=== PATIENT | female | born 1950 | race Caucasian/White ===

== ENCOUNTER → 2018-08-26 11:45 | Outpatient (CLI) | payer OTHER, SELFPAY ==
--- NOTE | 2018-08-26 | DI.RAD.S_ITS ---
PROCEDURE: XR CHEST 2V INDICATIONS: SWELLING TECHNIQUE: 2 views of the chest were acquired. COMPARISON: [facility], , CHEST 1 VIEW, 06/16/2014, 10:36. FINDINGS: Surgical changes and devices: None. Lungs and pleura: No pleural effusions or pneumothorax. There is a 9 mm nodular density in the right upper lobe, new since the last exam. Mediastinum: Mediastinal contours are normal. Heart size is normal. Bones and chest wall: No suspicious bony abnormalities. Soft tissues appear unremarkable. IMPRESSION: 1. No acute cardiopulmonary disease. 2. A 9 mm nodular density in the right upper lobe. Recommend chest CT for followup dilation. Dictated by: Elaine De Souza M.D. on 08/26/2018 at 16:33 Approved by: Elaine De Souza M.D. on 08/26/2018 at 16:34
--- NOTE | 2018-08-26 | DI.US.S_ITS ---
PROCEDURE: US EXTREMELY NONVASC UPPER RT INDICATIONS: SWELLING TECHNIQUE: Real-time scanning was performed of the right neck, with image documentation. COMPARISON: None. FINDINGS: Targeted sonographic imaging of the site of the patient's spine was performed within the right supraclavicular region at the base of the right neck. No soft tissue mass or loculated fluid collection is identified within this region. There are no enlarged lymph nodes. IMPRESSION: No sonographic abnormality is identified to correlate with the patient's swelling at the base of the right neck. Dictated by: Peter Streeter M.D. on 08/26/2018 at 13:42 Approved by: Peter Streeter M.D. on 08/26/2018 at 13:45
== END ==
PROVIDERS: PCP Physician Assistant; Visit Provider Physician Assistant
DX: R22.1 Localized swelling, mass and lump, neck (principal); R05 Cough; R91.1 Solitary pulmonary nodule
CPT/HCPCS: 71046; 76882

== ENCOUNTER → 2018-09-08 09:05 | Outpatient (CLI) | payer OTHER, SELFPAY ==
--- NOTE | 2018-09-08 | DI.CT.S_ITS ---
PROCEDURE: CT CHEST WO CON INDICATIONS: COUGH TECHNIQUE: Noncontrast 5 mm thick sections acquired from the pulmonary apices to the posterior costophrenic angles. 7 mm thick coronal and sagittal MIP reformats were then acquired. For radiation dose reduction, the following was used: automated exposure control, adjustment of mA and/or kV according to patient size. COMPARISON: [facility], CR, XR CHEST 2V, 08/26/2018, 11:48. FINDINGS: Image quality: Excellent. Lungs and pleura: Several pulmonary soft tissue nodules are seen. The largest is seen within the left lower lobe on series 2 image 40 measuring 7 mm. There is an additional right middle lobe pulmonary nodule on series 2 image 31 measuring 5-6 mm. There is no CT correlate seen for the apparent right upper lobe nodule, however. Poorly defined opacity can be seen involving the lateral right middle lobe. Differential diagnosis includes mild infiltrate and atelectasis. Likely atelectasis can be seen involving the inferomedial right lower lobe. No pneumothorax or pleural effusions are seen. The central airways are patent. Mediastinum: Heart size is normal. No pericardial effusion. No mediastinal adenopathy by size criteria. Thoracic aorta and central pulmonary arteries are normal in size. Esophagus is normal in caliber. No hiatal hernia. Bones and chest wall: No suspicious bony lesions. No vertebral body compression fractures. Age-appropriate bony degenerative changes are seen. No axillary or supraclavicular adenopathy by size criteria. Thyroid gland is small in size. Abdomen: Visualized upper abdominal solid organs and bowel loops appear normal in the absence of contrast. IMPRESSION: Soft tissue pulmonary nodules are seen, with the largest a 7 mm left lower lobe pulmonary nodule. A followup noncontrast chest CT is recommended in 3 months. Within the right middle lobe, there is mild infiltrate versus atelectasis seen laterally. No definite CT correlate is seen for the apparent right upper lung nodule. Dictated by: Ward Rashid M.D. on 09/08/2018 at 10:18 Approved by: Ward Rashid M.D. on 09/08/2018 at 10:23
== END ==
PROVIDERS: PCP Physician Assistant; Visit Provider Family Medicine
DX: R05 Cough (principal); R91.8 Other nonspecific abnormal finding of lung field
CPT/HCPCS: 71250

== ENCOUNTER 2018-10-07 10:14 | Day surgery (SDC) | payer OTHER, SELFPAY ==
[2018-10-07] VITALS (7 sets, daily range): BP systolic 124–179; BP diastolic 79–106; PULSE 65–77; RESP 10–17; TEMP 36–37; O2SAT 92–97; BMI 36.0
--- NOTE | 2018-10-07 | PATH_ITS ---
[facility] Accession Number: [id number] . 01 Material submitted: . PART A: GE JUNCTION BIOPSY PART B: ANTRUM BIOPSY PART C: DUODENUM BIOPSY . 02 Diagnosis: A. Gastroesophageal Junction, Biopsy: Squamocolumnar junctional mucosa with no diagnostic abnormality. Negative for specialized intestinal metaplasia, dysplasia or malignancy. . B. Designated Antrum, Biopsy: Gastric body mucosa with no diagnostic abnormality. No evidence of Helicobacter organisms on H/E stain. Negative for intestinal metaplasia, dysplasia or malignancy. . C. Duodenum, Biopsy: Duodenal mucosa with no diagnostic abnormality. Negative for active inflamation, features of sprue, dysplasia or malignancy. [facility]/10/11/2018 . 02 Electronically signed: . Delon Carbajal MD, PhD, Pathologist NPI- [id number] . 01 Gross description: . Part A: GE JUNCTION BIOPSY: Received in formalin is 1 fragment(s) of hennessy, soft tissue measuring 0.3 x 0.3 x 0.3 cm submitted entirely in 1 cassette(s) Part B: ANTRUM BIOPSY: Received in formalin is 1 fragment(s) of hennessy, soft tissue measuring 0.4 x 0.3 x 0.3 cm submitted entirely in 1 cassette(s) Part C: DUODENUM BIOPSY: Received in formalin is 1 fragment(s) of hennessy, soft tissue measuring 0.4 x 0.4 x 0.3 cm submitted entirely in 1 cassette(s) /CKI /CKI . 02 Pathologist provided ICD-10: K21.9, R10.13 . 02 CPT . 439128, 518174, [id number] Performed at: [address], [place], [place] [id number] MD Emiliano Velásquez MD Phone: [phone] Performed at: 02 [facility] [address] [place] [id number] MD Kendra Garcia MD Phone: [phone]
[2018-10-07] MEDS: SODIUM CHLORIDE 0.9% 1,000 ML 200 ML IV (11:01)
[2018-10-07] MEDS: TETRACAINE/BENZOCAINE/BUTAMBEN (CETACAINE) BOTTLE 1 SPRAY TOP (11:24)
[2018-10-07] MEDS: LIDOCAINE 4% SOLN 50 ML 20 ML TOP (11:24)
[2018-10-07] MEDS: MIDAZOLAM 5 MG/5 ML VIAL IV (11:47)
[2018-10-07] MEDS: fentaNYL 250 MCG/5 ML INJ IV (11:48)
--- NOTE | 2018-10-07 12:06 | PM.HP.1 ---
History of Present Illness Date Patient Seen: 10/07/18 Time Patient Seen: 12:06 Chief complaint: 03750 EGD Narrative: Pleasant 68-year-old lady who presents today for an esophagogastroduodenoscopy. She has a history of dysphagia and her symptoms have returned. She reports that in the past, she believes that she was treated with dilation for an esophageal stricture. She reports dysphagia with any liquids of any variety. Whether thin or thickened. She denies any unexplained weight loss. She is also due for a colonoscopy for a history of colon polyps and is actually overdue. She has declined that once again today and declined it at the time of scheduling. Patient History Family & Social History Family History: Reviewed 10/07/18 by Alina Montoya MD Social History: household members spouse Meds Home Medications Medication Instructions Recorded Confirmed Type aspirin 81 mg PO QDAY #0 08/14/16 History lisinopril 40 mg PO BID #0 08/14/16 History atorvastatin [Lipitor] 40 mg PO QDAY #0 07/20/17 History clonidine HCl 0.1 mg PO Q12H #0 07/20/17 History ondansetron [Zofran ODT] 4 mg SUBLINGUAL Q6HP PRN #20 odt 10/17/17 Rx hydrocodone-acetaminophen [[place]] 1 tab PO Q6HP PRN #10 tab 10/19/17 Rx duloxetine 20 mg PO DAILY 10/07/18 10/07/18 History gabapentin 800 mg PO BID 10/07/18 10/07/18 History hydrochlorothiazide 12.5 mg PO DAILY 10/07/18 10/07/18 History levothyroxine 50 mcg PO DAILY 10/07/18 10/07/18 History propranolol 40 mg PO BID 10/07/18 10/07/18 History ranitidine HCl 150 mg PO DAILY 10/07/18 10/07/18 History Allergies Allergy/AdvReac Type Severity Reaction Status Date / Time Iodine and Iodide Containing Allergy Severe pass out Verified 10/07/18 10:54 Produc [IODINE AND IODIDE CONTAINING PRODUC] codeine [CODEINE] Allergy Intermediate HIVES, Verified 10/07/18 10:54 NAUSEA nitrofurantoin Allergy Mild Rash Verified 10/07/18 10:54 [NITROFURANTOIN] Review of Systems Review of Systems All systems reviewed & are unremarkable except as noted in HPI and below Exam Vital Signs (past 8 hours): - 10/07/18 10:55 Temperature 97.1 F L Pulse Rate 71 Respiratory Rate 16 Blood Pressure 179/87 H Pulse Oximetry 97 Oxygen Delivery Method Room Air Narrative Exam Narrative: Grecia lady who appears a little older than her stated age HEENT: Normocephalic and atraumatic, pupils equal round reactive to light accommodation with anicteric sclera Lungs: Clear but very shallow in distant breath sounds. Heart: Regular rate and rhythm Abdomen: Soft, rotund, active bowel sounds Extremities: Trace edema bilaterally Assessment & Plan Plan: Assessment/Plan Narrative: Grecia lady with a history of esophageal stricture who is complaining of recurrent symptoms of dysphagia. We discussed the risks and benefits of soccer gastroduodenoscopy and the patient expressed a desire to complete the procedure today. She specifically concerned about waking up during the procedure she reports that happened when she had 1 in [place] and she has been very nervous about repeating it. I assured her that we will make her as comfortable as safely possible.
--- NOTE | 2018-10-07 12:09 | PM.OP.1 ---
Operative Date/Time/Diagnoses Date of procedure: 10/07/18 Time of procedure: 12:09 Pre-op diagnosis: Dysphagia Post-op diagnosis: same Procedure & Clinicians Procedure: Esophagogastroduodenoscopy with biopsies Same procedure as scheduled: Yes Indications: Dysphagia Surgeon: Alina Montoya Anesthesia Type: Sedation (Versed 4 mg; fentanyl 150 mcg) Operative Notes Findings: 1. Normal-appearing duodenum 2. Normal-appearing antrum 3. GE junction at 37-38 cm from the incisors. The mucosal junction is poorly defined. 4. Schatzki ring at 36-37 cm from the incisors. Wide open and without any evidence of stricture. 5. Normal esophageal mucosa 6. Normal posterior oropharynx 7. Impressive and alarming sleep apnea Closure Type: not applicable Procedure in detail: After obtaining informed consent, the patient was brought to the GI suite and placed in the left lateral decubitus position on the examination table. After placement of appropriate monitors, the patient was given incremental doses of Versed and Fentanyl until an appropriate level of sedation was achieved. A time out was held per SCOAP protocol. A bite block was gently placed between the patient's teeth. The endoscope was lubricated and then passed into the patient's posterior oropharynx. The esophagus was cannulated under direct vision and the scope was passed to the second portion of the duodenum without difficulty. At this point the patient was noted to desat significantly. A chin lift as well as an oral airway and a nasal trumpet were required to allow the patient to breathe without obstruction once these things were in place, she still had severe noisy breathing and required significant stimulation. The scope was then withdrawn with careful examination of all areas of the upper GI tract and mucosa. In the stomach, the instrument was retroflexed and the GE junction examined. The scope was straightened and the procedure continued with examination of the remainder of the upper GI tract. Findings are noted above. Air was aspirated from the stomach and the endoscope gently removed from the esophagus. The patient was allowed to awaken from sedation without difficulty and taken to the post-anesthesia care unit in good condition. Total sedation time was 14 min Complications: none Condition: stable Disposition: PACU Plan for aftercare: 1. Discharge to home 2. We will contact you with pathology results and other recommendations 3. Sleep study
[2018-10-07] MEDS: ALBUTEROL/IPRATROPIUM 3 ML AMPUL INH (12:40)
--- NOTE | 2018-10-07 12:43 | SUR.PHASEII ---
PT ARRIVED TO PHASE II VIA STRETCHER. PT SITTING UP AND OBSERVED TO HAVE NON PRODUCTIVE COUGH AND INSPIRATORY WHEEZE. MD NOTIFIED OF THIS. VERBAL RECEIVED FROM DR. RODRIGUEZ TO GIVE PT DUONEB. PT GIVEN PER ORDERS AND TOLERATED WELL.
[2018-10-07] MEDS: ONDANSETRON 4 MG/2 ML INJ IV (13:15)
--- NOTE | 2018-10-07 13:16 | SUR.PHASEII ---
PT C/O FEELING NAUSATED. MEDICATED IV ZOFRAN, PROVIDED PT WITH COOL CLOTH AND QUEASE EASE. PT AT BEDSIDE.
== END 2018-10-07 13:42 | disposition home or self-care (01) ==
PROVIDERS: PCP Physician Assistant; Visit Provider Surgery
PROC: 0DJ08ZZ Inspection of Upper Intestinal Tract, Via Natural or Artificial Opening Endoscopic (ICD-10-PCS; CPT 43239; principal; 2018-10-07 12:15)
DX: K21.9 Gastro-esophageal reflux disease without esophagitis (principal); K22.2 Esophageal obstruction; G47.33 Obstructive sleep apnea (adult) (pediatric)
CPT/HCPCS: 43239; 99152; J2250; J2405; J3010

== ENCOUNTER 2018-11-05 19:20 | Emergency (ER) | payer OTHER, SELFPAY ==
--- NOTE | 2018-11-05 19:25 | ED_ITS ---
HPI - Abdominal Pain <JACINTA Garcia - Last Filed: 11/05/18 22:03> General Chief Complaint: Abdominal Pain Stated Complaint: Abd pain Time Seen by Provider: 11/05/18 19:26 Source: patient Mode of arrival: ambulatory Limitations: no limitations History of Present Illness HPI narrative: 68-year-old female with history of hypertension and is a nonsmoker brought in by EMS due to abdominal pain and nausea vomiting that started earlier today. She reports decreased p.o. intake today due to the nausea vomiting and abdominal pain. Pain is to the lower aspect of her abdomen bilaterally. She states that her symptoms are similar to abdominal pain she has had the past she has had diverticulitis. She reports having chills. No known fever. She denies any urinary symptoms. No trauma to the abdomen. No stressors relievers of her discomfort. Last p.o. intake was this morning when she had a light snack. Last bowel movement was earlier today when she had some diarrhea. Related Data Home Medications Medication Instructions Recorded Confirmed aspirin 81 mg PO QDAY #0 08/14/16 11/05/18 lisinopril 40 mg PO DAILY #0 08/14/16 11/05/18 atorvastatin [Lipitor] 80 mg PO QDAY #0 07/20/17 11/05/18 clonidine HCl 0.1 mg PO Q12H #0 07/20/17 11/05/18 duloxetine 60 mg PO DAILY 10/07/18 11/05/18 gabapentin 800 mg PO TID 10/07/18 11/05/18 hydrochlorothiazide 25 mg PO DAILY 10/07/18 11/05/18 levothyroxine 50 mcg PO DAILY 10/07/18 11/05/18 propranolol 40 mg PO BID 10/07/18 11/05/18 ranitidine HCl 150 mg PO BID 10/07/18 11/05/18 metformin 500 mg PO BID 11/05/18 11/05/18 prochlorperazine maleate 1 tab PO TID PRN 11/05/18 11/05/18 Previous Rx's Medication Instructions Recorded ciprofloxacin HCl 500 mg PO BID #14 tab 11/05/18 hydrocodone-acetaminophen [[place]] 1 tab PO Q4-6H PRN #15 tab 11/05/18 metronidazole 500 mg PO TID #21 tab 01/18/19 ondansetron 4 mg PO BID-TID PRN #12 tab 11/05/18 Allergies Allergy/AdvReac Type Severity Reaction Status Date / Time Iodine and Iodide Containing Allergy Severe pass out Verified 11/05/18 19:33 Produc [IODINE AND IODIDE CONTAINING PRODUC] codeine [CODEINE] Allergy Intermediate HIVES, Verified 11/05/18 19:33 NAUSEA nitrofurantoin Allergy Mild Rash Verified 11/05/18 19:33 [NITROFURANTOIN] Review of Systems <JACINTA Garcia - Last Filed: 11/05/18 22:03> Constitutional Denies chills, Denies fever(s), Denies lethargy and Denies weakness Eyes Denies change in vision, Denies eye discharge, Denies irritation and Denies loss of vision ENT Ears, Nose, Mouth, and Throat: Denies change in voice, Denies neck pain and Denies sore throat Cardiovascular Denies chest pain, Denies irregular heart rhythm, Denies lightheadedness, Denies palpitations, Denies dyspnea, Denies dyspnea on exertion and Denies orthopnea Respiratory Denies cough, Denies dyspnea, Denies dyspnea on exertion and Denies wheezing Gastrointestinal Gastrointestinal: Reports abdominal pain, Reports diarrhea and Reports nausea Genitourinary Denies hematuria, Denies flank pain, Denies urinary incontinence and Denies urinary urgency Musculoskeletal Denies neck pain Integumentary/Breasts Denies pruritus, Denies erythema, Denies rash and Denies wounds Neurologic Denies confusion, Denies loss of vision and Denies weakness Psychiatric Denies anxiety, Denies confusion, Denies depression, Denies homicidal ideation and Denies suicidal ideation Endocrine Denies palpitations Hematologic/Lymphatic Denies easy bruising Allergic/Immunologic Denies wheezing Exam <JACINTA Garcia - Last Filed: 11/05/18 22:03> Initial Vital Signs Initial Vital Signs: Vital Signs Pulse Rate 103 H 11/05/18 19:33 Respiratory Rate 14 11/05/18 19:33 Blood Pressure 119/95 H 11/05/18 19:33 Pulse Oximetry 94 11/05/18 19:33 Const General: cooperative and well developed Nutritional Appearance: well nourished Orientation: alert, awake, oriented x3 and not confused HENNV Mouth: oral mucosae normal, oropharynx normal and moist mucous membranes Eyes Conjunctivae: conjunctivae normal Sclera: sclerae normal Pupils: PERRL EOM: EOM intact bilaterally Resp Effort & Inspection: normal respiratory effort, able to speak in complete sentences, no respiratory distress and no use of accessory muscles Auscultation: clear to auscultation bilaterally, no rales, no rhonchi and no wheezes Cardio Rate: regular rate Rhythm: regular rhythm Heart Sounds: no click, no gallops, no murmurs and no rubs Pulses: normal peripheral pulses GI Inspection: non-distended Palpation: soft, no hepatosplenomegaly, No guarding, No pulsatile mass and tender (Tender to bilateral lower abdomen) Auscultation: normal bowel sounds General: No CVA tenderness Skin General: no rashes or lesions noted, No jaundice and No petechiae Neuro General: alert, oriented x3, gait normal and no focal motor deficits Speech: speech normal <Chiara Ramirez DO - Last Filed: 11/06/18 04:49> Initial Vital Signs Initial Vital Signs: Vital Signs Pulse Rate 103 H 11/05/18 19:33 Respiratory Rate 14 11/05/18 19:33 Blood Pressure 119/95 H 11/05/18 19:33 Pulse Oximetry 94 11/05/18 19:33 Course <JACINTA Garcia - Last Filed: 11/05/18 22:03> Orders Ordered: ED Orders 11/05/18 23:02 Lactate (Lactic Acid) Stat Procalcitonin Stat 11/05/18 23:05 Blood Culture Stat Discontinued Medications Hydrocodone Bitart/Acetaminophen (Vicodin Prepack) 1 bottle MISC SEEINSTR ONE Stop: 11/05/18 22:01 Last Admin: 11/06/18 01:57 Dose: 1 bottle Diphenhydramine HCl (Benadryl) 25 mg IV NOW ONE Stop: 11/05/18 19:40 Last Admin: 11/05/18 19:53 Dose: 25 mg Hydromorphone HCl (Dilaudid) 0.5 mg IV NOW ONE Stop: 11/05/18 19:30 Last Admin: 11/05/18 19:52 Dose: 0.5 mg Sodium Chloride (Normal Saline 0.9%) 500 mls @ 1,000 mls/hr IV BOLUS ONE Stop: 11/05/18 19:58 Last Infusion: 11/05/18 20:06 Dose: 0 mls/hr Admin: 11/05/18 19:53 Dose: 1,000 mls/hr Sodium Chloride (Normal Saline 0.9%) 1,000 mls @ 1,000 mls/hr IV BOLUS ONE Stop: 11/05/18 23:39 Last Infusion: 11/06/18 00:47 Dose: 0 mls/hr Admin: 11/05/18 22:44 Dose: 1,000 mls/hr Levofloxacin (Levaquin) 750 mg PO NOW ONE Stop: 11/05/18 20:51 Last Admin: 11/05/18 21:08 Dose: 750 mg Methylprednisolone (Solu-Medrol 125 Mg Vial) 125 mg IV NOW ONE Stop: 11/05/18 19:40 Last Admin: 11/05/18 19:53 Dose: 125 mg Metronidazole (Metronidazole) 500 mg PO NOW ONE Stop: 11/05/18 20:51 Last Admin: 11/05/18 21:09 Dose: 500 mg Ondansetron HCl (Zofran) 4 mg IV NOW ONE Stop: 11/05/18 19:30 Last Admin: 11/05/18 19:52 Dose: 4 mg Ondansetron HCl (Zofran Odt Prepack) 1 bottle MISC SEEINSTR ONE Stop: 11/05/18 22:01 Last Admin: 11/06/18 01:57 Dose: 1 bottle Vital Signs - 8 hr 11/05/18 20:55 11/05/18 22:04 11/05/18 23:08 Temperature Pulse Rate 88 75 68 Respiratory Rate 15 20 18 Blood Pressure [Left Arm] 110/53 L 92/48 L 118/60 Pulse Oximetry 90 L 91 93 11/05/18 23:40 11/06/18 01:20 11/06/18 01:26 Temperature 98.3 F Pulse Rate 67 69 Respiratory Rate 18 Blood Pressure [Left Arm] 132/64 114/56 L Pulse Oximetry 92 94 11/06/18 01:53 Temperature 98.3 F Pulse Rate Respiratory Rate Blood Pressure [Left Arm] Pulse Oximetry <Chiara Ramirez DO - Last Filed: 11/06/18 04:49> Orders Ordered: ED Orders 11/05/18 23:02 Lactate (Lactic Acid) Stat Procalcitonin Stat 11/05/18 23:05 Blood Culture Stat Discontinued Medications Hydrocodone Bitart/Acetaminophen (Vicodin Prepack) 1 bottle MISC SEEINSTR ONE Stop: 11/05/18 22:01 Last Admin: 11/06/18 01:57 Dose: 1 bottle Diphenhydramine HCl (Benadryl) 25 mg IV NOW ONE Stop: 11/05/18 19:40 Last Admin: 11/05/18 19:53 Dose: 25 mg Hydromorphone HCl (Dilaudid) 0.5 mg IV NOW ONE Stop: 11/05/18 19:30 Last Admin: 11/05/18 19:52 Dose: 0.5 mg Sodium Chloride (Normal Saline 0.9%) 500 mls @ 1,000 mls/hr IV BOLUS ONE Stop: 11/05/18 19:58 Last Infusion: 11/05/18 20:06 Dose: 0 mls/hr Admin: 11/05/18 19:53 Dose: 1,000 mls/hr Sodium Chloride (Normal Saline 0.9%) 1,000 mls @ 1,000 mls/hr IV BOLUS ONE Stop: 11/05/18 23:39 Last Infusion: 11/06/18 00:47 Dose: 0 mls/hr Admin: 11/05/18 22:44 Dose: 1,000 mls/hr Levofloxacin (Levaquin) 750 mg PO NOW ONE Stop: 11/05/18 20:51 Last Admin: 11/05/18 21:08 Dose: 750 mg Methylprednisolone (Solu-Medrol 125 Mg Vial) 125 mg IV NOW ONE Stop: 11/05/18 19:40 Last Admin: 11/05/18 19:53 Dose: 125 mg Metronidazole (Metronidazole) 500 mg PO NOW ONE Stop: 11/05/18 20:51 Last Admin: 11/05/18 21:09 Dose: 500 mg Ondansetron HCl (Zofran) 4 mg IV NOW ONE Stop: 11/05/18 19:30 Last Admin: 11/05/18 19:52 Dose: 4 mg Ondansetron HCl (Zofran Odt Prepack) 1 bottle MISC SEEINSTR ONE Stop: 11/05/18 22:01 Last Admin: 11/06/18 01:57 Dose: 1 bottle Vital Signs - 8 hr 11/05/18 20:55 11/05/18 22:04 11/05/18 23:08 Temperature Pulse Rate 88 75 68 Respiratory Rate 15 20 18 Blood Pressure [Left Arm] 110/53 L 92/48 L 118/60 Pulse Oximetry 90 L 91 93 11/05/18 23:40 11/06/18 01:20 11/06/18 01:26 Temperature 98.3 F Pulse Rate 67 69 Respiratory Rate 18 Blood Pressure [Left Arm] 132/64 114/56 L Pulse Oximetry 92 94 11/06/18 01:53 Temperature 98.3 F Pulse Rate Respiratory Rate Blood Pressure [Left Arm] Pulse Oximetry MDM - Abdominal Pain <JACINTA Garcia - Last Filed: 11/05/18 22:03> Lab Data Result diagrams: 11/05/18 19:25 11/05/18 19:25 Lab Results 11/05/18 11/05/18 11/05/18 Range/Units 19:25 19:25 23:02 WBC 14.5 H (4.5-11.0) X10^3/uL RBC 4.41 (4.0-5.2) X10^6/uL Hgb 12.9 (12.0-16.0) g/dL Hct 39.0 (36-46) % MCV 88.6 (80-100) fL MCH 29.3 (26-34) PG MCHC 33.1 (30-36) % RDW 15.4 H (11.6-14.8) % Plt Count 351 (150-400) X10^3/uL Neut % (Auto) 93.8 H (50-75) % Lymph % (Auto) 2.0 L (25-40) % [place] % (Auto) 1.8 L (3-14) % Eos % (Auto) 2.1 (2-4) % Baso % (Auto) 0.3 (0-2) % Neut # (Auto) 19692 H (2442-9582) /uL Lymph # (Auto) 300 L (1495-5911) /uL [place] # (Auto) 300 (0-900) /uL Eos # (Auto) 300 (0-450) /uL Baso # (Auto) 0 (0-100) /uL Sodium 137 (137-145) mmol/L Potassium 4.0 (3.4-5.1) mmol/L Chloride 98 (98-107) mmol/L Carbon Dioxide 25 (22-32) mmol/L BUN 20 H (7-17) mg/dL Creatinine 1.70 H (0.52-1.04) mg/dL Estimated GFR 30.0 L (>60) mL/min BUN/Creatinine Ratio 11.8 (6-22) Glucose 153 H (80-110) mg/dL Lactate (0.7-2.1) mmol/L Calcium 9.2 (8.4-10.2) mg/dL Total Bilirubin 0.7 (0.2-1.3) mg/dL AST 36 (14-36) IU/L ALT 31 (9-52) IU/L Alkaline Phosphatase 208 H (38-126) U/L Total Protein 7.9 (6.3-8.2) g/dL Albumin 4.2 (3.5-5.0) g/dL Globulin 3.7 (1.7-4.1) g/dL Albumin/Globulin Ratio 1.1 (1.0-2.8) Lipase 51 (23-300) U/L Procalcitonin 20.93 H (<0.5) ng/mL 11/05/18 Range/Units 23:02 WBC (4.5-11.0) X10^3/uL RBC (4.0-5.2) X10^6/uL Hgb (12.0-16.0) g/dL Hct (36-46) % MCV (80-100) fL MCH (26-34) PG MCHC (30-36) % RDW (11.6-14.8) % Plt Count (150-400) X10^3/uL Neut % (Auto) (50-75) % Lymph % (Auto) (25-40) % [place] % (Auto) (3-14) % Eos % (Auto) (2-4) % Baso % (Auto) (0-2) % Neut # (Auto) (5820-6365) /uL Lymph # (Auto) (6558-1240) /uL [place] # (Auto) (0-900) /uL Eos # (Auto) (0-450) /uL Baso # (Auto) (0-100) /uL Sodium (137-145) mmol/L Potassium (3.4-5.1) mmol/L Chloride (98-107) mmol/L Carbon Dioxide (22-32) mmol/L BUN (7-17) mg/dL Creatinine (0.52-1.04) mg/dL Estimated GFR (>60) mL/min BUN/Creatinine Ratio (6-22) Glucose (80-110) mg/dL Lactate 2.5 H (0.7-2.1) mmol/L Calcium (8.4-10.2) mg/dL Total Bilirubin (0.2-1.3) mg/dL AST (14-36) IU/L ALT (9-52) IU/L Alkaline Phosphatase (38-126) U/L Total Protein (6.3-8.2) g/dL Albumin (3.5-5.0) g/dL Globulin (1.7-4.1) g/dL Albumin/Globulin Ratio (1.0-2.8) Lipase (23-300) U/L Procalcitonin (<0.5) ng/mL Imaging Data CT scan - abdomen: Radiologist's impression: [place] [address] CT Scan Report Signed Patient: Glenys Gottlieb LMR#: [id number] : 1950cct:[id number] Age/Sex: 68 / FDate of Service: 11/05/18 Loc: ED Accession Number: [id number] Procedure: CT abdomen pelvis w con Ordering Provider: Omar Brayd PROCEDURE: CT ABDOMEN PELVIS W CON INDICATIONS: Generalized abdominal pain history of diverticulitis TECHNIQUE: After the administration of intravenous contrast, 5 mm thick sections acquired from the diaphragm to the symphysis. 5 mm coronal and sagittal reformats were acquired. For radiation dose reduction, the following was used: automated exposure control, adjustment of mA and/or kV according to patient size. COMPARISON: None. FINDINGS: Image quality: Excellent. ABDOMEN: Lung bases: A calcified granuloma is present at the right lung base. Heart size is normal. Solid organs: Liver is normal in size and enhancement. Gallbladder is surgically absent. Biliary system is non dilated. Pancreas enhances normally. Spleen is normal in size and enhancement. No adrenal nodules. Kidneys demonstrate normal size and enhancement, without hydronephrosis. A low-density cyst is present within the lower pole of the right kidney. Peritoneum and bowel: The stomach is distended with food material. The small bowel demonstrates normal caliber and wall thickness. The appendix is not visualized; however there is no discrete right lower quadrant fluid or fat stranding to suggest acute appendicitis. The ascending colon demonstrates normal caliber and wall thickness. There is circumferential wall thickening of the transverse colon and the descending colon. Pericolonic fat stranding is present around the left hemicolon. Trace fluid is present within the pelvis. No pneumoperitoneum. Nodes and vessels: No retroperitoneal or mesenteric adenopathy by size criteria. Aorta and inferior vena cava are normal in size. There are scattered atheromatous calcifications throughout the aorta and iliac arteries bilaterally. Miscellaneous: No ventral hernias. PELVIS: Genitourinary: Bladder wall thickness is normal. Uterus and ovaries are nonvisualized and may be surgically absent. Miscellaneous: No inguinal hernias or adenopathy. Bones: No suspicious bony lesions. No vertebral body compression fractures. IMPRESSION: 1. Diffuse thickening of the transverse and descending colon with trace pericolonic fat stranding suspicious for acute colitis. No pneumoperitoneum. This finding was discussed with JACINTA Garcia at 8:30 PM on 11/05/18. 2. The appendix was not visualized; however there are no ancillary findings to suggest acute appendicitis. Dictated by: Jyoti Hopson M.D. on 11/05/2018 at 20:26 Approved by: Jyoti Hopson M.D. on 11/05/2018 at 20:31 MDM Narrative Medical decision making narrative: CBC was obtained shows elevated white count of 14.5. Neutrophils were elevated at 13.6 K. Chem panel shows decreased GFR of 30 and creatinine of 1.7. Looking at her previous labs she has had decreased his of her GFR and elevations of her creatinine in the past however this is slightly lower than where she has been in the past. Urinalysis was negative for urinary tract infection. CT of the abdomen shows findings consistent with colitis. Due to the amount of discomfort and presentation of the patient when she arrived will treat for bacterial colitis with ciprofloxacin and Flagyl. She is encouraged to follow up with her primary care provider in the next couple days for re-evaluation. She is prescribed Zofran for nausea vomiting. [id number] Tylenol as needed for any discomfort. [place] is prescribed for breakthrough pain. Return to the emergency room for any worsening symptoms. Slowly advance diet as tolerated. <Chiara Ramirez DO - Last Filed: 11/06/18 04:49> Lab Data Attestation: I reviewed the patient's lab results. Lab Results 11/05/18 11/05/18 11/05/18 Range/Units 19:25 19:25 23:02 WBC 14.5 H (4.5-11.0) X10^3/uL RBC 4.41 (4.0-5.2) X10^6/uL Hgb 12.9 (12.0-16.0) g/dL Hct 39.0 (36-46) % MCV 88.6 (80-100) fL MCH 29.3 (26-34) PG MCHC 33.1 (30-36) % RDW 15.4 H (11.6-14.8) % Plt Count 351 (150-400) X10^3/uL Neut % (Auto) 93.8 H (50-75) % Lymph % (Auto) 2.0 L (25-40) % [place] % (Auto) 1.8 L (3-14) % Eos % (Auto) 2.1 (2-4) % Baso % (Auto) 0.3 (0-2) % Neut # (Auto) 34430 H (1848-2822) /uL Lymph # (Auto) 300 L (6226-1519) /uL [place] # (Auto) 300 (0-900) /uL Eos # (Auto) 300 (0-450) /uL Baso # (Auto) 0 (0-100) /uL Sodium 137 (137-145) mmol/L Potassium 4.0 (3.4-5.1) mmol/L Chloride 98 (98-107) mmol/L Carbon Dioxide 25 (22-32) mmol/L BUN 20 H (7-17) mg/dL Creatinine 1.70 H (0.52-1.04) mg/dL Estimated GFR 30.0 L (>60) mL/min BUN/Creatinine Ratio 11.8 (6-22) Glucose 153 H (80-110) mg/dL Lactate (0.7-2.1) mmol/L Calcium 9.2 (8.4-10.2) mg/dL Total Bilirubin 0.7 (0.2-1.3) mg/dL AST 36 (14-36) IU/L ALT 31 (9-52) IU/L Alkaline Phosphatase 208 H (38-126) U/L Total Protein 7.9 (6.3-8.2) g/dL Albumin 4.2 (3.5-5.0) g/dL Globulin 3.7 (1.7-4.1) g/dL Albumin/Globulin Ratio 1.1 (1.0-2.8) Lipase 51 (23-300) U/L Procalcitonin 20.93 H (<0.5) ng/mL 11/05/18 Range/Units 23:02 WBC (4.5-11.0) X10^3/uL RBC (4.0-5.2) X10^6/uL Hgb (12.0-16.0) g/dL Hct (36-46) % MCV (80-100) fL MCH (26-34) PG MCHC (30-36) % RDW (11.6-14.8) % Plt Count (150-400) X10^3/uL Neut % (Auto) (50-75) % Lymph % (Auto) (25-40) % [place] % (Auto) (3-14) % Eos % (Auto) (2-4) % Baso % (Auto) (0-2) % Neut # (Auto) (3593-0936) /uL Lymph # (Auto) (7743-0085) /uL [place] # (Auto) (0-900) /uL Eos # (Auto) (0-450) /uL Baso # (Auto) (0-100) /uL Sodium (137-145) mmol/L Potassium (3.4-5.1) mmol/L Chloride (98-107) mmol/L Carbon Dioxide (22-32) mmol/L BUN (7-17) mg/dL Creatinine (0.52-1.04) mg/dL Estimated GFR (>60) mL/min BUN/Creatinine Ratio (6-22) Glucose (80-110) mg/dL Lactate 2.5 H (0.7-2.1) mmol/L Calcium (8.4-10.2) mg/dL Total Bilirubin (0.2-1.3) mg/dL AST (14-36) IU/L ALT (9-52) IU/L Alkaline Phosphatase (38-126) U/L Total Protein (6.3-8.2) g/dL Albumin (3.5-5.0) g/dL Globulin (1.7-4.1) g/dL Albumin/Globulin Ratio (1.0-2.8) Lipase (23-300) U/L Procalcitonin (<0.5) ng/mL MDM Narrative Medical decision making narrative: I seen evaluated patient. She is awake alert sitting in bed. Blood pressure was initially all low. Lactic acid and blood cultures ordered. Lactic acid mildly elevated is she is on her 2nd L of fluid she is tolerating oral fluids. She has had multiple episodes of vomiting and diarrhea. She is likely dehydrated. She still has not urinated. She is given 3 L of IV fluids. She did urinate some. She overall appears much better her blood pressure is much improved. She feels ready and able to go home . I discussed all findings with the patient and spouse, Education has been performed regarding treatment plan, diagnosis, warning signs and symptoms and all concerns have been addressed. Verbally agree with and understood all of the above. Discharge Plan Departure Patient Disposition: Home Clinical Impression: Colitis Discharge Date/Time: 11/06/18 02:11 Interventions: ED Discharge Assessment Last Done: 11/06/18 02:10 Instructions: DI for Abdominal Pain-Adult Activity Restrictions/Additional Instructions: Laboratory results show elevated white count and neutrophils indicating infection and inflammation. Laboratory results also show decreased kidney function this may be exacerbated due to decreased p.o. fluid today. However will have her follow up with primary care provider for further evaluation of decreased kidney function. CT of the abdomen shows findings suspicious for colitis urine treated with antibiotics called ciprofloxacin and metronidazole use as directed. Use [id number] Tylenol as needed for any discomfort. Zofran is prescribed to help with nausea use as directed. Small amount of [place] is prescribed for any breakthrough pain not covered by the Tylenol. For any worsening symptoms return to the emergency room. Prescriptions: New ciprofloxacin HCl 500 mg tablet 500 mg PO BID Qty: 14 RF: 0 metronidazole 500 mg tablet 500 mg PO TID Qty: 21 RF: 0 hydrocodone-acetaminophen [[place]] 5-325 mg tablet 1 tab PO Q4-6H PRN (Reason: pain) Qty: 15 RF: 0 ondansetron 4 mg tablet,disintegrating 4 mg PO BID-TID PRN (Reason: nausea and vomiting) Qty: 12 RF: 0 No Action aspirin 81 MG tablet,delayed release (DR/EC) 81 mg PO QDAY Qty: 0 RF: 0 lisinopril 20 MG tablet 40 mg PO DAILY Qty: 0 RF: 0 clonidine HCl 0.1 MG tablet extended release 12 hr 0.1 mg PO Q12H Qty: 0 RF: 0 atorvastatin [Lipitor] 80 MG tablet 80 mg PO QDAY Qty: 0 RF: 0 propranolol 40 mg Tablet 40 mg PO BID RF: 0 gabapentin 800 mg Tablet 800 mg PO TID RF: 0 ranitidine HCl 150 mg Tablet 150 mg PO BID RF: 0 levothyroxine 50 mcg Capsule 50 mcg PO DAILY RF: 0 hydrochlorothiazide 25 mg Tablet 25 mg PO DAILY RF: 0 duloxetine 20 mg Capsule,Delayed Release(Dr/Ec) 60 mg PO DAILY RF: 0 metformin 500 mg Tablet 500 mg PO BID RF: 0 prochlorperazine maleate 10 mg Tablet 1 tab PO TID PRN (Reason: Nausea) RF: 0 Referrals: Sheyla Velasquez PA-C [Primary Care Provider] -
--- NOTE | 2018-11-05 19:30 | DI.CT.S_ITS ---
PROCEDURE: CT ABDOMEN PELVIS W CON INDICATIONS: Generalized abdominal pain history of diverticulitis TECHNIQUE: After the administration of intravenous contrast, 5 mm thick sections acquired from the diaphragm to the symphysis. 5 mm coronal and sagittal reformats were acquired. For radiation dose reduction, the following was used: automated exposure control, adjustment of mA and/or kV according to patient size. COMPARISON: None. FINDINGS: Image quality: Excellent. ABDOMEN: Lung bases: A calcified granuloma is present at the right lung base. Heart size is normal. Solid organs: Liver is normal in size and enhancement. Gallbladder is surgically absent. Biliary system is non dilated. Pancreas enhances normally. Spleen is normal in size and enhancement. No adrenal nodules. Kidneys demonstrate normal size and enhancement, without hydronephrosis. A low-density cyst is present within the lower pole of the right kidney. Peritoneum and bowel: The stomach is distended with food material. The small bowel demonstrates normal caliber and wall thickness. The appendix is not visualized; however there is no discrete right lower quadrant fluid or fat stranding to suggest acute appendicitis. The ascending colon demonstrates normal caliber and wall thickness. There is circumferential wall thickening of the transverse colon and the descending colon. Pericolonic fat stranding is present around the left hemicolon. Trace fluid is present within the pelvis. No pneumoperitoneum. Nodes and vessels: No retroperitoneal or mesenteric adenopathy by size criteria. Aorta and inferior vena cava are normal in size. There are scattered atheromatous calcifications throughout the aorta and iliac arteries bilaterally. Miscellaneous: No ventral hernias. PELVIS: Genitourinary: Bladder wall thickness is normal. Uterus and ovaries are nonvisualized and may be surgically absent. Miscellaneous: No inguinal hernias or adenopathy. Bones: No suspicious bony lesions. No vertebral body compression fractures. IMPRESSION: 1. Diffuse thickening of the transverse and descending colon with trace pericolonic fat stranding suspicious for acute colitis. No pneumoperitoneum. This finding was discussed with JACINTA Garcia at 8:30 PM on 11/05/18. 2. The appendix was not visualized; however there are no ancillary findings to suggest acute appendicitis. Dictated by: Jyoti Hopson M.D. on 11/05/2018 at 20:26 Approved by: Jyoti Hopson M.D. on 11/05/2018 at 20:31
[2018-11-05 19:33] VITALS: BP 119/95; PULSE 103; RESP 14; O2SAT 94; BMI 36.0
[2018-11-05 19:38] VITALS: BP 119/95; PULSE 103; RESP 14; O2SAT 94; BMI 36.0
[2018-11-05 19:38] LABS: Add Manual Diff / Slide Review NO; Basophils Absolute Auto 0 /uL (0-100); Basophils Percent Auto 0.3 % (0-2); Eosinophils Absolute Auto 300 /uL (0-450); Eosinophils Percent Auto 2.1 % (2-4); Hemoglobin 12.9 g/dL (12.0-16.0); Lymphocytes Absolute Auto 300 /uL (1100-4500); Mean Corpuscular HGB Conc 33.1 % (30-36); Mean Corpuscular Hemoglobin 29.3 PG (26-34); Mean Corpuscular Volume 88.6 fL (80-100); Monocytes Absolute Auto 300 /uL (0-900); Monocytes Percent Auto 1.8 % (3-14); Neutrophils Absolute Auto 13600 /uL (1500-7000); Neutrophils Percent Auto 93.8 % (50-75); Platelet Count 351 X10^3/uL (150-400); Red Blood Cell Count 4.41 X10^6/uL (4.0-5.2); Red Cell Distribution Width 15.4 % (11.6-14.8); White Blood Cell Count 14.5 X10^3/uL (4.5-11.0)
[2018-11-05 19:47] LABS: Alanine Aminotransferase 31 IU/L (9-52); Albumin 4.2 g/dL (3.5-5.0); Albumin Globulin Ratio 1.1 (1.0-2.8); Alkaline Phosphatase 208 U/L (38-126); Aspartate Aminotransferase 36 IU/L (14-36); BUN Creatinine Ratio 11.8 (6-22); Bilirubin Total 0.7 mg/dL (0.2-1.3); Blood Urea Nitrogen 20 mg/dL (7-17); Calcium 9.2 mg/dL (8.4-10.2); Carbon Dioxide 25 mmol/L (22-32); Chloride 98 mmol/L (98-107); Globulin 3.7 g/dL (1.7-4.1); Glucose 153 mg/dL (80-110); HEMOLYSIS 38 (0-50); Lipase 51 U/L (23-300); Sodium 137 mmol/L (137-145); Total Protein 7.9 g/dL (6.3-8.2)
[2018-11-05] MEDS: ONDANSETRON 4 MG/2 ML INJ IV (19:52)
[2018-11-05] MEDS: HYDROMORPHONE 1 MG INJ 0.5 MG IV (19:52)
[2018-11-05] MEDS: diphenhydrAMINE 50 MG/ML VIAL 25 MG IV (19:53)
[2018-11-05] MEDS: methylPREDNISolone 125 MG/2 ML VIAL IV (19:53)
[2018-11-05] MEDS: SODIUM CHLORIDE 0.9% 500 ML 1000 ML IV (19:53)
[2018-11-05 20:55] VITALS: BP 110/53; PULSE 88; RESP 15; O2SAT 90
[2018-11-05] MEDS: levoFLOXacin 250 MG TABLET 750 MG PO (21:08)
[2018-11-05] MEDS: metroNIDAZOLE 250 MG TABLET 500 MG PO (21:09)
[2018-11-05 22:04] VITALS: BP 92/48; PULSE 75; RESP 20; O2SAT 91
--- NOTE | 2018-11-05 22:17 | PC.NURSE ---
Verified with Pelroy Pts BP, DC on hold until Pt gives urine sample. Pt up and attempting to void in bedside commode.
[2018-11-05] MEDS: SODIUM CHLORIDE 0.9% 1,000 ML 1000 ML IV (22:44)
[2018-11-05 23:08] VITALS: BP 118/60; PULSE 68; RESP 18; O2SAT 93
[2018-11-05 23:24] LABS: Lactate (Lactic Acid) 2.5 mmol/L (0.7-2.1)
[2018-11-05 23:40] VITALS: BP 132/64; PULSE 67; RESP 18; O2SAT 92
[2018-11-05 23:44] LABS: Procalcitonin 20.93 ng/mL (<0.5)
[2018-11-06 01:20] VITALS: BP 114/56; PULSE 69; O2SAT 94
[2018-11-06 01:26] VITALS: TEMP 36.8
[2018-11-06 01:53] VITALS: TEMP 36.8
[2018-11-06] MEDS: ONDANSETRON 4 MG ODT PREPACK 1 BOTTLE MISC (01:57)
[2018-11-06] MEDS: HYDROCODONE/ACET 5/325 PREPACK 1 BOTTLE MISC (01:57)
--- NOTE | 2018-11-06 01:58 | PC.NURSE ---
Pt had small incontinent episode after attempting to void. Notified Dr Ramirez.
[2018-11-06 03:09] LABS: Reflexed Lactate in 2 Hours Y
== END 2018-11-06 02:11 | disposition home or self-care (01) ==
PROVIDERS: Nurse Practitioner Family; Emergency Provider Emergency Medicine; PCP Physician Assistant
DX: K52.9 Noninfective gastroenteritis and colitis, unspecified (principal)
CPT/HCPCS: 36415; 74177; 80053; 83605; 83690; 84145; 85025; 87040; 96361; 96374; 96375; 99284; 99285; J1170; J1200; J2405; J2930; Q9967

== ENCOUNTER → 2018-11-12 10:31 | Outpatient (CLI) | payer OTHER, SELFPAY ==
--- NOTE | 2018-11-15 16:06 | PM.PFT.1 ---
Pulmonary Function Test Referral & Results Date Patient Seen: 11/12/18 Requesting provider: Naz Gonzalez Indication: Cough Results: The spirometry demonstrates an FVC of 2.51 L which is 87% of predicted. The FEV1 was measured at 2.07 L which is 95% of predicted. The FEV1/FVC ratio was 83 which is 107% of predicted. Following the administration of bronchodilator there was no appreciable change in above normal numbers. Lung volumes show an SVC of 2.0 L which is 73% of predicted. The diffusing capacity was measured at 15.98 which is 74% of predicted. No hemoglobin value was provided, so no correction for potential anemia could be made, if appropriate. The maximum voluntary ventilation was reduced Interpretation: This study demonstrates minimally reduced lung volumes suggesting some element of restrictive lung disease There is also minimal reduction of diffusing capacity suggesting some element of disease at the capillary alveolar level unless patient is anemic Clinical correlation suggested
== END ==
PROVIDERS: PCP Physician Assistant Medical; Visit Provider Physician Assistant Medical
DX: R05 Cough (principal)
CPT/HCPCS: 94060; 94726; 94729

== ENCOUNTER → 2019-01-21 10:05 | Outpatient (CLI) | payer OTHER, SELFPAY ==
--- NOTE | 2019-01-21 | DI.CT.S_ITS ---
PROCEDURE: CT CHEST WO CON INDICATIONS: PULMONARY NODULES TECHNIQUE: Noncontrast 2.0-2.5 mm thick sections acquired from the pulmonary apices to the posterior costophrenic angles. 7 mm thick coronal and sagittal MIP reformats were then acquired. A low radiation dose technique was utilized. COMPARISON: [facility], CT, CT CHEST WO CON, 09/08/2018, 9:04. FINDINGS: Image quality: Diagnostic, given the low radiation dose technique. Lungs and pleura: Previously described a 7 mm nodule involving the anterior medial aspect of left lower lobe is unchanged in size and appearance series 3 image 94. Mild adjacent atelectasis is seen. Previously described 5-6 mm nodule involving the anterior aspect of right middle lobe is also unchanged series 3 image 79. Calcified granuloma is again seen in posterior aspect of right lung base unchanged from previous study. Mild bibasilar scarring/atelectasis is seen. No new pulmonary nodule or mass is noted. No pleural effusion or pneumothorax. Central and peripheral airways patent. Mediastinum: Heart size is normal. No pericardial effusion. No mediastinal adenopathy by size criteria. Dense coronary artery calcification and calcification involving aortic root and aortic valve is seen. Mild atherosclerotic calcifications of thoracic aorta is also seen. Thoracic aorta and central pulmonary arteries are normal in size. Esophagus is normal in caliber. No hiatal hernia. Bones and chest wall: No suspicious bony lesions. No vertebral body compression fractures. No axillary or supraclavicular adenopathy by size criteria. Thyroid gland is within normal limits. Abdomen: Visualized upper abdomen solid organs and bowel loops appear normal in the absence of contrast. Gallbladder is surgically absent. IMPRESSION: 1. Stable subcentimeter nodular densities in bilateral lung proctor as described above, unchanged in size and appearance from prior study. Additional followup in 12 months is recommended. Fleischner Society criteria for SOLID lung nodule followup. Nodule size (mm)Low-risk patientHigh-risk patient<6 (single or multiple)No routine followup.Optional CT at 12 months. 6-8 (single or multiple)CT at 6-12 months, then optional CT at 18-24 mo.CT at 6-12 months, then CT at 18-24 months. >8 (single)CT at 3 months, PET-CT, or biopsy. Same as for low-risk pts. >8 (multiple)CT at 3-6 months, then optional CT at 18-24 mo.CT at 3-6 months, then CT at 18-24 months. Fleischner Society criteria for SUB-SOLID lung nodule followup. Solitary pure ground-glass nodules<6 mm (ground glass or part solid)No followup needed. 6 mm or larger (ground glass)CT at 6-12 months to confirm persistence, then CT every 2 years until 5 years.6 mm or larger (part solid)CT at 3-6 months to confirm persistence, then annual CT until 5 years if unchanged and solid component remains <6 mm. Multiple sub-solid nodules<6 mmCT at 3-6 months, then CT consider at 2 & 4 years for high risk patients. [address] at 3-6 months. Subsequent management based on most suspicious lesions. Recommendations do not apply to lung cancer screening, patients with immunosuppression, or patients with known primary cancer. Dictated by: Supa Villalpando M.D. on 01/21/2019 at 14:54 Approved by: Supa Villalpando M.D. on 01/21/2019 at 14:58
== END ==
PROVIDERS: Visit Provider Specialist
DX: R91.8 Other nonspecific abnormal finding of lung field (principal)
CPT/HCPCS: 71250

== ENCOUNTER → 2019-07-22 08:57 | Outpatient (CLI) | payer OTHER, SELFPAY ==
--- NOTE | 2019-07-22 | DI.NM.S_ITS ---
PROCEDURE: HI XIANG PERF SPECT REST & STR Rest and exercise myocardial perfusion SPECT with gated imaging and ejection fraction RADIOPHARMACEUTICAL: 14.1 mCi Tc-99m sestamibi IV at rest and 25.7 mCi Tc-99m sestamibi IV at peak exercise. A [id number] was performed. INDICATIONS: persistant A-fib TECHNIQUE: Radiopharmaceutical was injected at peak stress test, and also at rest. SPECT images were obtained. SPECT myocardial perfusion images were displayed in short axis, horizontal long axis, and vertical long axis views. Gated images were reviewed using [employer] software. COMPARISON: [place], [place], LEXISCAN MYOCARDIAL PERFUSION, 06/26/2014, 14:13. CARDIAC STRESS: A standard José treadmill exercise tolerance test was performed by the patient under the supervision of an attending staff. The patient exercised for 2 minutes and 49 seconds; functional aerobic impairment (SHERRY) is +35 %. Hemodynamic data: There is normal blood pressure and heart rate response to exercise stress. Patient achieved 103% of maximum predicted heart rate at peak exercise. Symptoms: Patient denied chest pain during exercise. EKmm ST depression horizontal and down sloping ST depression inferolaterally. No ectopy. FINDINGS: Raw data: There is good myocardial labeling by radiotracer. No significant motion artifacts. Etrn-bm-jmnmx ratio is 0.34 (normal is less than 0.38 for sestamibi tracer, and less than 0.50 for thallium tracer). Left ventricle function: Gated images demonstrate normal left ventricle wall thickening. No segmental wall motion abnormality. No transient ischemic dilation; TID is 1.05 (normal less than 1.3). The left ventricle resting end-diastolic volume is 74 mL. Left ventricle stress ejection fraction is 68% ; normal values are above 45%. Myocardial perfusion: There is a small perfusion defect over the apical septal and mid anteroseptal wall on supine stress and rest images which completely resolves on prone imaging, consistent with breast attenuation artifact; Otherwise normal distribution of activity in the left ventricular myocardium. No fixed or reversible perfusion defects. IMPRESSION: -Normal perfusion study without evidence of ischemia or scar. -Prior stress test was a vasodilator perfusion study which was also normal. -Poor exercise capacity. -False positive treadmill stress ECG Dictated by: Mikhail Wylie M.D. on 07/22/2019 at 17:05 Approved by: Mikhail Wylie M.D. on 07/22/2019 at 17:14
--- NOTE | 2019-07-22 15:05 | PM.TREADMILL ---
Cardiac Stress Test Report Referral & Results Date Patient Seen: 07/22/19 Requesting provider: Jay Yarbrough Indication: Atrial fibrillation Rest ECG: Atrial fibrillation with controlled ventricular response Procedure Note: Today following both written and verbal informed consent the patient was exercised according to a standard José protocol patient went for a total of 2 minutes 49 seconds achieving a maximum heart rate of 157 maximum systolic blood pressure of 160 . This is approximately 4.6 METS. Exercise was terminated at this point because of patient unable to continue. Patient was also given Cardiolite through a previously started Hep-Lock IV by the diagnostic imaging staff approximately 1 minute prior to the cessation of exercise. Patient quickly tachycardic No ST-T segment changes identified but there was T-wave inversion in lateral leads with exercise Blunted blood pressure response to exercise but somewhat tachycardic response as above Functional aerobic impairment rates 35% sedentary scale Impression: Nonspecific ECG changes with exercise not clearly ischemic Please see perfusion imaging report as well Poorly controlled atrial fibrillation Please note: Actual ECG tracings can be found in the PACS system.
== END ==
PROVIDERS: PCP Family Medicine; Visit Provider Internal Medicine Cardiovascular Disease
DX: I48.19 Other persistent atrial fibrillation (principal)
CPT/HCPCS: 78452; 93016; 93017; 93018; A9502

== ENCOUNTER 2019-08-01 17:56 | Emergency (ER) | payer OTHER, SELFPAY ==
[2019-08-01 18:15] VITALS: BP 152/104; PULSE 102; RESP 16; TEMP 37.3; O2SAT 99; BMI 29.9
[2019-08-01 18:45] LABS: Add Manual Diff / Slide Review NO; Basophils Absolute Auto 0 /uL (0-100); Basophils Percent Auto 0.5 % (0-2); Eosinophils Absolute Auto 100 /uL (0-450); Eosinophils Percent Auto 1.4 % (2-4); Hematocrit 34.9 % (36-46); Hemoglobin 11.6 g/dL (12.0-16.0); Lymphocytes Absolute Auto 1100 /uL (1100-4500); Lymphocytes Percent Auto 13.7 % (25-40); Mean Corpuscular HGB Conc 33.3 % (30-36); Mean Corpuscular Hemoglobin 30.2 PG (26-34); Mean Corpuscular Volume 90.5 fL (80-100); Monocytes Absolute Auto 500 /uL (0-900); Monocytes Percent Auto 6.4 % (3-14); Neutrophils Absolute Auto 6500 /uL (1500-7000); Platelet Count 320 X10^3/uL (150-400); Red Blood Cell Count 3.86 X10^6/uL (4.0-5.2); Red Cell Distribution Width 13.7 % (11.6-14.8); White Blood Cell Count 8.4 X10^3/uL (4.5-11.0)
[2019-08-01 18:56] LABS: INR 1.1 (0.9-1.3); Prothrombin Time 12.6 SECONDS (10.1-12.7)
[2019-08-01 18:59] LABS: PTT Partial Thromboplastin Tim 36 SECONDS (26.4-36.2)
[2019-08-01 19:00] VITALS: BP 167/97; PULSE 94; RESP 17; O2SAT 96
[2019-08-01 19:00] LABS: Alanine Aminotransferase 32 IU/L (9-52); Albumin 4.5 g/dL (3.5-5.0); Albumin Globulin Ratio 1.5 (1.0-2.8); Alkaline Phosphatase 79 U/L (38-126); Aspartate Aminotransferase 30 IU/L (14-36); BUN Creatinine Ratio 12.2 (6-22); Bilirubin Total 1.3 mg/dL (0.2-1.3); Blood Urea Nitrogen 11 mg/dL (7-17); Carbon Dioxide 21 mmol/L (22-32); Chloride 91 mmol/L (98-107); Estimated Glomerular Filt Rate > 60.0 mL/min (>60); Glucose 106 mg/dL (80-110); HEMOLYSIS < 15 (0-50); Lipase 20 U/L (23-300); Potassium 3.5 mmol/L (3.4-5.1); Sodium 127 mmol/L (137-145); Total Protein 7.5 g/dL (6.3-8.2)
[2019-08-01 19:09] LABS: Amylase 31 U/L (30-110)
[2019-08-01] MEDS: ONDANSETRON 4 MG/2 ML INJ IV (19:32)
[2019-08-01] MEDS: SODIUM CHLORIDE 0.9% 1,000 ML 1000 ML IV (19:32)
--- NOTE | 2019-08-01 20:25 | PC.NURSE ---
Tolerating ice chips so far.
[2019-08-01 20:35] VITALS: BP 130/119; PULSE 88; RESP 14; O2SAT 99
[2019-08-01 20:44] VITALS: BP 174/78; PULSE 88
[2019-08-01 20:45] VITALS: BP 146/90; PULSE 86
--- NOTE | 2019-08-01 20:50 | ED_ITS ---
HPI - Nausea/Vomiting/Diarrhea <ESTEVAN LeyvaP-BC - Last Filed: 08/01/19 21:00> General Chief complaint: Nausea/Vomiting/Diarrhea Stated complaint: NVD for 2 days, upper abd pain Time Seen by Provider: 08/01/19 18:38 Source: patient and family Mode of arrival: Wheelchair Limitations: no limitations History of Present Illness HPI Narrative: The patient is a 68-year-old female nonsmoker with history of UTI and hypertension who presents with a chief complaint of vomiting and diarrhea. She states that she has had 5 episodes of diarrhea today. Denies any blood in it. She states she took 3 Imodium. She states that she has vomited multiple times today. She denies any chest pain shortness of breath or fever. She denies any dysuria urgency or frequency. She denies any sick contacts. She denies any blood in her stool or vomit. She states that she has had her appendix and gallbladder removed. She states her stomach is cramping all over with her vomiting. The patient is wearing a Holter monitor. Related Data Home Medications Medication Instructions Recorded Confirmed aspirin 81 mg PO QDAY #0 08/14/16 11/05/18 lisinopril 40 mg PO DAILY #0 08/14/16 11/05/18 atorvastatin [Lipitor] 80 mg PO QDAY #0 07/20/17 11/05/18 clonidine HCl 0.1 mg PO Q12H #0 07/20/17 11/05/18 duloxetine 60 mg PO DAILY 10/07/18 11/05/18 gabapentin 800 mg PO TID 10/07/18 11/05/18 hydrochlorothiazide 25 mg PO DAILY 10/07/18 11/05/18 levothyroxine 50 mcg PO DAILY 10/07/18 11/05/18 propranolol 40 mg PO BID 10/07/18 11/05/18 ranitidine HCl 150 mg PO BID 10/07/18 11/05/18 metformin 500 mg PO BID 11/05/18 11/05/18 prochlorperazine maleate 1 tab PO TID PRN 11/05/18 11/05/18 Previous Rx's Medication Instructions Recorded ciprofloxacin HCl 500 mg PO BID #14 tab 11/05/18 hydrocodone-acetaminophen [Hornick] 1 tab PO Q4-6H PRN #15 tab 11/05/18 metronidazole 500 mg PO TID #21 tab 11/05/18 ondansetron 4 mg PO BID-TID PRN #12 tab 11/05/18 ondansetron 4 mg PO Q6H PRN #20 tab 08/01/19 Allergies Allergy/AdvReac Type Severity Reaction Status Date / Time Iodine and Iodide Containing Allergy Severe pass out Verified 08/01/19 18:15 Produc [IODINE AND IODIDE CONTAINING PRODUC] codeine [CODEINE] Allergy Intermediate HIVES, Verified 08/01/19 18:15 NAUSEA nitrofurantoin Allergy Mild Rash Verified 08/01/19 18:15 [NITROFURANTOIN] Review of Systems <JIAN Leyva - Last Filed: 08/01/19 21:00> Review of Systems Narrative: GENERAL: Denies chills, fatigue, malaise, fever, sweats. HEENT: Denies sinus pain, ear pain, sore throat, difficulty swallowing, dizziness. RESPIRATORY: Denies dyspnea, cough, wheezing, hemoptysis, sputum. CARDIOVASCULAR: Denies chest pain, palpitations, orthopnea, edema, GASTROINTESTINAL: See HPI : Denies dysuria, frequency, incontinence, hematuria, urinary retention. MUSCULOSKELETAL: denies weakness, joint pain, or bony pain SKIN: Denies rash, skin lesions, or other NEUROLOGIC: Denies weakness, headache, numbness, change in speech, confusion, seizures, incoordination. PSYCHIATRIC: No concerning psychosocial issues. 12 point review of systems is negative except for those stated above Patient History <JIAN Leyva - Last Filed: 08/01/19 21:00> Social History Social History household members: spouse Smoking Status: Never smoker Substance Use Type: does not use Exam <JIAN Leyva - Last Filed: 08/01/19 21:00> Narrative Exam Narrative: GENERAL: This is a well-nourished, well-developed patient, appears uncomfortable HEAD: Atraumatic. Normocephalic. No temporal or scalp tenderness. EYES: Pupils equal round and reactive. Extraocular motions intact. No scleral icterus. No injection or drainage. ENT: Nose without bleeding, purulent drainage or septal hematoma. Throat without erythema, tonsillar hypertrophy or exudate. Uvula midline. Airway patent. NECK: Trachea midline. No JVD or lymphadenopathy. Supple, nontender, no meningeal signs. CARDIOVASCULAR: Regular rate and irregular rhythm RESPIRATORY: Clear to auscultation. Breath sounds equal bilaterally. No wheezes, rales, or rhonchi. No cough. No increased respiratory effort. No accessory muscle use. GASTROINTESTINAL: Abdomen soft, diffusely tender to palpation, nondistended. No hepato-splenomegaly, or palpable masses. No guarding. Active bowel sounds all 4 quadrants. EXTREMITIES: No clubbing, cyanosis, or edema. No joint tenderness, effusion, or edema noted. BACK: Nontender without deformity or crepitance. No flank tenderness. NEURO: AOx3. SKIN: No rash or erythema. Initial Vital Signs Initial Vital Signs: Vital Signs Temperature 99.1 F 08/01/19 18:15 Pulse Rate 102 H 08/01/19 18:15 Respiratory Rate 16 08/01/19 18:15 Blood Pressure 152/104 H 08/01/19 18:15 Pulse Oximetry 99 08/01/19 18:15 <Chiara Ramirez DO - Last Filed: 08/02/19 01:47> Initial Vital Signs Initial Vital Signs: Vital Signs Temperature 99.1 F 08/01/19 18:15 Pulse Rate 102 H 08/01/19 18:15 Respiratory Rate 16 08/01/19 18:15 Blood Pressure 152/104 H 08/01/19 18:15 Pulse Oximetry 99 08/01/19 18:15 Course <MAGGY Leyva-BC - Last Filed: 08/01/19 21:00> Orders Ordered: ED Orders 08/01/19 18:37 Amylase Stat Complete Blood Count AUTO DIFF Stat Comprehensive Metabolic Panel Stat Lipase Stat Partial Thromboplastin Time Stat Prothrombin Time INR Stat Discontinued Medications Sodium Chloride (Normal Saline 0.9%) 1,000 mls @ 1,000 mls/hr IV BOLUS ONE Stop: 08/01/19 19:46 Last Infusion: 08/01/19 20:55 Dose: 999 mls/hr Documented by: Admin: 08/01/19 19:32 Dose: 1,000 mls/hr Documented by: KAYLIN Ondansetron HCl (Zofran) 4 mg IV NOW ONE Stop: 08/01/19 18:48 Last Admin: 08/01/19 19:32 Dose: 4 mg Documented by: KAYLIN Ondansetron HCl (Zofran Odt Prepack) 1 bottle MISC SEEINSTR ONE Stop: 08/01/19 20:50 Last Admin: 08/01/19 20:55 Dose: 1 bottle Documented by: KAYLIN Vital Signs Vital signs: Vital Signs - 8 hr 08/01/19 18:15 08/01/19 19:00 08/01/19 20:35 Temperature 99.1 F Pulse Rate 102 H 94 H 88 Pulse Rate [Orthostatic Sitting] Pulse Rate [Orthostatic Standing] Respiratory Rate 16 17 14 Blood Pressure 152/104 H Blood Pressure [Left Arm] 167/97 H 130/119 H Blood Pressure [Orthostatic Sitting] Blood Pressure [Orthostatic Standing] Pulse Oximetry 99 96 99 08/01/19 20:44 08/01/19 20:45 08/01/19 21:13 Temperature Pulse Rate 84 Pulse Rate [Orthostatic Sitting] 88 Pulse Rate [Orthostatic Standing] 86 Respiratory Rate 16 Blood Pressure 146/90 H Blood Pressure [Left Arm] Blood Pressure [Orthostatic Sitting] 174/78 H Blood Pressure [Orthostatic Standing] 146/90 H Pulse Oximetry 95 <Chiara Ramirez, DO - Last Filed: 08/02/19 01:47> Orders Ordered: ED Orders 08/01/19 18:37 Amylase Stat Complete Blood Count AUTO DIFF Stat Comprehensive Metabolic Panel Stat Lipase Stat Partial Thromboplastin Time Stat Prothrombin Time INR Stat Discontinued Medications Sodium Chloride (Normal Saline 0.9%) 1,000 mls @ 1,000 mls/hr IV BOLUS ONE Stop: 08/01/19 19:46 Last Infusion: 08/01/19 20:55 Dose: 999 mls/hr Documented by: Admin: 08/01/19 19:32 Dose: 1,000 mls/hr Documented by: KAYLIN Ondansetron HCl (Zofran) 4 mg IV NOW ONE Stop: 08/01/19 18:48 Last Admin: 08/01/19 19:32 Dose: 4 mg Documented by: KAYLIN Ondansetron HCl (Zofran Odt Prepack) 1 bottle MISC SEEINSTR ONE Stop: 08/01/19 20:50 Last Admin: 08/01/19 20:55 Dose: 1 bottle Documented by: CPRUITT Vital Signs Vital signs: Vital Signs - 8 hr 08/01/19 18:15 08/01/19 19:00 08/01/19 20:35 Temperature 99.1 F Pulse Rate 102 H 94 H 88 Pulse Rate [Orthostatic Sitting] Pulse Rate [Orthostatic Standing] Respiratory Rate 16 17 14 Blood Pressure 152/104 H Blood Pressure [Left Arm] 167/97 H 130/119 H Blood Pressure [Orthostatic Sitting] Blood Pressure [Orthostatic Standing] Pulse Oximetry 99 96 99 08/01/19 20:44 08/01/19 20:45 08/01/19 21:13 Temperature Pulse Rate 84 Pulse Rate [Orthostatic Sitting] 88 Pulse Rate [Orthostatic Standing] 86 Respiratory Rate 16 Blood Pressure 146/90 H Blood Pressure [Left Arm] Blood Pressure [Orthostatic Sitting] 174/78 H Blood Pressure [Orthostatic Standing] 146/90 H Pulse Oximetry 95 MDM - Nausea/Vomiting/Diarrhea <MAGGY Leyva- - Last Filed: 08/01/19 21:00> Differential Diagnosis Differential diagnosis: Likely traveler's diarrhea, food poisoning, gastroenteritis and drug-induced nausea and vomiting Lab Data Result diagrams: 08/01/19 18:37 08/01/19 18:37 Labs: Lab Results 08/01/19 08/01/19 08/01/19 Range/Units 18:37 18:37 18:37 WBC 8.4 (4.5-11.0) X10^3/uL RBC 3.86 L (4.0-5.2) X10^6/uL Hgb 11.6 L (12.0-16.0) g/dL Hct 34.9 L (36-46) % MCV 90.5 (80-100) fL MCH 30.2 (26-34) PG MCHC 33.3 (30-36) % RDW 13.7 (11.6-14.8) % Plt Count 320 (150-400) X10^3/uL Neut % (Auto) 78.0 H (50-75) % Lymph % (Auto) 13.7 L (25-40) % [place] % (Auto) 6.4 (3-14) % Eos % (Auto) 1.4 L (2-4) % Baso % (Auto) 0.5 (0-2) % Neut # (Auto) 6500 (5956-0348) /uL Lymph # (Auto) 1100 (9394-2583) /uL [place] # (Auto) 500 (0-900) /uL Eos # (Auto) 100 (0-450) /uL Baso # (Auto) 0 (0-100) /uL PT 12.6 (10.1-12.7) SECONDS INR 1.1 (0.9-1.3) APTT 36 (26.4-36.2) SECONDS Sodium 127 L (137-145) mmol/L Potassium 3.5 (3.4-5.1) mmol/L Chloride 91 L (98-107) mmol/L Carbon Dioxide 21 L (22-32) mmol/L BUN 11 (7-17) mg/dL Creatinine 0.90 (0.52-1.04) mg/dL Estimated GFR > 60.0 (>60) mL/min BUN/Creatinine Ratio 12.2 (6-22) Glucose 106 (80-110) mg/dL Calcium 9.0 (8.4-10.2) mg/dL Total Bilirubin 1.3 (0.2-1.3) mg/dL AST 30 (14-36) IU/L ALT 32 (9-52) IU/L Alkaline Phosphatase 79 (38-126) U/L Total Protein 7.5 (6.3-8.2) g/dL Albumin 4.5 (3.5-5.0) g/dL Globulin 3.0 (1.7-4.1) g/dL Albumin/Globulin Ratio 1.5 (1.0-2.8) Amylase (30-110) U/L Lipase 20 L (23-300) U/L 08/01/ Range/Units 18:37 WBC (4.5-11.0) X10^3/uL RBC (4.0-5.2) X10^6/uL Hgb (12.0-16.0) g/dL Hct (36-46) % MCV (80-100) fL MCH (26-34) PG MCHC (30-36) % RDW (11.6-14.8) % Plt Count (150-400) X10^3/uL Neut % (Auto) (50-75) % Lymph % (Auto) (25-40) % [place] % (Auto) (3-14) % Eos % (Auto) (2-4) % Baso % (Auto) (0-2) % Neut # (Auto) (0220-6995) /uL Lymph # (Auto) (9166-2730) /uL [place] # (Auto) (0-900) /uL Eos # (Auto) (0-450) /uL Baso # (Auto) (0-100) /uL PT (10.1-12.7) SECONDS INR (0.9-1.3) APTT (26.4-36.2) SECONDS Sodium (137-145) mmol/L Potassium (3.4-5.1) mmol/L Chloride (98-107) mmol/L Carbon Dioxide (22-32) mmol/L BUN (7-17) mg/dL Creatinine (0.52-1.04) mg/dL Estimated GFR (>60) mL/min BUN/Creatinine Ratio (6-22) Glucose (80-110) mg/dL Calcium (8.4-10.2) mg/dL Total Bilirubin (0.2-1.3) mg/dL AST (14-36) IU/L ALT (9-52) IU/L Alkaline Phosphatase (38-126) U/L Total Protein (6.3-8.2) g/dL Albumin (3.5-5.0) g/dL Globulin (1.7-4.1) g/dL Albumin/Globulin Ratio (1.0-2.8) Amylase 31 (30-110) U/L Lipase (23-300) U/L Urine Dip Bedside Urine Glucose Negative Bedside Urine Bilirubin - Negative Bedside Urine Ketone + 15 Urine Specific [employer] Mdl 1.015 Bedside Urine Occult Blood - Negative Bedside Urine pH 6.0 Bedside Urine Protein +/- 15 Bedside Urine Urobilinogen - Negative Bedside Urine Nitrite - Negative Bedside Urine Leukocytes - Negative Esterase MDM Narrative Medical decision making narrative: The patient is a 68-year-old female who presents with chief complaint of vomiting and diarrhea. She did not vomit during her stay in the emergency department and had no episodes of diarrhea. She was given IV fluid, basic lab work was obtained. It is reassuring that she does not have any leukocytosis. She has a nonacute abdomen on exam. The patient felt much improved after single dose of Zofran and was able to keep down fluids and ice chips and requesting to leave. The patient has been hemodyn amically stable throughout her stay in the emergency department as well as afebrile. I discussed the possibility of imaging, but the patient declined I am okay with this given her exam, labs and vital signs. I discussed the possibility of doing Hemoccult, but the patient declined. She states she would rather follow up with primary care provider in the next few days. I discussed at length return precautions to the emergency department gluten concern of heart attack or stroke, inability keep down fluids, abdominal pain with fever etc. Patient has been have no questions or concerns upon discharge is state understanding of return precautions as well as follow-up care. <Chiara Ramirez, DO - Last Filed: 08/02/19 01:47> Lab Data Labs: Lab Results 08/01/19 08/01/19 08/01/19 Range/Units 18:37 18:37 18:37 WBC 8.4 (4.5-11.0) X10^3/uL RBC 3.86 L (4.0-5.2) X10^6/uL Hgb 11.6 L (12.0-16.0) g/dL Hct 34.9 L (36-46) % MCV 90.5 (80-100) fL MCH 30.2 (26-34) PG MCHC 33.3 (30-36) % RDW 13.7 (11.6-14.8) % Plt Count 320 (150-400) X10^3/uL Neut % (Auto) 78.0 H (50-75) % Lymph % (Auto) 13.7 L (25-40) % [place] % (Auto) 6.4 (3-14) % Eos % (Auto) 1.4 L (2-4) % Baso % (Auto) 0.5 (0-2) % Neut # (Auto) 6500 (9177-9290) /uL Lymph # (Auto) 1100 (9914-1994) /uL [place] # (Auto) 500 (0-900) /uL Eos # (Auto) 100 (0-450) /uL Baso # (Auto) 0 (0-100) /uL PT 12.6 (10.1-12.7) SECONDS INR 1.1 (0.9-1.3) APTT 36 (26.4-36.2) SECONDS Sodium 127 L (137-145) mmol/L Potassium 3.5 (3.4-5.1) mmol/L Chloride 91 L (98-107) mmol/L Carbon Dioxide 21 L (22-32) mmol/L BUN 11 (7-17) mg/dL Creatinine 0.90 (0.52-1.04) mg/dL Estimated GFR > 60.0 (>60) mL/min BUN/Creatinine Ratio 12.2 (6-22) Glucose 106 (80-110) mg/dL Calcium 9.0 (8.4-10.2) mg/dL Total Bilirubin 1.3 (0.2-1.3) mg/dL AST 30 (14-36) IU/L ALT 32 (9-52) IU/L Alkaline Phosphatase 79 (38-126) U/L Total Protein 7.5 (6.3-8.2) g/dL Albumin 4.5 (3.5-5.0) g/dL Globulin 3.0 (1.7-4.1) g/dL Albumin/Globulin Ratio 1.5 (1.0-2.8) Amylase (30-110) U/L Lipase 20 L (23-300) U/L 08/01/ Range/Units 18:37 WBC (4.5-11.0) X10^3/uL RBC (4.0-5.2) X10^6/uL Hgb (12.0-16.0) g/dL Hct (36-46) % MCV (80-100) fL MCH (26-34) PG MCHC (30-36) % RDW (11.6-14.8) % Plt Count (150-400) X10^3/uL Neut % (Auto) (50-75) % Lymph % (Auto) (25-40) % [place] % (Auto) (3-14) % Eos % (Auto) (2-4) % Baso % (Auto) (0-2) % Neut # (Auto) (7416-0663) /uL Lymph # (Auto) (4657-4344) /uL [place] # (Auto) (0-900) /uL Eos # (Auto) (0-450) /uL Baso # (Auto) (0-100) /uL PT (10.1-12.7) SECONDS INR (0.9-1.3) APTT (26.4-36.2) SECONDS Sodium (137-145) mmol/L Potassium (3.4-5.1) mmol/L Chloride (98-107) mmol/L Carbon Dioxide (22-32) mmol/L BUN (7-17) mg/dL Creatinine (0.52-1.04) mg/dL Estimated GFR (>60) mL/min BUN/Creatinine Ratio (6-22) Glucose (80-110) mg/dL Calcium (8.4-10.2) mg/dL Total Bilirubin (0.2-1.3) mg/dL AST (14-36) IU/L ALT (9-52) IU/L Alkaline Phosphatase (38-126) U/L Total Protein (6.3-8.2) g/dL Albumin (3.5-5.0) g/dL Globulin (1.7-4.1) g/dL Albumin/Globulin Ratio (1.0-2.8) Amylase 31 (30-110) U/L Lipase (23-300) U/L Urine Dip Bedside Urine Glucose Negative Bedside Urine Bilirubin - Negative Bedside Urine Ketone + 15 Urine Specific [employer] Mdl 1.015 Bedside Urine Occult Blood - Negative Bedside Urine pH 6.0 Bedside Urine Protein +/- 15 Bedside Urine Urobilinogen - Negative Bedside Urine Nitrite - Negative Bedside Urine Leukocytes - Negative Esterase Discharge Plan Departure Patient Disposition: Home Clinical Impression: Nausea vomiting and diarrhea Discharge Date/Time: 08/01/19 21:15 Instructions: DI for Dehydration -- Adult, DI for Diarrhea and Traveler's Diarrhea -- Adult, DI for Nausea -- Adult, DI for Vomiting -- Adult Activity Restrictions/Additional Instructions: Thank you for trusting us with your care today. Please follow up with primary care provider. I have given her prescription of nausea medication. Please come back to emergency department for any acute concerns such as inability keep down fluids, concern of heart attack or stroke etc Prescriptions: New ondansetron 4 mg tablet,disintegrating 4 mg PO Q6H PRN (Reason: nausea and vomiting) Qty: 20 RF: 0 No Action aspirin 81 MG tablet,delayed release (DR/EC) 81 mg PO QDAY Qty: 0 RF: 0 lisinopril 20 MG tablet 40 mg PO DAILY Qty: 0 RF: 0 clonidine HCl 0.1 MG tablet extended release 12 hr 0.1 mg PO Q12H Qty: 0 RF: 0 atorvastatin [Lipitor] 80 MG tablet 80 mg PO QDAY Qty: 0 RF: 0 propranolol 40 mg Tablet 40 mg PO BID RF: 0 gabapentin 800 mg Tablet 800 mg PO TID RF: 0 ranitidine HCl 150 mg Tablet 150 mg PO BID RF: 0 levothyroxine 50 mcg Capsule 50 mcg PO DAILY RF: 0 hydrochlorothiazide 25 mg Tablet 25 mg PO DAILY RF: 0 duloxetine 20 mg Capsule,Delayed Release(Dr/Ec) 60 mg PO DAILY RF: 0 metformin 500 mg Tablet 500 mg PO BID RF: 0 prochlorperazine maleate 10 mg Tablet 1 tab PO TID PRN (Reason: Nausea) RF: 0 ciprofloxacin HCl 500 mg tablet 500 mg PO BID Qty: 14 RF: 0 metronidazole 500 mg tablet 500 mg PO TID Qty: 21 RF: 0 hydrocodone-acetaminophen [Hornick] 5-325 mg tablet 1 tab PO Q4-6H PRN (Reason: pain) Qty: 15 RF: 0 ondansetron 4 mg tablet,disintegrating 4 mg PO BID-TID PRN (Reason: nausea and vomiting) Qty: 12 RF: 0 Referrals: Khoi Dyer DO [Primary Care Provider] -
[2019-08-01] MEDS: ONDANSETRON 4 MG ODT PREPACK 1 BOTTLE MISC (20:55)
[2019-08-01 21:13] VITALS: BP 146/90; PULSE 84; RESP 16; O2SAT 95
== END 2019-08-01 21:15 | disposition home or self-care (01) ==
PROVIDERS: Emergency Medicine; Emergency Provider Nurse Practitioner Family; PCP Family Medicine
DX: R11.2 Nausea with vomiting, unspecified (principal); R19.7 Diarrhea, unspecified
CPT/HCPCS: 36415; 80053; 81003; 82150; 83690; 85025; 85610; 85730; 96361; 96374; 99283; 99284; J2405

== ENCOUNTER 2019-09-24 17:59 | Observation (INO) | payer OTHER, SELFPAY ==
[2019-09-24] VITALS (14 sets, daily range): BP systolic 153–195; BP diastolic 77–138; PULSE 85–148; RESP 12–23; TEMP 36.4; O2SAT 94–100
--- NOTE | 2019-09-24 18:03 | ED_ITS ---
HPI - Chest Pain General Chief Complaint: Chest Pain Stated Complaint: chest pains/ trouble breathing Time Seen by Provider: 09/24/19 18:03 Source: patient, family and old records reviewed Mode of arrival: Family Vehicle Limitations: no limitations History of Present Illness HPI narrative: This is a 68-year-old female comes in with complaint of chest pain and shortness of breath patient states shortness of breath started earlier this morning, she states she started developed chest pain about an hour prior to arrival. She states the chest pain is sort of sharp, intermittent. She states that she was diagnosed with AFib in the last several months. She is on Xarelto, she does take medications for hypertension, diabetes dyslipidemia, thyroid as well as restless leg an asthma. Patient states she is scheduled to see Cardiology regarding a pacemaker for October 27. Patient states that she is taking Xarelto. She states that she was asymptomatic before today. She states that she has had a little bit of nasal congestion. She denies any fevers or chills. She has felt a little lightheaded but no passing out. She has felt a little bit sweaty. Mild nausea, no vomiting. She denies any abdominal pain, no diarrhea, constipation or urinary symptoms. Denies any swelling in her extremities. she denies any long distance travel. Patient states she has had tubal ligation, hysterectomy, cholecystectomy and appendectomy with several skin excisions and plastics for facial skin cancer. Denies tobacco, alcohol or illicit. Dr. Yarbrough is her french edge operator, Dr. Dyer is her PCP. Related Data Home Medications Medication Instructions Recorded Confirmed lisinopril 40 mg PO BID #0 08/14/16 09/25/19 atorvastatin [Lipitor] 80 mg PO QDAY #0 07/20/17 09/25/19 clonidine HCl 0.1 mg PO Q12H #0 07/20/17 09/25/19 duloxetine 60 mg PO DAILY 10/07/18 09/25/19 gabapentin 800 mg PO TID 10/07/18 09/25/19 levothyroxine 50 mcg PO DAILY 10/07/18 09/25/19 propranolol 40 mg PO BID 10/07/18 09/25/19 metformin 1,000 mg PO BID 11/05/18 09/25/19 prochlorperazine maleate 1 tab PO TID PRN 11/05/18 09/25/19 albuterol sulfate 2 inh INHALATION Q4HR PRN 09/24/19 09/25/19 beclomethasone dipropionate [Qvar 2 inh INHALATION BID 09/24/19 09/25/19 RediHaler] famotidine 20 mg PO BID 09/24/19 09/25/19 rivaroxaban [Xarelto] 20 mg PO DAILY 09/24/19 09/25/19 Allergies Allergy/AdvReac Type Severity Reaction Status Date / Time Iodine and Iodide Containing Allergy Severe pass out Verified 09/24/19 18:16 Produc [IODINE AND IODIDE CONTAINING PRODUC] codeine [CODEINE] Allergy Intermediate HIVES, Verified 09/24/19 18:16 NAUSEA nitrofurantoin Allergy Mild Rash Verified 09/24/19 18:16 [NITROFURANTOIN] Review of Systems Review of Systems ROS Unobtainable: All systems reviewed & are unremarkable except as noted in HPI and below Patient History Social History household members: spouse Smoking Status: Never smoker alcohol intake: never Smoking Status: Never smoker Substance Use Type: does not use Exam Narrative Exam Narrative: GENERAL: Alert and oriented x three, pale-appearing female in mild distress. HEENT: Head normocephalic, atraumatic, EOMI, pupils reactive, pale conjunctiva, face symmetric, moist mucous membranes NECK: Supple, full range of motion CARDIOVASCULAR: Irregularly irregular rate and rhythm without murmurs, rubs or gallops. No edema bilateral lower extremities. RESPIRATORY: Breath sounds equal bilaterally, no wheezes rales or rhonchi. No tachypnea, no accessory muscle use. ABDOMEN: Soft, nontender. Normoactive bowel sounds all 4 quadrants. No guarding or rebound, rigidity, no mass, no bruit or pulsatile mass. Stool occult is negative on AMY, no masses no melena or BRB. : No CVA tenderness EXTREMITIES: Normal range of motion, no clubbing or edema. Neurovascularly intact NEUROLOGICAL: Cranial nerves II through XII grossly intact. Moving all extremities SKIN: Warm, dry, no petechiae, no rashes or lesions. Initial Vital Signs Initial Vital Signs: Vital Signs Temperature 97.6 F 09/24/19 18:05 Pulse Rate 122 H 09/24/19 18:05 Respiratory Rate 15 09/24/19 18:05 Blood Pressure 166/106 H 09/24/19 18:05 Pulse Oximetry 100 09/24/19 18:05 Scores HEART Score Heart Score history: Moderately Suspicious Heart Score EKG: Non-Specific repolarization disturbance Heart Score Age: > or = 65 years old Heart Score risk factors: 1-2 risk factors Heart Score troponin: < or = to normal limit Heart Score Total: 5 Course Orders Ordered: ED Orders 09/24/19 20:45 Troponin & CK Cardiac Panel Stat Acetaminophen (Tylenol) 650 mg PO Q6HR PRN PRN Reason: Fever/Mild Pain (1-3) Albuterol/Ipratropium (Duoneb) 3 ml INH RTQ4HR PRN PRN Reason: Bronchospasm Atorvastatin Calcium (Lipitor) 80 mg PO BEDTIME NARESH Beclomethasone Dipropionate (Qvar) 2 puff INH BID NARESH Duloxetine HCl (Cymbalta) 60 mg PO DAILY [facility] Naloxone HCl (Narcan) 0.2 mg IV Q2MIN PRN PRN Reason: Opiate Reversal Ondansetron HCl (Zofran Odt) 4 mg PO Q8HR PRN PRN Reason: Nausea And Vomiting Rivaroxaban (Xarelto) 20 mg PO DAILY@1999 [facility] Discontinued Medications Aspirin (Aspirin Chew) 324 mg PO NOW ONE Stop: 09/24/19 18:15 Last Admin: 09/24/19 18:24 Dose: 324 mg Documented by: JULIANNE Diltiazem HCl (Cardizem) 20 mg IV NOW ONE Stop: 09/24/19 18:25 Last Admin: 09/24/19 19:05 Dose: Not Given Documented by: JULIANNE Diphenhydramine HCl (Benadryl) 50 mg IV NOW ONE Stop: 09/24/19 19:00 Last Admin: 09/24/19 19:07 Dose: 50 mg Documented by: JULIANNE Sodium Chloride (Normal Saline 0.9%) 1,000 mls @ 1,000 mls/hr IV BOLUS ONE Stop: 09/24/19 19:13 Last Infusion: 09/24/19 19:40 Dose: 0 mls/hr Documented by: Admin: 09/24/19 18:30 Dose: 1,000 mls/hr Documented by: JULIANNE DILTIAZEM (Diltiazem 125 Mg/125 Ml-D5w) 125 mg in 125 mls @ 5 mls/hr IV TITRATE NARESH; Protocol Last Admin: 09/24/19 19:05 Dose: Not Given Documented by: JULIANNE Labetalol HCl (Trandate) 10 mg IV NOW ONE Stop: 09/24/19 22:44 Last Admin: 09/24/19 22:55 Dose: 10 mg Documented by: JULIANNE Methylprednisolone (Solu-Medrol 125 Mg Vial) 125 mg IV NOW ONE Stop: 09/24/19 19:00 Last Admin: 09/24/19 19:07 Dose: 125 mg Documented by: JULIANNE Metoprolol Tartrate (Lopressor) 2.5 mg IV NOW ONE Stop: 09/25/19 03:42 Last Admin: 09/25/19 04:02 Dose: 2.5 mg Documented by: AARON Morphine Sulfate (Morphine) 4 mg IV NOW ONE Stop: 09/24/19 18:43 Last Admin: 09/24/19 18:48 Dose: 4 mg Documented by: JULIANNE Morphine Sulfate (Morphine) 4 mg IV NOW ONE Stop: 09/24/19 18:43 Last Admin: 09/24/19 19:05 Dose: Not Given Documented by: JULIANNE Morphine Sulfate (Morphine) 2 mg IV NOW ONE Stop: 09/25/19 04:01 Last Admin: 09/25/19 04:05 Dose: 2 mg Documented by: AARON Nitroglycerin (Nitrostat) 0.4 mg SL [id number] PRN PRN Reason: Chest Pain Last Admin: 09/24/19 18:33 Dose: 0.4 mg Documented by: Admin: 09/24/19 18:28 Dose: 0.4 mg Documented by: Admin: 09/24/19 18:25 Dose: 0.4 mg Documented by: JULIANNE Ondansetron HCl (Zofran) 4 mg IV NOW ONE Stop: 09/24/19 18:43 Last Admin: 09/24/19 18:48 Dose: 4 mg Documented by: JULIANNE Propranolol HCl (Inderal) 40 mg PO BID [facility] Rivaroxaban (Xarelto) 20 mg PO DAILY@1700 [facility] Rivaroxaban (Xarelto) 20 mg PO DAILY@1700 [facility] Last Admin: 09/25/19 04:15 Dose: 20 mg Documented by: AARON Vital Signs Vital signs: Vital Signs - 8 hr 09/24/19 21:17 09/24/19 22:00 09/24/19 22:55 Pulse Rate 85 101 H 102 H Respiratory Rate 20 13 Blood Pressure 181/91 H Blood Pressure [Left Arm] 168/77 H 171/90 H Pulse Oximetry 98 96 09/24/19 23:02 09/24/19 23:20 09/24/19 23:26 Pulse Rate 91 H 100 H 101 H Respiratory Rate 23 18 Blood Pressure 162/93 H Blood Pressure [Left Arm] 170/86 H 162/93 H Pulse Oximetry 97 94 MDM - Chest Pain Lab Data Attestation: I reviewed the patient's lab results. Result diagrams: 09/24/19 18:21 09/24/19 18:21 Labs: Lab Results 09/24/19 09/24/19 09/24/19 Range/Units 18:21 18:21 18:21 WBC 8.8 (4.5-11.0) X10^3/uL RBC 3.52 L (4.0-5.2) X10^6/uL Hgb 10.4 L (12.0-16.0) g/dL Hct 31.6 L (36-46) % MCV 89.6 (80-100) fL MCH 29.6 (26-34) PG MCHC 33.0 (30-36) % RDW 14.3 (11.6-14.8) % Plt Count 305 (150-400) X10^3/uL Neut % (Auto) 77.3 H (50-75) % Lymph % (Auto) 14.9 L (25-40) % [place] % (Auto) 4.7 (3-14) % Eos % (Auto) 2.5 (2-4) % Baso % (Auto) 0.6 (0-2) % Neut # (Auto) 6800 (0594-1622) /uL Lymph # (Auto) 1300 (9492-5751) /uL [place] # (Auto) 400 (0-900) /uL Eos # (Auto) 200 (0-450) /uL Baso # (Auto) 100 (0-100) /uL PT 14.3 H (10.1-12.7) SECONDS INR 1.2 (0.9-1.3) APTT 32 D (26.4-36.2) SECONDS Sodium 135 L (137-145) mmol/L Potassium 4.1 (3.4-5.1) mmol/L Chloride 103 (98-107) mmol/L Carbon Dioxide 20 L (22-32) mmol/L BUN 13 (7-17) mg/dL Creatinine 0.90 (0.52-1.04) mg/dL Estimated GFR > 60.0 (>60) mL/min BUN/Creatinine Ratio 14.4 (6-22) Glucose 105 (80-110) mg/dL Calcium 9.2 (8.4-10.2) mg/dL Total Bilirubin 0.9 (0.2-1.3) mg/dL AST 25 (14-36) IU/L ALT 29 (<35) IU/L Alkaline Phosphatase 91 (38-126) U/L Total Creatine Kinase 31 (30-135) U/L CK-MB (CK-2) TNP CK-MB (CK-2) Rel Index TNP Troponin I 0.013 (0.01-0.034) ng/mL B-Natriuretic Peptide 593 H (<100) Total Protein 6.5 (6.3-8.2) g/dL Albumin 3.9 (3.5-5.0) g/dL Globulin 2.6 (1.7-4.1) g/dL Albumin/Globulin Ratio 1.5 (1.0-2.8) Lipase 22 L (23-300) U/L Blood Type Antibody Screen 09/24/19 09/24/19 Range/Units 18:21 20:45 WBC (4.5-11.0) X10^3/uL RBC (4.0-5.2) X10^6/uL Hgb (12.0-16.0) g/dL Hct (36-46) % MCV (80-100) fL MCH (26-34) PG MCHC (30-36) % RDW (11.6-14.8) % Plt Count (150-400) X10^3/uL Neut % (Auto) (50-75) % Lymph % (Auto) (25-40) % [place] % (Auto) (3-14) % Eos % (Auto) (2-4) % Baso % (Auto) (0-2) % Neut # (Auto) (4221-6717) /uL Lymph # (Auto) (8496-3008) /uL [place] # (Auto) (0-900) /uL Eos # (Auto) (0-450) /uL Baso # (Auto) (0-100) /uL PT (10.1-12.7) SECONDS INR (0.9-1.3) APTT (26.4-36.2) SECONDS Sodium (137-145) mmol/L Potassium (3.4-5.1) mmol/L Chloride (98-107) mmol/L Carbon Dioxide (22-32) mmol/L BUN (7-17) mg/dL Creatinine (0.52-1.04) mg/dL Estimated GFR (>60) mL/min BUN/Creatinine Ratio (6-22) Glucose (80-110) mg/dL Calcium (8.4-10.2) mg/dL Total Bilirubin (0.2-1.3) mg/dL AST (14-36) IU/L ALT (<35) IU/L Alkaline Phosphatase (38-126) U/L Total Creatine Kinase 27 L (30-135) U/L CK-MB (CK-2) TNP CK-MB (CK-2) Rel Index TNP Troponin I 0.014 (0.01-0.034) ng/mL B-Natriuretic Peptide (<100) Total Protein (6.3-8.2) g/dL Albumin (3.5-5.0) g/dL Globulin (1.7-4.1) g/dL Albumin/Globulin Ratio (1.0-2.8) Lipase (23-300) U/L Blood Type O Positive Antibody Screen Negative Imaging Data Chest x-ray: Radiologist's impression: Glenys Gottlieb 68 F [address] [address] XRay Report Signed Patient: Glenys Gottlieb LMR#: [id number] : [id number]:[id number] Age/Sex: 68 / FDate of Service: 09/24/19 Loc: ED Accession Number: [id number] Procedure: XR chest 1V Ordering Provider: Hellen Larsen D.O. PROCEDURE: XR CHEST 1V INDICATIONS: sob, chest pain, afib w/ rvr TECHNIQUE: One view of the chest was acquired. COMPARISON: [facility], CT, CT CHEST WO CON, 01/21/2019, 10:14. [facility], CR, XR CHEST 2V, 08/26/2018, 11:48. FINDINGS: Surgical changes and devices: None. Lungs and pleura: Density in the right costophrenic angle may be scars. No pleural effusions or pneumothorax. Mediastinum: Mediastinal contours appear normal. Heart size is normal. Bones and chest wall: No suspicious bony lesions. Overlying soft tissues appear unremarkable. IMPRESSION: No acute cardiopulmonary disease. Right costophrenic angle scarring. Dictated by: Elaine De Souza M.D. on 09/24/2019 at 19:11 Approved by: Elaine De Souza M.D. on 09/24/2019 at 19:13 CT angio chest/abd/pelvis: Radiologist's impression: [place] [address] CT Scan Report Signed Patient: Glenys Gottlieb LMR#: [id number] : [id number]:[id number] Age/Sex: 68 / FDate of Service: 09/24/19 Loc: ED Accession Number: [id number] Procedure: CT angio chest abdomen pelvis Ordering Provider: Hellen Larsen D.O. PROCEDURE: CT ANGIO CHEST ABDOMEN PELVIS INDICATIONS: chest pain, htn, sob, afib TECHNIQUE: Precontrast 5 mm thick sections acquired from the lung apices to the iliac crests. After the administration of intravenous contrast, 2.5 mm thick sections again acquired from the lung apices to the iliac crests. Maximum intensity projection (MIP) oblique sagittal and coronal reformats were then acquired. For radiation dose reduction, the following was used: automated exposure control. COMPARISON: [facility], CT, CT ABDOMEN PELVIS W CON, 11/05/2018, 20:02. [facility], CT, ABDOMEN/PELVIS WITH CONTRAST, 10/19/2017, 13:54. [facility], CT, CT CHEST WO CON, 09/08/2018, 9:04. [facility], CT, CT CHEST WO CON, 01/21/2019, 10:14. [facility], CR, XR CHEST 1V, 09/24/2019, 18:34. FINDINGS: Image quality: Excellent. AORTA: There is normal in caliber. No aneurysm or dissection. There is moderate calcified atherosclerotic plaques. Celiac trunk and mesenteric arteries are pa tent. Renal arteries are also patent. CHEST: Lungs and pleura: No acute airspace opacities. A 5 mm nodule in the right middle lobe appears stable. The nodular density in the lateral aspect of the right major fissure is also unchanged. There is a 5 mm groundglass nodule in the right lower lobe (series 7 image 122), which was not definitely seen on the last exam. A calcified granuloma seen in the right lower lobe. Mild subpleural septal thickening. There is a small right effusion. No pneumothorax. Central and peripheral airways are patent and normal in caliber. Mediastinum: Heart size is normal. No pericardial effusion. There is mild/moderate coronary artery calcification. No mediastinal or hilar adenopathy by size criteria. Central pulmonary arteries are normal in size. No filling defects in pulmonary arteries to suggest pulmonary embolism. Esophagus is normal in caliber. No hiatal hernias. Bones and chest wall: No axillary adenopathy by size criteria. Thyroid gland is normal. No suspicious bony lesions. No vertebral body compression fractures. ABDOMEN: Vasculature: Solid organs: Liver is normal in size and enhancement. Gallbladder is normal. Biliary system is non dilated. Pancreas enhances normally. Spleen is normal in size and enhancement. No adrenal nodules. Both kidneys are normal in size and enhancement, without hydronephrosis. There is a 2.7 cm cyst in the inferior pole of the kidney. Peritoneum and bowel: No free fluid or air. Bowel loops are normal in caliber and wall thickness. There are numerous colonic diverticula. No CT findings to suggest acute diverticulitis. Nodes and vessels: No retroperitoneal or mesenteric adenopathy by size criteria. Inferior vena cava is normal in morphology. Miscellaneous: No ventral hernias. PELVIS: Genitourinary: Bladder wall thickness is normal. Uterus is absent. No adnexal mass. Miscellaneous: No inguinal hernias or adenopathy. No ventral hernias. Bones: No suspicious bony lesions. No vertebral body compression fractures. IMPRESSION: 1. No aortic aneurysm or dissection. 2. No evidence for pulmonary embolism. 3. Multiple pulmonary nodules. A 5 mm ground glass nodule right lower lobe is new. Recommend CT followup. Please see enclosed followup recommendation. 4. Small right pleural effusion. 5. Diverticulosis without acute diverticulitis. Fleischner Society criteria for SUB-SOLID lung nodule followup. Solitary pure ground-glass nodules5 mm or lessNo followup needed. >5 mm3 mo follow-up CT to confirm persistence. Then annual CT for 3 years. Part-solid nodules3 mo follow-up CT to confirm persistence. If persistent with solid component <5 mm, annual CT for at least 3 years. If solid component is 5 mm or more, biopsy or surgical resection. Consider PET-CT for lesions > 10 mm. Multiple sub-solid nodulesPure ground glass nodules [address] at 2 and 4 years. Pure ground glass nodules >5 mm without dominant lesion. [address] to confirm persistence, then annual followup CT for at least 3 years. Dominant nodule(s) with part-solid or solid component. [address] to confirm persistence. If persistent, consider biopsy or surgical resection, octavio if lesions have >5 mm solid component. Dictated by: Elaine De Souza M.D. on 09/24/2019 at 19:59 Approved by: Elaine De Souza M.D. on 09/24/2019 at 20:24 ECG Data Attestation: I personally reviewed and interpreted this ECG as follows: Prior ECG tracings: available for review Interpretation: AFib with rapid ventricular response, rate of 108 QRS of 71 QTC [address] elevation depression appreciated. patient has a prior EKG from 10/19/17 the sinus rhythm but similar appearing ST segments. [facility] Narrative Medical decision making narrative: CC 8-year-old female comes emergency department with complaint of chest pain and shortness of breath that started last 12 hours with chest pain starting just an hour prior to arrival. Patient did have nitro minimally improving her pain initially but pain did then resolved patient continues to be hypertensive, she came in tachycardic with AFib and RVR but her heart rate has decreased and been consistently in the 90-100 range. Patient appears quite pale, according to her family she is always a little bit pale but does seem worse. Her hemoglobin is 10 which is decreased but not significantly from past. Stool occult was negative. Patient has not appreciated any bleeding in any form. Patient chest x-ray did not show acute process, troponin x2 over 4 hours did not show a major rise. BNP was 593. Patient's CTA did not show any acute changes, no PE, no dissection, patient does have a right pleural effusion. Patient continues to be hypertensive. I spoke with Cardiology Dr. Luz and states that patient blood pressure medications have been adjusted recently and that she suspects patient may be having hypertensive urgency causing the patient's chest pain. She recommends likely increasing the patient's clonidine or if referable to do labetalol although she feels cloudy may be more helpful as patient has had pauses and her telemetry in the past with her ZIO patch and that the beta rony may exacerbate this and cause complications. Patient is supposed to be evaluated in October for pacemaker with Dr. Caldera. She did have a stress test in July which looked good Dr. Luz does not feel she needs a cath emergently. Plan to continue to trend troponins, aim for improved blood pressure control and monitor the patient closely here. I spoke with nurse practitioner David who accepts. We did discuss cardiology's recommendations patient did initially receive 1 dose of labetalol as this was before I had spoken with Dr. Luz. All recommendations were passed along. Discharge Plan Departure Patient Disposition: Admitted as Observation Clinical Impression: Chest pain, Hypertensive urgency Discharge Date/Time: 09/24/19 23:56 Referrals: Khoi Dyer DO [Primary Care Provider] - Admit Date/Time: 09/24/19 23:35 Admit Provider: Timothy Hernandez
--- NOTE | 2019-09-24 18:14 | DI.RAD.S_ITS ---
PROCEDURE: XR CHEST 1V INDICATIONS: sob, chest pain, afib w/ rvr TECHNIQUE: One view of the chest was acquired. COMPARISON: [facility], CT, CT CHEST WO CON, 01/21/2019, 10:14. [facility], CR, XR CHEST 2V, 08/26/2018, 11:48. FINDINGS: Surgical changes and devices: None. Lungs and pleura: Density in the right costophrenic angle may be scars. No pleural effusions or pneumothorax. Mediastinum: Mediastinal contours appear normal. Heart size is normal. Bones and chest wall: No suspicious bony lesions. Overlying soft tissues appear unremarkable. IMPRESSION: No acute cardiopulmonary disease. Right costophrenic angle scarring. Dictated by: Elaine De Souza M.D. on 09/24/2019 at 19:11 Approved by: Elaine De Souza M.D. on 09/24/2019 at 19:13
--- NOTE | 2019-09-24 18:18 | PC.NURSE ---
Patient's skin appears pale and diaphoretic. She has chest pain, generalized weakness, palpitations, shortness of breath, and a general unwell feeling.
[2019-09-24] MEDS: ASPIRIN 81 MG CHEW TAB 324 MG PO (18:24)
[2019-09-24] MEDS: NITROGLYCERIN 0.4 MG SL TAB SL ×3 (18:25→18:33)
[2019-09-24] MEDS: SODIUM CHLORIDE 0.9% 1,000 ML 1000 ML IV (18:30)
[2019-09-24 18:37] LABS: INR 1.2 (0.9-1.3); Prothrombin Time 14.3 SECONDS (10.1-12.7)
[2019-09-24 18:38] LABS: Add Manual Diff / Slide Review NO; Basophils Absolute Auto 100 /uL (0-100); Basophils Percent Auto 0.6 % (0-2); Eosinophils Absolute Auto 200 /uL (0-450); Eosinophils Percent Auto 2.5 % (2-4); Hematocrit 31.6 % (36-46); Hemoglobin 10.4 g/dL (12.0-16.0); Lymphocytes Absolute Auto 1300 /uL (1100-4500); Lymphocytes Percent Auto 14.9 % (25-40); Mean Corpuscular Hemoglobin 29.6 PG (26-34); Mean Corpuscular Volume 89.6 fL (80-100); Monocytes Absolute Auto 400 /uL (0-900); Monocytes Percent Auto 4.7 % (3-14); Neutrophils Absolute Auto 6800 /uL (1500-7000); Neutrophils Percent Auto 77.3 % (50-75); Platelet Count 305 X10^3/uL (150-400); Red Blood Cell Count 3.52 X10^6/uL (4.0-5.2); Red Cell Distribution Width 14.3 % (11.6-14.8); White Blood Cell Count 8.8 X10^3/uL (4.5-11.0)
[2019-09-24 18:40] LABS: PTT Partial Thromboplastin Tim 32 SECONDS (26.4-36.2)
[2019-09-24] MEDS: MORPHINE 4 MG/ML INJ IV (18:48)
[2019-09-24] MEDS: ONDANSETRON 4 MG/2 ML INJ IV (18:48)
--- NOTE | 2019-09-24 18:55 | DI.CT.S_ITS ---
PROCEDURE: CT ANGIO CHEST ABDOMEN PELVIS INDICATIONS: chest pain, htn, sob, afib TECHNIQUE: Precontrast 5 mm thick sections acquired from the lung apices to the iliac crests. After the administration of intravenous contrast, 2.5 mm thick sections again acquired from the lung apices to the iliac crests. Maximum intensity projection (MIP) oblique sagittal and coronal reformats were then acquired. For radiation dose reduction, the following was used: automated exposure control. COMPARISON: [facility], CT, CT ABDOMEN PELVIS W CON, 11/05/2018, 20:02. [facility], CT, ABDOMEN/PELVIS WITH CONTRAST, 10/19/2017, 13:54. [facility], CT, CT CHEST WO CON, 09/08/2018, 9:04. [facility], CT, CT CHEST WO CON, 01/21/2019, 10:14. [facility], CR, XR CHEST 1V, 09/24/2019, 18:34. FINDINGS: Image quality: Excellent. AORTA: There is normal in caliber. No aneurysm or dissection. There is moderate calcified atherosclerotic plaques. Celiac trunk and mesenteric arteries are patent. Renal arteries are also patent. CHEST: Lungs and pleura: No acute airspace opacities. A 5 mm nodule in the right middle lobe appears stable. The nodular density in the lateral aspect of the right major fissure is also unchanged. There is a 5 mm groundglass nodule in the right lower lobe (series 7 image 122), which was not definitely seen on the last exam. A calcified granuloma seen in the right lower lobe. Mild subpleural septal thickening. There is a small right effusion. No pneumothorax. Central and peripheral airways are patent and normal in caliber. Mediastinum: Heart size is normal. No pericardial effusion. There is mild/moderate coronary artery calcification. No mediastinal or hilar adenopathy by size criteria. Central pulmonary arteries are normal in size. No filling defects in pulmonary arteries to suggest pulmonary embolism. Esophagus is normal in caliber. No hiatal hernias. Bones and chest wall: No axillary adenopathy by size criteria. Thyroid gland is normal. No suspicious bony lesions. No vertebral body compression fractures. ABDOMEN: Vasculature: Solid organs: Liver is normal in size and enhancement. Gallbladder is normal. Biliary system is non dilated. Pancreas enhances normally. Spleen is normal in size and enhancement. No adrenal nodules. Both kidneys are normal in size and enhancement, without hydronephrosis. There is a 2.7 cm cyst in the inferior pole of the kidney. Peritoneum and bowel: No free fluid or air. Bowel loops are normal in caliber and wall thickness. There are numerous colonic diverticula. No CT findings to suggest acute diverticulitis. Nodes and vessels: No retroperitoneal or mesenteric adenopathy by size criteria. Inferior vena cava is normal in morphology. Miscellaneous: No ventral hernias. PELVIS: Genitourinary: Bladder wall thickness is normal. Uterus is absent. No adnexal mass. Miscellaneous: No inguinal hernias or adenopathy. No ventral hernias. Bones: No suspicious bony lesions. No vertebral body compression fractures. IMPRESSION: 1. No aortic aneurysm or dissection. 2. No evidence for pulmonary embolism. 3. Multiple pulmonary nodules. A 5 mm ground glass nodule right lower lobe is new. Recommend CT followup. Please see enclosed followup recommendation. 4. Small right pleural effusion. 5. Diverticulosis without acute diverticulitis. Fleischner Society criteria for SUB-SOLID lung nodule followup. Solitary pure ground-glass nodules5 mm or lessNo followup needed. >5 mm3 mo follow-up CT to confirm persistence. Then annual CT for 3 years. Part-solid nodules3 mo follow-up CT to confirm persistence. If persistent with solid component <5 mm, annual CT for at least 3 years. If solid component is 5 mm or more, biopsy or surgical resection. Consider PET-CT for lesions > 10 mm. Multiple sub-solid nodulesPure ground glass nodules [address] at 2 and 4 years. Pure ground glass nodules >5 mm without dominant lesion. [address] to confirm persistence, then annual followup CT for at least 3 years. Dominant nodule(s) with part-solid or solid component. [address] to confirm persistence. If persistent, consider biopsy or surgical resection, octavio if lesions have >5 mm solid component. Dictated by: Elaine De Souza M.D. on 09/24/2019 at 19:59 Approved by: Elaine De Souza M.D. on 09/24/2019 at 20:24
[2019-09-24 19:04] LABS: Alanine Aminotransferase 29 IU/L (<35); Albumin 3.9 g/dL (3.5-5.0); Albumin Globulin Ratio 1.5 (1.0-2.8); Alkaline Phosphatase 91 U/L (38-126); Aspartate Aminotransferase 25 IU/L (14-36); BUN Creatinine Ratio 14.4 (6-22); Bilirubin Total 0.9 mg/dL (0.2-1.3); Blood Urea Nitrogen 13 mg/dL (7-17); Calcium 9.2 mg/dL (8.4-10.2); Carbon Dioxide 20 mmol/L (22-32); Chloride 103 mmol/L (98-107); Estimated Glomerular Filt Rate > 60.0 mL/min (>60); Globulin 2.6 g/dL (1.7-4.1); Glucose 105 mg/dL (80-110); HEMOLYSIS < 15 (0-50); Lipase 22 U/L (23-300); Potassium 4.1 mmol/L (3.4-5.1); Sodium 135 mmol/L (137-145); Total Protein 6.5 g/dL (6.3-8.2)
[2019-09-24] MEDS: methylPREDNISolone 125 MG/2 ML VIAL IV (19:07)
[2019-09-24] MEDS: diphenhydrAMINE 50 MG/ML VIAL IV (19:07)
[2019-09-24 19:09] LABS: Creatine Kinase 31 U/L (30-135); Troponin I 0.013 ng/mL (0.01-0.034)
[2019-09-24 19:13] LABS: B Type Natriuretic Peptide 593 (<100)
[2019-09-24 21:02] LABS: Creatine Kinase 27 U/L (30-135)
[2019-09-24 21:15] LABS: Troponin I 0.014 ng/mL (0.01-0.034)
[2019-09-24] MEDS: LABETALOL 20 MG/4 ML SYRINGE 10 MG IV (22:55)
[2019-09-25] VITALS (18 sets, daily range): BP systolic 145–201; BP diastolic 81–140; PULSE 81–114; RESP 14–24; TEMP 36–36.6; O2SAT 94–99; BMI 29.8
--- NOTE | 2019-09-25 02:00 | P.HP_ITS ---
History of Present Illness History of Present Illness Date Patient Seen: 09/25/19 Time Patient Seen: 01:30 Chief complaint: chest pains/ trouble breathing Narrative: The patient is a 68-year-old female with PMH of HTN, AFIB (AC w/ Xarelto), HLD, hypothyroidism, RLS, asthma, GERD, prior esophageal stricture, obesity (w/ recent weight loss of 50lbs), and anxiety / depression. Denies prior history of PA, CVA, or thrombosis. The patient presented to the ED out of concern for shortness of breath and chest pain. Patient reports being awakened from sleep At 7:30 a.m. on 09/24 gasping for air. she set up at the edge of the bed attempting to take deep breaths; however, this was ineffective. Consequently, patient used her inhalers which were helpful in abating her acute symptoms. She had remained a somewhat fair condition for the consequent hours of the day, however reports exacerbation of dyspnea with activity. At 4:00 p.m. endorses 2 episodes of short-lived (less than 10 seconds by report) of chest discomfort that she describes as a zap of electricity. there was radiation to the left shoulder /left upper extremity. Reports associated palpitations, dyspnea, diaphoresis, nausea, and lightheadedness. Patient denies change in vision, dizziness, syncopal events, abdominal pain, vomiting or diarrhea. Patient reports experiencing a 50 lb intentional weight loss be a ketogenic diet in the past 6 months. Denies cough and URI symptoms. Few months ago suffered from flu-like symptoms. Denies signs of bleeding. She has not experienced change in micturition, including dysuria, urinary frequency / urgency, or hematuria. Patient reports a recent diagnosis of atrial fibrillation. She was started on Xarelto for anticoagulation. denies any cardioversion at times. Since her diagnosis she has had several syncopal events , most recent 1 week ago. At present time has a Zio Patch. Patient has a longstanding history of hypertension (at least for 10 years) and is on multiple anti-hypertensive agents. recently, cardiology has been adjusting patient's antihypertensive regimen. Her antihypertensive regimen consists of lisinopril 40 mg daily, clonidine 0.1 mg Q12H, and propranolol 40 mg BID. recently was on HCTZ, which was discontinued due to hyponatremia/ electrolyte abnormalities. Recently was also trialed on amlodipine, which caused patient to developed peripheral edema and tongue swelling. Medication was discontinued and patient had no recurrence of symptoms. According to the patient she was asked to discontinue all of her antihypertensives last , 09/22/2019. Since that time reports progressively worsening blood pressure. Notes BP this morning as 190/110 mmHg. Her PCP is Khoi Dyer and [employer] Dr. Yarbrough ED presentation & work-up Lab, 09/24 1821 WBC 8.8 RBC 3.52 HGB 10.4 HCT 31.6 PLT 305 PT 14.3 INR 1.2 aPTT 32 NA 135 K 4.1 Cl 103 Ca 9.2 GLU 105 CO2 20 BUN 13 CR 0.9 liver enzymes WNL Trop 0.013 trop 0.014 BNP 593 EKG 1, 09/24 1846. AFIB RVR (v-rate 108). EKG 2, 09/24 2118. AFIB (v-rate 94). According to the ED provider AFib is rate controlled. She has had episodes of elevated heart rate, however at that time was choking on a medication XR chest. No acute cardiopulmonary disease. Right costophrenic angle scarring. CT AP. No aortic aneurysm or dissection. No pulmonary embolism. Multiple pulmonary nodules (new). Small right pleural effusion. Diverticulosis without diverticulitis. Available records reviewed [place] [facility], 07/22/2019 - Normal perfusion study without evidence of ischemia or scar. - Prior stress test was a vasodilator perfusion study which was also normal. - Poor exercise capacity. - False positive treadmill stress ECG - LV stress EF 68% No echo available to review Patient History Family & Social History Social History: household members spouse Prior Living Arrangements Apartment/Condo Safety & Behavioral: Feels Safe in Current Yes Environment Been Physically Hurt or No Threatened By a Person Suicidal Ideation Description None Suicide Plan Description No Plan Tobacco & Substance use: Smoking Status Never smoker alcohol intake never alcohol intake frequency 0-2 drinks per day Substance Use Type does not use Meds Home Medications and Allergies Home Medications Medication Instructions Recorded Confirmed Type lisinopril 40 mg PO BID #0 08/14/16 09/25/19 History atorvastatin [Lipitor] 80 mg PO QDAY #0 07/20/17 09/25/19 History clonidine HCl 0.1 mg PO Q12H #0 07/20/17 09/25/19 History duloxetine 60 mg PO DAILY 10/07/18 09/25/19 History gabapentin 800 mg PO TID 10/07/18 09/25/19 History levothyroxine 50 mcg PO DAILY 10/07/18 09/25/19 History propranolol 40 mg PO BID 10/07/18 09/25/19 History metformin 1,000 mg PO BID 11/05/18 09/25/19 History prochlorperazine maleate 1 tab PO TID PRN 11/05/18 09/25/19 History albuterol sulfate 2 inh INHALATION Q4HR PRN 09/24/19 09/25/19 History beclomethasone dipropionate [Qvar 2 inh INHALATION BID 09/24/19 09/25/19 History RediHaler] famotidine 20 mg PO BID 09/24/19 09/25/19 History rivaroxaban [Xarelto] 20 mg PO DAILY 09/24/19 09/25/19 History Allergies Allergy/AdvReac Type Severity Reaction Status Date / Time Iodine and Iodide Containing Allergy Severe pass out Verified 09/24/19 18:16 Produc [IODINE AND IODIDE CONTAINING PRODUC] amlodipine Allergy Intermediate Swelling Verified 09/25/19 06:15 of Lip/Tongue/Throat codeine [CODEINE] Allergy Intermediate HIVES, Verified 09/24/19 18:16 NAUSEA nitrofurantoin Allergy Mild Rash Verified 09/24/19 18:16 [NITROFURANTOIN] Review of Systems Review of Systems ROS Unobtainable: All systems reviewed & are unremarkable except as noted in HPI and below Exam Vital Signs (past 8 hours): - 09/24/19 18:05 09/24/19 18:25 09/24/19 18:28 Temperature 97.6 F Pulse Rate 122 H 148 H 109 H Respiratory Rate 15 Blood Pressure 166/106 H 175/110 H 195/138 H Blood Pressure [Left Arm] Pulse Oximetry 100 09/24/19 18:33 09/24/19 18:49 09/24/19 20:00 Temperature Pulse Rate 115 H 88 94 H Respiratory Rate 12 18 Blood Pressure 165/82 H Blood Pressure [Left Arm] 156/86 H 177/100 H Pulse Oximetry 97 98 09/24/19 20:59 09/24/19 21:17 09/24/19 22:00 Temperature Pulse Rate 105 H 85 101 H Respiratory Rate 18 20 13 Blood Pressure Blood Pressure [Left Arm] 153/84 H 168/77 H 171/90 H Pulse Oximetry 99 98 96 09/24/19 22:55 09/24/19 23:02 09/24/19 23:20 Temperature Pulse Rate 102 H 91 H 100 H Respiratory Rate 23 18 Blood Pressure 181/91 H Blood Pressure [Left Arm] 170/86 H 162/93 H Pulse Oximetry 97 94 09/24/19 23:26 09/24/19 23:54 09/25/19 00:00 Temperature 96.8 F L Pulse Rate 101 H 93 H 114 H Respiratory Rate 22 24 Blood Pressure 162/93 H 158/91 H 185/111 H Blood Pressure [Left Arm] Pulse Oximetry 98 94 Oxygen Delivery Method Room Air Oxygen Flow Rate 0 Narrative Exam Narrative: Constitutional: NAD Neurologic: AOx3, no focal neurological deficits Head: NC, AT Eyes: PERRL, EOMI, Ears: external ears normal, no otorrhea Nose: external nose normal, no rhinorrhea or epistaxis Throat: dry MM, oropharynx w/o exudate Neck: no masses, lymphadenopathy, or JVD Chest / Respiratory: equal chest rise, unlabored respiratory effort, No dyspnea or tachypnea at rest, on room air CTA, diminished bases bilaterally. No cough noted. Heart / CV: irregularly irregular Abdomen / GI: round, NT, ND, + BS, no organomegaly : no suprapubic tenderness, no CVA Peripheral / Vascular: warm to touch, DP and PT pulses palpable, no edema Musc: full ROM of upper and lower extremities, adequate muscle tone and bulk Skin: no ecchymosis or suspicious lesions / ulcers Objective Labs Result Diagrams: 09/25/19 04:55 09/25/19 04:55 Labs: Laboratory Results - last 24 hr 09/24/19 09/24/19 09/24/19 18:21 18:21 18:21 WBC 8.8 RBC 3.52 L Hgb 10.4 L Hct 31.6 L MCV 89.6 MCH 29.6 MCHC 33.0 RDW 14.3 Plt Count 305 Neut % (Auto) 77.3 H Lymph % (Auto) 14.9 L [place] % (Auto) 4.7 Eos % (Auto) 2.5 Baso % (Auto) 0.6 Neut # (Auto) 6800 Lymph # (Auto) 1300 [place] # (Auto) 400 Eos # (Auto) 200 Baso # (Auto) 100 PT 14.3 H INR 1.2 APTT 32 D Sodium 135 L Potassium 4.1 Chloride 103 Carbon Dioxide 20 L BUN 13 Creatinine 0.90 Estimated GFR > 60.0 BUN/Creatinine Ratio 14.4 Glucose 105 Calcium 9.2 Total Bilirubin 0.9 AST 25 ALT 29 Alkaline Phosphatase 91 Total Creatine Kinase 31 CK-MB (CK-2) TNP CK-MB (CK-2) Rel Index TNP Troponin I 0.013 B-Natriuretic Peptide 593 H Total Protein 6.5 Albumin 3.9 Globulin 2.6 Albumin/Globulin Ratio 1.5 Lipase 22 L Blood Type Antibody Screen 09/24/19 09/24/19 18:21 20:45 WBC RBC Hgb Hct MCV MCH MCHC RDW Plt Count Neut % (Auto) Lymph % (Auto) [place] % (Auto) Eos % (Auto) Baso % (Auto) Neut # (Auto) Lymph # (Auto) [place] # (Auto) Eos # (Auto) Baso # (Auto) PT INR APTT Sodium Potassium Chloride Carbon Dioxide BUN Creatinine Estimated GFR BUN/Creatinine Ratio Glucose Calcium Total Bilirubin AST ALT Alkaline Phosphatase Total Creatine Kinase 27 L CK-MB (CK-2) TNP CK-MB (CK-2) Rel Index TNP Troponin I 0.014 B-Natriuretic Peptide Total Protein Albumin Globulin Albumin/Globulin Ratio Lipase Blood Type O Positive Antibody Screen Negative Assessment & Plan Assessment & Plan narrative: Patient is being admitted under observation status for chest pain, dyspnea, and hypertensive urgency. Acute chest pain, present on admission, active - CP w/ associated symptoms and potential cardiac pathology - Suspected to be in the setting of hypertensive urgency and or episodes of an arrhythmia - Troonins 0.013 and 0.014 - EKG, AFIB w/ CVR - Normal NM Stress test on 07/22/19 - Had an episode of CP, which according to what patient describes may be palpitations, no overt arrhythmia on EKG. Relieved w/ IV morphine - Also an episode of CP in the ED treated w/ SL nitro, not clear if entirely effective, but also with morphine w/ reported resolution of CP Hypertensive urgency, present on admission, active - recent adjustments of anti-hypertensive therapy in the outpatient setting - taken off HCTZ d/t hyponatremia - allergic to amlodipine w/ reporte LE edema and tongue swelling - will resume her lisinopril and clonidine in am, hold propranolol for now - Received 10 mg dose of IV labetalol in ED and 2.5 mg IV metoprolol on an acute care floor - BP checks Q4H and prn - Significant difference between RUE and LUE (reads a much higher systolic and diastolic BP consistently) - concern for potential stenosis ? - aortic dissection r/o on CT scan Exertional dyspnea, subacute, present on admission, active - no records of an echo cardiogram - consider ordering or may need to request records from cardiology, as she may have had given her recent diagnosis of AFIB - shows presence of exertional dyspnea at time of her stress test in July, not entirely clear if has completely resolved Persistent AFIB (diagnosed 2-3 months ago, [id number] Score 5, present on admission, active - AFIB w/ elevated ventricular rate in ED, but not in RVR. Patient feels symp tomatic - On propranolol 40 mg BID in the outpatient setting, not typical agent for treatment of AFIB, will hold for now - Received a dose of metoprolol 2.5 mg IV x2 - Check Mg and TSH w/ am lab f/u on am lab. Mg 1.2 ordered 4 gm MgSO4. TSH 0.91 WNL H/O syncopal events, subacute, present on admission, stable - no syncopal events while in patient - on both propranolol and clonidine - patient has a pending f/u with electrophysiology for PPM evaluation - currently has a zio patch, day Hypothyroidism, chronic condition, present on admission, active - Check TSH (TSH 0.91 WNL) - Resume PSYCHOLOGY CLINICIAN regimen of levothyroxine Hyperlipidemia, chronic condition, present on admission, active / poorly controlled - lipid control is not known, lipid panel in am / risk stratify am lipid panel reviewed: Trig 115 Chol 324 LDL 261 HDL 40 - extremely high chol & LDL, familial component ? patient reports adherence to statin regimen consider changing statin to Crestor or perhaps discussing PCSK9 injections (such as Repatha) - resume PSYCHOLOGY CLINICIAN regimen of atorvastatin 80 mg QHS DM 2T, chronic condition, present on admission, active - non-insulin dependent. PSYCHOLOGY CLINICIAN regimen consists of metformin 500 mg BID - check A1C Restless leg syndrome, chronic condition, present on admission - Patient would benefit from an outpatient sleep study given history of HTN and RLS - Resume PSYCHOLOGY CLINICIAN regimen of cymbalta Normocytic anemia, [id number] condition, present on admission, active - check iron profile with% saturation (TSAT 15) - start on FeSO4 325 daily 0335 patient reports experiencing chest discomfort 02/25, further inquiry consistent w/ palpitations BP checked RUE 149/73 HR 101 LUE 168/118 HR 98 spO2 96% Asymptomatic for lightheadedness, dizziness, dyspnea, and diaphoresis Treated w/ 2 mg of morphine and 2.5 mg of metoprolol, sx resolved According to the ED physician, Cardiology was contacted (spoke to Dr. Luz) who recommended an increase in patient's clonidine dose. Full code. Designates spouse as healthcare proxy. Home medications reviewed and reconciled accordingly. VTE prophylaxis w/ Xarelto.
--- NOTE | 2019-09-25 03:29 | PC.NURSE ---
Addendum entered by Ronny Nogueira R.N. 09/25/19 04:25: Ordered morphine given to good effect, patient now denies any chest pain. Care is ongoing. Addendum entered by Ronny Nogueira R.N. 09/25/19 03:42: BP elevated, also discussed with [employer]. Care continues. Original Note: NOC Note At 0325 patient reports that her chest pain has been slowly returned and rates it as a 4-5/10, it is annoying. Chest pain reported in person to [employer], care is ongoing.
[2019-09-25] MEDS: METOPROLOL TARTRATE 5 MG/5 ML INJ 2.5 MG IV (04:02)
[2019-09-25] MEDS: MORPHINE 2 MG/ML INJ IV (04:05)
[2019-09-25] MEDS: RIVAROXABAN 10 MG TABLET 20 MG PO (04:15)
[2019-09-25 05:07] LABS: Add Manual Diff / Slide Review NO; Basophils Absolute Auto 0 /uL (0-100); Basophils Percent Auto 0.2 % (0-2); Eosinophils Absolute Auto 0 /uL (0-450); Hematocrit 32.6 % (36-46); Hemoglobin 10.5 g/dL (12.0-16.0); Lymphocytes Absolute Auto 400 /uL (1100-4500); Lymphocytes Percent Auto 6.4 % (25-40); Mean Corpuscular HGB Conc 32.3 % (30-36); Mean Corpuscular Hemoglobin 29.3 PG (26-34); Mean Corpuscular Volume 90.8 fL (80-100); Monocytes Absolute Auto 0 /uL (0-900); Monocytes Percent Auto 0.7 % (3-14); Neutrophils Absolute Auto 5700 /uL (1500-7000); Neutrophils Percent Auto 92.7 % (50-75); Platelet Count 284 X10^3/uL (150-400); Red Blood Cell Count 3.59 X10^6/uL (4.0-5.2); Red Cell Distribution Width 14.1 % (11.6-14.8); White Blood Cell Count 6.1 X10^3/uL (4.5-11.0)
[2019-09-25 05:12] LABS: HEMOLYSIS < 15 (0-50); Iron 55 ug/dL (37-170)
[2019-09-25 05:16] LABS: BUN Creatinine Ratio 14.4 (6-22); Blood Urea Nitrogen 13 mg/dL (7-17); Calcium 8.9 mg/dL (8.4-10.2); Carbon Dioxide 23 mmol/L (22-32); Chloride 101 mmol/L (98-107); Cholesterol 324 mg/dL (140-199); Estimated Glomerular Filt Rate > 60.0 mL/min (>60); Glucose 163 mg/dL (80-110); HDL Cholesterol 40 mg/dL (40-60); HEMOLYSIS < 15 (0-50); LDL Cholesterol Calculated 261 mg/dL (<100); Magnesium 1.2 mg/dL (1.6-2.3); Potassium 4.3 mmol/L (3.4-5.1); Sodium 136 mmol/L (137-145); Triglycerides 115 mg/dL (35-150)
[2019-09-25 05:23] LABS: Percent Iron Saturation 15 % (15-50); Total Iron Binding Capacity 356 ug/dL (265-497); Transferrin 286 mg/dL (206-381)
[2019-09-25 05:28] LABS: Troponin I < 0.012 ng/mL (0.01-0.034)
[2019-09-25 06:04] LABS: TSH w/ Reflex to FT4 0.91 uIU/mL (0.47-4.68)
[2019-09-25] MEDS: MAGNESIUM SULFATE 4 GM/100 ML PIGGYBACK IV (06:58)
[2019-09-25 07:09] LABS: Hemoglobin A1C% w Est Avg Glu 5.8 % (4.0-6.0)
[2019-09-25] MEDS: cloNIDine 0.1 MG TABLET PO (09:04)
[2019-09-25] MEDS: LISINOPRIL 20 MG TABLET 40 MG PO (09:04)
[2019-09-25] MEDS: GABAPENTIN 400 MG CAPSULE 800 MG PO (09:04)
[2019-09-25] MEDS: FERROUS SULFATE 325 MG TABLET PO (09:04)
[2019-09-25] MEDS: SODIUM CHLORIDE 0.9% FLUSH 10 ML IV (09:05)
[2019-09-25] MEDS: raNITIdine 150 MG CAPSULE PO (09:06)
[2019-09-25] MEDS: METFORMIN HCL 500 MG TABLET 1000 MG PO (09:08)
[2019-09-25] MEDS: DULOXETINE 30 MG CAPSULE PO (09:09)
[2019-09-25] MEDS: DULOXETINE 20 MG CAPSULE 60 MG PO (09:14)
[2019-09-25] MEDS: BECLOMETHASONE 80 MCG INH 10.6 GM 2 PUFF INH (09:19)
--- NOTE | 2019-09-25 11:12 | CM.DANOTE ---
DCP: Case received, EMR reviewed and met with patient. Introduced self and role. Patient's , Jorden, also at bedside. Was able to converse with patient and regarding baseline health and activity level. DCP assessment completed with information currently available. Patient is a 68 year old female who admitted yesterday evening to the care of the hospitalist team. PCP: Dr. Dyer. Payer: confirmed: Healthcare Management. Patient came to the hospital via family vehicle secondary to shortness of breath and chest discomfort. Patient has history of a-fib, and has been on Xarelto. She is here under observation at this time. She may be getting an echo here, or on an outpatient basis. Met with patient and in her room. She is alert and oriented. She is independent. She stated, her does all of the cooking, he is a retired chefs. They both reside in [place]. P: DCP to continue to follow. Patient could potentially go home today. Ginna Kim RN/Senior Radiation Protection Technician
--- NOTE | 2019-09-25 11:18 | PC.NURSE ---
Addendum entered by Anahi Larios R.N. 09/25/19 13:06: Approx 1245 ICU called to report patient's heart rate was tachy as high as the 130's. This hand sign writer checked on patient at that time and she was up in the bathroom w/ MANAGER PEDIATRIC supervision. Back in bed now, resting quietly with eyes closed. Respirations regular and unlabored. Heart rate per tele monitor 88 at this time. No s/sx distress or discomfort noted. Call light within reach, bed alarm on. Addendum entered by Anahi Larios R.N. 09/25/19 12:35: C/O headache (02/25) and was medicated with Tylenol for the same. She also got her first dose of PO Lasix and seems to be tolerating it without any adverse s/sx. Continues to deny chest pain/pressure/palpitations/SOB. Tele reading is A-fib w/ controlled rate. She said MD will see her again this afternoon with the possibility of a discharge home and she is agreeable. States no needs now. Call light in reach, bed alarm on. Original Note: Shift summary: Alert and oriented X3. Denies chest pain/palpitations/pressure. Denies shortness of breath. Remains hypertensive- MD Shultz aware and it sounds like may be adjusting some of her meds. Tele monitoring ongoing, plus is wearing holter monitor. Denies N/V and tolerating PO's without issue. Lungs CTA, room air 95-96% at rest. HR irregular. No edema noted in extremities. Denies pain. Saline locked. Able to make needs known and calls appropriately. Light and belongings within reach, bed alarm on.
[2019-09-25] MEDS: FUROSEMIDE 20 MG TABLET PO (11:55)
[2019-09-25] MEDS: ACETAMINOPHEN 325 MG TABLET 650 MG PO (11:55)
--- NOTE | 2019-09-25 14:55 | P.DS_ITS ---
History of Present Illness History of Present Illness Date Patient Seen: 09/25/19 Time Patient Seen: 14:55 Chief complaint: chest pains/ trouble breathing Narrative: As per JACINTA Mcdonald: The patient is a 68-year-old female with PMH of HTN, AFIB (AC w/ Xarelto), HLD, hypothyroidism, RLS, asthma, GERD, prior esophageal stricture, obesity (w/ recent weight loss of 50lbs), and anxiety / depression. Denies prior history of NC, CVA, or thrombosis. The patient presented to the ED out of concern for shortness of breath and chest pain. Patient reports being awakened from sleep At 7:30 a.m. on 09/24 gasping for air. she set up at the edge of the bed attempting to take deep breaths; however, this was ineffective. Consequently, patient used her inhalers which were helpful in abating her acute symptoms. She had remained a somewhat fair condition for the consequent hours of the day, however reports exacerbation of dyspnea with activity. At 4:00 p.m. endorses 2 episodes of short-lived (less than 10 seconds by report) of chest discomfort that she describes as a zap of electricity. there was radiation to the left shoulder /left upper extremity. Reports associated palpitations, dyspnea, diaphoresis, nausea, and lightheadedness. Patient denies change in vision, dizziness, syncopal events, abdominal pain, vomiting or diarrhea. Patient reports experiencing a 50 lb intentional weight loss be a ketogenic diet in the past 6 months. Denies cough and URI symptoms. Few months ago suffered from flu-like symptoms. Denies signs of bleeding. She has not experienced change in micturition, including dysuria, urinary frequency / urgency, or hematuria. Patient reports a recent diagnosis of atrial fibrillation. She was started on Xarelto for anticoagulation. denies any cardioversion at times. Since her diagnosis she has had several syncopal events , most recent 1 week ago. At present time has a Zio Patch. Patient has a longstanding history of hypertension (at least for 10 years) and is on multiple anti-hypertensive agents. recently, cardiology has been adjusting patient's antihypertensive regimen. Her antihypertensive regimen consists of lisinopril 40 mg daily, clonidine 0.1 mg Q12H, and propranolol 40 mg BID. recently was on HCTZ, which was discontinued due to hyponatremia/ electrolyte abnormalities. Recently was also trialed on amlodipine, which caused patient to developed peripheral edema and tongue swelling. Medication was discontinued and patient had no recurrence of symptoms. According to the patient she was asked to discontinue all of her antihypertensives last , 09/22/2019. Since that time reports progressively worsening blood pressure. Notes BP this morning as 190/110 mmHg. Her PCP is Khoi Dyer and [facility]arbrough Discharge Providers Provider Date of admission: 09/24/19 23:35 Discharge Date: 09/25/19 Primary care physician: Khoi Dyer DO Consults: 09/25/19 01:45 Consult to Discharge Planning Routine Comment: Discharge provider: Steven Shultz DO Summary Hospital Course Discharge Diagnosis: 1. Acute chest pain, present on admission, resolved 2. Hypertensive urgency, present on admission, improved 3. Exertional dyspnea, subacute, present on admission, active 4. Persistent AFIB (diagnosed 2-3 months ago, [id number] Score 5, present on admission, active 5. H/O syncopal events, subacute, present on admission, stable 6. Hypothyroidism, chronic condition, present on admission, active 7. Hyperlipidemia, chronic condition, present on admission, active / poorly controlled 8. DM 2T, chronic condition, present on admission, active 9. Restless leg syndrome, chronic condition, present on admission 10. Normocytic anemia, [id number] condition, present on admission, active Hospital Course: 1. Acute chest pain, present on admission, resolved - CP w/ associated symptoms and potential cardiac pathology, however history is not consistent with cardiac ischemia. May be related to GERD or her current heart monitor, or hypertensive urgency. - Troonins 0.013 and 0.014, then negative. - EKG, AFIB w/ CVR - Normal NM Stress test on 07/22/19 - Had an episode of CP, which according to what patient describes may be palpitations, no overt arrhythmia on EKG. Relieved w/ IV morphine - Also an episode of CP in the ED treated w/ SL nitro, not clear if entirely effective, but also with morphine w/ reported resolution of CP - patient had no further chest pains upon monitoring and after giving her additional treatments for her hypertension as noted below. 2. Hypertensive urgency, present on admission, improved - recent adjustments of anti-hypertensive therapy in the outpatient setting - taken off HCTZ d/t hyponatremia - allergic to amlodipine w/ reporte LE edema and tongue swelling - will resume her lisinopril and clonidine, her blood pressure remained elevated and Lasix was added with improvement in her blood pressure. Will discharge patient on clonidine and lisinopril as well as Lasix. She should follow-up with her primary care provider and sap developer for further management and titration of her blood pressure. - Received 10 mg dose of IV labetalol in ED and 2.5 mg IV metoprolol on an acute care floor - propranolol was held over concern from sap developer for pauses that have been noted on her heart monitor. She has follow-up with an screening unit registered nurse next month. 3. Exertional dyspnea, subacute, present on admission, active - no records of an echo cardiogram - patient was started on Lasix for blood pressure control. She has a small pleural effusion noted on CT imaging, which is too small for diagnostic procedure. This could be related to diastolic heart failure given recent stress testing showing a normal ejection fraction. She has had exertional dyspnea for the past 6 months and this can be further evaluated in the outpatient setting with an echocardiogram. 4. Persistent AFIB (diagnosed 2-3 months ago, [id number] Score 5, present on admission, active - AFIB w/ elevated ventricular rate in ED, but not in RVR. Patient feels symptomatic - On propranolol 40 mg BID in the outpatient setting which has been held for pauses noted on heart monitor per sap developer - Received a dose of metoprolol 2.5 mg IV x2 - Mg 1.2, was repleted. Should be checked again in the outpatient setting. 5. H/O syncopal events, subacute, present on admission, stable - no syncopal events while in patient - on both propranolol and clonidine - patient has a pending f/u with electrophysiology for PPM evaluation - currently has a zio patch, day 6. Hypothyroidism, chronic condition, present on admission, active - Check TSH (TSH 0.91 WNL) - Continue [employer]ILL[employer] E[employer] HELPER regimen of levothyroxine 7. Hyperlipidemia, chronic condition, present on admission, active / poorly controlled - lipid control is not known, lipid panel in am / risk stratify am lipid panel reviewed: Trig 115 Chol 324 LDL 261 HDL 40 - extremely high chol & LDL, familial component ? patient reports adherence to statin regimen consider PCSK9 injections (such as Repatha) as outpatient - resume [employer] E[employer] regimen of atorvastatin 80 mg QHS 8. DM 2T, chronic condition, present on admission, active - non-insulin dependent. [employer] regimen consists of metformin 500 mg BID - A1c indicates good control at 5.8%. 9. Restless leg syndrome, chronic condition, present on admission - Patient would benefit from an outpatient sleep study given history of HTN and RLS - Resume [employer] E[employer] regimen of cymbalta 10. Normocytic anemia, [id number] condition, present on admission, active - Iron 55, TIBC 356. Tsat of 15% and normal transferrin. Likely anemia of chronic inflammation. Exam Vital Signs (past 8 hours): - 09/25/19 07:58 09/25/19 08:00 09/25/19 09:04 Temperature 96.8 F L Pulse Rate 91 H 89 96 H Pulse Rate [Orthostatic Sitting] 89 Pulse Rate [Orthostatic Standing] Respiratory Rate Blood Pressure 145/113 H 150/110 H Blood Pressure [Orthostatic Sitting] 145/113 H Blood Pressure [Orthostatic Standing] Pulse Oximetry 98 99 09/25/19 09:20 09/25/19 10:30 09/25/19 10:57 Temperature Pulse Rate 113 H 95 H Pulse Rate [Orthostatic Sitting] 97 H Pulse Rate [Orthostatic Standing] 105 H Respiratory Rate 14 Blood Pressure Blood Pressure [Orthostatic Sitting] 157/119 H Blood Pressure [Orthostatic Standing] 201/140 H Pulse Oximetry 97 96 09/25/19 10:59 09/25/19 13:00 09/25/19 13:21 Temperature 97.8 F Pulse Rate 81 99 H 94 H Pulse Rate [Orthostatic Sitting] Pulse Rate [Orthostatic Standing] Respiratory Rate 16 Blood Pressure 166/120 H Blood Pressure [Orthostatic Sitting] Blood Pressure [Orthostatic Standing] Pulse Oximetry 98 Oxygen Delivery Method Room Air Oxygen Flow Rate 0 Narrative Exam Narrative: GENERAL APPEARANCE: Elderly female in no acute distress sitting comfortably in hospital bed. SKIN: Inspection of the skin reveals no rashes, ulcerations or petechiae. HEENT: The sclerae were anicteric and conjunctivae were pink and moist. Extrao cular movements were intact and pupils were equal, round with normal accommodation. External inspection of the ears and nose showed no scars, lesions, or masses. Lips, teeth, and gums showed normal mucosa. The oral mucosa, hard and soft palate, tongue and posterior pharynx were unremarkable. NECK: Supple and symmetric. There was no thyroid enlargement, and no tenderness, or masses were felt. CHEST: Normal AP diameter and normal contour without any kyphoscoliosis. LUNGS: Auscultation of the lungs revealed no wheezes, rhonchi, or rales. CARDIOVASCULAR: There was a regular rate and rhythm without any murmurs, gallops, rubs. Peripheral pulses were 2+ and symmetric. ABDOMEN: Soft and nontender with normal bowel sounds. No ascites was noted. MUSCULOSKELETAL: There was no tenderness or effusions noted. Muscle strength and tone were normal. EXTREMITIES: No cyanosis, clubbing or edema. NEUROLOGIC: Alert and oriented x 3. Normal affect. Strength is +5/5 in the Upper Extremities and Lower Extremities Bilaterally. Sensation to touch was normal. Objective Labs Result Diagrams: 09/25/19 04:55 09/25/19 04:55 Labs: Laboratory Results - last 24 hr 09/24/19 09/24/19 09/24/19 18:21 18:21 18:21 WBC 8.8 RBC 3.52 L Hgb 10.4 L Hct 31.6 L MCV 89.6 MCH 29.6 MCHC 33.0 RDW 14.3 Plt Count 305 Neut % (Auto) 77.3 H Lymph % (Auto) 14.9 L [place] % (Auto) 4.7 Eos % (Auto) 2.5 Baso % (Auto) 0.6 Neut # (Auto) 6800 Lymph # (Auto) 1300 [place] # (Auto) 400 Eos # (Auto) 200 Baso # (Auto) 100 PT 14.3 H INR 1.2 APTT 32 D Sodium 135 L Potassium 4.1 Chloride 103 Carbon Dioxide 20 L BUN 13 Creatinine 0.90 Estimated GFR > 60.0 BUN/Creatinine Ratio 14.4 Glucose 105 Hemoglobin A1c Calcium 9.2 Magnesium Iron TIBC % Saturation Transferrin Total Bilirubin 0.9 AST 25 ALT 29 Alkaline Phosphatase 91 Total Creatine Kinase 31 CK-MB (CK-2) TNP CK-MB (CK-2) Rel Index TNP Troponin I 0.013 B-Natriuretic Peptide 593 H Total Protein 6.5 Albumin 3.9 Globulin 2.6 Albumin/Globulin Ratio 1.5 Triglycerides Cholesterol LDL Cholesterol, Calc HDL Cholesterol Lipase 22 L TSH Blood Type Antibody Screen 09/24/19 09/24/19 09/25/19 18:21 20:45 04:55 WBC 6.1 RBC 3.59 L Hgb 10.5 L Hct 32.6 L MCV 90.8 MCH 29.3 MCHC 32.3 RDW 14.1 Plt Count 284 Neut % (Auto) 92.7 H Lymph % (Auto) 6.4 L [place] % (Auto) 0.7 L Eos % (Auto) 0.0 L Baso % (Auto) 0.2 Neut # (Auto) 5700 Lymph # (Auto) 400 L [place] # (Auto) 0 Eos # (Auto) 0 Baso # (Auto) 0 PT INR APTT Sodium Potassium Chloride Carbon Dioxide BUN Creatinine Estimated GFR BUN/Creatinine Ratio Glucose Hemoglobin A1c Calcium Magnesium Iron TIBC % Saturation Transferrin Total Bilirubin AST ALT Alkaline Phosphatase Total Creatine Kinase 27 L CK-MB (CK-2) TNP CK-MB (CK-2) Rel Index TNP Troponin I 0.014 B-Natriuretic Peptide Total Protein Albumin Globulin Albumin/Globulin Ratio Triglycerides Cholesterol LDL Cholesterol, Calc HDL Cholesterol Lipase TSH Blood Type O Positive Antibody Screen Negative 09/25/19 09/25/19 09/25/19 04:55 04:55 04:55 WBC RBC Hgb Hct MCV MCH MCHC RDW Plt Count Neut % (Auto) Lymph % (Auto) [place] % (Auto) Eos % (Auto) Baso % (Auto) Neut # (Auto) Lymph # (Auto) [place] # (Auto) Eos # (Auto) Baso # (Auto) PT INR APTT Sodium 136 L Potassium 4.3 Chloride 101 Carbon Dioxide 23 BUN 13 Creatinine 0.90 Estimated GFR > 60.0 BUN/Creatinine Ratio 14.4 Glucose 163 H Hemoglobin A1c Calcium 8.9 Magnesium 1.2 L Iron 55 TIBC 356 % Saturation 15 Transferrin 286 Total Bilirubin AST ALT Alkaline Phosphatase Total Creatine Kinase CK-MB (CK-2) CK-MB (CK-2) Rel Index Troponin I B-Natriuretic Peptide Total Protein Albumin Globulin Albumin/Globulin Ratio Triglycerides 115 Cholesterol 324 H LDL Cholesterol, Calc 261 H HDL Cholesterol 40 Lipase TSH 0.91 Blood Type Antibody Screen 09/25/19 09/25/19 04:55 04:55 WBC RBC Hgb Hct MCV MCH MCHC RDW Plt Count Neut % (Auto) Lymph % (Auto) [place] % (Auto) Eos % (Auto) Baso % (Auto) Neut # (Auto) Lymph # (Auto) [place] # (Auto) Eos # (Auto) Baso # (Auto) PT INR APTT Sodium Potassium Chloride Carbon Dioxide BUN Creatinine Estimated GFR BUN/Creatinine Ratio Glucose Hemoglobin A1c 5.8 Calcium Magnesium Iron TIBC % Saturation Transferrin Total Bilirubin AST ALT Alkaline Phosphatase Total Creatine Kinase CK-MB (CK-2) CK-MB (CK-2) Rel Index Troponin I < 0.012 B-Natriuretic Peptide Total Protein Albumin Globulin Albumin/Globulin Ratio Triglycerides Cholesterol LDL Cholesterol, Calc HDL Cholesterol Lipase TSH Blood Type Antibody Screen Discharge Plan Discharge Plan Patient Disposition: Home Discharge comment: You were admitted to the hospital with chest pain which improved with treatment of your elevated blood pressure. Your medications were changed slightly. Your propranolol was held and instead Lasix was given. Your blood pressure was controlled upon discharge, however you should continue to take her medications at home and follow-up with her primary care provider within the next week for further management and possible adjustments. I recommend that you get a blood draw to check your electrolytes after starting this new medication. Discharge orders & Medications Prescriptions: New furosemide 20 mg Tablet 20 mg PO DAILY 30 Days Qty: 30 RF: 0 Continued lisinopril 20 MG tablet 40 mg PO BID Qty: 0 RF: 0 clonidine HCl 0.1 MG tablet extended release 12 hr 0.1 mg PO Q12H Qty: 0 RF: 0 atorvastatin [Lipitor] 80 MG tablet 80 mg PO QDAY Qty: 0 RF: 0 gabapentin 800 mg Tablet 800 mg PO TID RF: 0 levothyroxine 50 mcg Capsule 50 mcg PO DAILY RF: 0 duloxetine 20 mg Capsule,Delayed Release(Dr/Ec) 60 mg PO DAILY RF: 0 metformin 500 mg Tablet 1,000 mg PO BID RF: 0 prochlorperazine maleate 10 mg Tablet 1 tab PO TID PRN (Reason: Nausea) RF: 0 famotidine 20 mg Tablet 20 mg PO BID RF: 0 albuterol sulfate 90 mcg/actuation HFA aerosol inhaler 2 inh INHALATION Q4HR PRN (Reason: short) RF: 0 Xarelto 20 mg tablet 20 mg PO DAILY RF: 0 Qvar RediHaler 80 mcg/actuation HFA aerosol breath activated 2 inh INHALATION BID RF: 0 Discontinued propranolol 40 mg Tablet 40 mg PO BID RF: 0 Follow up/Referrals: Khoi Dyer DO [Primary Care Provider] - Discharge Health Status Health Concerns: Hypertensive Urgency Diet/Activity/Treatments Diet: Diet as Tolerated and Low-sodium Activity: As tolerated Discharge Data Primary Care Provider: Khoi Dyer Attending Provider: Timothy Hernandez Admit Date/Time: 09/24/19 23:35
== END 2019-09-25 16:47 | disposition home or self-care (01) ==
LOC: ED 23:34 → AC 23:35
PROVIDERS: Admitting Provider Nurse Practitioner Gerontology; Emergency Provider Emergency Medicine; PCP Family Medicine; Visit Provider Nurse Practitioner Gerontology
DX: I16.0 Hypertensive urgency (principal); R07.9 Chest pain, unspecified; I10 Essential (primary) hypertension; E03.9 Hypothyroidism, unspecified; G25.81 Restless legs syndrome; J45.909 Unspecified asthma, uncomplicated; K21.9 Gastro-esophageal reflux disease without esophagitis; F41.9 Anxiety disorder, unspecified; F32.9 Major depressive disorder, single episode, unspecified; E66.9 Obesity, unspecified; E11.9 Type 2 diabetes mellitus without complications; D64.9 Anemia, unspecified; I48.19 Other persistent atrial fibrillation; R06.09 Other forms of dyspnea; Z79.84 Long term (current) use of oral hypoglycemic drugs
CPT/HCPCS: 36415; 71045; 71275; 74174; 80048; 80053; 80061; 82550; 82962; 83036; 83540; 83550; 83690; 83735; 83880; 84443; 84484; 85025; 85610; 85730; 86850; 86900; 86901; 93005; 94640; 94762; 96361; 96374; 96375; 96376; 99284; 99285; G0378; J1200; J2270; J2405; J2930; J3475

== ENCOUNTER → 2020-01-24 15:45 | Outpatient (CLI) | payer OTHER, SELFPAY ==
[2019-09-25 00:11] VITALS: BMI 29.8
--- NOTE | 2020-01-24 | DI.RAD.S_ITS ---
PROCEDURE: XR CHEST 2V INDICATIONS: dyspnea on exertion TECHNIQUE: 2 views of the chest were acquired. COMPARISON: [facility], CR, XR CHEST 1V, 09/24/2019, 18:34. [facility], CR, XR CHEST 2V, 08/26/2018, 11:48. FINDINGS: Surgical changes and devices: None. Lungs and pleura: Lungs are clear. No pleural effusions or pneumothorax. Mediastinum: Mediastinal contours are normal. Heart size is normal. Bones and chest wall: No suspicious bony abnormalities. Soft tissues appear unremarkable. IMPRESSION: Normal for age, source of current shortness of breath on exertion symptoms is not seen. Dictated by: Filipe Farley M.D. on 01/24/2020 at 16:21 Approved by: Filipe Farley M.D. on 01/24/2020 at 16:22
[2020-01-24 18:15] LABS: BUN Creatinine Ratio 12.3 (6-22); Blood Urea Nitrogen 9 mg/dL (7-17); Calcium 8.8 mg/dL (8.4-10.2); Carbon Dioxide 25 mmol/L (22-32); Chloride 100 mmol/L (98-107); Estimated Glomerular Filt Rate > 60.0 mL/min (>60); Glucose 108 mg/dL (80-110); HEMOLYSIS < 15 (0-50); Potassium 3.3 mmol/L (3.4-5.1); Sodium 135 mmol/L (137-145)
== END ==
PROVIDERS: PCP Family Medicine; Referring Provider Internal Medicine Cardiovascular Disease; Visit Provider Internal Medicine Cardiovascular Disease
DX: R06.09 Other forms of dyspnea (principal); I42.8 Other cardiomyopathies
CPT/HCPCS: 36415; 71046; 80048

== ENCOUNTER → 2020-05-23 13:34 | Outpatient (CLI) | payer OTHER, SELFPAY ==
[2019-09-25 00:11] VITALS: BMI 29.8
--- NOTE | 2020-05-23 | DI.ECHO.S_ITS ---
[place] [facility]---------+ [facility] +---------+ : : [address] [place] : : : : [id number] : : : : Phone: [phone] Echocardiogram Report + + :Name: DAVE LYONS Study Date: 05/23/2020 Height: 62 in : :[facility] Weight: 153 lb : : Gender: Female BSA: 1.7 m2 : :: 1950 Age: 69 yrs BP: 114/66 mmHg: :Reason For Study: CARDIOMYOPATHY : :Ordering Physician: TAVIA, : :IFRAH Performed By: Kimberly Carey : :Referring: IFRAH YARBROUGH : + + Interpretation Summary 1) Normall left ventricular size, thickness, and systolic function (EF 60- 65%). 2) Normal right ventricular size and function. 3) There is mild to moderate aortic regurgitation. 4) Compared to the Echo done 12/12/2019, LVEF has improved from 25-30% to 60- 65% on this study. Procedure: A two-dimensional transthoracic echocardiogram with color flow and Doppler was performed. The study quality was technically adequate. Comparison is made with the echocardiogram of 06/27/2014. The patient was in atrial fibrillation with heart rates between 80-102 bpm during the exam. Left Ventricle: The left ventricle is normal in size and wall thickness. The ejection fraction is estimated to be 60-65%. Left ventricular systolic function is normal. There are no obvious focal wall motion abnormalities noted but poor endocardial definition reduces the sensitivity for the detection of such. Diastolic function could not be accurately assessed due to atrial fibrillation. Right Ventricle: The right ventricle is normal in size and function. Atria: The left atrium is moderately dilated. The right atrium is mildly dilated. There is no Doppler evidence for an interatrial shunt. Mitral Valve: There is mild mitral annular calcification. The mitral valve leaflets appear mildly thickened, but open well. There is mild mitral regurgitation. Aortic Valve: The aortic valve is mildly calcified. The aortic valve is trileaflet. The aortic valve opens well. There is no aortic valve stenosis. There is mild to moderate aortic regurgitation. Tricuspid Valve: The tricuspid valve is not well visualized, but is grossly normal. There is trace tricuspid regurgitation. Pulmonary artery pressures cannot be estimated because of the lack of a measurable TR jet velocity but the IVC suggests a CVP of around 3 mmHg. Pulmonic Valve: The pulmonic valve leaflets are thin and pliable; valve motion is normal. There is no pulmonic valvular regurgitation. Great Vessels: The aortic root is normal size. The ascending aorta is at the upper limits of normal in size. The IVC is of normal diameter and collapses greater than 50% with a sniff. This suggests a low right atrial pressure of 3 mm Hg. Pericardium/ Pleura There is no pericardial effusion. There is no pleural effusion. MMode/2D Measurements & Calculations LVIDd: 4.2 cm LVOT diam: 1.7 cm LVIDs: 2.6 cm Ao root diam: 2.3 cm FS: 37.6 % asc Aorta Diam: 3.3 cm EPSS: 0.78 cm Ao Arch Diam (Prox Trans): 2.7 cm IVSd: 0.64 cm LVPWd: 0.82 cm LV dial. diameter/BSA (cm/m^2): 2.4 LV sys. diameter/BSA (cm/m^2): 1.5 LA A2 area: 21.0 cm2 RA long axis: 5.6 cm LA A4 area: 19.3 cm2 RA area: 19.8 cm2 LA length (vol): 5.5 cm RA vol: 59.5 ml LA vol: 62.7 ml RA : 34.9 ml/m2 LA vol index: 36.7 ml/m2 IVC diam: 1.7 cm RVD1 (basal): 2.9 cm TAPSE: 1.9 cm Doppler Measurements & Calculations Ao V2 max: 162.3 cm/sec LVOT Max Juancarlos: 98.8 cm/sec Ao V2 mean: 106.7 cm/sec LV V1 max P.9 mmHg Ao max P.5 mmHg LV V1 VTI: 19.4 cm Ao mean P.4 mmHg NATHAN(I,D): 1.5 cm2 Ao V2 VTI: 30.5 cm NATHAN(V,D): 1.5 cm2 sev ratio: 0.64 NATHAN indexed to BSA (cm^2/m^2): 0.89 AI P1/2t: 482.8 msec AI dec slope: 199.6 cm/sec2 MV E max juancarlos: 141.2 cm/sec PA V2 max: 88.1 cm/sec MV A max juancarlos: 5.6 cm/sec PA V2 mean: 59.1 cm/sec MV E/A: 25.2 PA mean P.6 mmHg Med Peak E' Juancarlos: 9.3 cm/sec PA pr(Accel): 25.9 mmHg E/E' med: 15.2 Lat Peak E' Juancarlos: 9.3 cm/sec E/E' lat: 15.2 E/e' average: 15.2 MV dec time: 0.17 sec SV(LVOT): 46.5 ml Reading Physician:03:29 PM
== END ==
PROVIDERS: PCP Family Medicine; Referring Provider Internal Medicine Cardiovascular Disease; Visit Provider Internal Medicine Cardiovascular Disease
DX: I08.0 Rheumatic disorders of both mitral and aortic valves (principal); I42.8 Other cardiomyopathies
CPT/HCPCS: 93306

== ENCOUNTER → 2021-12-04 17:20 | Outpatient (CLI) | payer OTHER, SELFPAY ==
[2021-12-02 08:03] VITALS: BMI 29.8
--- NOTE | 2021-12-04 17:22 | DI.MRI.S_ITS ---
PROCEDURE: MR LUMBAR SPINE WO CON INDICATIONS: Lumbago with sciatica, right side TECHNIQUE: Noncontrast sagittal T1 spin echo and T2 fast echo, coronal T2, sagittal STIR, axial T1 and T2 fast spin echo through the lumbar spine. COMPARISON: [facility], , MR LUMBAR SPINE WO CON, 02/19/2018, 17:11. FINDINGS: Image quality: Excellent. Alignment and Curvature: 5 lumbar type vertebral bodies are present. There is loss of normal lumbar lordosis. There is mild leftward curvature of the lower lumbar spine. Mild grade 1 retrolisthesis of L4 on L5. Bone Marrow: Marrow is of normal overall signal. No acute vertebral body compression fractures. Moderate reactive signal within the endplates adjacent to the L3-L4 and L4-L5 intervertebral discs. Mild reactive signal adjacent to the remaining lumbar and lower thoracic intervertebral discs. Spinal Cord: Conus medullaris terminates at the L1-L2 disc space level. Visualized cord demonstrates normal signal and size. Paraspinous Soft Tissues: No paravertebral masses. Circumaortic left renal vein. T12-L1: Moderate disc height loss and desiccation. Mild diffuse disc bulge. No significant canal, or foraminal stenosis. L1-L2: Moderate disc height loss and desiccation. Mild diffuse disc bulge. Mild facet and ligamentum flavum hypertrophy. No significant canal, or foraminal stenosis. L2-L3: Moderate disc height loss and desiccation. Mild diffuse disc bulge. Mild facet and ligamentum flavum hypertrophy. Mild canal stenosis. Mild bilateral foraminal stenosis. No significant change. L3-L4: Severe disc height loss and desiccation. Mild diffuse disc bulge. Mild facet and ligamentum flavum hypertrophy. Mild epidural lipomatosis. Decreased, mild canal stenosis. No change in mild bilateral foraminal stenosis. L4-L5: Moderate disc height loss and desiccation. Mild diffuse disc bulge. Mild facet and ligamentum flavum hypertrophy. Mild canal stenosis. Increased, moderate right foraminal stenosis. No change in mild left foraminal stenosis. L5-S1: Mild disc height loss and desiccation. Mild diffuse disc bulge. Mild bilateral facet and ligamentum flavum hypertrophy. Mild canal stenosis. Mild bilateral foraminal stenosis. No significant change. IMPRESSION: 1. Multilevel degenerative disc and facet disease, as well as ligamentum flavum hypertrophy and epidural lipomatosis. 2. Mild multilevel canal stenoses. 3. Multilevel foraminal stenoses, worst at L4-L5 where there is moderate foraminal stenosis. Dictated by: Aida Coello M.D. on 12/05/2021 at 8:44 Approved by: Aida Coello M.D. on 12/05/2021 at 8:48
== END ==
PROVIDERS: PCP Family Medicine; Referring Provider Family Medicine; Visit Provider Family Medicine
DX: M51.16 Intervertebral disc disorders with radiculopathy, lumbar region (principal); M51.17 Intervertebral disc disorders with radiculopathy, lumbosacral region; M48.061 Spinal stenosis, lumbar region without neurogenic claudication; M48.07 Spinal stenosis, lumbosacral region
CPT/HCPCS: 72148

== ENCOUNTER → 2022-01-29 08:41 | Outpatient (CLI) | payer OTHER, SELFPAY ==
[2021-12-02 08:03] VITALS: BMI 29.8
--- NOTE | 2022-01-29 08:44 | DI.RAD.S_ITS ---
PROCEDURE: XR LUMBAR SPINE MIN 4V INDICATIONS: BACK PAIN TECHNIQUE: 5 views of the lumbar spine were acquired, including bilateral oblique views. COMPARISON: None. FINDINGS: Bones: 5 nonrib-bearing vertebrae are present. There is normal bony alignment. There is mild convex right curvature of the lumbar spine. No vertebral body compression fractures. No suspicious bony lesions. Severe L3-L4 degenerative disc disease. Moderate L4-L5 degenerative disc disease. Mild L1-L2, L2-L3 and L5-S1 degenerative disc disease. Mild L2-L3, L3-L4, L4-L5 and L5-S1 facet arthropathy. Soft tissues: Overlying bowel gas pattern is normal. No suspicious soft tissue calcifications. Cholecystectomy clips. Oblique images: No pars defects. IMPRESSION: 1. Multilevel degenerative disc disease. 2. Multilevel facet arthropathy. 3. No fracture. No acute osseous lesion. If symptoms and/or clinical suspicion for pathology persists, evaluation with MRI should be considered for further assessment. Dictated by: Stefanie Ambrocio MD, PhD on 01/29/2022 at 12:02 Approved by: Stefanie Ambrocio MD, PhD on 01/29/2022 at 12:03
== END ==
PROVIDERS: PCP Family Medicine; Referring Provider Physical Medicine & Rehabilitation; Visit Provider Physical Medicine & Rehabilitation
DX: M51.36 Other intervertebral disc degeneration, lumbar region (principal); M51.37 Other intervertebral disc degeneration, lumbosacral region; M47.816 Spondylosis without myelopathy or radiculopathy, lumbar region; M47.817 Spondylosis without myelopathy or radiculopathy, lumbosacral region; M54.9 Dorsalgia, unspecified
CPT/HCPCS: 72110

== ENCOUNTER → 2022-03-03 10:21 | Outpatient (CLI) | payer OTHER, SELFPAY ==
[2021-12-02 08:03] VITALS: BMI 29.8
[2022-03-03 11:26] LABS: COVID19 -Nasal RAPID Negative (Negative)
== END ==
PROVIDERS: PCP Family Medicine; Visit Provider Physical Medicine & Rehabilitation
DX: Z20.822 Contact with and (suspected) exposure to COVID-19 (principal)
CPT/HCPCS: 87635; C9803

== ENCOUNTER 2022-03-04 08:59 | Outpatient (CLI) | payer OTHER, SELFPAY ==
[2021-12-02 08:03] VITALS: BMI 29.8
[2022-03-04] VITALS (10 sets, daily range): BP systolic 91–164; BP diastolic 54–66; PULSE 58–67; RESP 13–22; O2SAT 98–100
--- NOTE | 2022-03-04 09:00 | DI.RAD.S_ITS ---
PROCEDURE: PAIN L INTERLAMINAR/CAUDAL INJ INDICATIONS: SPONDYLOSIS COMPARISON: [facility], CR, XR LUMBAR SPINE MIN 4V, 01/29/2022, 8:37. [facility], MR, MR LUMBAR SPINE WO CON, 12/04/2021, 18:06. FINDINGS: Fluoroscopic spot filming was performed to verify placement of a spinal needle at the L4-L5 level, as labeled on the films. Appropriate location of the needle tip was confirmed by injection of iodinated contrast. IMPRESSION: Intraprocedural examination within normal limits. Dictated by: Ward Rashid M.D. on 03/04/2022 at 11:22 Approved by: Ward Rashid M.D. on 03/04/2022 at 11:22
[2022-03-04] MEDS: MIDAZOLAM 2 MG/2 ML VIAL IV (10:06)
[2022-03-04] MEDS: diphenhydrAMINE 50 MG/ML VIAL IV (10:06)
[2022-03-04] MEDS: IOPAMIDOL 15 ML VIAL 3 ML INJ (10:08)
[2022-03-04] MEDS: BUPIVACAINE 0.25% (PF) VIAL 2 ML INJ (10:08)
[2022-03-04] MEDS: DEXAMETHASONE 10 MG/ML VIAL 20 MG INJ (10:09)
[2022-03-04] MEDS: BETAMETHASONE 30 MG/5 ML MDV 6 MG INJ (10:09)
--- NOTE | 2022-03-04 10:10 | PC.NURSE ---
Pt stated held Zorelto for 5 days prior to procedure.
--- NOTE | 2022-03-04 10:19 | P.PCN_ITS ---
Date/Time/Diagnoses Date of procedure: 03/04/22 Time of procedure: 10:19 Pre-procedure diagnosis: 1. HNP WITH RADICULAR FEATURES, 2. MULTILEVEL CENTRAL STENOSIS, Post-procedure diagnosis: same Procedure Notes Procedure: 1. FLUOROSCOPICALLY GUIDED CONTRAST CONTROLLED INTERLAMINAR EPIDURAL STEROID INJECTION -L4/5 Indications: Glenys is referred by Dr. Dyer for treatment of Bilateral Foraminal Stenosis R>L LE symptoms. Physician: Flo French Total Fluoroscopy time (seconds): 9 Total sedation minutes: 10 Complications: none Procedure in detail & Post-procedure care: FINDINGS Multilevel Central Spinal Stenosis with Nerve Root Compression DESCRIPTION OF PROCEDURE Fluoroscopically guided, contrast-controlled L4/5 translaminar epidural steroid injection. Following review of allergy and review of potential side effects and complications, including, but not necessarily limited to, infection, allergic reaction, local tissue breakdown, temporary as well as permanent nerve injury, paralysis, stroke and possible , the patient indicated that the patient understood and agreed to proceed. An informed consent document was signed by the patient, witnessed by a nurse, and placed in the patient's chart. Additionally, other treatment options including modalities, medications, and physical therapy were reviewed with the patient. After review of previous anaesthesic history and IV conscious sedation the patient was deemed safe to proceed with today?s procedure with IV conscious sedation as ASA class II designation. Safety time-out was performed to confirm patient ID, procedure to be performed and site of procedure. IV sedation was accomplished with a combination of 1mg of Versed was administered by the RN after DO order, titrated to patient comfort during the course of the procedure while the patient remained responsive to all verbal commands In the prone position, following sterile prep and drape of the lumbar region, the L4/5 translaminar space was identified fluoroscopically. The skin was anesthetized via a 25-gauge, 1.5inch needle with 1% lidocaine solution. At this point, a 22-gauge short bevel spinal needle was atraumatically introduced and advanced under fluoroscopic guidance into the region of the L4/5 translaminar space. Depth was confirmed on lateral view. Radiological data, including multiple fluoroscopic views of the lumbar spine, reveal a spinal needle at the L4/5 translaminar space. Lateral views then show placement of the needle in the epidural space. Subsequent views show contrast material flowing superiorly and inferiorly in the epidural space. No vascular or intrathecal uptake is observed. At this point, using loss of resistance technique with saline and air, the epidural space was entered. This was confirmed following negative aspiration with injection of approximately 1.5cc of Isovue 200, showing excellent epidural flow without vascular or intrathecal uptake. At this point, 1cc of 1% lidocaine solution combined with 3cc or 20mg of dexamethasone and 6mg betamethasone was injected without incident. The patient tolerated the procedure well without signs or symptoms of complications prior to transfer to the recovery area continued monitoring without incident. The patient was then transferred to the recovery area where they were observed for an appropriate period of time after the injection. The patient reported a VAS score of 6 prior to the procedure and a post- procedure VAS of 0. POST OP INSTRUCTIONS The patient was provided a Pain Log to continue to record their response to the target-specific procedure prior to follow-up visit with their referring physician. Additionally, specific post-injection care instructions and a contact number to our office were provided if concerns arise regarding possible complications associated with the procedure are suspected.
--- NOTE | 2022-03-04 11:22 | PC.NURSE ---
D/c instructions reviewed with patient and spouse. Informed spouse that she did have benadryl due to iodine product used during injection and he reports that she usually does well with it and the Benadryl, since they have had to do that in the past. Patient and spouse have no further questions.
== END 2022-03-04 11:00 | disposition home or self-care (01) ==
LOC: RAD 09:00
PROVIDERS: PCP Family Medicine; Referring Provider Physical Medicine & Rehabilitation; Visit Provider Physical Medicine & Rehabilitation
DX: M51.16 Intervertebral disc disorders with radiculopathy, lumbar region (principal); M48.061 Spinal stenosis, lumbar region without neurogenic claudication
CPT/HCPCS: 62323; 99152; J0702; J1100; J1200; J2250

== ENCOUNTER → 2022-04-22 13:02 | Outpatient (CLI) | payer OTHER, SELFPAY ==
[2021-12-02 08:03] VITALS: BMI 29.8
--- NOTE | 2022-04-22 13:04 | DI.CT.S_ITS ---
PROCEDURE: CT LUMBAR SPINE WO CON INDICATIONS: SPINAL STENOSIS, LUMBAR REGION TECHNIQUE: Noncontrast 3 mm thick sections acquired from the T12 level to the sacrum. Sagittal and coronal reformats were constructed. For radiation dose reduction, the following was used: automated exposure control. COMPARISON: [facility], MR, MR LUMBAR SPINE WO CON, 12/04/2021, 18:06. FINDINGS: Image quality: Excellent. Bones: There is loss of the expected lumbar lordosis. No vertebral body compression fractures. T12-L1: No canal stenosis or foraminal narrowing. L1-L2: Mild disc desiccation and height loss. Mild disc bulge. No canal stenosis. No foraminal stenosis. L2-L3: Mild disc desiccation and height loss. Broad-based disc bulge. No canal stenosis. No foraminal stenosis. L3-L4: Severe active end-plate changes with severe disc desiccation and height loss and vacuum disc phenomenon. Broad-based disc bulge. Mild canal stenosis. Mild to moderate bilateral foraminal stenosis. L4-L5: Severe disc desiccation and height loss. Vacuum disc phenomenon. Broad-based disc bulge. Moderate facet ligamentum flavum hypertrophy. Mild canal stenosis. Severe right and moderate left foraminal stenosis. L5-S1: No canal stenosis or neural foraminal narrowing. Soft tissues: No retroperitoneal masses or hematomas. Visualized aorta is normal in caliber. There are scattered atheromatous calcifications throughout the aorta and iliac arteries bilaterally. A low-density cystic lesion is present at the lower pole of the right kidney which is incompletely characterized but likely represents a simple renal cyst. There are scattered sigmoid diverticula. No evidence for diverticulitis. IMPRESSION: 1. Severe disc desiccation and height loss and reactive endplate changes at at L3-4 and L4-5. 2. Broad-based disc bulges and facet and ligamentum flavum hypertrophy with resultant mild canal stenosis at L3-4 and L4-5. 3. Severe right foraminal stenosis at L4-5, moderate left foraminal stenosis at L4-5, mild to moderate foraminal stenosis bilaterally at L3-4. Dictated by: Jyoti Hopson M.D. on 04/22/2022 at 15:49 Approved by: Jyoti Hopson M.D. on 04/22/2022 at 15:54
== END ==
PROVIDERS: PCP Family Medicine; Referring Provider Orthopaedic Surgery Orthopaedic Surgery of the Spine; Visit Provider Orthopaedic Surgery Orthopaedic Surgery of the Spine
DX: M48.061 Spinal stenosis, lumbar region without neurogenic claudication (principal); M46.06 Spinal enthesopathy, lumbar region
CPT/HCPCS: 72131

== ENCOUNTER → 2022-05-19 07:55 | Outpatient (CLI) | payer OTHER, SELFPAY ==
[2021-12-02 08:03] VITALS: BMI 29.8
[2022-05-19 08:30] LABS: Add Manual Diff / Slide Review NO; Basophils Absolute Auto 0 /uL (0-100); Basophils Percent Auto 0.6 % (0-2); Eosinophils Absolute Auto 400 /uL (0-450); Eosinophils Percent Auto 7.9 % (2-4); Hematocrit 28.9 % (36-46); Hemoglobin 9.8 g/dL (12.0-16.0); Lymphocytes Absolute Auto 1300 /uL (1100-4500); Lymphocytes Percent Auto 27.5 % (25-40); Mean Corpuscular Hemoglobin 30.9 PG (26-34); Mean Corpuscular Volume 90.8 fL (80-100); Monocytes Absolute Auto 400 /uL (0-900); Monocytes Percent Auto 8.3 % (3-14); Neutrophils Absolute Auto 2700 /uL (1500-7000); Neutrophils Percent Auto 55.7 % (50-75); Platelet Count 175 X10^3/uL (150-400); Red Blood Cell Count 3.18 X10^6/uL (4.0-5.2); Red Cell Distribution Width 13.1 % (11.6-14.8); White Blood Cell Count 4.8 X10^3/uL (4.5-11.0)
[2022-05-19 08:48] LABS: BUN Creatinine Ratio 13.4 (6-22); Blood Urea Nitrogen 16 mg/dL (7-17); Calcium 8.5 mg/dL (8.4-10.2); Carbon Dioxide 28 mmol/L (22-32); Chloride 103 mmol/L (98-107); Estimated Glomerular Filt Rate 49 mL/min (>60); Glucose 110 mg/dL (80-110); HEMOLYSIS < 15 (0-50); Potassium 4.6 mmol/L (3.4-5.1); Sodium 138 mmol/L (137-145)
[2022-05-19 09:31] LABS: Hemoglobin A1C% w Est Avg Glu 5.7 % (4.0-6.0)
== END ==
PROVIDERS: PCP Family Medicine; Referring Provider Orthopaedic Surgery Orthopaedic Surgery of the Spine; Visit Provider Orthopaedic Surgery Orthopaedic Surgery of the Spine
DX: Z01.812 Encounter for preprocedural laboratory examination (principal); R73.9 Hyperglycemia, unspecified
CPT/HCPCS: 80048; 83036; 85025

== ENCOUNTER → 2022-06-02 09:47 | Outpatient (CLI) | payer OTHER, SELFPAY ==
[2021-12-02 08:03] VITALS: BMI 29.8
[2022-06-02 10:35] LABS: COVID19 -Nasal RAPID Negative (Negative)
== END ==
PROVIDERS: PCP Family Medicine; Referring Provider Orthopaedic Surgery Orthopaedic Surgery of the Spine; Visit Provider Orthopaedic Surgery Orthopaedic Surgery of the Spine
DX: Z20.822 Contact with and (suspected) exposure to COVID-19 (principal)
CPT/HCPCS: 87635; C9803

== ENCOUNTER 2022-06-04 07:39 | Inpatient (IN) | payer OTHER, MEDICARE, SELFPAY ==
[2021-12-02 08:03] VITALS: BMI 29.8
[2022-05-27 13:53] VITALS: BMI 28.5
[2022-06-04] VITALS (16 sets, daily range): BP systolic 100–147; BP diastolic 47–75; PULSE 64–85; RESP 8–18; TEMP 35.9–36.6; O2SAT 87–99; BMI 28.5; BMI 28.2
--- NOTE | 2022-06-04 | DI.RAD.S_ITS ---
PROCEDURE: XR LUMBAR SPINE 2-3V INDICATIONS: L3-4 L4-5 TLIF TECHNIQUE: 2 views of the lumbar spine were acquired. COMPARISON: [facility], , XR LUMBAR SPINE MIN 4V, 01/29/2022, 8:37. FINDINGS: C-arm intraoperative image demonstrates posterior/interbody fusion at the C3-C4 and C4-C5 levels with hardware and intervertebral spacers in expected position. IMPRESSION: Interval posterior/interbody fusion L3-L4 and L4-L5. Dictated by: Edd Hinkle [facility] Interpreted: Roman Soriano MD on 06/04/2022 at 16:25 Transcribed by: ANDREE on 06/04/2022 at 16:26 Approved by: Roman Soriano M.D. on 06/04/2022 at 16:46
[2022-06-04] MEDS: LACTATED RINGERS 1,000 ML 42 ML IV ×2 (08:33→11:05)
--- NOTE | 2022-06-04 08:37 | PM.PREOP ---
Pre-operative Note COVID-19 COVID-19 status: Negative Result date/Date tested (Pos, Neg/Pending): 06/03/22 Criteria for continued procedure: Expected advancement of disease process, Possibility delay results in more complex future surgery or treatment, Increased loss of function, Continuing or worsening of significant or severe pain, Deterioration of the patient's condition or overall health and Delay expected to result in less-positive ultimate med/surg outcome Interval Note History & Physical reviewed/Exam performed by Physician: Yes Changes to H&P: No
[2022-06-04] MEDS: CEFAZOLIN 2 GM/100 ML PREMIX 100 ML IV ×2 (09:02→12:59)
--- NOTE | 2022-06-04 09:57 | SUR.OPER ---
Prone on spine table, head in foam head support, padded chest and pelvic supports, gel pad at knees, lower legs supported by pillows; nipples, genitalia and toes free of pressure, arms secured on foam padded arm boards at <90 degrees abduction. Gel pad between heels.
[2022-06-04] MEDS: ACETAMINOPHEN IV 1,000 MG/100 ML VIAL 400 MG IV (11:25)
[2022-06-04] MEDS: BUPIVACAINE LIPOSOME 266 MG/20 ML VIAL INJ (13:00)
[2022-06-04] MEDS: BUPIVACAINE 0.25% (PF) 60 ML, EPINEPHrine 0.3 MG INJ (13:00)
--- NOTE | 2022-06-04 13:00 | PM.OP.1 ---
Operative Date/Time/Diagnoses Date of procedure: 06/04/22 Time of procedure: 08:45 Pre-op diagnosis: 1. L3-4, L4-5 spinal stenosis 2. L3-4, L4-5 spondylosis with radiculopathy Post-op diagnosis: same Procedure & Clinicians Procedure: 1. L3-4, L4-5 Postero-lateral and posterior interbody fusion 2. L3-4, L4-5 interbody cage placement. 3. L3-4, L4-5 decompressive laminectomy with bilateral facetecomies 4. L3-4, L4-5 Posterior segmental instrumentation 5. [place] of bone marrow from iliac crest 6. Utilization of microsurgical technique and operating microscope Same procedure as scheduled: Yes Indications: Patient has been having chronic back pain and worsening lumbar radiculopathy. Patient failed multiple conservative management with worsening pain weakness and numbness in her lower extremity. Patient has been having difficulty performing activity of daily living. After discussing risks benefits of treatment options, patient elected proceed with surgery. Surgeon: Luisana Goss Certified Prosthetist Vice President: Yue Yoo Click Yes if Unassisted: No Anesthesia Type: General Operative Notes Closure Type: primary Specimen(s): none sent Prosthetic devices, grafts, tissues, transplants, or devices: Globus CREO MIS screws, Rise cages Applied: catheter Estimated Blood Loss (mL): 150 Blood products transfused: none Procedure in detail: Patient was seen in the preoperative area. Risks and benefits of the surgery was discussed with the patient. Informed consent was obtained from the patient and placed in the chart. Surgical site was marked. Patient was taken to the operative room. General anesthesia was administered. Prophylactic antibiotic was given to the patient less than 30 min before the incision was made. Patient was placed into a prone position on the Keshav table. Patient's back was then prepped and draped in the sterile fashion. Time-out was performed at this time. After patient was prepped and draped, patient's PSIS was palpated and marked bilaterally. Small 1 cm incision was made over the PSIS for placement of the reference probes. Two trocar was placed into the PSIS 1 on each side. The reference probe was attached to the trocar of the reference apparatus. At this time the C-arm imaging was used to confirm AP and lateral of L3, L4-L5 vertebrae and merged the C-arm imaging using the [employer] robotic navigation system with the CT of the lumbar spine. After successful merging was completed and confirmed, skin marker was used to andreia out the skin incision using the [employer] robotic arm. Bilateral incision was made at this time. Pre templated trajectory was used and guided using the [employer] robotic navigation system for bilateral L3 L4, L5 pedicle screw placement. This was done by using the robotic arm to guide the high-speed bur to make a cortical entry point. Next a drill was placed also using the robotic arm and guided using the navigation system drilling partially through bilateral L3, L4, L5 pedicles. Next L3, L4, L5 pedicle screws it was pre templated and measured was placed onto the power construction driver and inserted into the pedicles bilaterally. After all 6 screws were placed C-arm imaging was taken of both AP and lateral to confirm the placement. Excellent placement of the screws were confirmed and a matched precisely with the pre planned screw placement using the navigation system. MARs retractor was inserted using CartCrunchivation guidence. Globus MARS retractors was placed inside the incision and docked onto the L3, L4 lamina. Using microsurgical technique and operating microscope, a L3, L4 laminectomy and L3-4, L4-5 facetectomy was performed using a Kerrison rongeur. Patient was found have severe lateral recess and neural foramen stenosis which was fully decompressed after the laminectomy facetectomy. More than 75% of the facets were removed during the process of decompression rendering L3-4, L4-5 level grossly unstable and required a fusion procedure at the same time. The disc space at L3-4, L4-5 was identified, and a total diskectomy was performed at L3-4, L4-5 level. The endplates were decorticated using a rasp and shaver. The total diskectomy and decortication was performed at L3-4, L4-5 level in order to to accomplish a L3-4, L4-5 fusion. The local bone from the laminectomy and facetectomy was saved for local bone grafting. After the total diskectomy and decortication was completed, Trifecta bone graft material was combined with local bone that was harvested earlier. At this time, a separate skin is incision was made over the iliac crest. A Jamshidi needle was inserted into the iliac crest through a separate skin incision. 5 cc of bone marrow aspiration was obtained through the separate skin incision using a Jamshidi needle from the iliac crest. The bone marrow aspiration was combined with local bone and the Trifecta bone grafting material. The bone grafting material was placed into the L3-4, L4-5 interbody space along with expandable cages. One cage each was inserted into the L3-4 L4-5 interbody space along with bone graft material. The cage was expanded to its maximum height using the torque limiting screwdriver. The disc preparation as well as the cage insertion were also performed under navigation guidance. After the cage was placed, AP and lateral C-arm imaging was taken to confirm placement of the cage and excellent position was confirmed. Globus MARS retractor was inserted and docked onto the L3-4, L4-5 posterolateral gutter on the right side. Using the power drill, posterior-lateral decortication was performed at L3-4, L4-5 level until bleeding cortical bone was identified. The remaining bone grafting material was placed into the L3-4, L4-5 posterior lateral gutter he order to accomplish posterolateral fusion at the L3-4, L4-5 level. At this time the tulips were attached to the L3, L4-L5 pedicle screw shanks. After measuring the length of the rods, they were inserted into the tulips of the pedicle screws and locked in place using locking caps and torque limiting screwdriver bilaterally. Total 6 caps and 2 titanium rods was used in order to complete the posterior instrumentation construct. After all the hardware was placed, and confirmed with AP and lateral C-arm imaging, the wound was then irrigated with sterile normal saline and packed with Ray-Shannan gauze for 3 min to accomplish hemostasis. After the gauze was removed the deep fascia was closed with #1 Vicryl suture. The subcutaneous layer was closed with 2-0 Vicryl. The skin was closed with skin grace. Patient tolerated the procedure well. There were no complications. Neuro monitoring system was used to monitor patient's neurologic status throughout entire procedure. There was no disturbance of the neural monitoring signals throughout the case. Complications: none Post-operative Condition: stable Disposition: PACU Plan for aftercare: Admit to inpatient hospital
[2022-06-04] MEDS: SODIUM CHLORIDE 0.9% 1,000 ML 100 ML IV (14:40)
[2022-06-04] MEDS: OXYCODONE IR 5 MG TABLET 10 MG PO ×2 (14:48→18:05)
[2022-06-04] MEDS: ACETAMINOPHEN 325 MG TABLET 650 MG PO (18:05)
[2022-06-04] MEDS: ALBUTEROL 2.5 MG/3 ML NEB (ADULT) INH (19:21)
[2022-06-04] MEDS: BUDESONIDE 0.5 MG/2 ML NEB INH (19:22)
[2022-06-04] MEDS: ROPINIROLE 4 MG TABLET PO (21:18)
[2022-06-04] MEDS: SENNOSIDES 8.6 MG TABLET 17.2 MG PO (21:18)
[2022-06-04] MEDS: ATORVASTATIN 20 MG TABLET 80 MG PO (21:18)
[2022-06-04] MEDS: CEFAZOLIN 1 GM VIAL IV (21:19)
[2022-06-04] MEDS: GABAPENTIN 100 MG CAPSULE 300 MG PO (21:19)
[2022-06-04] MEDS: DOCUSATE 100 MG CAPSULE PO (21:19)
[2022-06-04] MEDS: lisinopriL 5 MG TABLET PO (21:19)
[2022-06-04] MEDS: METFORMIN HCL 500 MG TABLET PO (21:19)
[2022-06-04] MEDS: TRAZODONE 50 MG TABLET PO (21:19)
[2022-06-04] MEDS: carvediloL 12.5 MG TABLET PO (21:19)
[2022-06-05] MEDS: OXYCODONE IR 5 MG TABLET 10 MG PO ×2 (00:58→08:59)
[2022-06-05 03:47] VITALS: BP 94/48; PULSE 67; RESP 16; TEMP 35.8; O2SAT 97
[2022-06-05 05:38] LABS: Hemoglobin 8.7 g/dL (12.0-16.0)
[2022-06-05] MEDS: LEVOTHYROXINE 50 MCG TABLET PO (06:25)
[2022-06-05] MEDS: CEFAZOLIN VIAL 1 GM in SODIUM CHLORIDE 0.9% 100 ML IV (06:43)
[2022-06-05 07:07] VITALS: PULSE 65; RESP 18; O2SAT 99
[2022-06-05] MEDS: BUDESONIDE 0.5 MG/2 ML NEB INH (07:07)
[2022-06-05] MEDS: ALBUTEROL 2.5 MG/3 ML NEB (ADULT) INH (07:07)
--- NOTE | 2022-06-05 07:24 | PM.DS.1 ---
History of Present Illness History of Present Illness Date Patient Seen: 06/05/22 Time Patient Seen: 07:24 Chief complaint: Back pain Narrative: Patient's pain is mild. Denies fever or chills. No nausea or vomiting. Patient has assistance at. Discharge Providers Provider Discharge Date: 06/05/22 Primary care physician: Khoi Dyer DO Consults: 06/04/22 13:43 Consult to Occupational Therapy Evaluate & Treat Comment: Physician Instructions: Evaluate and treat Consult to Physical Therapy Evaluate & Treat Comment: Physician Instructions: Evaluate and Treat Discharge provider: Price Smith PA-C Summary Hospital Course Discharge Diagnosis: 1. L3-4, L4-5 spinal stenosis 2. L3-4, L4-5 spondylosis with radiculopathy Hospital Course: ?1. L3-4, L4-5 Postero-lateral and posterior interbody fusion 2. L3-4, L4-5 interbody cage placement. 3. L3-4, L4-5 decompressive laminectomy with bilateral facetecomies 4. L3-4, L4-5 Posterior segmental instrumentation 5. [place] of bone marrow from iliac crest 6. Utilization of microsurgical technique and operating microscope Same procedure as scheduled: Yes Indications: ?Patient has been having chronic back pain and worsening lumbar radiculopathy. Patient failed multiple conservative management with worsening pain weakness and numbness in her lower extremity.? Patient has been having difficulty performing activity of daily living.? After discussing risks benefits of treatment options, patient elected proceed with surgery. Surgeon: Luisana Goss Team Facilitator: Yue Yoo Click Yes if Unassisted: No Anesthesia Type: General Operative Notes Closure Type: primary Specimen(s): none sent Prosthetic devices, grafts, tissues, transplants, or devices: Globus CREO MIS screws, Rise cages Applied: catheter Estimated Blood Loss (mL): 150 Blood products transfused: none Patient admitted to the hospital for the above-mentioned procedure. Patient underwent surgery on June 04, 2022. Patient back in her room recovering well as in stable condition. Patient will work with physical therapy this morning. She will be discharged home after physical therapy if safe for home environment. Exam Vital Signs (past 8 hours): - 06/04/22 23:30 06/05/22 03:47 06/05/22 07:07 Temperature 96.6 F L 96.5 F L Pulse Rate 73 67 65 Respiratory Rate 17 16 18 Blood Pressure 114/51 L 94/48 L Pulse Oximetry 97 97 99 Oxygen Delivery Method Nasal Cannula Oxygen Flow Rate 0 2 2 Fraction of Inspired Oxygen 28 Fraction of Inspired Oxygen 28 Oxygen Delivery Method Nasal Cannula Oxygen Flow Rate 2 Narrative Exam Narrative: Pleasant 71-year-old female resting comfortably in bed in no apparent distress. Dressing is Clean, dry, intact.. Motor functions intact bilateral lower extremities. Sensation grossly intact to light touch bilateral lower extremities. Const General: cooperative and comfortable Objective Labs Result Diagrams: 06/05/22 05:25 Labs: Laboratory Results - last 24 hr 06/05/22 05:25 Hgb 8.7 L Hct 25.0 L PFSH Medical History Afib Anesthesia complication Anxiety Asthma Chronic episodic atrial fibrillation Easy bruisability Gait instability GERD (gastroesophageal reflux disease) Heart murmur History of left heart catheterization (12/13/19) HLD (hyperlipidemia) Hypothyroidism Lumbar stenosis Palpitations Pre-diabetes Skin cancer Spondylolisthesis at L3-L4 level Surgical History History of hysterectomy Hx of appendectomy Hx of bilateral cataract extraction (2020) Hx of cholecystectomy Hx of tubal ligation Social History household members: spouse Smoking Status: Never smoker alcohol intake: never Discharge Assessment & Plan Assessment and Plan Assessment: Patient progressing as expected status post L3-L4, L4-L5 fusion. Plan of Treatment: Mobilize with physical therapy, limit bending, twisting, lifting Multimodal pain management Disposition, home today after physical therapy if safe for home environment. Discharge Plan Discharge Plan Patient Disposition: Home Discharge orders & Medications Discharge Orders: Discharge (Order); Ordered 06/05/22 Ordered By: Price Smith Prescriptions: New acetaminophen 325 mg Tablet 650 mg PO Q6HR PRN (Reason: Pain, Mild (1-3)) Qty: 60 0RF oxycodone 5 mg Tablet 10 mg PO Q3HR PRN (Reason: Pain, Severe (7-10)) Qty: 60 0RF Continued levothyroxine 50 mcg Capsule 50 mcg PO DAILY duloxetine 20 mg Capsule,Delayed Release(Dr/Ec) 60 mg PO DAILY metformin 500 mg Tablet 500 mg PO BID prochlorperazine maleate 10 mg Tablet 1 tab PO TID PRN (Reason: Nausea) albuterol sulfate 90 mcg/actuation HFA aerosol inhaler 2 inh INHALATION Q4HR PRN (Reason: Shortness Of Breath) Label Comments: INHALE 2 PUFFS BY MOUTH EVERY 4 HOURS NEEDED Qvar RediHaler 80 mcg/actuation HFA aerosol breath activated 2 inh INHALATION BID pantoprazole 40 mg Tablet,Delayed Release (Dr/Ec) 40 mg PO DAILY ropinirole 4 mg tablet 4 mg PO BEDTIME gabapentin 100 mg capsule 300 mg PO BEDTIME spironolactone 25 mg tablet 25 mg PO DAILY carvedilol 12.5 mg tablet 12.5 mg PO BID lisinopril 5 mg tablet 5 mg PO BEDTIME Label Comments: TAKE 1 TABLET BY MOUTH NIGHTLY rosuvastatin 40 mg tablet 40 mg PO BEDTIME trazodone 50 mg tablet 50 mg PO BEDTIME Label Comments: TAKE 1 TABLET BY MOUTH ONCE DAILY AT BEDTIME Discontinued Xarelto 20 mg tablet 20 mg PO DAILY Label Comments: TAKE 1 TABLET BY MOUTH ONCE DAILY WITH FOOD Follow up/Referrals: Khoi Dyer DO [Primary Care Provider] - Luisana Goss MD [Physician] - (Two weeks) Diet/Activity/Treatments Diet: Diet as Tolerated Activity: Limit bending, twisting, lifting Skin/Wound/Dressing Care Report to your healthcare provider any signs of infection, such as:: chills, fever, increased pain, unusual drainage and unusual redness Dressing: Keep dressing clean and dry Visit Report/Discharge Packet Instructions: DI for Transforaminal Lumbar Interbody Fusion Stand Alone Forms: Surgery Discharge Discharge Data Primary Care Provider: Khoi Dyer Attending Provider: Luisana Goss Quality VTE Deep Vein Thrombosis/Pulmonary Embolism Present on Admission: No
[2022-06-05 08:08] VITALS: BP 98/45
[2022-06-05] MEDS: METFORMIN HCL 500 MG TABLET PO (08:09)
[2022-06-05] MEDS: DOCUSATE 100 MG CAPSULE PO (08:09)
[2022-06-05] MEDS: DULOXETINE 20 MG CAPSULE 60 MG PO (08:11)
[2022-06-05] MEDS: SPIRONOLACTONE 25 MG TABLET PO (08:11)
[2022-06-05] MEDS: PANTOPRAZOLE DR 40 MG TABLET PO (08:11)
[2022-06-05 09:00] VITALS: BP 98/45; PULSE 69; RESP 18; TEMP 36.7; O2SAT 97
--- NOTE | 2022-06-05 09:52 | PT.IIE ---
Current Diagnoses Spondylolisthesis, lumbar region (06/04/22) Spinal stenosis, lumbar region with neurogenic claudication (06/04/22) Surgery Performed Operation Date: 06/04/22 08:45 Actual Procedures p L3-4, L4-5 TLIF w. posterior instrumentation-Robot - Luisana Goss MD Surgical History (Last Reviewed 06/05/22 @ 07:26 by Price Smith PA-C) History of hysterectomy Hx of appendectomy Hx of bilateral cataract extraction (2020) Hx of cholecystectomy Hx of tubal ligation Medical History (Last Reviewed 06/05/22 @ 07:26 by Price Smith PA-C) Afib Anesthesia complication Anxiety Asthma Chronic episodic atrial fibrillation Easy bruisability Gait instability GERD (gastroesophageal reflux disease) Heart murmur History of left heart catheterization (12/13/19) HLD (hyperlipidemia) Hypothyroidism Lumbar stenosis Palpitations Pre-diabetes Skin cancer Spondylolisthesis at L3-L4 level Physical Therapy Inpatient Evaluation/Re-Eval M1 PT/OT-IP Prior Functional Status Start: 06/05/22 13:34 Freq: NEEDED Status: Active Protocol: Document 06/05/22 09:52 AB (Rec: 06/05/22 13:44 AB [id number]) Medical Review Prior Functional Status Medical History Reviewed Yes Communication able to make needs known Mobility and Gait pt stated that she is independent with all mobilities and ambulation without AD Social History Household Members spouse Living Arrangements Apartment/Condo Number of Floors (Floors) One Floor Number of Stairs To Enter/Railing? has a small (3/4 in) step to enter the house Home Environment Standard Height Toilet,Tub/ Shower Home Equipment Four Wheel Walker,Shower Seat with Backrest,Grab Bars Near Toilet,Grab Bars In Shower M2 PT-IP Current Condition Start: 06/05/22 13:34 Freq: NEEDED Status: Active Protocol: Document 06/05/22 09:52 AB (Rec: 06/05/22 13:44 AB [id number]) Physical Therapy Current Condition Current Condition Evaluation Date 06/05/22 Treatment Diagnosis s/p L3-4, 4-5 TLIF; difficulty in walking Onset Date 06/04/22 M3 PT-IP Subjective Start: 06/05/22 13:34 Freq: NEEDED Status: Active Protocol: Document 06/05/22 09:52 AB (Rec: 06/05/22 13:44 AB [email or web address]) Subjective Physical Therapy Visit Type Type Initial Evaluation Visit Start Time 09:52 Visit Stop Time 10:16 Total Visit Minutes 24 Number of COKE INSPECTOR Visits 0 Physical Therapy Visit Comments Patient Comments agreeable to do PT M4 PT-IP Mobility and Gait Start: 06/05/22 13:34 Freq: NEEDED Status: Active Protocol: Document 06/05/22 09:52 AB (Rec: 06/05/22 13:44 AB [id number]) PT-Bed Mobility Assessment Rolling Type of Rolling Log Rolling Level of Assist Standby Assistance,Minimal Assistance Supine to Sit Supine to Sit Standby Assistance,Minimal Assistance Sit to Supine Sit to Supine Standby Assistance,Minimal Assistance PT-Transfer Assessment Sit to and From Stand Sit to and from Stand Contact Guard Assistance,1 Person Assistance,Use of Upper Extremities Equipment Transfer Assistive Device Gait Belt,Front Wheeled Walker Orthotic/Prosthetic Devices or Brace: No Transfers Transfer Destination Bed,Chair Transfer Technique ambulated Transfer Ability Level of Assist Contact Guard Assistance,1 Person Assistance,Use of Upper Extremities Comments Mobility Comments pt sitting on chair and spouse in room. completed sit to stand CGA and ambulated to EOB CGA. spouse stated that he had caregiver training done with OT earlier. spouse demonstrated on how to assist pt with bed mobility and provided pt with paddy A. educated pt and spouse on log roll bed mobility and spouse to provide cues to pt when needed. pt completed sit<> supine SBA with PT providing cues and spouse counterdemonstrated and able to assist and provide cued to pt. pt completed sit to stand from EOB CGA with spouse assisting and ambulated in room ~ 30 ft using FWW with spouse assisting CGA. pt sat on chair and positioned. call light and table placed within reach. informed nurse that pt is waiting for d/c. Gait Assessment Gait Gait Assistance Required: Contact Guard Assist Distance (Feet) 30 Able to Maintain Weight Bearing Status Yes During Gait Assistive Devices Assistive Device Gait Belt,Front Wheeled Walker Orthotic/Prosthetic Devices or Brace: No Gait Deviations General Gait Pattern Antalgic,Decreased Stride Length,Decreased Feet Clearance Factors Limiting Gait Function Factors Limiting Gait Function Decreased Activity Tolerance, Decreased Strength,Difficulty Following Directions,Limited Range of Motion,Pain,Poor Balance,Poor Safety Awareness PT-Balance Assessment Sitting Balance and Reactions Static Sitting Balance Ability Good Dynamic Sitting Balance Ability Good Standing Balance and Reactions Static Standing Balance Ability Fair Dynamic Standing Balance Ability Fair Device Used FWW M5 PT-IP Objective Assessments Start: 06/05/22 13:34 Freq: NEEDED Status: Active Protocol: Document 06/05/22 09:52 AB (Rec: 06/05/22 13:44 AB [id number]) Orientation Orientation/Cognition Level of Alertness Alert Orientation Name,Place,Situation Language Function Ability Hard of Hearing Safety Awareness Decreased Safety Awareness Memory Description Short Term Impaired Gross Range of Motion Lower Extremity ROM Assessment Within Functional Limits Strength Lower Extremity Strength Hip 4-/5 Knee 4-/5 Coordination Assessment Gross Coordination Gross Coordination WNL Muscle Tone Muscle Tone WNL Yes M6 PT-IP Treatment Start: 06/05/22 13:34 Freq: NEEDED Status: Active Protocol: Document 06/05/22 09:52 AB (Rec: 06/05/22 13:44 AB [id number]) Physical Therapy Treatment Education Education Provided Precautions,Weight Bearing Status,Safety M7 PT-IP Assessment and Plan Start: 06/05/22 13:34 Freq: NEEDED Status: Active Protocol: Document 06/05/22 09:52 AB (Rec: 06/05/22 13:44 AB [email or web address]) PT Summary Assessment and Plan Potential Rehabilitation Potential Good Status of Condition at Evaluation Stable Summary Impairments Pain,ROM,Strength,Balance, Coordination,Sensation,Tone, Cognition,Bed Mobility, Transfers,Gait,Activity Tolerance Assessment Summary pt requiring CGA to min A with mobility and spouse was able to assist pt safely. pt plans to go home today and may go home when medically stable. Goals Bed Mobility Goal Independent Transfer Goal Independent,Front Wheeled Walker Gait Goal Independent,Front Wheel Walker Gait Distance 200 Days to Meet Goals 5 Frequency of Treatment Frequency Of Treatment Twice a Day Treatment Plan Physical Therapy Treatment Plan Bed Mobility Training,Transfer Training,Gait Training, Therapeutic Exercise,Balance Retraining,Post Op Education, Discharge Planning,Hot or Cold Pack,Neuromuscular Re-ed, Coordination Retraining,Manual Therapy Precautions Lumbar Precautions Log Roll,No Twisting,Limit Bending,Lifting Restriction of 10 lbs,Gait Belt above Incisional Area Recommendations To Nursing Amount of Assist Needed 1 Person Assist Discharge Recommendations PT Discharge Recommendations Home with Assistance, Outpatient PT Equipment Needed for Home Before FWW Discharge Transportation Needs at Discharge Private Vehicle
--- NOTE | 2022-06-05 09:53 | OT.IP.EVAL ---
Current Diagnoses Spondylolisthesis, lumbar region (06/04/22) Spinal stenosis, lumbar region with neurogenic claudication (06/04/22) Surgery Performed Operation Date: 06/04/22 08:45 Actual Procedures p L3-4, L4-5 TLIF w. posterior instrumentation-Robot - Luisana Goss MD Past Medical History (Last Reviewed 06/05/22 @ 07:26 by Price Smith PA-C) Afib Anesthesia complication Anxiety Asthma Chronic episodic atrial fibrillation Easy bruisability Gait instability GERD (gastroesophageal reflux disease) Heart murmur History of left heart catheterization (12/13/19) HLD (hyperlipidemia) Hypothyroidism Lumbar stenosis Palpitations Pre-diabetes Skin cancer Spondylolisthesis at L3-L4 level Surgical History (Last Reviewed 06/05/22 @ 07:26 by Price Smith PA-C) History of hysterectomy Hx of appendectomy Hx of bilateral cataract extraction (2020) Hx of cholecystectomy Hx of tubal ligation Occupational Therapy Inpatient Evaluation/Re-Eval M1 PT/OT-IP Prior Functional Status Start: 06/05/22 12:31 Freq: NEEDED Status: Active Protocol: Document 06/05/22 08:45 [facility] (Rec: 06/05/22 12:46 [facility] [id number]) Medical Review Prior Functional Status Communication Independent Mobility and Gait Able to only stand for 15 minutes at a time due to her pain. Activities of Daily Living and IADL's Increased time for ADl and IADl needs due to pain. Social History Household Members spouse Living Arrangements Apartment/Condo Number of Floors (Floors) One Floor Number of Stairs To Enter/Railing? NO steps to get in to the apartment. Home Environment Standard Height Toilet,Tub/ Shower Home Equipment Four Wheel Walker,Grab Bars Near Toilet,Grab Bars In Shower Additional Social History Comment Pt's to be home at all times to assist pt. M2 OT-IP Current Condition Start: 06/05/22 12:31 Freq: Status: Active Protocol: Document 06/05/22 08:45 [facility] (Rec: 06/05/22 12:46 [facility] [id number]) Occupational Therapy Current Condition Current Condition Evaluation Date 06/05/22 Treatment Diagnosis S/p L3-4, L4-5 TLIF Diagnosis Onset Date 06/04/22 Post Operative Precautions Lumbar Precautions Log Roll,No Twisting,Limit Bending,Lifting Restriction of 10 lbs,Gait Belt above Incisional Area M3 OT- IP Subjective and Pain Start: 06/05/22 12:31 Freq: Status: Active Protocol: Document 06/05/22 08:45 [facility] (Rec: 06/05/22 12:46 [facility] [id number]) OT- Subjective Occupational Therapy Visit Type Type Initial Evaluation Visit Start Time 08:45 Visit Stop Time 09:53 Total Visit Minutes 68 Occupational Therapy Visit Comments Patient Comments Pt wanting pain medications first but agreed to do OT eval . Patient/Caregiver Goals to go home OT Pain Assessment Pain When Pain Assessed At Rest Pain Present Pain Present Pain Reported Location Bilateral Lower Back Intensity 8 Scale Used Numeric (0 - 10) M4 OT- IP ADL's Start: 06/05/22 12:31 Freq: Status: Active Protocol: Document 06/05/22 08:45 [facility] (Rec: 06/05/22 12:46 [facility] [id number]) OT [id number] Comments OT Self-Feeding Comments Not at meal time. OT ADL-Grooming Comments OT Grooming Comments Not performed. OT ADL-Oral Care Comments Oral Care Comments Not performed, educated best to hinge at her hips or spit into the sink to best follow her back precautions. Pt states normally sit on a rolling chair for grooming needs. OT ADL-Dressing General Eval Upper Body Dressing Ability Minimal Assistance Lower Body Dressing Ability Moderate Assistance Areas Needing Assistance Pull-Over Shirt,Underpants/ Brief,Pants/Shorts Comments OT Dressing Comments Pt needing ANNITA to help pull down her shirt. Pt able to use the [employer] to assist with LB dressing needs and able to use sock aid as well. Pt to order LB dressing to use at home. Pt getting tired and her ended up assist her. OT ADL-Toileting General Evaluation Toileting Ability Moderate Assistance Areas Needing Assistance Manage Clothing Comments OT Toileting Comments Pt needing to assist her to pull up her pants while pt holding onto the FWW for balance. Also educated pt to hold FWW with one hand while the other hand assists with her clothing as her is able to assist with her balance. Suggested pt wears briefs/pads at night and that wet one can be helpful. Pt not able to reach to wipe and to assist and agreed to look into getting a toilet paper aid. OT ADL-Bathing Comments OT Bathing Comments Pt refused.Suggested pt get a shower chair for home use. M5 OT- IP IADL's Start: 06/05/22 12:31 Freq: Status: Active Protocol: Document 06/05/22 08:45 [facility] (Rec: 06/05/22 12:46 [facility] [id number]) OT-Instrumental Activities of Daily Living Home Safety Awareness Awareness of Need for Assistance at Home Good Awareness Home Safety Comments Pt's to be home to assist pt for all needs. Pt a bit forgetful and needing cues to follow her back precautions and for FWW safety. M6 OT- IP Functional Cognition Start: 06/05/22 12:31 Freq: Status: Active Protocol: Document 06/05/22 08:45 [facility] (Rec: 06/05/22 12:46 [facility] [id number]) Cognitive Factors Limiting Selfcare Function Cognitive Ability Level of Alertness Alert Patient Orientation Name,Place,Situation Attention Span Ability Capable of Focused Attention, Capable of Sustained Attention Ability to Follow Commands Able to Follow One Step Commands with Increased Time, Able to Follow One Step Commands with Repetition Safety Awareness Decreased Recall of Precautions,Decreased Ability to Apply Precautions, Underestimates Need for Assistance Cognitive Comments Cognitive Assessment Comments Pt needing safety cues for back precautions and FWW use. OT- Vision and Hearing OT- Hearing Assessment OT- Hearing Assessment WFL M7 OT- IP Mobility and Balance Start: 06/05/22 12:31 Freq: Status: Active Protocol: Document 06/05/22 08:45 [facility] (Rec: 06/05/22 12:46 [facility] [id number]) OT- Bed Mobility Assessment Supine to Sit Supine to Sit Assist Moderate Assistance Sit to Supine Sit to Supine Assist Moderate Assistance OT-Transfer Assessment Sit to and From Stand Sit to and from Stand Minimal Assistance,Moderate Assistance Transfers Transfer Ability Minimal Assistance Technique Transfer Destination Bed,Chair Devices Transfer Assistive Devices Gait Belt,Front Wheeled Walker Comments Mobility Comments Pt's educated for deneen /doffing gait belt, assist pt for bed mobility and transfers and able to safely demonstrate how to assist the pt. Pt able to get off and off of high bed -simulated to height at home. Pt's states can also take off a topper to lower the bed if needed. OT- Balance Assessment Sitting Balance and Reactions Static Sitting Balance Ability Good Dynamic Sitting Balance Ability Good Standing Balance and Reactions Static Standing Balance Ability Fair Dynamic Standing Balance Ability Poor M8 OT- IP Objective Assessments Start: 06/05/22 12:31 Freq: Status: Active Protocol: Document 06/05/22 08:45 [facility] (Rec: 06/05/22 12:46 [facility] [id number]) OT-Muscle Tone Assessment Muscle Tone WNL Yes M9 OT- IP Assessment and Plan Start: 06/05/22 12:31 Freq: Status: Active Protocol: Document 06/05/22 08:45 [facility] (Rec: 06/05/22 12:46 [facility] [id number]) OT Summary Assessment and Plan Potential Rehabilitation Potential Good Analytic Complexity at Evaluation Low Summary OT Impairments Pain,Balance,Functional Cognition,Functional Mobility, Dressing,Toileting,Bathing, Toilet Transfers,Shower Transfers,Activity Tolerance Progress Towards Goals Progressing Toward Goals Assessment Summary Pt low complexity and main barriers are pain, reminders to incorporate her back precautions, and assist to ADl and mobility needs. Pt's present and able to safely assist pt for all ADl and mobility needs. Pt to go home with her to assist 11/05. FWW issued and long handle shoe horn given to the pt. Goals Grooming Goal Independent Dressing Goal Independent Toileting Goal Independent Bathing Goal Independent Toilet Transfer Goal Independent Shower Transfer Goal Independent Patient/Caregiver Education Goal Caregiver Independent Assisting Patient Days to Meet Goals 10 Frequency of Treatment Frequency Of Treatment Once a Day Treatment Plan OT Treatment Plan ADL Training,Functional Cognition Training,Functional Mobility,Patient/Family Education,Discharge Planning Discharge Recommendations OT Discharge Recommendations Home with 24/ Assist Available Transportation Needs at Discharge Private Vehicle
--- NOTE | 2022-06-05 09:57 | PC.NURSE ---
Addendum entered by Alisson Walker R.N. 06/05/22 10:39: Pt & spouse received D/C instructions Pt escorted by staff via W/C to waiting vehicle D/C in stable post op status. Original Note: Pt received D/C orders Thorne cath D/C at 0730 for 300cc clear yellow urine Working w/PT/OT Pt voided HL D/C intact. Surgical back dsg CDI Satisfactory post op course.
--- NOTE | 2022-06-05 10:16 | CM.DANOTE ---
Addendum entered by Annel Glover R.N. 06/05/22 10:24: FWW ordered by PT for pt. ADJ Original Note: DCP Assessment: Payor: Healthcare Management PCP: MD Manisha Pt is a 71 y.o. F who presented to the hospital for a planned TLIF surgery. Pt surgery performed by Dr. Goss on 06/04/22. Pt has a PMH of DM, CHF, Depression, HTN, and obesity. Pt admitted to the floor as SDC for further management and evaluation of her surgical symptoms. DCP met with pt this morning to discuss further discharge needs. Pt sitting up in chair. Spouse, Jorden, at bedside. DCP introduced herself and role. Pt states that she lives in an apartment in [place] with her spouse. Pt states that she lives on the first floor of her apartment complex. Pt states that she does most of the chores at the house but her does the grocery shopping and any other errands that need to be run. Pt denies any DME use. Pt states that she does not drive and relies on her for transportation. Pt does still work. Pt states that she feels good today and feels that she wont need any resources such as home health. PT/OT to evaluate pt today prior to her discharge. No needs identified by DCP. Whiteboard updated and instructed to call if any other questions arise. Pt thankful for the discussion. P: Pt to work with PT/OT today. If cleared by the team, pt to discharge home via spouse POV. Annel Glover RN/DIPIKA Discharge Planning/Care Management CM Discharge Assessment Start: 06/05/22 08:44 Freq: Status: Active Protocol: Document 06/05/22 08:44 [facility] (Rec: 06/05/22 08:45 [facility] [id number]) Discharge Planning Assessment Assigned Wall Worker Annel Glover RN/DIPIKA Advance Directives? No History Provided By Patient,Medical Record Prior Living Arrangements Apartment/Condo Household Members spouse Type of transporation used prior to Relies on Others admit Independent with ADL's Yes Is patient alert and oriented? Yes Caregiver for Another No Discharge Plan Home Transportation Arrangement Spouse Referrals Initiated None needed Additional Comment At this time Whiteboard Updated in Patient Room with Yes name and ext. # of Wall Worker Comment Instructed to call Review Status In Process Please Provide Date Initial DC 06/05/22 Assessment Was Performed Next Review Type Continued Stay Review Pre-Anesthesia Assessment Start: 05/27/22 13:53 Freq: Status: Active Protocol: Document 05/27/22 13:53 [facility] (Rec: 05/27/22 13:55 [facility] [id number]) Pre-Anesthesia Assessment Patient Information Reviewed Via Phone Assessment Assessment Completed With Patient Diagnostic Results BMP/CMP,CBC Comment Labs @ 05/19/22, ECG @ PCP, not available, COVID screen @ 06/02/22 Primary Care Provider Khoi Dyer Seen Specialist in Last 12 Months Yes Specialist Seen Course Developer,Orthopedist,Other Comment GI Primary Language [place] Preferred Language [place]ese Telephone Answerer Required No Height 157.48 cm Weight 70.76 kg Body Mass Index (BMI) 28.5 Hearing Ability Normal Visual Assist Glasses Dentition Type Full- Upper & Lower Barriers to Learning None Hx Anesthesia Reactions Yes: PONV Hx Family Anesthesia Reaction No Hx Malignant Hyperthermia No Hx Blood Transfusions No Anesthesia Review Requested No alcohol intake never Smoking Status Never smoker Substance Use Type does not use Pain Present Pain Reported Musculoskeletal Symptoms Abnormal Gait,Back Pain, Difficulty Walking,Radiating Pain into Limb History of Falling (Recent or History of Yes ) Patient is completely paralyzed or No completely immobile Mental Status Oriented to own ability Is patient on oxygen? No Does patient have PADILLA/SOB Yes: Related to Asthma Hx Sleep Apnea No Currently Taking a Beta Edna Yes: Carvedilol Hx Chest Pain Yes: Currently denies Hx SOB Yes: Related to Asthma Hx Syncope or Dizziness Yes: Lightheadedness Anti-Coagulant Therapy Yes: Xarelto-Pt will check w/ surgeon who was instsructed by Cardiology Has a Course Developer Yes: Dr. Yarbrough-last visit 10/08 Cardiac Testing No: Echo @ [facility] 09/05/21 Hx Pacemaker/ICD No Pacemaker Rep Required? No Comment Cardiac records scanned Diet Type At Home Regular dysphagia No Gastrointestinal Symptoms Bloating,Constipation,Reflux Bladder Pattern Frequency,Incontinent,Urgency Urinary Catheter Present No Hx Urinary Self Catheterization No Diabetes No: Pre-diabetes HgbA1C 5.7 Date 05/19/22 Patient No Lactating No Hx Drug Resistant Organism No Presence of External or Internal Medical Yes: Bilat eye IOLs Devices Have you had any close contact with No someone diagnosed with COVID-19? Received a COVID vaccine? Yes Received all doses? Yes Marital Status Lives With spouse Prior Living Arrangements Apartment/Condo Support System Spouse Does the Patient Have Assistance After Yes Surgery Patient Discharge Plan Description Return Home Comment Pt advised 2 day length of stay per surgeon Feels Safe in Current Environment Yes Been Physically Hurt or Threatened By a No Person in Current Environment Do you have thoughts of harming yourself None or others? Are you currently considering suicide? No Do you have a plan to hurt yourself or No Plan others? Do You Have Any Spiritual Beliefs That No May Affect Your HC Choices? Do You Have Any Cultural Practices That No May Affect Your HC Choices? Who Can We Speak to About Patient's Care Family, friends Identifying Code for Release of Patient Declines to issue Information Health Care Proxy/Next of Kin Jorden Damon () Health Care Proxy Emergency Contact Name Jorden Nelson () Emergency Contact Advance Directives? No Power of Credit Collections Analyst No PAC Instructions Diabetes instructions,Durable medical equipment,Medications to take/avoid,Nasal antibiotic ,No ETOH/petroleum product on skin DOS,NPO,Post-op transportation,Sensory aids, Sturdy shoes/comfortable clothes,Do not bring valuables and remove jewelry
== END 2022-06-05 10:35 | disposition home or self-care (01) | DRG 455 ==
LOC: OR 07:40 → AC 07:40
PROVIDERS: Admitting Provider Orthopaedic Surgery Orthopaedic Surgery of the Spine; PCP Family Medicine; Referring Provider Orthopaedic Surgery Orthopaedic Surgery of the Spine; Visit Provider Orthopaedic Surgery Orthopaedic Surgery of the Spine
PROC: 01NB0ZZ Release Lumbar Nerve, Open Approach (ICD-10-PCS; principal; 2022-06-04 08:45)
DX: M48.061 Spinal stenosis, lumbar region without neurogenic claudication (principal); M43.16 Spondylolisthesis, lumbar region; M54.16 Radiculopathy, lumbar region; E03.9 Hypothyroidism, unspecified; F41.9 Anxiety disorder, unspecified; E11.9 Type 2 diabetes mellitus without complications; J45.909 Unspecified asthma, uncomplicated; K21.9 Gastro-esophageal reflux disease without esophagitis; E78.5 Hyperlipidemia, unspecified; Z79.84 Long term (current) use of oral hypoglycemic drugs; Z20.822 Contact with and (suspected) exposure to COVID-19
CPT/HCPCS: 36415; 72100; 76000; 82962; 85014; 85018; 87635; 94640; 94760; 97161; 97165; 97530; 97535; C9803; G0378; C1713; C9290; J0131; J0171; J0690; J1100; J1170; J2405; J2704; J3010; J7613

== ENCOUNTER 2022-06-08 06:10 | Inpatient (IN) | payer OTHER, MEDICARE, SELFPAY ==
[2022-06-04 13:36] VITALS: BMI 28.2
[2022-06-08] VITALS (20 sets, daily range): BP systolic 124–191; BP diastolic 49–82; PULSE 69–78; RESP 16–21; TEMP 36.4–37.4; O2SAT 96–99; BMI 29.6
--- NOTE | 2022-06-08 06:30 | ED_ITS ---
HPI - Back Pain/Injury <Dwayne Hope MD - Last Filed: 06/23/22 07:34> General Chief Complaint: Back Pain/Injury Stated Complaint: Leg Pain Time Seen by Provider: 06/08/22 06:17 Source: patient History of Present Illness HPI Narrative: Yesy Gottlieb is a 71-year-old woman with chronic back pain, hypertension and prediabetes. She underwent elective spine surgery by Dr. Villalpando this last Thursday. She stayed in the hospital till and has been home since then. She was taking some pain medication the 1st day or 2 after surgery but it made her so lightheaded and confused and ?loopy? that she has quit taking it. She has not had a bowel movement since the day of surgery. She has felt nauseated but not had any vomiting. She has pain at the surgical site and also pain in her legs since surgery. She has had some stool leakage of liquid stool since surgery but she was also having that prior to surgery. She came in by ambulance today because she has foggy headedness, leg pain and just generally feels quite poorly. Again she denies fever. Related Data Previous Rx's Medication Instructions Recorded acetaminophen 325 mg tablet 650 mg PO Q6HR PRN Pain, Mild 06/05/22 (1-3) #60 tabs albuterol sulfate 90 mcg/actuation 2 inh inhalation Q4HR PRN 06/10/22 aerosol inhaler Shortness Of Breath #1 g beclomethasone dipropionate 80 2 inh inhalation BID #1 g 06/10/22 mcg/actuation HFA breath activated aerosol (Qvar RediHaler) carvedilol 12.5 mg tablet 12.5 mg PO BID #60 tabs 06/10/22 docusate sodium 50 mg capsule 50 mg PO BID #60 caps 06/10/22 (Colace Clear) duloxetine 20 mg capsule,delayed 60 mg PO DAILY #30 caps 06/10/22 release ferrous gluconate 324 mg (37.5 mg 324 mg PO BID #60 tabs 06/10/22 iron) tablet gabapentin 100 mg capsule 300 mg PO BEDTIME #30 caps 06/10/22 hydrocodone 5 mg-acetaminophen 325 1 tab PO Q4-6H PRN pain #30 tabs 06/10/22 mg tablet hydrocodone 5 mg-acetaminophen 325 1 tab PO Q4-6H PRN pain #5 tabs 06/10/22 mg tablet levothyroxine 50 mcg capsule 50 mcg PO DAILY #30 caps 06/10/22 lisinopril 5 mg tablet 5 mg PO BEDTIME #30 tabs 06/10/22 metformin 500 mg tablet 500 mg PO BID #60 tabs 06/10/22 pantoprazole 40 mg tablet,delayed 40 mg PO DAILY #30 tabs 06/10/22 release polyethylene glycol 3350 17 gram 17 gm PO DAILY #30 ea 06/10/22 oral powder packet prochlorperazine maleate 10 mg 1 tab PO TID PRN Nausea #90 tabs 06/10/22 tablet rivaroxaban 20 mg tablet (Xarelto) 20 mg PO DAILY #30 tabs 06/10/22 ropinirole 4 mg tablet 4 mg PO BEDTIME #30 tabs 06/10/22 rosuvastatin 40 mg tablet 40 mg PO BEDTIME #30 tabs 06/10/22 sennosides 8.6 mg tablet (senna) 17.2 mg PO BEDTIME 30 days #60 tabs 06/10/22 spironolactone 25 mg tablet 25 mg PO DAILY #30 tabs 06/10/22 trazodone 50 mg tablet 50 mg PO BEDTIME #30 tabs 06/10/22 Allergies Allergy/AdvReac Type Severity Reaction Status Date / Time Iodine and Iodide Containing Allergy Severe pass out Verified 06/04/22 07:57 Produc [IODINE AND IODIDE CONTAINING PRODUC] amlodipine Allergy Intermediate Swelling Verified 06/04/22 07:57 of Lip/Tongue/Throat codeine [CODEINE] Allergy Intermediate HIVES, Verified 06/04/22 07:57 NAUSEA nitrofurantoin Allergy Mild Rash Verified 06/04/22 07:57 [NITROFURANTOIN] oxycodone AdvReac Hallucinati Verified 06/08/22 18:32 ng Review of Systems <Dwayne Hope MD - Last Filed: 06/23/22 07:34> Review of Systems Narrative: Complete review of systems is negative other than as noted above. Patient History <Dwayne Hope MD - Last Filed: 06/23/22 07:34> Medical History Afib Anesthesia complication Anxiety Asthma Chronic episodic atrial fibrillation Easy bruisability Gait instability GERD (gastroesophageal reflux disease) Heart murmur History of left heart catheterization (12/13/19) HLD (hyperlipidemia) Hypothyroidism Lumbar stenosis Palpitations Pre-diabetes Skin cancer Spondylolisthesis at L3-L4 level Surgical History H/O spinal fusion History of hysterectomy Hx of appendectomy Hx of bilateral cataract extraction (2020) Hx of cholecystectomy Hx of tubal ligation Family History Father Congestive heart failure Mother COPD (chronic obstructive pulmonary disease) Social History household members: spouse Smoking Status: Never smoker alcohol intake: never Smoking Status: Never smoker alcohol intake frequency: 0-2 drinks per day Substance Use Type: does not use Exam <Dwayne Hope MD - Last Filed: 06/23/22 07:34> Narrative Exam Narrative: GENERAL: She is pale and looks uncomfortable HEAD: Atraumatic. Normocephalic. EYES: Sclera are clear without icterus. Extraocular movements are full. ENT: No rhinorrhea. Oropharynx is moist. Mouth exam is benign. NECK: Supple. Full range of motion. CARDIOVASCULAR: Normal rate and rhythm without murmur gallop or rub. RESPIRATORY: Clear to auscultation. Breath sounds equal bilaterally. No wheezes, rales, or rhonchi. GASTROINTESTINAL: Abdomen soft, non-tender, nondistended. Rectal examination: Scant brown stool. No fecal impaction. EXTREMITIES: No edema, full range of motion. No obvious trauma. BACK: Normal inspection, no CVA tenderness. Postop surgical dressing in place in the mid back NEURO: Nonfocal examination, gait is not tested. She can lift each leg alternatively off the bed for a few seconds but this causes a fair amount of pain. SKIN: No rash or erythema of visible areas PSYCH: Normally oriented. Normal range of affect. Appropriate behavior Initial Vital Signs Initial Vital Signs: Vital Signs Temperature 97.5 F L 06/08/22 06:14 Pulse Rate 74 06/08/22 06:14 Respiratory Rate 16 06/08/22 06:14 Blood Pressure 168/81 H 06/08/22 06:14 Pulse Oximetry 97 06/08/22 06:14 Oxygen Delivery Method 06/08/22 06:14 <Carl López DO - Last Filed: 06/08/22 12:24> Narrative Exam Narrative: GENERAL: She is pale and looks uncomfortable HEAD: Atraumatic. Normocephalic. EYES: Sclera are clear without icterus. Extraocular movements are full. ENT: No rhinorrhea. Oropharynx is moist. Mouth exam is benign. NECK: Supple. Full range of motion. CARDIOVASCULAR: Normal rate and rhythm without murmur gallop or rub. RESPIRATORY: Clear to auscultation. Breath sounds equal bilaterally. No wheezes, rales, or rhonchi. GASTROINTESTINAL: Abdomen soft, non-tender, nondistended. Rectal examination: Scant brown stool. No fecal impaction.HEME NEG (performed with female nurse standard machine stitcher at the bedside and patient permission) EXTREMITIES: No edema, full range of motion. No obvious trauma. BACK: Normal inspection, no CVA tenderness. Postop surgical dressing in place in the mid back, when removed, the wound is found to be clean, dry and intact without dehiscence, surrounding erythema or significant swelling NEURO: Nonfocal examination, gait is not tested. She can lift each leg alternatively off the bed for a few seconds but this causes a fair amount of pain. SKIN: No rash or erythema of visible areas PSYCH: Normally oriented. Normal range of affect. Appropriate behavior Initial Vital Signs Initial Vital Signs: Vital Signs Temperature 97.5 F L 06/08/22 06:14 Pulse Rate 74 06/08/22 06:14 Respiratory Rate 16 06/08/22 06:14 Blood Pressure 168/81 H 06/08/22 06:14 Pulse Oximetry 97 06/08/22 06:14 Oxygen Delivery Method 06/08/22 06:14 Course <Dwayne Hope MD - Last Filed: 06/23/22 07:34> Orders Ordered: Discontinued Medications Acetaminophen (Acetaminophen 325 Mg Tablet) 975 mg PO NOW ONE Stop: 06/08/22 06:36 Last Admin: 06/08/22 06:50 Dose: 975 mg Documented By: LAUREN Acetaminophen (Acetaminophen 325 Mg Tablet) 975 mg PO Q8H PRN PRN Reason: Pain, Mild (1-3) Acetaminophen (Acetaminophen 325 Mg Tablet) 325 mg PO Q4H PRN PRN Reason: Fever/Mild Pain (1-3) Last Admin: 06/09/22 23:14 Dose: 325 mg Documented By: Admin: 06/09/22 18:30 Dose: 325 mg Documented By: Admin: 06/09/22 11:54 Dose: 325 mg Documented By: MINI Hydrocodone Bitart/Acetaminophen (Hydrocodone/Acet 5/325 Tablet) 1 tab PO Q4HR PRN PRN Reason: Pain, Moderate (4-6) Last Admin: 06/10/22 16:42 Dose: 1 tab Documented By: Admin: 06/10/22 12:55 Dose: 1 tab Documented By: Admin: 06/10/22 09:30 Dose: 1 tab Documented By: Admin: 06/10/22 05:40 Dose: 1 tab Documented By: Admin: 06/09/22 21:46 Dose: 1 tab Documented By: Admin: 06/09/22 18:30 Dose: 1 tab Documented By: Admin: 06/09/22 13:20 Dose: 1 tab Documented By: Admin: 06/09/22 09:28 Dose: 1 tab Documented By: Admin: 06/09/22 04:32 Dose: 1 tab Documented By: Admin: 06/08/22 23:12 Dose: 1 tab Documented By: Admin: 06/08/22 19:26 Dose: 1 tab Documented By: Admin: 06/08/22 15:42 Dose: 1 tab Documented By: YVES Albuterol (Albuterol Hfa Mdi 60 Puff/8 Gm Inhaler) 2 puff INH Q4HR PRN PRN Reason: Shortness Of Breath Albuterol (Albuterol 2.5 Mg/3 Ml Neb (Adult)) 2.5 mg INH Q4H PRN PRN Reason: Shortness Of Breath Atorvastatin Calcium (Atorvastatin 20 Mg Tablet) 80 mg PO BEDTIME [facility] Last Admin: 06/09/22 20:34 Dose: 80 mg Documented By: Admin: 06/08/22 20:44 Dose: 80 mg Documented By: Bisacodyl (Bisacodyl 5 Mg Tablet) 10 mg PO DAILY PRN PRN Reason: Constipation Carvedilol (Carvedilol 12.5 Mg Tablet) 12.5 mg PO BID [facility] Last Admin: 06/10/22 09:00 Dose: Not Given Documented By: Admin: 06/09/22 20:35 Dose: 12.5 mg Documented By: Admin: 06/09/22 09:14 Dose: 12.5 mg Documented By: Admin: 06/08/22 20:45 Dose: 12.5 mg Documented By: Dextrose (Dextrose 50 % In Water 25 Gm/50 Ml Syringe) 25 gm IV PRN PRN PRN Reason: Hypoglycemia Docusate Sodium (Docusate 100 Mg Capsule) 100 mg PO BID [facility] Last Admin: 06/10/22 09:00 Dose: 100 mg Documented By: Admin: 06/09/22 20:33 Dose: 100 mg Documented By: Admin: 06/09/22 09:13 Dose: 100 mg Documented By: Admin: 06/08/22 20:45 Dose: 100 mg Documented By: Duloxetine HCl (Duloxetine 20 Mg Capsule) 60 mg PO DAILY [facility] Last Admin: 06/10/22 09:00 Dose: 60 mg Documented By: Admin: 06/09/22 09:13 Dose: 60 mg Documented By: MINI Fentanyl (Fentanyl 100 Mcg/2 Ml Inj) 25 mcg IV NOW ONE Stop: 06/08/22 06:36 Last Admin: 06/08/22 12:24 Dose: Not Given Documented By: ANGELICA Ferrous Sulfate (Ferrous Sulfate 325 Mg Tablet) 325 mg PO BIDWM [facility] Last Admin: 06/10/22 16:42 Dose: 325 mg Documented By: MINI Gabapentin (Gabapentin 100 Mg Capsule) 300 mg PO BEDTIME [facility] Last Admin: 06/09/22 20:32 Dose: 300 mg Documented By: Admin: 06/08/22 20:43 Dose: 300 mg Documented By: Hydromorphone HCl (Hydromorphone 0.5 Mg Inj) 0.5 mg IV NOW ONE Stop: 06/08/22 07:45 Last Admin: 06/08/22 08:01 Dose: 0.5 mg Documented By: ANDERSON Hydromorphone HCl (Hydromorphone 0.5 Mg Inj) 0.5 mg IV NOW ONE Stop: 06/08/22 11:18 Last Admin: 06/08/22 11:28 Dose: 0.5 mg Documented By: ANDERSON Sodium Chloride (Normal Saline 0.9%) 1,000 mls @ 1,000 mls/hr IV BOLUS ONE Stop: 06/08/22 07:34 Last Infusion: 06/08/22 11:20 Dose: 0 mls/hr Documented By: Admin: 06/08/22 06:51 Dose: 1,000 mls/hr Documented By: LAUREN Sodium Chloride (Normal Saline 0.9%) 1,000 mls @ 50 mls/hr IV CONT NARESH Last Admin: 06/09/22 19:00 Dose: 100 mls/hr Documented By: Infusion: 06/09/22 09:42 Dose: 100 mls/hr Documented By: Admin: 06/08/22 23:42 Dose: 100 mls/hr Documented By: Infusion: 06/08/22 23:42 Dose: 100 mls/hr Documented By: Admin: 06/08/22 14:31 Dose: 100 mls/hr Documented By: YVES Ibuprofen (Ibuprofen 400 Mg Tablet) 400 mg PO NOW ONE Stop: 06/08/22 06:36 Last Admin: 06/08/22 06:49 Dose: 400 mg Documented By: LAUREN Insulin Human Lispro (Insulin Lispro 100 Unit/Ml 3ml Vial) 0 unit SUBCUT [facility]; Protocol Last Admin: 06/10/22 13:05 Dose: 1 unit Documented By: MINI Co-signed By: PRATIBHA Admin: 06/10/22 08:45 Dose: Not Given Documented By: Admin: 06/09/22 20:46 Dose: Not Given Documented By: Admin: 06/09/22 17:00 Dose: Not Given Documented By: Admin: 06/09/22 12:45 Dose: Not Given Documented By: Admin: 06/09/22 08:00 Dose: Not Given Documented By: Admin: 06/08/22 21:09 Dose: Not Given Documented By: Admin: 06/08/22 17:17 Dose: Not Given Documented By: YVES Lactulose (Lactulose 20 Gm/30 Ml Solution) 20 gm PO NOW ONE Stop: 06/09/22 15:25 Last Admin: 06/09/22 16:14 Dose: 20 gm Documented By: MINI Levothyroxine Sodium (Levothyroxine 50 Mcg Tablet) 50 mcg PO 0600 [facility] Last Admin: 06/10/22 05:37 Dose: 50 mcg Documented By: Admin: 06/09/22 06:14 Dose: 50 mcg Documented By: Lisinopril (Lisinopril 5 Mg Tablet) 5 mg PO BEDTIME [facility] Last Admin: 06/09/22 20:37 Dose: 5 mg Documented By: Admin: 06/08/22 20:45 Dose: 5 mg Documented By: Mineral Oil (Mineral Oil 1 Each Enema) 1 each MO NOW ONE Stop: 06/09/22 11:26 Last Admin: 06/09/22 11:55 Dose: 1 each Documented By: MINI Ondansetron HCl (Ondansetron 4 Mg/2 Ml Inj) 4 mg IV Q8HR PRN PRN Reason: Nausea And Vomiting Oxycodone HCl (Oxycodone Ir 5 Mg Tablet) 5 mg PO Q4HR PRN PRN Reason: Pain, Severe (7-10) Oxycodone HCl (Oxycodone Ir 5 Mg Tablet) 2.5 mg PO Q4HR PRN PRN Reason: Pain, Moderate (4-6) Pantoprazole Sodium (Pantoprazole Dr 40 Mg Tablet) 40 mg PO DAILY [facility] Last Admin: 06/10/22 09:00 Dose: 40 mg Documented By: Admin: 06/09/22 09:13 Dose: 40 mg Documented By: MINI Polyethylene Glycol (Polyethylene Glycol 3350 17 Gm Powd.Pack) 17 gm PO DAILY [facility] Last Admin: 06/10/22 09:00 Dose: 17 gm Documented By: Admin: 06/09/22 09:14 Dose: 17 gm Documented By: Admin: 06/08/22 15:43 Dose: 17 gm Documented By: LDTigist Prochlorperazine (Prochlorperazine 5 Mg Tablet) 10 mg PO TID PRN PRN Reason: Nausea Rivaroxaban (Rivaroxaban 10 Mg Tablet) 20 mg PO DAILY [facility] Last Admin: 06/10/22 09:00 Dose: 20 mg Documented By: Admin: 06/09/22 09:13 Dose: 20 mg Documented By: MINI Ropinirole HCl (Ropinirole 4 Mg Tablet) 4 mg PO BEDTIME [facility] Last Admin: 06/08/22 21:04 Dose: Not Given Documented By: Ropinirole HCl (Ropinirole 1 Mg Tablet) 4 mg PO BEDTIME [facility] Last Admin: 06/09/22 20:32 Dose: 4 mg Documented By: Admin: 06/08/22 21:06 Dose: 4 mg Documented By: Sennosides (Sennosides 8.6 Mg Tablet) 17.2 mg PO BEDTIME [facility] Last Admin: 06/09/22 20:33 Dose: 17.2 mg Documented By: Admin: 06/08/22 20:44 Dose: 17.2 mg Documented By: Vital Signs Vital signs: Vital Signs - 8 hr 06/08/22 06:14 06/08/22 07:36 06/08/22 06:30 Temperature 97.5 F L Pulse Rate 74 76 Respiratory Rate 16 Blood Pressure 168/81 H 163/81 H Pulse Oximetry 97 97 Oxygen Delivery Method Room Air 06/08/22 07:00 06/08/22 07:45 06/08/22 07:45 Temperature Pulse Rate 69 Respiratory Rate Blood Pressure 178/80 H 191/78 H Pulse Oximetry 97 Oxygen Delivery Method 06/08/22 08:01 06/08/22 08:00 06/08/22 08:00 Temperature 98.6 F Pulse Rate 72 Respiratory Rate Blood Pressure 175/82 H Pulse Oximetry 98 Oxygen Delivery Method 06/08/22 08:15 06/08/22 08:15 06/08/22 08:30 Temperature Pulse Rate 72 Respiratory Rate Blood Pressure 159/74 H 180/74 H Pulse Oximetry 96 Oxygen Delivery Method 06/08/22 08:30 06/08/22 08:46 06/08/22 08:46 Temperature Pulse Rate 70 73 Respiratory Rate Blood Pressure 149/65 H Pulse Oximetry 97 96 Oxygen Delivery Method 06/08/22 09:00 06/08/22 09:00 06/08/22 09:30 Temperature Pulse Rate 73 78 Respiratory Rate Blood Pressure 156/72 H Pulse Oximetry 96 97 Oxygen Delivery Method 06/08/22 10:00 06/08/22 10:30 06/08/22 11:00 Temperature Pulse Rate 72 70 70 Respiratory Rate Blood Pressure Pulse Oximetry 99 98 99 Oxygen Delivery Method 06/08/22 11:30 06/08/22 12:00 Temperature Pulse Rate 70 74 Respiratory Rate Blood Pressure Pulse Oximetry 98 96 Oxygen Delivery Method <Carl López DO - Last Filed: 06/08/22 12:24> Orders Ordered: Discontinued Medications Acetaminophen (Acetaminophen 325 Mg Tablet) 975 mg PO NOW ONE Stop: 06/08/22 06:36 Last Admin: 06/08/22 06:50 Dose: 975 mg Documented By: LAUREN Acetaminophen (Acetaminophen 325 Mg Tablet) 975 mg PO Q8H PRN PRN Reason: Pain, Mild (1-3) Acetaminophen (Acetaminophen 325 Mg Tablet) 325 mg PO Q4H PRN PRN Reason: Fever/Mild Pain (1-3) Last Admin: 06/09/22 23:14 Dose: 325 mg Documented By: Admin: 06/09/22 18:30 Dose: 325 mg Documented By: Admin: 06/09/22 11:54 Dose: 325 mg Documented By: MINI Hydrocodone Bitart/Acetaminophen (Hydrocodone/Acet 5/325 Tablet) 1 tab PO Q4HR PRN PRN Reason: Pain, Moderate (4-6) Last Admin: 06/10/22 16:42 Dose: 1 tab Documented By: Admin: 06/10/22 12:55 Dose: 1 tab Documented By: Admin: 06/10/22 09:30 Dose: 1 tab Documented By: Admin: 06/10/22 05:40 Dose: 1 tab Documented By: Admin: 06/09/22 21:46 Dose: 1 tab Documented By: Admin: 06/09/22 18:30 Dose: 1 tab Documented By: Admin: 06/09/22 13:20 Dose: 1 tab Documented By: Admin: 06/09/22 09:28 Dose: 1 tab Documented By: Admin: 06/09/22 04:32 Dose: 1 tab Documented By: Admin: 06/08/22 23:12 Dose: 1 tab Documented By: Admin: 06/08/22 19:26 Dose: 1 tab Documented By: Admin: 06/08/22 15:42 Dose: 1 tab Documented By: YVES Albuterol (Albuterol Hfa Mdi 60 Puff/8 Gm Inhaler) 2 puff INH Q4HR PRN PRN Reason: Shortness Of Breath Albuterol (Albuterol 2.5 Mg/3 Ml Neb (Adult)) 2.5 mg INH Q4H PRN PRN Reason: Shortness Of Breath Atorvastatin Calcium (Atorvastatin 20 Mg Tablet) 80 mg PO BEDTIME [facility] Last Admin: 06/09/22 20:34 Dose: 80 mg Documented By: Admin: 06/08/22 20:44 Dose: 80 mg Documented By: Bisacodyl (Bisacodyl 5 Mg Tablet) 10 mg PO DAILY PRN PRN Reason: Constipation Carvedilol (Carvedilol 12.5 Mg Tablet) 12.5 mg PO BID [facility] Last Admin: 06/10/22 09:00 Dose: Not Given Documented By: Admin: 06/09/22 20:35 Dose: 12.5 mg Documented By: Admin: 06/09/22 09:14 Dose: 12.5 mg Documented By: Admin: 06/08/22 20:45 Dose: 12.5 mg Documented By: Dextrose (Dextrose 50 % In Water 25 Gm/50 Ml Syringe) 25 gm IV PRN PRN PRN Reason: Hypoglycemia Docusate Sodium (Docusate 100 Mg Capsule) 100 mg PO BID [facility] Last Admin: 06/10/22 09:00 Dose: 100 mg Documented By: Admin: 06/09/22 20:33 Dose: 100 mg Documented By: Admin: 06/09/22 09:13 Dose: 100 mg Documented By: Admin: 06/08/22 20:45 Dose: 100 mg Documented By: Duloxetine HCl (Duloxetine 20 Mg Capsule) 60 mg PO DAILY [facility] Last Admin: 06/10/22 09:00 Dose: 60 mg Documented By: Admin: 06/09/22 09:13 Dose: 60 mg Documented By: MINI Fentanyl (Fentanyl 100 Mcg/2 Ml Inj) 25 mcg IV NOW ONE Stop: 06/08/22 06:36 Last Admin: 06/08/22 12:24 Dose: Not Given Documented By: ANGELICA Ferrous Sulfate (Ferrous Sulfate 325 Mg Tablet) 325 mg PO BIDWM [facility] Last Admin: 06/10/22 16:42 Dose: 325 mg Documented By: MINI Gabapentin (Gabapentin 100 Mg Capsule) 300 mg PO BEDTIME [facility] Last Admin: 06/09/22 20:32 Dose: 300 mg Documented By: Admin: 06/08/22 20:43 Dose: 300 mg Documented By: Hydromorphone HCl (Hydromorphone 0.5 Mg Inj) 0.5 mg IV NOW ONE Stop: 06/08/22 07:45 Last Admin: 06/08/22 08:01 Dose: 0.5 mg Documented By: ANDERSON Hydromorphone HCl (Hydromorphone 0.5 Mg Inj) 0.5 mg IV NOW ONE Stop: 06/08/22 11:18 Last Admin: 06/08/22 11:28 Dose: 0.5 mg Documented By: ANDERSON Sodium Chloride (Normal Saline 0.9%) 1,000 mls @ 1,000 mls/hr IV BOLUS ONE Stop: 06/08/22 07:34 Last Infusion: 06/08/22 11:20 Dose: 0 mls/hr Documented By: Admin: 06/08/22 06:51 Dose: 1,000 mls/hr Documented By: LAUREN Sodium Chloride (Normal Saline 0.9%) 1,000 mls @ 50 mls/hr IV CONT NARESH Last Admin: 06/09/22 19:00 Dose: 100 mls/hr Documented By: Infusion: 06/09/22 09:42 Dose: 100 mls/hr Documented By: Admin: 06/08/22 23:42 Dose: 100 mls/hr Documented By: Infusion: 06/08/22 23:42 Dose: 100 mls/hr Documented By: Admin: 06/08/22 14:31 Dose: 100 mls/hr Documented By: YVES Ibuprofen (Ibuprofen 400 Mg Tablet) 400 mg PO NOW ONE Stop: 06/08/22 06:36 Last Admin: 06/08/22 06:49 Dose: 400 mg Documented By: LAUREN Insulin Human Lispro (Insulin Lispro 100 Unit/Ml 3ml Vial) 0 unit SUBCUT [facility]; Protocol Last Admin: 06/10/22 13:05 Dose: 1 unit Documented By: MINI Co-signed By: PRATIBHA Admin: 06/10/22 08:45 Dose: Not Given Documented By: Admin: 06/09/22 20:46 Dose: Not Given Documented By: Admin: 06/09/22 17:00 Dose: Not Given Documented By: Admin: 06/09/22 12:45 Dose: Not Given Documented By: Admin: 06/09/22 08:00 Dose: Not Given Documented By: Admin: 06/08/22 21:09 Dose: Not Given Documented By: Admin: 06/08/22 17:17 Dose: Not Given Documented By: LDTigist Lactulose (Lactulose 20 Gm/30 Ml Solution) 20 gm PO NOW ONE Stop: 06/09/22 15:25 Last Admin: 06/09/22 16:14 Dose: 20 gm Documented By: MINI Levothyroxine Sodium (Levothyroxine 50 Mcg Tablet) 50 mcg PO 0600 [facility] Last Admin: 06/10/22 05:37 Dose: 50 mcg Documented By: Admin: 06/09/22 06:14 Dose: 50 mcg Documented By: Lisinopril (Lisinopril 5 Mg Tablet) 5 mg PO BEDTIME [facility] Last Admin: 06/09/22 20:37 Dose: 5 mg Documented By: Admin: 06/08/22 20:45 Dose: 5 mg Documented By: Mineral Oil (Mineral Oil 1 Each Enema) 1 each MO NOW ONE Stop: 06/09/22 11:26 Last Admin: 06/09/22 11:55 Dose: 1 each Documented By: MINI Ondansetron HCl (Ondansetron 4 Mg/2 Ml Inj) 4 mg IV Q8HR PRN PRN Reason: Nausea And Vomiting Oxycodone HCl (Oxycodone Ir 5 Mg Tablet) 5 mg PO Q4HR PRN PRN Reason: Pain, Severe (7-10) Oxycodone HCl (Oxycodone Ir 5 Mg Tablet) 2.5 mg PO Q4HR PRN PRN Reason: Pain, Moderate (4-6) Pantoprazole Sodium (Pantoprazole Dr 40 Mg Tablet) 40 mg PO DAILY [facility] Last Admin: 06/10/22 09:00 Dose: 40 mg Documented By: Admin: 06/09/22 09:13 Dose: 40 mg Documented By: MINI Polyethylene Glycol (Polyethylene Glycol 3350 17 Gm Powd.Pack) 17 gm PO DAILY [facility] Last Admin: 06/10/22 09:00 Dose: 17 gm Documented By: Admin: 06/09/22 09:14 Dose: 17 gm Documented By: Admin: 06/08/22 15:43 Dose: 17 gm Documented By: YVES Prochlorperazine (Prochlorperazine 5 Mg Tablet) 10 mg PO TID PRN PRN Reason: Nausea Rivaroxaban (Rivaroxaban 10 Mg Tablet) 20 mg PO DAILY [facility] Last Admin: 06/10/22 09:00 Dose: 20 mg Documented By: Admin: 06/09/22 09:13 Dose: 20 mg Documented By: MINI Ropinirole HCl (Ropinirole 4 Mg Tablet) 4 mg PO BEDTIME [facility] Last Admin: 06/08/22 21:04 Dose: Not Given Documented By: Ropinirole HCl (Ropinirole 1 Mg Tablet) 4 mg PO BEDTIME [facility] Last Admin: 06/09/22 20:32 Dose: 4 mg Documented By: Admin: 06/08/22 21:06 Dose: 4 mg Documented By: Sennosides (Sennosides 8.6 Mg Tablet) 17.2 mg PO BEDTIME [facility] Last Admin: 06/09/22 20:33 Dose: 17.2 mg Documented By: Admin: 06/08/22 20:44 Dose: 17.2 mg Documented By: Consultations Consultation #1: [id number] - Reached out to on-call orthopedist, he is attempting to contact surgeon of record Consultation #2: [id number] -I have reviewed the case including history, physical and imaging with Dr. Goss, there are no surgical findings, patient most appropriate to be admitted to medicine to address electrolyte and anemia abnormalities Vital Signs Vital signs: Vital Signs - 8 hr 06/08/22 06:14 06/08/22 07:36 06/08/22 06:30 Temperature 97.5 F L Pulse Rate 74 76 Respiratory Rate 16 Blood Pressure 168/81 H 163/81 H Pulse Oximetry 97 97 Oxygen Delivery Method Room Air 06/08/22 07:00 06/08/22 07:45 06/08/22 07:45 Temperature Pulse Rate 69 Respiratory Rate Blood Pressure 178/80 H 191/78 H Pulse Oximetry 97 Oxygen Delivery Method 06/08/22 08:01 06/08/22 08:00 06/08/22 08:00 Temperature 98.6 F Pulse Rate 72 Respiratory Rate Blood Pressure 175/82 H Pulse Oximetry 98 Oxygen Delivery Method 06/08/22 08:15 06/08/22 08:15 06/08/22 08:30 Temperature Pulse Rate 72 Respiratory Rate Blood Pressure 159/74 H 180/74 H Pulse Oximetry 96 Oxygen Delivery Method 06/08/22 08:30 06/08/22 08:46 06/08/22 08:46 Temperature Pulse Rate 70 73 Respiratory Rate Blood Pressure 149/65 H Pulse Oximetry 97 96 Oxygen Delivery Method 06/08/22 09:00 06/08/22 09:00 06/08/22 09:30 Temperature Pulse Rate 73 78 Respiratory Rate Blood Pressure 156/72 H Pulse Oximetry 96 97 Oxygen Delivery Method 06/08/22 10:00 06/08/22 10:30 06/08/22 11:00 Temperature Pulse Rate 72 70 70 Respiratory Rate Blood Pressure Pulse Oximetry 99 98 99 Oxygen Delivery Method 06/08/22 11:30 06/08/22 12:00 Temperature Pulse Rate 70 74 Respiratory Rate Blood Pressure Pulse Oximetry 98 96 Oxygen Delivery Method MDM - Back Pain/Injury <Dwayne Hope MD - Last Filed: 06/23/22 07:34> Lab Data Result diagrams: 06/10/22 14:45 06/10/22 04:52 Labs: Lab Results 06/08/22 06/08/22 06/08/22 Range/Units 06:15 06:15 06:15 WBC 7.2 (4.5-11.0) X10^3/uL RBC 2.56 L (4.0-5.2) X10^6/uL Hgb 7.8 L (12.0-16.0) g/dL Hct 22.6 L (36-46) % MCV 88.0 (80-100) fL MCH 30.4 (26-34) PG MCHC 34.5 (30-36) % RDW 13.1 (11.6-14.8) % Plt Count 178 (150-400) X10^3/uL Neut % (Auto) 85.1 H (50-75) % Lymph % (Auto) 7.4 L (25-40) % [place] % (Auto) 5.9 (3-14) % Eos % (Auto) 1.4 L (2-4) % Baso % (Auto) 0.2 (0-2) % Neut # (Auto) 6100 (3252-5567) /uL Lymph # (Auto) 500 L (9932-8624) /uL [place] # (Auto) 400 (0-900) /uL Eos # (Auto) 100 (0-450) /uL Baso # (Auto) 0 (0-100) /uL Sodium 126 L (137-145) mmol/L Potassium 4.6 (3.4-5.1) mmol/L Chloride 97 L (98-107) mmol/L Carbon Dioxide 24 (22-32) mmol/L BUN 14 (7-17) mg/dL Creatinine 0.87 (0.52-1.04) mg/dL Estimated GFR > 60 (>60) mL/min BUN/Creatinine Ratio 16.1 (6-22) Glucose 121 H (80-110) mg/dL Calcium 7.8 L (8.4-10.2) mg/dL Total Bilirubin 0.6 (0.2-1.3) mg/dL AST 35 (14-36) IU/L ALT 34 (<35) IU/L Alkaline Phosphatase 79 (38-126) U/L Troponin I 0.032 (0.01-0.034) ng/mL Total Protein 5.8 L (6.3-8.2) g/dL Albumin 2.8 L (3.5-5.0) g/dL Globulin 3.0 (1.7-4.1) g/dL Albumin/Globulin Ratio 0.9 L (1.0-2.8) Urine Color Urine Appearance Urine pH (4.5-8.0) Ur Specific [place] (1.000-1.035) Urine Protein (Negative) Urine Glucose (UA) (Negative) g/dL Urine Ketones (NEGATIVE) Urine Occult Blood (Negative) Urine Nitrate (Negative) Urine Bilirubin (NEGATIVE) Urine Urobilinogen (0.2) E.U./dL Ur Leukocyte Esterase (NEGATIVE) Urine RBC (0-5/HPF) Urine WBC (0-5/HPF) Ur Squamous Epith Cells (0-5/HPF) Urine Bacteria (None) Ur Culture Indicated? SARS-CoV-2 (PCR) (Negative) 06/08/22 06/08/22 06/08/22 Range/Units 07:40 07:40 09:51 WBC (4.5-11.0) X10^3/uL RBC (4.0-5.2) X10^6/uL Hgb 7.0 L (12.0-16.0) g/dL Hct 20.3 L* (36-46) % MCV (80-100) fL MCH (26-34) PG MCHC (30-36) % RDW (11.6-14.8) % Plt Count (150-400) X10^3/uL Neut % (Auto) (50-75) % Lymph % (Auto) (25-40) % [place] % (Auto) (3-14) % Eos % (Auto) (2-4) % Baso % (Auto) (0-2) % Neut # (Auto) (0269-7279) /uL Lymph # (Auto) (3936-6236) /uL [place] # (Auto) (0-900) /uL Eos # (Auto) (0-450) /uL Baso # (Auto) (0-100) /uL Sodium (137-145) mmol/L Potassium (3.4-5.1) mmol/L Chloride (98-107) mmol/L Carbon Dioxide (22-32) mmol/L BUN (7-17) mg/dL Creatinine (0.52-1.04) mg/dL Estimated GFR (>60) mL/min BUN/Creatinine Ratio (6-22) Glucose (80-110) mg/dL Calcium (8.4-10.2) mg/dL Total Bilirubin (0.2-1.3) mg/dL AST (14-36) IU/L ALT (<35) IU/L Alkaline Phosphatase (38-126) U/L Troponin I (0.01-0.034) ng/mL Total Protein (6.3-8.2) g/dL Albumin (3.5-5.0) g/dL Globulin (1.7-4.1) g/dL Albumin/Globulin Ratio (1.0-2.8) Urine Color Yellow Urine Appearance Clear Urine pH 6.0 (4.5-8.0) Ur Specific [place] <=1.005 (1.000-1.035) Urine Protein 1+ H (Negative) Urine Glucose (UA) Trace H (Negative) g/dL Urine Ketones Negative (NEGATIVE) Urine Occult Blood Negative (Negative) Urine Nitrate Negative (Negative) Urine Bilirubin Negative (NEGATIVE) Urine Urobilinogen 0.2 (0.2) E.U./dL Ur Leukocyte Esterase Negative (NEGATIVE) Urine RBC None seen (0-5/HPF) Urine WBC None seen (0-5/HPF) Ur Squamous Epith Cells 0-1 /hpf (0-5/HPF) Urine Bacteria None seen (None) Ur Culture Indicated? Cult not indicated SARS-CoV-2 (PCR) Negative (Negative) 06/08/22 Range/Units 09:51 WBC (4.5-11.0) X10^3/uL RBC (4.0-5.2) X10^6/uL Hgb (12.0-16.0) g/dL Hct (36-46) % MCV (80-100) fL MCH (26-34) PG MCHC (30-36) % RDW (11.6-14.8) % Plt Count (150-400) X10^3/uL Neut % (Auto) (50-75) % Lymph % (Auto) (25-40) % [place] % (Auto) (3-14) % Eos % (Auto) (2-4) % Baso % (Auto) (0-2) % Neut # (Auto) (2438-5164) /uL Lymph # (Auto) (0009-3880) /uL [place] # (Auto) (0-900) /uL Eos # (Auto) (0-450) /uL Baso # (Auto) (0-100) /uL Sodium 126 L (137-145) mmol/L Potassium 4.8 (3.4-5.1) mmol/L Chloride 98 (98-107) mmol/L Carbon Dioxide 24 (22-32) mmol/L BUN 14 (7-17) mg/dL Creatinine 0.87 (0.52-1.04) mg/dL Estimated GFR > 60 (>60) mL/min BUN/Creatinine Ratio 16.1 (6-22) Glucose 113 H (80-110) mg/dL Calcium 7.1 L (8.4-10.2) mg/dL Total Bilirubin (0.2-1.3) mg/dL AST (14-36) IU/L ALT (<35) IU/L Alkaline Phosphatase (38-126) U/L Troponin I (0.01-0.034) ng/mL Total Protein (6.3-8.2) g/dL Albumin (3.5-5.0) g/dL Globulin (1.7-4.1) g/dL Albumin/Globulin Ratio (1.0-2.8) Urine Color Urine Appearance Urine pH (4.5-8.0) Ur Specific [place] (1.000-1.035) Urine Protein (Negative) Urine Glucose (UA) (Negative) g/dL Urine Ketones (NEGATIVE) Urine Occult Blood (Negative) Urine Nitrate (Negative) Urine Bilirubin (NEGATIVE) Urine Urobilinogen (0.2) E.U./dL Ur Leukocyte Esterase (NEGATIVE) Urine RBC (0-5/HPF) Urine WBC (0-5/HPF) Ur Squamous Epith Cells (0-5/HPF) Urine Bacteria (None) Ur Culture Indicated? SARS-CoV-2 (PCR) (Negative) <Carl López, DO - Last Filed: 06/08/22 12:24> Lab Data Labs: Lab Results 06/08/22 06/08/22 06/08/22 Range/Units 06:15 06:15 06:15 WBC 7.2 (4.5-11.0) X10^3/uL RBC 2.56 L (4.0-5.2) X10^6/uL Hgb 7.8 L (12.0-16.0) g/dL Hct 22.6 L (36-46) % MCV 88.0 (80-100) fL MCH 30.4 (26-34) PG MCHC 34.5 (30-36) % RDW 13.1 (11.6-14.8) % Plt Count 178 (150-400) X10^3/uL Neut % (Auto) 85.1 H (50-75) % Lymph % (Auto) 7.4 L (25-40) % [place] % (Auto) 5.9 (3-14) % Eos % (Auto) 1.4 L (2-4) % Baso % (Auto) 0.2 (0-2) % Neut # (Auto) 6100 (5540-3908) /uL Lymph # (Auto) 500 L (9275-3115) /uL [place] # (Auto) 400 (0-900) /uL Eos # (Auto) 100 (0-450) /uL Baso # (Auto) 0 (0-100) /uL Sodium 126 L (137-145) mmol/L Potassium 4.6 (3.4-5.1) mmol/L Chloride 97 L (98-107) mmol/L Carbon Dioxide 24 (22-32) mmol/L BUN 14 (7-17) mg/dL Creatinine 0.87 (0.52-1.04) mg/dL Estimated GFR > 60 (>60) mL/min BUN/Creatinine Ratio 16.1 (6-22) Glucose 121 H (80-110) mg/dL Calcium 7.8 L (8.4-10.2) mg/dL Total Bilirubin 0.6 (0.2-1.3) mg/dL AST 35 (14-36) IU/L ALT 34 (<35) IU/L Alkaline Phosphatase 79 (38-126) U/L Troponin I 0.032 (0.01-0.034) ng/mL Total Protein 5.8 L (6.3-8.2) g/dL Albumin 2.8 L (3.5-5.0) g/dL Globulin 3.0 (1.7-4.1) g/dL Albumin/Globulin Ratio 0.9 L (1.0-2.8) Urine Color Urine Appearance Urine pH (4.5-8.0) Ur Specific [place] (1.000-1.035) Urine Protein (Negative) Urine Glucose (UA) (Negative) g/dL Urine Ketones (NEGATIVE) Urine Occult Blood (Negative) Urine Nitrate (Negative) Urine Bilirubin (NEGATIVE) Urine Urobilinogen (0.2) E.U./dL Ur Leukocyte Esterase (NEGATIVE) Urine RBC (0-5/HPF) Urine WBC (0-5/HPF) Ur Squamous Epith Cells (0-5/HPF) Urine Bacteria (None) Ur Culture Indicated? SARS-CoV-2 (PCR) (Negative) 06/08/22 06/08/22 06/08/22 Range/Units 07:40 07:40 09:51 WBC (4.5-11.0) X10^3/uL RBC (4.0-5.2) X10^6/uL Hgb 7.0 L (12.0-16.0) g/dL Hct 20.3 L* (36-46) % MCV (80-100) fL MCH (26-34) PG MCHC (30-36) % RDW (11.6-14.8) % Plt Count (150-400) X10^3/uL Neut % (Auto) (50-75) % Lymph % (Auto) (25-40) % [place] % (Auto) (3-14) % Eos % (Auto) (2-4) % Baso % (Auto) (0-2) % Neut # (Auto) (5630-2782) /uL Lymph # (Auto) (9332-5642) /uL [place] # (Auto) (0-900) /uL Eos # (Auto) (0-450) /uL Baso # (Auto) (0-100) /uL Sodium (137-145) mmol/L Potassium (3.4-5.1) mmol/L Chloride (98-107) mmol/L Carbon Dioxide (22-32) mmol/L BUN (7-17) mg/dL Creatinine (0.52-1.04) mg/dL Estimated GFR (>60) mL/min BUN/Creatinine Ratio (6-22) Glucose (80-110) mg/dL Calcium (8.4-10.2) mg/dL Total Bilirubin (0.2-1.3) mg/dL AST (14-36) IU/L ALT (<35) IU/L Alkaline Phosphatase (38-126) U/L Troponin I (0.01-0.034) ng/mL Total Protein (6.3-8.2) g/dL Albumin (3.5-5.0) g/dL Globulin (1.7-4.1) g/dL Albumin/Globulin Ratio (1.0-2.8) Urine Color Yellow Urine Appearance Clear Urine pH 6.0 (4.5-8.0) Ur Specific [place] <=1.005 (1.000-1.035) Urine Protein 1+ H (Negative) Urine Glucose (UA) Trace H (Negative) g/dL Urine Ketones Negative (NEGATIVE) Urine Occult Blood Negative (Negative) Urine Nitrate Negative (Negative) Urine Bilirubin Negative (NEGATIVE) Urine Urobilinogen 0.2 (0.2) E.U./dL Ur Leukocyte Esterase Negative (NEGATIVE) Urine RBC None seen (0-5/HPF) Urine WBC None seen (0-5/HPF) Ur Squamous Epith Cells 0-1 /hpf (0-5/HPF) Urine Bacteria None seen (None) Ur Culture Indicated? Cult not indicated SARS-CoV-2 (PCR) Negative (Negative) 06/08/22 Range/Units 09:51 WBC (4.5-11.0) X10^3/uL RBC (4.0-5.2) X10^6/uL Hgb (12.0-16.0) g/dL Hct (36-46) % MCV (80-100) fL MCH (26-34) PG MCHC (30-36) % RDW (11.6-14.8) % Plt Count (150-400) X10^3/uL Neut % (Auto) (50-75) % Lymph % (Auto) (25-40) % [place] % (Auto) (3-14) % Eos % (Auto) (2-4) % Baso % (Auto) (0-2) % Neut # (Auto) (8715-1220) /uL Lymph # (Auto) (3778-9180) /uL [place] # (Auto) (0-900) /uL Eos # (Auto) (0-450) /uL Baso # (Auto) (0-100) /uL Sodium 126 L (137-145) mmol/L Potassium 4.8 (3.4-5.1) mmol/L Chloride 98 (98-107) mmol/L Carbon Dioxide 24 (22-32) mmol/L BUN 14 (7-17) mg/dL Creatinine 0.87 (0.52-1.04) mg/dL Estimated GFR > 60 (>60) mL/min BUN/Creatinine Ratio 16.1 (6-22) Glucose 113 H (80-110) mg/dL Calcium 7.1 L (8.4-10.2) mg/dL Total Bilirubin (0.2-1.3) mg/dL AST (14-36) IU/L ALT (<35) IU/L Alkaline Phosphatase (38-126) U/L Troponin I (0.01-0.034) ng/mL Total Protein (6.3-8.2) g/dL Albumin (3.5-5.0) g/dL Globulin (1.7-4.1) g/dL Albumin/Globulin Ratio (1.0-2.8) Urine Color Urine Appearance Urine pH (4.5-8.0) Ur Specific [place] (1.000-1.035) Urine Protein (Negative) Urine Glucose (UA) (Negative) g/dL Urine Ketones (NEGATIVE) Urine Occult Blood (Negative) Urine Nitrate (Negative) Urine Bilirubin (NEGATIVE) Urine Urobilinogen (0.2) E.U./dL Ur Leukocyte Esterase (NEGATIVE) Urine RBC (0-5/HPF) Urine WBC (0-5/HPF) Ur Squamous Epith Cells (0-5/HPF) Urine Bacteria (None) Ur Culture Indicated? SARS-CoV-2 (PCR) (Negative) Imaging Data L Spine: Radiologist's Impression: [address] [address] [address] Scan Report Signed Patient: Glenys Gottlieb MR#: [id number] : 1950 Acct:[id number] Age/Sex: 71 / F Date of Service: 06/08/22 Loc: ED Accession Number: [id number] ?? Procedure: CT lumbar spine wo con Ordering Provider: Carl López D.O. PROCEDURE:? CT LUMBAR SPINE WO CON ? INDICATIONS:? post op complications ? TECHNIQUE:? Noncontrast 3 mm thick sections acquired from the T12 level to the sacrum.? Sagittal and coronal reformats were constructed.? For radiation dose reduction, the following was used:? automated exposure control.? ? COMPARISON:? [facility], CT, CT LUMBAR SPINE WO CON, 04/22/2022, 13:10. ? FINDINGS:? Image quality:? Excellent.? ? Bones:? There is normal bony alignment.? No acute vertebral body compression fractures.? No suspicious lytic or blastic bony lesions.? No pars defects.? ? There has been interval discectomy, right hemilaminectomy and medial facetectomy at L3-4 and L4-5.? Posterior alfredo and screw instrumentation is in good position.? I nterbody grafts also well positioned. ? T12-L1:? Disc space narrowing without disc bulge or central stenosis.? No foraminal stenosis ? L1-L2:? Disc space narrowing without central or foraminal stenosis. ? L2-L3:? Disc space narrowing with circumferential disc bulge results in mild central stenosis.? Moderate left and no right foraminal stenosis. ? L3-L4:? Discectomy and fusion.? Osseous central canal is decompressed no foraminal stenosis. ? L4-L5:? Discectomy and fusion.? Osseous central canal is decompressed.? No right foraminal stenosis.? Mild left foraminal stenosis. ? L5-S1:? Disc height is preserved.? No central stenosis.? No foraminal stenosis. ? Soft tissues:? No retroperitoneal masses or hematomas.? Atherosclerotic vascular calcifications distal abdominal aorta remains unchanged.? Associated posterior skin grace present ? ? IMPRESSION:? ? L3-4 and L4-5 discectomy and fusion with posterior alfredo and screw instrumentation in good position.? Osseous central canal and foramina are decompressed. ? ? ? Approved by: Kaveh Castaneda M.D. on 06/08/2022 at 9:57? MDM Narrative Medical decision making narrative: [[id number]] (Rene) Patient received in sign out from [Jayy]. I have reviewed the clinical course and performed an independent history and physical exam. Discharge Plan Departure Patient Disposition: Admitted as Observation Clinical Impression: Acute hyponatremia, Anemia, Acute urinary retention Admit Date/Time: 06/08/22 12:52 Admit Provider: Steven Shultz
[2022-06-08] MEDS: IBUPROFEN 400 MG TABLET PO (06:49)
[2022-06-08] MEDS: ACETAMINOPHEN 325 MG TABLET 975 MG PO (06:50)
[2022-06-08] MEDS: SODIUM CHLORIDE 0.9% 1,000 ML 1000 ML IV (06:51)
[2022-06-08 06:55] LABS: Add Manual Diff / Slide Review NO; Basophils Absolute Auto 0 /uL (0-100); Basophils Percent Auto 0.2 % (0-2); Eosinophils Absolute Auto 100 /uL (0-450); Eosinophils Percent Auto 1.4 % (2-4); Hematocrit 22.6 % (36-46); Hemoglobin 7.8 g/dL (12.0-16.0); Lymphocytes Absolute Auto 500 /uL (1100-4500); Lymphocytes Percent Auto 7.4 % (25-40); Mean Corpuscular HGB Conc 34.5 % (30-36); Mean Corpuscular Hemoglobin 30.4 PG (26-34); Monocytes Absolute Auto 400 /uL (0-900); Monocytes Percent Auto 5.9 % (3-14); Neutrophils Absolute Auto 6100 /uL (1500-7000); Neutrophils Percent Auto 85.1 % (50-75); Platelet Count 178 X10^3/uL (150-400); Red Blood Cell Count 2.56 X10^6/uL (4.0-5.2); Red Cell Distribution Width 13.1 % (11.6-14.8); White Blood Cell Count 7.2 X10^3/uL (4.5-11.0)
[2022-06-08 06:57] LABS: Alanine Aminotransferase 34 IU/L (<35); Albumin 2.8 g/dL (3.5-5.0); Albumin Globulin Ratio 0.9 (1.0-2.8); Alkaline Phosphatase 79 U/L (38-126); Aspartate Aminotransferase 35 IU/L (14-36); BUN Creatinine Ratio 16.1 (6-22); Bilirubin Total 0.6 mg/dL (0.2-1.3); Blood Urea Nitrogen 14 mg/dL (7-17); Calcium 7.8 mg/dL (8.4-10.2); Carbon Dioxide 24 mmol/L (22-32); Chloride 97 mmol/L (98-107); Estimated Glomerular Filt Rate > 60 mL/min (>60); Glucose 121 mg/dL (80-110); HEMOLYSIS < 15 (0-50); Potassium 4.6 mmol/L (3.4-5.1); Sodium 126 mmol/L (137-145); Total Protein 5.8 g/dL (6.3-8.2)
[2022-06-08 07:09] LABS: Troponin I 0.032 ng/mL (0.01-0.034)
[2022-06-08 07:51] LABS: Appearance Urine UA CLEAR; Bilirubin Urine UA NEGATIVE (NEGATIVE); Color Urine UA YELLOW; Glucose Urine UA TRACE g/dL (Negative); Ketones Urine UA NEGATIVE (NEGATIVE); Leukocyte Esterase Urine UA NEGATIVE (NEGATIVE); Nitrite Urine UA NEGATIVE (Negative); Occult Blood Urine UA NEGATIVE (Negative); Protein Urine UA 1+ (Negative); Specific Gravity Urine UA <=1.005 (1.000-1.035); Urobilinogen Urine UA 0.2 E.U./dL (0.2)
[2022-06-08] MEDS: HYDROMORPHONE 0.5 MG INJ IV ×2 (08:01→11:28)
[2022-06-08 08:05] LABS: Bacteria Urine None Seen; RBC Urine None Seen (0-5/HPF); Squamous Epithelial Cell Urine 0-1 /HPF (0-5/HPF); WBC Urine None Seen (0-5/HPF)
[2022-06-08 08:06] LABS: Culture Indicated Urine Cult Not Indicated
[2022-06-08 08:08] LABS: COVID19 -Nasal RAPID Negative (Negative)
--- NOTE | 2022-06-08 08:21 | DI.CT.S_ITS ---
PROCEDURE: CT LUMBAR SPINE WO CON INDICATIONS: post op complications TECHNIQUE: Noncontrast 3 mm thick sections acquired from the T12 level to the sacrum. Sagittal and coronal reformats were constructed. For radiation dose reduction, the following was used: automated exposure control. COMPARISON: [facility], CT, CT LUMBAR SPINE WO CON, 04/22/2022, 13:10. FINDINGS: Image quality: Excellent. Bones: There is normal bony alignment. No acute vertebral body compression fractures. No suspicious lytic or blastic bony lesions. No pars defects. There has been interval discectomy, right hemilaminectomy and medial facetectomy at L3-4 and L4-5. Posterior alfredo and screw instrumentation is in good position. Interbody grafts also well positioned. T12-L1: Disc space narrowing without disc bulge or central stenosis. No foraminal stenosis L1-L2: Disc space narrowing without central or foraminal stenosis. L2-L3: Disc space narrowing with circumferential disc bulge results in mild central stenosis. Moderate left and no right foraminal stenosis. L3-L4: Discectomy and fusion. Osseous central canal is decompressed no foraminal stenosis. L4-L5: Discectomy and fusion. Osseous central canal is decompressed. No right foraminal stenosis. Mild left foraminal stenosis. L5-S1: Disc height is preserved. No central stenosis. No foraminal stenosis. Soft tissues: No retroperitoneal masses or hematomas. Atherosclerotic vascular calcifications distal abdominal aorta remains unchanged. Associated posterior skin grace present IMPRESSION: L3-4 and L4-5 discectomy and fusion with posterior alfredo and screw instrumentation in good position. Osseous central canal and foramina are decompressed. Approved by: Kaveh Castaneda M.D. on 06/08/2022 at 9:57
[2022-06-08 10:04] LABS: Hematocrit 20.3 % (36-46)
[2022-06-08 10:09] LABS: BUN Creatinine Ratio 16.1 (6-22); Blood Urea Nitrogen 14 mg/dL (7-17); Carbon Dioxide 24 mmol/L (22-32); Chloride 98 mmol/L (98-107); Estimated Glomerular Filt Rate > 60 mL/min (>60); Glucose 113 mg/dL (80-110); HEMOLYSIS < 15 (0-50); Potassium 4.8 mmol/L (3.4-5.1); Sodium 126 mmol/L (137-145)
[2022-06-08 10:20] LABS: Calcium 7.1 mg/dL (8.4-10.2)
--- NOTE | 2022-06-08 13:29 | P.HP_ITS ---
History of Present Illness History of Present Illness Date Patient Seen: 06/08/22 Time Patient Seen: 13:20 Chief complaint: Leg Pain Narrative: The patient is a 68-year-old female with PMH of HTN, AFIB (AC w/ Xarelto), HLD, hypothyroidism, RLS, asthma, Gaurang's w/ prior esophageal stricture (w/ recent EGD and colonoscopy), obesity, recent lumbar spinal fusion surgery with Dr. Goss who presents with confusion, weakness, and difficulty voiding. She was feeling well at discharge from the hospital on 06/05. She reports she took two 10 mg oxycodone tablets after arriving home for pain and she developed confusion and severe nausea. Since then she has not had a bowel movement and has had difficulty with ambulation, severe leg and back pain, and difficulty with urinating. She took a single tab the following day with similar side effects to the first dose. She reports nausea and dry heaves, but no emesis. She has had a few things to eat but has not tolerated much since leaving the hospital. She has not noticed any bleeding. Her noticed difficulty with speech and difficulty with ambulation, but no focal weakness, numbness, or facial droop. She received 4 doses of pain medications (10 mg oxycodone) after surgery prior to discharge in review of her course. She denies recent fever, chills, cough, dysuria or urinary frequency. She has had no numbness, tingling, facial droop. In the emergency room, she was hypertensive but the remainder of her vital signs were unremarkable. She underwent extensive spinal imaging evaluation, and exam. According to the ER provider her rectal tone was normal and she had minimal stool in her vault, but guaiac was negative. Her imaging (lumbar CT) revealed typical postoperative findings but no evidence of cauda equina or spinal pathologies. There is some constipation noted of visible parts of her colon on my review of the imaging. Laboratory evaluation revealed a mild hyponatremia with sodium of 126, mild anemia with a hemoglobin of 7.8 initially which declined to 7.0 on repeat. On the day of discharge her hemoglobin was 8.7. Urinalysis was not indicative of infection. She was admitted for further management to the hospitalist service. Patient History Medical History Afib Anesthesia complication Anxiety Asthma Chronic episodic atrial fibrillation Easy bruisability Gait instability GERD (gastroesophageal reflux disease) Heart murmur History of left heart catheterization (12/13/19) HLD (hyperlipidemia) Hypothyroidism Lumbar stenosis Palpitations Pre-diabetes Skin cancer Spondylolisthesis at L3-L4 level Surgical History H/O spinal fusion History of hysterectomy Hx of appendectomy Hx of bilateral cataract extraction (2020) Hx of cholecystectomy Hx of tubal ligation Family & Social History Family History (Updated 06/08/22 @ 13:49 by Steven Shultz DO) Father Congestive heart failure Mother COPD (chronic obstructive pulmonary disease) Social History: household members spouse Safety & Behavioral: Feels Safe in Current Yes Environment Tobacco & Substance use: Smoking Status Never smoker alcohol intake never alcohol intake frequency 0-2 drinks per day Substance Use Type does not use Meds Home Medications and Allergies Home Medications Medication Instructions Recorded Confirmed Type duloxetine 20 mg capsule,delayed 60 mg PO DAILY 10/07/18 06/04/22 History release levothyroxine 50 mcg capsule 50 mcg PO DAILY 10/07/18 06/04/22 History metformin 500 mg tablet 500 mg PO BID 11/05/18 06/04/22 History prochlorperazine maleate 10 mg 1 tab PO TID PRN Nausea 11/05/18 06/04/22 History tablet albuterol sulfate 90 mcg/actuation 2 inh inhalation Q4HR PRN 09/24/19 06/04/22 History aerosol inhaler Shortness Of Breath beclomethasone dipropionate 80 2 inh inhalation BID 09/24/19 06/04/22 History mcg/actuation HFA breath activated aerosol (Qvar RediHaler) carvedilol 12.5 mg tablet 12.5 mg PO BID 01/29/22 06/04/22 History gabapentin 100 mg capsule 300 mg PO BEDTIME 01/29/22 06/04/22 History lisinopril 5 mg tablet 5 mg PO BEDTIME 01/29/22 06/04/22 History rosuvastatin 40 mg tablet 40 mg PO BEDTIME 01/29/22 06/04/22 History spironolactone 25 mg tablet 25 mg PO DAILY 01/29/22 06/04/22 History trazodone 50 mg tablet 50 mg PO BEDTIME 01/29/22 06/04/22 History ropinirole 4 mg tablet 4 mg PO BEDTIME 02/24/22 06/04/22 History pantoprazole 40 mg tablet,delayed 40 mg PO DAILY 05/27/22 06/04/22 History release acetaminophen 325 mg tablet 650 mg PO Q6HR PRN Pain, Mild 06/05/22 Rx (1-3) #60 tabs oxycodone 5 mg tablet 10 mg PO Q3HR PRN Pain, Severe 06/05/22 Rx (7-10) #60 tabs Allergies Allergy/AdvReac Type Severity Reaction Status Date / Time Iodine and Iodide Containing Allergy Severe pass out Verified 06/04/22 07:57 Produc [IODINE AND IODIDE CONTAINING PRODUC] amlodipine Allergy Intermediate Swelling Verified 06/04/22 07:57 of Lip/Tongue/Throat codeine [CODEINE] Allergy Intermediate HIVES, Verified 06/04/22 07:57 NAUSEA nitrofurantoin Allergy Mild Rash Verified 06/04/22 07:57 [NITROFURANTOIN] Review of Systems Review of Systems Narrative: All other systems reviewed with the patient and are negative unless otherwise stated. Exam Vital Signs (past 8 hours): - 06/08/22 06:14 06/08/22 07:36 06/08/22 06:30 Temperature 97.5 F L Pulse Rate 74 76 Respiratory Rate 16 Blood Pressure 168/81 H 163/81 H Pulse Oximetry 97 97 Oxygen Delivery Method Room Air 06/08/22 07:00 06/08/22 07:45 06/08/22 07:45 Temperature Pulse Rate 69 Respiratory Rate Blood Pressure 178/80 H 191/78 H Pulse Oximetry 97 Oxygen Delivery Method 06/08/22 08:01 06/08/22 08:00 06/08/22 08:00 Temperature 98.6 F Pulse Rate 72 Respiratory Rate Blood Pressure 175/82 H Pulse Oximetry 98 Oxygen Delivery Method 06/08/22 08:15 06/08/22 08:15 06/08/22 08:30 Temperature Pulse Rate 72 Respiratory Rate Blood Pressure 159/74 H 180/74 H Pulse Oximetry 96 Oxygen Delivery Method 06/08/22 08:30 06/08/22 08:46 06/08/22 08:46 Temperature Pulse Rate 70 73 Respiratory Rate Blood Pressure 149/65 H Pulse Oximetry 97 96 Oxygen Delivery Method 06/08/22 09:00 06/08/22 09:00 08/21/22 09:30 Temperature Pulse Rate 73 78 Respiratory Rate Blood Pressure 156/72 H Pulse Oximetry 96 97 Oxygen Delivery Method 06/08/22 10:00 06/08/22 10:30 06/08/22 11:00 Temperature Pulse Rate 72 70 70 Respiratory Rate Blood Pressure Pulse Oximetry 99 98 99 Oxygen Delivery Method 06/08/22 11:30 06/08/22 12:00 Temperature Pulse Rate 70 74 Respiratory Rate Blood Pressure Pulse Oximetry 98 96 Oxygen Delivery Method Oxygen Delivery Method Room Air Narrative Exam Narrative: General:? Patient is well developed and well nourished, in no distress at this time. HEENT:? Normocephalic, atraumatic, extraocular muscles intact, oral pharynx is clear and mucous membranes are dry. Neck: supple and symmetric, trachea is midline, no cervical adenopathy. Negative for JVD Chest:? Normal AP diameter and contour without kyphoscoliosis, no tachypnea, equal chest rise bilaterally. Lungs:? CTA b/l no wheezing rhonchi or rales. Cardio:?RRR no m/r/g. Abdomen: S NT ND. No CVA tenderness. Musculoskeletal:? Muscle strength and tone are equal within normal limits, no deformity. Extremities: No edema or joint effusions. No cyanosis or clubbing. Skin:? Pale,? Warm to touch,dry and intact without rashes, ulcerations or petechiae.? Neuro:? Alert and orientated x3,? sensation to touch intact in all extremities, no gross deficits noted of cranial nerves. Mild facial asymmetry, states chronic and due to lack of dentures currently. Strength is weak but 5/5 in lower extremities bilaterally. Psych:? Patient has a well-kept appearance, appropriate affect, mental status attitude thought context and judgment are appropriate for age. Objective Imaging CT scan - abdomen: My impression: Moderate stool burden on limited evaluation given imaging was to evaluate lumbar spine. Labs Result Diagrams: 06/08/22 09:51 06/08/22 09:51 Labs: Laboratory Results - last 24 hr 06/08/22 06/08/22 06/08/22 06:15 06:15 06:15 WBC 7.2 RBC 2.56 L Hgb 7.8 L Hct 22.6 L MCV 88.0 MCH 30.4 MCHC 34.5 RDW 13.1 Plt Count 178 Neut % (Auto) 85.1 H Lymph % (Auto) 7.4 L Allen % (Auto) 5.9 Eos % (Auto) 1.4 L Baso % (Auto) 0.2 Neut # (Auto) 6100 Lymph # (Auto) 500 L Allen # (Auto) 400 Eos # (Auto) 100 Baso # (Auto) 0 Sodium 126 L Potassium 4.6 Chloride 97 L Carbon Dioxide 24 BUN 14 Creatinine 0.87 Estimated GFR > 60 BUN/Creatinine Ratio 16.1 Glucose 121 H Calcium 7.8 L Total Bilirubin 0.6 AST 35 ALT 34 Alkaline Phosphatase 79 Troponin I 0.032 Total Protein 5.8 L Albumin 2.8 L Globulin 3.0 Albumin/Globulin Ratio 0.9 L Urine Color Urine Appearance Urine pH Ur Specific [place] Urine Protein Urine Glucose (UA) Urine Ketones Urine Occult Blood Urine Nitrate Urine Bilirubin Urine Urobilinogen Ur Leukocyte Esterase Urine RBC Urine WBC Ur Squamous Epith Cells Urine Bacteria Ur Culture Indicated? SARS-CoV-2 (PCR) 06/08/22 06/08/22 06/08/22 07:40 07:40 09:51 WBC RBC Hgb 7.0 L Hct 20.3 L* MCV MCH MCHC RDW Plt Count Neut % (Auto) Lymph % (Auto) Allen % (Auto) Eos % (Auto) Baso % (Auto) Neut # (Auto) Lymph # (Auto) Allen # (Auto) Eos # (Auto) Baso # (Auto) Sodium Potassium Chloride Carbon Dioxide BUN Creatinine Estimated GFR BUN/Creatinine Ratio Glucose Calcium Total Bilirubin AST ALT Alkaline Phosphatase Troponin I Total Protein Albumin Globulin Albumin/Globulin Ratio Urine Color Yellow Urine Appearance Clear Urine pH 6.0 Ur Specific [place] <=1.005 Urine Protein 1+ H Urine Glucose (UA) Trace H Urine Ketones Negative Urine Occult Blood Negative Urine Nitrate Negative Urine Bilirubin Negative Urine Urobilinogen 0.2 Ur Leukocyte Esterase Negative Urine RBC None seen Urine WBC None seen Ur Squamous Epith Cells 0-1 /hpf Urine Bacteria None seen Ur Culture Indicated? Cult not indicated SARS-CoV-2 (PCR) Negative 06/08/22 09:51 WBC RBC Hgb Hct MCV MCH MCHC RDW Plt Count Neut % (Auto) Lymph % (Auto) Allen % (Auto) Eos % (Auto) Baso % (Auto) Neut # (Auto) Lymph # (Auto) Allen # (Auto) Eos # (Auto) Baso # (Auto) Sodium 126 L Potassium 4.8 Chloride 98 Carbon Dioxide 24 BUN 14 Creatinine 0.87 Estimated GFR > 60 BUN/Creatinine Ratio 16.1 Glucose 113 H Calcium 7.1 L Total Bilirubin AST ALT Alkaline Phosphatase Troponin I Total Protein Albumin Globulin Albumin/Globulin Ratio Urine Color Urine Appearance Urine pH Ur Specific [place] Urine Protein Urine Glucose (UA) Urine Ketones Urine Occult Blood Urine Nitrate Urine Bilirubin Urine Urobilinogen Ur Leukocyte Esterase Urine RBC Urine WBC Ur Squamous Epith Cells Urine Bacteria Ur Culture Indicated? SARS-CoV-2 (PCR) Assessment & Plan Assessment & Plan narrative: 1. Hyponatremia, acute - likely secondary to decreased oral intake and hypovolemia, possibly in setting of anemia as well - continue IV fluids at 100 cc per hour. Follow sodium q8 unless drops below 125. - urine sodium pending, suspect hypovolemia, may be in setting of urinary retention as well. - burch in place 2. Acute urinary retention - suspect secondary to opiate use. CT L spine without impingement. - will reduce oxycodone to 2.5 - 5 mg from previous 10. Suspect this has built up in her system causing her presenting symptoms. - continue burch for now, consider removal prior to discharge 3. Constipation - in setting of opiate use - continue aggressive laxitive therapy, and adjust as necessary. 4. s/p recent lumbar fusion - reduce opiate needs - PT/OT evaluations 5. Acute on chronic anemia - no obvious source of bleeding at this time. May be post surgical changes in combination with IV fluids given in the ER. - Goal Hg > 7. Transfuse prn. Continue to follow. - hold home xarelto for now pending trend - continue home PPI, recent EGD and colonoscopy were unremarkable (a few weeks ago at OSH according to patient and spouse). 6. HTN, chronic - continue home medications. 7. Chronic atrial fibrillation on AC - continue home medications 8. hypothyroidism - continue home levothyroxine 9. HLD - continue home meds 10. DM2 - sliding scale while here, hold home metformin. Code: Full, surrogate is spouse DVT: SCDs given anemia, if Hg stable can likely resume home xarelto. I have utilized all available immediate resources to obtain, update, or review the patient's current medications. Time Spent With Patient Critical Care time: I spent a total of [] minutes of critical care time on this patient's care today; this time is exclusive of procedural time. Quality MIPS - Admit I confirm the patient?s Advance Care Plan is present, Code status is documented, Surrogate decision maker is in patient?s record [If Yes, STOP here]: Yes
[2022-06-08] MEDS: SODIUM CHLORIDE 0.9% 1,000 ML 100 ML IV ×2 (14:31→23:42)
[2022-06-08] MEDS: HYDROCODONE/ACET 5/325 TABLET 1 TAB PO ×3 (15:42→23:12)
[2022-06-08] MEDS: polyethylene glycoL 3350 17 GM POWD.PACK PO (15:43)
[2022-06-08 17:12] LABS: Hematocrit 23.2 % (36-46)
[2022-06-08 17:21] LABS: BUN Creatinine Ratio 14.3 (6-22); Blood Urea Nitrogen 14 mg/dL (7-17); Calcium 7.8 mg/dL (8.4-10.2); Carbon Dioxide 26 mmol/L (22-32); Chloride 102 mmol/L (98-107); Estimated Glomerular Filt Rate > 60 mL/min (>60); Glucose 105 mg/dL (80-110); HEMOLYSIS < 15 (0-50); Potassium 4.5 mmol/L (3.4-5.1); Sodium 130 mmol/L (137-145)
[2022-06-08] MEDS: GABAPENTIN 100 MG CAPSULE 300 MG PO (20:43)
[2022-06-08] MEDS: ATORVASTATIN 20 MG TABLET 80 MG PO (20:44)
[2022-06-08] MEDS: SENNOSIDES 8.6 MG TABLET 17.2 MG PO (20:44)
[2022-06-08] MEDS: lisinopriL 5 MG TABLET PO (20:45)
[2022-06-08] MEDS: carvediloL 12.5 MG TABLET PO (20:45)
[2022-06-08] MEDS: DOCUSATE 100 MG CAPSULE PO (20:45)
[2022-06-08] MEDS: ROPINIROLE 1 MG TABLET 4 MG PO (21:06)
[2022-06-09] VITALS (13 sets, daily range): BP systolic 121–152; BP diastolic 44–75; PULSE 66–70; RESP 15–19; TEMP 36.7–37.1; O2SAT 96–99
[2022-06-09] MEDS: HYDROCODONE/ACET 5/325 TABLET 1 TAB PO ×5 (04:32→21:46)
[2022-06-09 05:16] LABS: Add Manual Diff / Slide Review NO; Basophils Absolute Auto 0 /uL (0-100); Basophils Percent Auto 0.5 % (0-2); Eosinophils Absolute Auto 300 /uL (0-450); Eosinophils Percent Auto 6.3 % (2-4); Hematocrit 21.7 % (36-46); Hemoglobin 7.4 g/dL (12.0-16.0); Lymphocytes Absolute Auto 800 /uL (1100-4500); Lymphocytes Percent Auto 18.5 % (25-40); Mean Corpuscular HGB Conc 34.4 % (30-36); Mean Corpuscular Hemoglobin 30.3 PG (26-34); Mean Corpuscular Volume 88.1 fL (80-100); Monocytes Absolute Auto 400 /uL (0-900); Monocytes Percent Auto 8.5 % (3-14); Neutrophils Absolute Auto 2800 /uL (1500-7000); Neutrophils Percent Auto 66.2 % (50-75); Platelet Count 192 X10^3/uL (150-400); Red Blood Cell Count 2.46 X10^6/uL (4.0-5.2); Red Cell Distribution Width 13.3 % (11.6-14.8); White Blood Cell Count 4.3 X10^3/uL (4.5-11.0)
[2022-06-09 05:25] LABS: BUN Creatinine Ratio 15.2 (6-22); Blood Urea Nitrogen 15 mg/dL (7-17); Calcium 8.1 mg/dL (8.4-10.2); Carbon Dioxide 26 mmol/L (22-32); Chloride 106 mmol/L (98-107); Estimated Glomerular Filt Rate > 60 mL/min (>60); Glucose 101 mg/dL (80-110); HEMOLYSIS < 15 (0-50); Magnesium 1.8 mg/dL (1.6-2.3); Potassium 4.8 mmol/L (3.4-5.1); Sodium 133 mmol/L (137-145)
[2022-06-09] MEDS: LEVOTHYROXINE 50 MCG TABLET PO (06:14)
[2022-06-09 06:37] LABS: Creatinine Urine Random 16.1 mg/dL; Sodium Urine Random 66 mmol/L (30-90)
[2022-06-09] MEDS: DOCUSATE 100 MG CAPSULE PO ×2 (09:13→20:33)
[2022-06-09] MEDS: PANTOPRAZOLE DR 40 MG TABLET PO (09:13)
[2022-06-09] MEDS: RIVAROXABAN 10 MG TABLET 20 MG PO (09:13)
[2022-06-09] MEDS: DULOXETINE 20 MG CAPSULE 60 MG PO (09:13)
[2022-06-09] MEDS: carvediloL 12.5 MG TABLET PO ×2 (09:14→20:35)
[2022-06-09] MEDS: polyethylene glycoL 3350 17 GM POWD.PACK PO (09:14)
--- NOTE | 2022-06-09 11:05 | PC.NURSE ---
Dr. Goss's office has been called and a message has been left with his orthodontic assistant in regard to this pt as she recently was discharged from this hospital after a back surgery with him last week.
--- NOTE | 2022-06-09 11:49 | CM.DANOTE ---
Addendum entered by Ginna Kim R.N. 06/09/22 15:18: Spoke to Marisela at [facility], since it is listed on calendar. She stated that their next availability in the [place] area is this Thu. Did get Dr. Peter to sign face to face. Faxed [facility] over the referral, including face sheet, face to face, orders, today's progress note, H&P, O.T. note, pending P.T. Let Marisela know that this DC inventory planner will give update when patient is discharged, they will just need DC Summary at discharge. Addendum entered by Ginna Kim R.N. 06/09/22 14:44: Spoke to patient and spouse, Jorden. Mentioned home health benefits with her insurance, including having a nurse to come out and do pain assess, and med assess as well, and also, home therapy. Patient and spouse are interested, have no preferences per Medicare Choice List. Patient resides in [place], choices are [facility] and [facility], and [facility] is on calendar for this week. Will call to see availabilities, and will initiate referral if they are not booked out. Original Note: DCP: Case received, EMR reviewed and met with patient. Introduced self and role. Was able to obtain information regarding patient's baseline activity level prior to her admission. DCP assessment completed with information currently available. Patient is a 71 year old female who admitted yesterday afternoon to the care of the hospitalist team. PCP: Dr. Dyer. Payer: confirmed: Medicare A/Healthcare Management. Patient came to the hospital via ambulance secondary to having light headed episodes, pain at her post surgical site, and some constipation. Patient was here last Thu, discharged home after having lumbar fusion surgery with Dr. Goss. Patient was admitted for acute hyponatremia, acute urinary retention. Met with patient in her room. She is alert and oriented. Confirmed that she was here last week for back surgery, and went home with her spouse, Jorden. They both reside in [place]. Since she went home, she does have a FWW for home use. Patient is to be working with P.T. as well. P: DCP to continue to follow. Will see if patient would be interested in home health, and will see how she does with P.T. She is confirmed inpatient per UR. Ginna Kim RN/Preparation Operator Discharge Planning/Care Management CM Discharge Assessment Start: 06/09/22 11:46 Freq: Status: Active Protocol: Document 06/09/22 11:46 (Rec: 06/09/22 11:49 [id number]) Discharge Planning Assessment Assigned Investment Accountant Ginna Kim RN/Preparation Operator Advance Directives? No History Provided By Patient,Medical Record Prior Living Arrangements House Household Members spouse Type of transporation used prior to Relies on Others admit Comment Patient had surgery last week, and has not yet been cleared to drive. Independent with ADL's Yes Is patient alert and oriented? Yes Needs Assistance With Home Chores / Shopping Caregiver for Another No DME Already Rented / Owned FWW / Walker Barriers to Discharge No Comment Will see how patient does with P.T, confirmed that she is currently inpatient. Discharge Plan Home Transportation Arrangement Spouse Referrals Initiated None needed Additional Comment At this time Whiteboard Updated in Patient Room with Yes name and ext. # of Investment Accountant Review Status In Process Next Review Type Continued Stay Review
[2022-06-09] MEDS: ACETAMINOPHEN 325 MG TABLET PO ×3 (11:54→23:14)
[2022-06-09] MEDS: MINERAL OIL 1 EACH ENEMA PR (11:55)
--- NOTE | 2022-06-09 12:05 | OT.IP.EVAL ---
Past Medical History (Last Reviewed 06/08/22 @ 13:49 by Steven Shultz DO) Afib Anesthesia complication Anxiety Asthma Chronic episodic atrial fibrillation Easy bruisability Gait instability GERD (gastroesophageal reflux disease) Heart murmur History of left heart catheterization (12/13/19) HLD (hyperlipidemia) Hypothyroidism Lumbar stenosis Palpitations Pre-diabetes Skin cancer Spondylolisthesis at L3-L4 level Surgical History (Last Reviewed 06/08/22 @ 13:49 by Steven Shultz DO) H/O spinal fusion History of hysterectomy Hx of appendectomy Hx of bilateral cataract extraction (2020) Hx of cholecystectomy Hx of tubal ligation Occupational Therapy Inpatient Evaluation/Re-Eval M1 PT/OT-IP Prior Functional Status Start: 06/09/22 12:07 Freq: NEEDED Status: Active Protocol: Document 06/09/22 12:07 CGR (Rec: 06/09/22 12:35 CGR [id number]) Medical Review Prior Functional Status Medical History Reviewed Yes Communication Pt is an effective verbal communicator. Mobility and Gait Pt was IND in all mobility prior to recent admit and left using a 2ww. Activities of Daily Living and IADL's Pt was IND in all ADLs prior to sx. Pt's has been assisting with ADLs since she discharged. Social History Household Members spouse Living Arrangements House Number of Floors (Floors) One Floor Number of Stairs To Enter/Railing? 1 very small step to enter Home Environment Standard Height Toilet,Tub/ Shower Home Equipment Four Wheel Walker,Shower Seat with Backrest Employment Status Retired Additional Social History Comment Pt lives in [place]. M2 OT-IP Current Condition Start: 06/09/22 12:07 Freq: Status: Active Protocol: Document 06/09/22 12:07 CGR (Rec: 06/09/22 12:35 CGR [id number]) Occupational Therapy Current Condition Current Condition Evaluation Date 06/09/22 Treatment Diagnosis confusion, urinary retension, 06/04 L3-5 TLIF Diagnosis Onset Date 06/08/22 M3 OT- IP Subjective and Pain Start: 06/09/22 12:07 Freq: Status: Active Protocol: Document 06/09/22 12:07 CGR (Rec: 06/09/22 12:35 CGR [id number]) OT- Subjective Occupational Therapy Visit Type Type Initial Evaluation Visit Start Time 11:47 Visit Stop Time 12:05 Total Visit Minutes 18 OT Pain Assessment Pain When Pain Assessed At Rest Pain Present Pain Present Pain Reported Location back and legs Intensity 6 Scale Used Numeric (0 - 10) Pain Behaviors Facial Grimacing Management Techniques Distraction,Modification of Treatment,Re-positioning, Timing of Activity with Medications M4 OT- IP ADL's Start: 06/09/22 12:07 Freq: Status: Active Protocol: Document 06/09/22 12:07 CGR (Rec: 06/09/22 12:35 CGR [id number]) OT [id number] Comments OT Self-Feeding Comments not meal time OT ADL-Grooming Comments OT Grooming Comments pt declined d/t increased pain after toileting OT ADL-Oral Care Comments Oral Care Comments pt declined d/t increased pain after toileting OT ADL-Dressing General Eval Lower Body Dressing Ability Maximum Assistance Areas Needing Assistance Underpants/Brief Comments OT Dressing Comments donned clean brief OT ADL-Toileting General Evaluation Toileting Ability Standby Assistance Areas Needing Assistance Manage Clothing OT ADL-Bathing Comments OT Bathing Comments not performed M5 OT- IP IADL's Start: 06/09/22 12:07 Freq: Status: Active Protocol: Document 06/09/22 12:07 CGR (Rec: 06/09/22 12:35 CGR [id number]) OT-Instrumental Activities of Daily Living Deficits IADL Deficits Identified No Deficits Home Safety Awareness Awareness of Need for Assistance at Home Good Awareness Ability to Problem Solve Emergency Able to Problem Solve Situations Medication Management Medication Management Caregiver Administers Money Management Money Management Caregiver Provides Assistance Meal Preparation Meal Preparation Caregiver Provides Assist Wire Setter Wire Setter Caregiver Provides Assist Driving Driving Comments pt does not drive M6 OT- IP Functional Cognition Start: 06/09/22 12:07 Freq: Status: Active Protocol: Document 06/09/22 12:07 CGR (Rec: 06/09/22 12:35 CGR [id number]) Cognitive Factors Limiting Selfcare Function Cognitive Ability Level of Alertness Alert Patient Orientation Name,Age,Birthday,Month,Date, Year,Day of Week,Place, Situation Attention Span Ability Capable of Focused Attention, Capable of Sustained Attention OT- Vision and Hearing OT- Hearing Assessment OT- Hearing Assessment WFL OT- Vision Assessment Visual Acuity Glasses All The Time Visual Attentiveness WFL Occular Pursuits WFL M7 OT- IP Mobility and Balance Start: 06/09/22 12:07 Freq: Status: Active Protocol: Document 06/09/22 12:07 CGR (Rec: 06/09/22 12:35 CGR [id number]) OT- Bed Mobility Assessment Rolling Type of Rolling Log Rolling,Roll to Right Level of Assistance Standby Assistance Supine to Sit Supine to Sit Assist Standby Assistance Scooting Scooting to Edge of Bed Standby Assistance OT-Transfer Assessment Sit to and From Stand Sit to and from Stand Contact Guard Assistance Transfers Transfer Ability Contact Guard Assistance Technique Transfer Destination Bed,Car,Toilet Transfer Technique Stand Step Pivot Devices Transfer Assistive Devices Gait Belt,Front Wheeled Walker Comments Mobility Comments mobility around the room only OT- Balance Assessment Sitting Balance and Reactions Static Sitting Balance Ability Normal Dynamic Sitting Balance Ability Good M8 OT- IP Objective Assessments Start: 06/09/22 12:07 Freq: Status: Active Protocol: Document 06/09/22 12:07 CGR (Rec: 06/09/22 12:35 CGR [id number]) OT Gross Range of Motion Upper Extremity Range of Motion Assessment Within Functional Limits OT Strength Upper Extremity Strength Assessment Within Functional Limits Comments Strength Comments 4/5 OT- Coordination Assessment Upper Extremity Finger to Nose Test Within Functional Limits Finger Tapping Test Within Functional Limits OT-Muscle Tone Assessment Muscle Tone WNL Yes OT Sensation Assessment Edema Edema Absent M9 OT- IP Assessment and Plan Start: 06/09/22 12:07 Freq: Status: Active Protocol: Document 06/09/22 12:07 CGR (Rec: 06/09/22 12:35 CGR [id number]) OT Summary Assessment and Plan Potential Rehabilitation Potential Excellent Analytic Complexity at Evaluation Low Summary OT Impairments Pain,Balance,Functional Mobility,Grooming,Dressing, Toileting,Bathing,Toilet Transfers,Shower Transfers, Activity Tolerance Progress Towards Goals Progressing Toward Goals Assessment Summary Pt presents as a low complexity evaluation s/p admit for confusion and urinary retention with medications after 06/04/22 L3-5 TLIF. Pt presents as CGA for mobility and needs assist for LB dressing. Pt will benefit from continued OT services to address ADLs while hospitalized. Pt is likely to be a safe discharge home with family support when medically ready. Goals Grooming Goal Independent Dressing Goal Independent,Line Operator,Sock Aid Toileting Goal Independent Bathing Goal Independent Toilet Transfer Goal Independent Shower Transfer Goal Independent Days to Meet Goals 5 Frequency of Treatment Frequency Of Treatment Once a Day Treatment Plan OT Treatment Plan ADL Training,Functional Mobility,Patient/Family Education,Discharge Planning Other Treatment Recommendations and Next shower, LB dressing with DME Treatment Focus Discharge Recommendations OT Discharge Recommendations Home with Assistance Transportation Needs at Discharge Private Vehicle
--- NOTE | 2022-06-09 13:18 | P.CONS_ITS ---
History of Present Illness Consult details Date Patient Seen: 06/09/22 Time Patient Seen: 13:19 Chief complaint: Leg Pain Reason for consult: post-op Requesting provider: Carl López Narrative: Pt had L3-4, L4-5 transforaminal lumbar interbody fusion and posterolateral instrumented fusion by Dr Luisana Goss on 06/04/2022. Her hospital course was unremarkable and she was discharged home on POD# 1. She presented to the ED at yesterday morning (POD# 4) c/o leg pain, low back pain, and inability to void or defecate. She underwent extensive spinal imaging evaluation, and exam.? According to the ER provider her rectal tone was normal and she had minimal stool in her vault, but guaiac was negative.? Her imaging (lumbar CT) revealed typical postoperative findings but no evidence of cauda equina or spinal patho logies. Laboratory evaluation revealed a mild hyponatremia with sodium of 126, mild anemia with a hemoglobin of 7.8 initially which declined to 7.0 on repeat.? On the day of discharge her hemoglobin was 8.7.? Urinalysis was not indicative of infection. She was admitted for further management to the hospitalist service. She has been OOB today and is now voiding without difficulty. She is passing flatus but has not yet moved her bowels; she tells me the plan is for an enema later today. Her H/H is 7.4/21.7, and her Na+ is up to 133. Meds Home Medications and Allergies Home Medications Medication Instructions Recorded Confirmed Type duloxetine 20 mg capsule,delayed 60 mg PO DAILY 10/07/18 06/08/22 History release levothyroxine 50 mcg capsule 50 mcg PO DAILY 10/07/18 06/08/22 History metformin 500 mg tablet 500 mg PO BID 11/05/18 06/08/22 History prochlorperazine maleate 10 mg 1 tab PO TID PRN Nausea 11/05/18 06/08/22 History tablet albuterol sulfate 90 mcg/actuation 2 inh inhalation Q4HR PRN 09/24/19 06/08/22 History aerosol inhaler Shortness Of Breath beclomethasone dipropionate 80 2 inh inhalation BID 09/24/19 06/08/22 History mcg/actuation HFA breath activated aerosol (Qvar RediHaler) carvedilol 12.5 mg tablet 12.5 mg PO BID 01/29/22 06/08/22 History gabapentin 100 mg capsule 300 mg PO BEDTIME 01/29/22 06/08/22 History lisinopril 5 mg tablet 5 mg PO BEDTIME 01/29/22 06/08/22 History rosuvastatin 40 mg tablet 40 mg PO BEDTIME 01/29/22 06/08/22 History spironolactone 25 mg tablet 25 mg PO DAILY 01/29/22 06/08/22 History trazodone 50 mg tablet 50 mg PO BEDTIME 01/29/22 06/08/22 History ropinirole 4 mg tablet 4 mg PO BEDTIME 02/24/22 06/08/22 History pantoprazole 40 mg tablet,delayed 40 mg PO DAILY 05/27/22 06/08/22 History release acetaminophen 325 mg tablet 650 mg PO Q6HR PRN Pain, Mild 06/05/22 06/08/22 Rx (1-3) #60 tabs oxycodone 5 mg tablet 10 mg PO Q3HR PRN Pain, Severe 06/05/22 06/08/22 Rx (7-10) #60 tabs rivaroxaban 20 mg tablet (Xarelto) 20 mg PO DAILY 06/08/22 06/08/22 History Allergies Allergy/AdvReac Type Severity Reaction Status Date / Time Iodine and Iodide Containing Allergy Severe pass out Verified 06/04/22 07:57 Produc [IODINE AND IODIDE CONTAINING PRODUC] amlodipine Allergy Intermediate Swelling Verified 06/04/22 07:57 of Lip/Tongue/Throat codeine [CODEINE] Allergy Intermediate HIVES, Verified 06/04/22 07:57 NAUSEA nitrofurantoin Allergy Mild Rash Verified 06/04/22 07:57 [NITROFURANTOIN] oxycodone AdvReac Hallucinati Verified 06/08/22 18:32 ng Review of Systems Review of Systems ROS: Yes All systems reviewed with the patient and are negative except as otherwise documented Exam Vital Signs (past 8 hours): - 06/09/22 08:00 06/09/22 09:14 06/09/22 09:00 Temperature 98.5 F Pulse Rate 66 66 Respiratory Rate 19 Blood Pressure 137/58 L 137/58 L Pulse Oximetry 99 99 Oxygen Delivery Method Room Air Oxygen Flow Rate 0 06/09/22 12:00 Temperature 98.0 F Pulse Rate 70 Respiratory Rate 16 Blood Pressure 147/59 H Pulse Oximetry 96 Oxygen Delivery Method Oxygen Flow Rate 0 Oxygen Delivery Method Room Air Oxygen Flow Rate 0 Narrative Exam Narrative: 5/5 strength in quadriceps, hamstrings, DF, PF, EHL bilaterally. Sensation to light touch intact in BLE. Calves soft, compressible, nontender and without palpable cords or masses. Low back dressing placed intraoperatively has old bloody drainage, otherwise intact. Const General: cooperative and healthy appearing Orientation: alert, awake and oriented x3 Objective Labs Result Diagrams: 06/09/22 04:56 06/09/22 04:56 Labs: Laboratory Results - last 24 hr 06/08/22 06/08/22 06/09/22 17:00 17:00 04:56 WBC 4.3 L RBC 2.46 L Hgb 8.0 L 7.4 L Hct 23.2 L 21.7 L MCV 88.1 MCH 30.3 MCHC 34.4 RDW 13.3 Plt Count 192 Neut % (Auto) 66.2 Lymph % (Auto) 18.5 L Bowie % (Auto) 8.5 Eos % (Auto) 6.3 H Baso % (Auto) 0.5 Neut # (Auto) 2800 Lymph # (Auto) 800 L Bowie # (Auto) 400 Eos # (Auto) 300 Baso # (Auto) 0 Sodium 130 L Potassium 4.5 Chloride 102 Carbon Dioxide 26 BUN 14 Creatinine 0.98 Estimated GFR > 60 BUN/Creatinine Ratio 14.3 Glucose 105 Calcium 7.8 L Magnesium Ur Random Sodium Urine Creatinine 06/09/22 06/09/22 06/09/22 04:56 06:00 06:00 WBC RBC Hgb Hct MCV MCH MCHC RDW Plt Count Neut % (Auto) Lymph % (Auto) Bowie % (Auto) Eos % (Auto) Baso % (Auto) Neut # (Auto) Lymph # (Auto) Bowie # (Auto) Eos # (Auto) Baso # (Auto) Sodium 133 L Potassium 4.8 Chloride 106 Carbon Dioxide 26 BUN 15 Creatinine 0.99 Estimated GFR > 60 BUN/Creatinine Ratio 15.2 Glucose 101 Calcium 8.1 L Magnesium 1.8 Ur Random Sodium 66 Cancelled Urine Creatinine 16.1 PFSH Medical History Afib Anesthesia complication Anxiety Asthma Chronic episodic atrial fibrillation Easy bruisability Gait instability GERD (gastroesophageal reflux disease) Heart murmur History of left heart catheterization (12/13/19) HLD (hyperlipidemia) Hypothyroidism Lumbar stenosis Palpitations Pre-diabetes Skin cancer Spondylolisthesis at L3-L4 level Surgical History H/O spinal fusion History of hysterectomy Hx of appendectomy Hx of bilateral cataract extraction (2020) Hx of cholecystectomy Hx of tubal ligation Family History (Updated 06/08/22 @ 13:49 by Steven Shultz DO) Father Congestive heart failure Mother COPD (chronic obstructive pulmonary disease) Social History household members: spouse Tobacco & Substance Use Smoking Status: Never smoker alcohol intake: never Assessment & Plan Assessment and plan (1) S/P lumbar fusion: Status: Acute Plan: Continue PT/OT during stay. Likely home with spouse once medically stable. Urinary retention, constipation, confusion, and nausea felt to be d/t oxycodone; pt should receive hydrocodone for pain control on discharge. (2) Acute hyponatremia: Status: Acute Plan: Appears to be resolving. (3) Anemia: Status: Acute Plan: Stable at this time. Hospitalist service following and will transfuse PRN. (4) Acute urinary retention: Status: Acute Plan: Appears to have resolved. Time Spent With Patient Critical Care time: I spent a total of [] minutes of critical care time on this patient's care today; this time is exclusive of procedural time.
--- NOTE | 2022-06-09 13:32 | P.PN_ITS ---
Exam Vital Signs (past 8 hours): - 06/09/22 08:00 06/09/22 09:14 06/09/22 09:00 Temperature 98.5 F Pulse Rate 66 66 Respiratory Rate 19 Blood Pressure 137/58 L 137/58 L Pulse Oximetry 99 99 Oxygen Delivery Method Room Air Oxygen Flow Rate 0 06/09/22 12:00 Temperature 98.0 F Pulse Rate 70 Respiratory Rate 16 Blood Pressure 147/59 H Pulse Oximetry 96 Oxygen Delivery Method Oxygen Flow Rate 0 Oxygen Delivery Method Room Air Oxygen Flow Rate 0 Objective Labs Result Diagrams: 06/09/22 04:56 06/09/22 04:56 Labs: Laboratory Results - last 24 hr 06/08/22 06/08/22 06/09/22 17:00 17:00 04:56 WBC 4.3 L RBC 2.46 L Hgb 8.0 L 7.4 L Hct 23.2 L 21.7 L MCV 88.1 MCH 30.3 MCHC 34.4 RDW 13.3 Plt Count 192 Neut % (Auto) 66.2 Lymph % (Auto) 18.5 L Heard % (Auto) 8.5 Eos % (Auto) 6.3 H Baso % (Auto) 0.5 Neut # (Auto) 2800 Lymph # (Auto) 800 L Heard # (Auto) 400 Eos # (Auto) 300 Baso # (Auto) 0 Sodium 130 L Potassium 4.5 Chloride 102 Carbon Dioxide 26 BUN 14 Creatinine 0.98 Estimated GFR > 60 BUN/Creatinine Ratio 14.3 Glucose 105 Calcium 7.8 L Magnesium Ur Random Sodium Urine Creatinine 06/09/22 06/09/22 06/09/22 04:56 06:00 06:00 WBC RBC Hgb Hct MCV MCH MCHC RDW Plt Count Neut % (Auto) Lymph % (Auto) Heard % (Auto) Eos % (Auto) Baso % (Auto) Neut # (Auto) Lymph # (Auto) Heard # (Auto) Eos # (Auto) Baso # (Auto) Sodium 133 L Potassium 4.8 Chloride 106 Carbon Dioxide 26 BUN 15 Creatinine 0.99 Estimated GFR > 60 BUN/Creatinine Ratio 15.2 Glucose 101 Calcium 8.1 L Magnesium 1.8 Ur Random Sodium 66 Cancelled Urine Creatinine 16.1 PFSH Medical History Afib Anesthesia complication Anxiety Asthma Chronic episodic atrial fibrillation Easy bruisability Gait instability GERD (gastroesophageal reflux disease) Heart murmur History of left heart catheterization (12/13/19) HLD (hyperlipidemia) Hypothyroidism Lumbar stenosis Palpitations Pre-diabetes Skin cancer Spondylolisthesis at L3-L4 level Surgical History H/O spinal fusion History of hysterectomy Hx of appendectomy Hx of bilateral cataract extraction (2020) Hx of cholecystectomy Hx of tubal ligation Family History (Updated 06/08/22 @ 13:49 by Steven Shultz DO) Father Congestive heart failure Mother COPD (chronic obstructive pulmonary disease) Social History household members: spouse Smoking Status: Never smoker alcohol intake: never Assessment & Plan Assessment & Plan narrative: 1. Hyponatremia, acute ?Likely secondary to decreased oral intake and hypovolemia, possibly in setting of anemia as well ?Continue IV fluids NS at 100 cc per hour. Follow sodium q8 unless drops below 125. ?Urine sodium is normal at 66, suspect hypovolemia, may be in setting of urinary retention as well. ?Thorne removed and patient able to urinate. 2. Acute urinary retention ?Suspect secondary to opiate use with associated constipation. CT L spine without impingement. Oxycodone has been reduced to 2.5 - 5 mg from previous 10. Suspect this has built up in her system causing her presenting symptoms. Hopefully Thorne to be removed prior to discharge. 3. Constipation ?Setting of opiate use ?Continue aggressive laxitive therapy, and adjust as necessary. Give enema today. 4. s/p recent lumbar fusion ?Reduce opiate needs ?PT/OT evaluations 5. Acute on chronic anemia ?No obvious source of bleeding at this time. May be post surgical changes in combination with IV fluids given in the ER. ?Goal Hg > 7. Transfuse prn. Continue to follow. Today hemoglobin 7.4. No transfusion. ?Hold home xarelto for now pending trend of hemoglobin and showing no need for transfusion. ?Continue home PPI, recent EGD and colonoscopy were unremarkable (a few weeks ago at OSH according to patient and spouse). 6.? HTN, chronic ?Continue home medications. 7. Chronic atrial fibrillation on AC ?Continue home medications 8. hypothyroidism ?Continue home levothyroxine 9. HLD ?Continue home meds 10. DM2 ?Sliding scale while here, hold home metformin. Code: Full, surrogate is spouse DVT: SCDs given anemia, if Hg stable can likely resume home xarelto. Time Spent With Patient Critical Care time: I spent a total of [] minutes of critical care time on this patient's care today; this time is exclusive of procedural time.
--- NOTE | 2022-06-09 14:45 | PT.IIE ---
Current Diagnoses Anemia, unspecified (06/08/22) Hypo-osmolality and hyponatremia (06/08/22) Other retention of urine (06/08/22) Arthrodesis status (06/08/22) Surgical History (Last Reviewed 06/08/22 @ 13:49 by Steven Shultz DO) H/O spinal fusion History of hysterectomy Hx of appendectomy Hx of bilateral cataract extraction (2020) Hx of cholecystectomy Hx of tubal ligation Medical History (Last Reviewed 06/08/22 @ 13:49 by Steven Shultz DO) Afib Anesthesia complication Anxiety Asthma Chronic episodic atrial fibrillation Easy bruisability Gait instability GERD (gastroesophageal reflux disease) Heart murmur History of left heart catheterization (12/13/19) HLD (hyperlipidemia) Hypothyroidism Lumbar stenosis Palpitations Pre-diabetes Skin cancer Spondylolisthesis at L3-L4 level Physical Therapy Inpatient Evaluation/Re-Eval M1 PT/OT-IP Prior Functional Status Start: 06/09/22 12:07 Freq: NEEDED Status: Active Protocol: Document 06/09/22 14:45 DLM (Rec: 06/09/22 16:00 DLM [id number]) Medical Review Prior Functional Status Medical History Reviewed Yes Diet/Fluid Consistency Regular Communication WFL Mobility and Gait She was independent without a device before her back surgery . Since surgery she has been using a fWW for household distances. Able to get from car to house okay after hospital discharge. Activities of Daily Living and IADL's Pt was IND in all ADLs prior to sx. Pt's has been assisting with ADLs since she discharged. Social History Household Members spouse Living Arrangements House Number of Floors (Floors) One Floor Number of Stairs To Enter/Railing? 1 very small step to enter Home Environment Standard Height Toilet,Tub/ Shower Home Equipment Four Wheel Walker,Shower Seat with Backrest Employment Status Retired Additional Social History Comment Pt lives in [place]. M2 PT-IP Current Condition Start: 06/09/22 15:34 Freq: NEEDED Status: Active Protocol: Document 06/09/22 14:45 DLM (Rec: 06/09/22 16:00 DLM [id number]) Physical Therapy Current Condition Current Condition Evaluation Date 06/09/22 Treatment Diagnosis Nausea and confusion, difficulty walking Onset Date 06/08/22 M3 PT-IP Subjective Start: 06/09/22 15:34 Freq: NEEDED Status: Active Protocol: Document 06/09/22 14:45 DLM (Rec: 06/09/22 16:00 DLM [id number]) Subjective Physical Therapy Visit Type Type Initial Evaluation Visit Start Time 14:00 Visit Stop Time 14:45 Total Visit Minutes 45 Number of CHRO Visits 0 Physical Therapy Visit Comments Patient Comments She feels better today, has not been able to have BM. She describes aching in LE's below knees 6/10 pain, back pain 5/ 10 pain with soreness. Patient Goals Discharge home with spouse M4 PT-IP Mobility and Gait Start: 06/09/22 15:34 Freq: NEEDED Status: Active Protocol: Document 06/09/22 14:45 DLM (Rec: 06/09/22 16:00 DLM [id number]) PT-Bed Mobility Assessment Rolling Type of Rolling Log Rolling Level of Assist Independent Supine to Sit Supine to Sit Standby Assistance,Bedrails Scooting Scooting to Edge of Bed Standby Assistance PT-Transfer Assessment Sit to and From Stand Sit to and from Stand Standby Assistance,Use of Upper Extremities Equipment Transfer Assistive Device Gait Belt,Front Wheeled Walker Transfers Transfer Destination Chair,Bedside Commode Transfer Technique Stand Step Pivot Transfer Ability Level of Assist Standby Assistance,Use of Upper Extremities Comments Mobility Comments Up to bedside commode but unable to have BM, did urinate . Pt left up in recliner with Spouse visiting and needs close. Pt instructed to have assist for all mobility to decrease her fall risks. Gait Assessment Gait Gait Assistance Required: Standby Assistance,Contact Guard Assist Distance (Feet) 50 Assistive Devices Assistive Device Gait Belt,Front Wheeled Walker Gait Deviations General Gait Pattern Decreased Stride Length,Flexed Trunk Factors Limiting Gait Function Factors Limiting Gait Function Decreased Activity Tolerance, Decreased Strength,Pain,Poor Balance Comments Gait Comments pace of gait is slow but functional, she demonstrates safe use of FWW, she fatigues with gait PT-Balance Assessment Sitting Balance and Reactions Static Sitting Balance Ability Good Dynamic Sitting Balance Ability Good Standing Balance and Reactions Static Standing Balance Ability Good Dynamic Standing Balance Ability Good Device Used fWW M5 PT-IP Objective Assessments Start: 06/09/22 15:34 Freq: NEEDED Status: Active Protocol: Document 06/09/22 14:45 DLM (Rec: 06/09/22 16:00 DLM [id number]) Orientation Orientation/Cognition Level of Alertness Alert Orientation Name,Age,Birthday,Month,Date, Year,Day of Week,Place, Situation Language Function Ability No Deficits Noted Safety Awareness Understands Safety Issues Memory Description No Deficits Noted Comments she recalls having hallucinations at home with taking pain medication Gross Range of Motion Upper Extremity ROM Assessment Within Functional Limits Lower Extremity ROM Assessment Within Functional Limits Strength Upper Extremity Strength Assessment Within Functional Limits Lower Extremity Strength Assessment Bilaterally Impaired Comments Strength Comments generalized LE weakness with back and LE pain, able to bear weight on LE's for gait with FWW Coordination Assessment Assessment Coordination Comments moving slowly in general Sensation Assessment Sensation Gross Sensation WNL Comments Sensation Comments hx restless legs Muscle Tone Muscle Tone WNL Yes M6 PT-IP Treatment Start: 06/09/22 15:34 Freq: NEEDED Status: Active Protocol: Document 06/09/22 14:45 DLM (Rec: 06/09/22 16:00 DLM [id number]) Physical Therapy Treatment Exercises Exercises Ankle Pumps Education Education Provided Precautions,Safety Other Treatments Other Treatment Performed Her Spouse is present this visit and participates in therapy. He is prepared to help her at home. M7 PT-IP Assessment and Plan Start: 06/09/22 15:34 Freq: NEEDED Status: Active Protocol: Document 06/09/22 14:45 DLM (Rec: 06/09/22 16:00 DLM [id number]) PT Summary Assessment and Plan Potential Rehabilitation Potential Good Status of Condition at Evaluation Evolving Summary Impairments Pain,ROM,Strength,Balance, Coordination,Bed Mobility, Transfers,Gait,Activity Tolerance Assessment Summary Glenys is alert and resting in bed. She feels like her pain is managed well enough today. She was able to tolerate short distances of gait and mobility in her room well. Her Spouse is present and very supportive. He reports she has been doing better with changes in her pain medication. Will continue to progress her mobility as tolerated and assess pain management with new changes in pain medication. Anticipate 1 -2 more therapy visits. She appears safe to discharge home with Spouse when medically stable. She could benefit from home health to assist with her mobility/gait in her home environment. Goals Bed Mobility Goal Independent Transfer Goal Independent,Front Wheeled Walker Gait Goal Independent,Front Wheel Walker Gait Distance 100 feet Days to Meet Goals 3 Frequency of Treatment Frequency Of Treatment Once a Day Treatment Plan Physical Therapy Treatment Plan Bed Mobility Training,Transfer Training,Gait Training, Therapeutic Exercise,Post Op Education,Discharge Planning, Neuromuscular Re-ed Other Recommendations and Next Treatment continue post-op education for Focus L3-5 TLIF on 06/04/22 Precautions Lumbar Precautions Log Roll,No Twisting,Limit Bending,Lifting Restriction of 10 lbs,Gait Belt above Incisional Area Other Precautions low H&H, sensitivity to pain medications Recommendations To Nursing Amount of Assist Needed 1 Person Assist Discharge Recommendations PT Discharge Recommendations Home with Assistance,Home Health Other Discharge Recommendations pt feels home health services would help at discharge spouse prepared to assist her Transportation Needs at Discharge Private Vehicle
--- NOTE | 2022-06-09 16:13 | P.PN_ITS ---
Exam Vital Signs (past 8 hours): - 06/09/22 09:14 06/09/22 09:00 06/09/22 12:00 Temperature 98.0 F Pulse Rate 66 70 Respiratory Rate 16 Blood Pressure 137/58 L 147/59 H Pulse Oximetry 99 96 Oxygen Delivery Method Room Air Oxygen Flow Rate 0 Oxygen Delivery Method Room Air Oxygen Flow Rate 0 Objective Labs Result Diagrams: 06/09/22 04:56 06/09/22 04:56 Labs: Laboratory Results - last 24 hr 06/08/22 06/08/22 06/09/22 17:00 17:00 04:56 WBC 4.3 L RBC 2.46 L Hgb 8.0 L 7.4 L Hct 23.2 L 21.7 L MCV 88.1 MCH 30.3 MCHC 34.4 RDW 13.3 Plt Count 192 Neut % (Auto) 66.2 Lymph % (Auto) 18.5 L Randolph % (Auto) 8.5 Eos % (Auto) 6.3 H Baso % (Auto) 0.5 Neut # (Auto) 2800 Lymph # (Auto) 800 L Randolph # (Auto) 400 Eos # (Auto) 300 Baso # (Auto) 0 Sodium 130 L Potassium 4.5 Chloride 102 Carbon Dioxide 26 BUN 14 Creatinine 0.98 Estimated GFR > 60 BUN/Creatinine Ratio 14.3 Glucose 105 Calcium 7.8 L Magnesium Ur Random Sodium Urine Creatinine 06/09/22 06/09/22 06/09/22 04:56 06:00 06:00 WBC RBC Hgb Hct MCV MCH MCHC RDW Plt Count Neut % (Auto) Lymph % (Auto) Randolph % (Auto) Eos % (Auto) Baso % (Auto) Neut # (Auto) Lymph # (Auto) Randolph # (Auto) Eos # (Auto) Baso # (Auto) Sodium 133 L Potassium 4.8 Chloride 106 Carbon Dioxide 26 BUN 15 Creatinine 0.99 Estimated GFR > 60 BUN/Creatinine Ratio 15.2 Glucose 101 Calcium 8.1 L Magnesium 1.8 Ur Random Sodium 66 Cancelled Urine Creatinine 16.1 [facility] Medical History Afib Anesthesia complication Anxiety Asthma Chronic episodic atrial fibrillation Easy bruisability Gait instability GERD (gastroesophageal reflux disease) Heart murmur History of left heart catheterization (12/13/19) HLD (hyperlipidemia) Hypothyroidism Lumbar stenosis Palpitations Pre-diabetes Skin cancer Spondylolisthesis at L3-L4 level Surgical History H/O spinal fusion History of hysterectomy Hx of appendectomy Hx of bilateral cataract extraction (2020) Hx of cholecystectomy Hx of tubal ligation Family History (Updated 06/08/22 @ 13:49 by Steven Shulzt DO) Father Congestive heart failure Mother COPD (chronic obstructive pulmonary disease) Social History household members: spouse Smoking Status: Never smoker alcohol intake: never Assessment & Plan Assessment & Plan narrative: Ms. Gottlieb is re-admitted to medicine service to hyponatremia, difficulty urinating and lack of bowel movement. She had urgent CT showed normal post operative findings w/o surgical issues. Patient is neuro intact on exam with incision clean and dry. Patient is A&O x 3, no distress. Patient urinated today. Patient has poor appetite and has been passing gas but no BM. Will continue medical management and possible d/c tomorrow. F/u with my office per previous instruction, 2 weeks post surgery. Time Spent With Patient Critical Care time: I spent a total of [] minutes of critical care time on this patient's care today; this time is exclusive of procedural time.
[2022-06-09] MEDS: LACTULOSE 20 GM/30 ML SOLUTION PO (16:14)
[2022-06-09] MEDS: SODIUM CHLORIDE 0.9% 1,000 ML 100 ML IV (19:00)
[2022-06-09] MEDS: GABAPENTIN 100 MG CAPSULE 300 MG PO (20:32)
[2022-06-09] MEDS: ROPINIROLE 1 MG TABLET 4 MG PO (20:32)
[2022-06-09] MEDS: SENNOSIDES 8.6 MG TABLET 17.2 MG PO (20:33)
[2022-06-09] MEDS: ATORVASTATIN 20 MG TABLET 80 MG PO (20:34)
[2022-06-09] MEDS: lisinopriL 5 MG TABLET PO (20:37)
[2022-06-10] VITALS (11 sets, daily range): BP systolic 103–154; BP diastolic 41–60; PULSE 61–98; RESP 16–18; TEMP 36.3–37.4; O2SAT 97–100
--- NOTE | 2022-06-10 04:02 | PC.NURSE ---
Pt is AxOx4, 1 person assistance and cooperative. VSS, no c/o pain. Pt slept well all night. No problem identified. Continue monitor.
[2022-06-10] MEDS: LEVOTHYROXINE 50 MCG TABLET PO (05:37)
[2022-06-10 05:39] LABS: Magnesium 1.8 mg/dL (1.6-2.3)
[2022-06-10] MEDS: HYDROCODONE/ACET 5/325 TABLET 1 TAB PO ×4 (05:40→16:42)
[2022-06-10 05:42] LABS: Alanine Aminotransferase 29 IU/L (<35); Albumin 2.5 g/dL (3.5-5.0); Alkaline Phosphatase 72 U/L (38-126); Aspartate Aminotransferase 32 IU/L (14-36); BUN Creatinine Ratio 11.1 (6-22); Bilirubin Total 0.6 mg/dL (0.2-1.3); Blood Urea Nitrogen 11 mg/dL (7-17); Carbon Dioxide 25 mmol/L (22-32); Chloride 105 mmol/L (98-107); Estimated Glomerular Filt Rate > 60 mL/min (>60); Globulin 2.6 g/dL (1.7-4.1); Glucose 111 mg/dL (80-110); HEMOLYSIS < 15 (0-50); Potassium 4.7 mmol/L (3.4-5.1); Sodium 135 mmol/L (137-145); Total Protein 5.1 g/dL (6.3-8.2)
[2022-06-10 05:43] LABS: Add Manual Diff / Slide Review NO; Basophils Absolute Auto 0 /uL (0-100); Basophils Percent Auto 0.6 % (0-2); Eosinophils Absolute Auto 300 /uL (0-450); Eosinophils Percent Auto 7.3 % (2-4); Lymphocytes Absolute Auto 1100 /uL (1100-4500); Lymphocytes Percent Auto 26.4 % (25-40); Mean Corpuscular HGB Conc 33.9 % (30-36); Mean Corpuscular Hemoglobin 30.2 PG (26-34); Monocytes Absolute Auto 500 /uL (0-900); Monocytes Percent Auto 12.5 % (3-14); Neutrophils Absolute Auto 2200 /uL (1500-7000); Neutrophils Percent Auto 53.2 % (50-75); Platelet Count 196 X10^3/uL (150-400); Red Blood Cell Count 2.21 X10^6/uL (4.0-5.2); Red Cell Distribution Width 13.3 % (11.6-14.8); White Blood Cell Count 4.1 X10^3/uL (4.5-11.0)
[2022-06-10 05:49] LABS: Hemoglobin 6.7 g/dL (12.0-16.0)
[2022-06-10 05:50] LABS: Hematocrit 19.7 % (36-46)
[2022-06-10] MEDS: DOCUSATE 100 MG CAPSULE PO (09:00)
[2022-06-10] MEDS: polyethylene glycoL 3350 17 GM POWD.PACK PO (09:00)
[2022-06-10] MEDS: RIVAROXABAN 10 MG TABLET 20 MG PO (09:00)
[2022-06-10] MEDS: PANTOPRAZOLE DR 40 MG TABLET PO (09:00)
[2022-06-10] MEDS: DULOXETINE 20 MG CAPSULE 60 MG PO (09:00)
--- NOTE | 2022-06-10 10:32 | PM.PN.1 ---
Subjective Subjective Date Patient Seen: 06/10/22 Time Patient Seen: 10:30 Interval history: Patient feels she has continued to improve. Able to urinate. Has had small amounts per rectum as well. Receiving transfusion currently. Exam Vital Signs (past 8 hours): - 06/10/22 04:00 06/10/22 05:00 06/10/22 08:00 Temperature 97.4 F L 99.3 F Pulse Rate 63 61 Respiratory Rate 18 16 Blood Pressure 103/46 L 110/41 L Pulse Oximetry 100 99 Oxygen Delivery Method Room Air Oxygen Flow Rate 0 06/10/22 08:15 06/10/22 08:30 06/10/22 09:00 Temperature 97.4 F L 98.0 F Pulse Rate 61 69 61 Respiratory Rate 16 18 Blood Pressure 110/41 L 120/49 L 120/49 L Pulse Oximetry Oxygen Delivery Method Oxygen Flow Rate Oxygen Delivery Method Room Air Oxygen Flow Rate 0 Narrative Exam Narrative: Alert oriented to time place and person. HEENT: Pupils equal reactive to light. Extraocular movements normal. Head is normocephalic. Trachea is midline. No palpable neck nodes. Cardiovascular: Heart sounds S1 and S2 with no extra sounds or murmur. Peripheral pulses equal bilaterally. Pedal edema nonexistent. Respiratory: Adequate air entry throughout the lung proctor. No wheezes or crackles. Gastrointestinal: Abdomen is soft. Nontender. Bowel sounds present. Skin: No lesions or rashes. Musculoskeletal: Able to move all extremities volitionally. Has back pain with pain controlled adequately. Neuro: Normal sensation of all extremities. Alert and oriented. Psych: Normal mood and affect. Objective Labs Result Diagrams: 06/10/22 04:52 06/10/22 04:52 Labs: Laboratory Results - last 24 hr 06/10/22 06/10/22 06/10/22 04:52 04:52 04:52 WBC 4.1 L RBC 2.21 L Hgb 6.7 L* Hct 19.7 L* MCV 89.0 MCH 30.2 MCHC 33.9 RDW 13.3 Plt Count 196 Neut % (Auto) 53.2 Lymph % (Auto) 26.4 [place] % (Auto) 12.5 Eos % (Auto) 7.3 H Baso % (Auto) 0.6 Neut # (Auto) 2200 Lymph # (Auto) 1100 [place] # (Auto) 500 Eos # (Auto) 300 Baso # (Auto) 0 Sodium 135 L Potassium 4.7 Chloride 105 Carbon Dioxide 25 BUN 11 Creatinine 0.99 Estimated GFR > 60 BUN/Creatinine Ratio 11.1 Glucose 111 H Calcium 8.0 L Magnesium 1.8 Total Bilirubin 0.6 AST 32 ALT 29 Alkaline Phosphatase 72 Total Protein 5.1 L Albumin 2.5 L Globulin 2.6 Albumin/Globulin Ratio 1.0 Blood Type Antibody Screen Crossmatch 06/10/22 06:15 WBC RBC Hgb Hct MCV MCH MCHC RDW Plt Count Neut % (Auto) Lymph % (Auto) [place] % (Auto) Eos % (Auto) Baso % (Auto) Neut # (Auto) Lymph # (Auto) [place] # (Auto) Eos # (Auto) Baso # (Auto) Sodium Potassium Chloride Carbon Dioxide BUN Creatinine Estimated GFR BUN/Creatinine Ratio Glucose Calcium Magnesium Total Bilirubin AST ALT Alkaline Phosphatase Total Protein Albumin Globulin Albumin/Globulin Ratio Blood Type O Positive Antibody Screen Negative Crossmatch See Detail [facility] Medical History Afib Anesthesia complication Anxiety Asthma Chronic episodic atrial fibrillation Easy bruisability Gait instability GERD (gastroesophageal reflux disease) Heart murmur History of left heart catheterization (12/13/19) HLD (hyperlipidemia) Hypothyroidism Lumbar stenosis Palpitations Pre-diabetes Skin cancer Spondylolisthesis at L3-L4 level Surgical History H/O spinal fusion History of hysterectomy Hx of appendectomy Hx of bilateral cataract extraction (2020) Hx of cholecystectomy Hx of tubal ligation Family History (Updated 06/08/22 @ 13:49 by Steven Shultz DO) Father Congestive heart failure Mother COPD (chronic obstructive pulmonary disease) Social History household members: spouse Smoking Status: Never smoker alcohol intake: never Assessment & Plan Assessment & Plan narrative: 1. Hyponatremia, acute ?Likely secondary to decreased oral intake and hypovolemia, possibly in setting of anemia as well ?Continue IV fluids? NS at 100 cc per hour. Follow sodium q8 unless drops below 125. ?Urine sodium is normal at 66, suspect hypovolemia, may be in setting of urinary retention as well. ?Thorne removed and patient able to urinate. Sodium has increased to [address] on saline lock and drinking well. 2. Acute urinary retention ?Suspect secondary to opiate use with associated constipation. CT L spine without impingement. ?Oxycodone has been reduced to 2.5 - 5 mg from previous 10. Suspect this has built up in her system causing her presenting symptoms. Urinating appropriately. 3. Constipation ?Setting of opiate use ?Continue aggressive laxitive therapy, and adjust as necessary.? Gave enema yesterday. Today has had a small bowel movement. Having increased gas production. Currently on daily PEG 17 g and sennosides. This should be continued on discharge. 4. s/p recent lumbar fusion ?Reduce opiate needs ?PT/OT evaluations 5. Acute on chronic anemia ?No obvious source of bleeding at this time. May be post surgical changes in combination with IV fluids given in the ER. ?Goal Hg > 7. Transfuse prn. Continue to follow.? Today hemoglobin 6.7.? Transfusion. ?On home xarelto dose. ?Continue home PPI, recent EGD and colonoscopy were unremarkable (a few weeks ago at OSH according to patient and spouse). Hemoglobin 6.7 this morning. Transfusion of 1 unit. Follow labs in the morning for stability. If stable can discharge tomorrow. 6.? HTN, chronic ?Continue home medications. 7. Chronic atrial fibrillation on AC ?Continue home medications 8. hypothyroidism ?Continue home levothyroxine 9. HLD ?Continue home meds 10. DM2 ?Sliding scale while here, hold home metformin. Need to reinitiate on discharge. Time Spent With Patient Critical Care time: I spent a total of [] minutes of critical care time on this patient's care today; this time is exclusive of procedural time.
--- NOTE | 2022-06-10 11:54 | PT.IPTN ---
Current Diagnoses Anemia, unspecified (06/08/22) Hypo-osmolality and hyponatremia (06/08/22) Other retention of urine (06/08/22) Arthrodesis status (06/08/22) Physical Therapy Treatment Note M2 PT-IP Current Condition Start: 06/09/22 15:34 Freq: NEEDED Status: Active Protocol: Document 06/09/22 14:45 DLM (Rec: 06/09/22 16:00 DLM [id number]) Physical Therapy Current Condition Current Condition Evaluation Date 06/09/22 Treatment Diagnosis Nausea and confusion, difficulty walking Onset Date 06/08/22 M3 PT-IP Subjective Start: 06/09/22 15:34 Freq: NEEDED Status: Active Protocol: Document 06/10/22 11:43 LJ (Rec: 06/10/22 11:53 LJ [id number]) Subjective Physical Therapy Visit Type Type Treatment Note Visit Start Time 10:33 Visit Stop Time 11:00 Total Visit Minutes 27 Number of CONTRACT RUNNER Visits 1 Physical Therapy Visit Comments Patient Comments Pt states she is feeling better. Less LE and back pain. Willing to get up and walk. Huband present. Patient Goals Discharge home with spouse M4 PT-IP Mobility and Gait Start: 06/09/22 15:34 Freq: NEEDED Status: Active Protocol: Document 06/10/22 11:43 LJ (Rec: 06/10/22 11:53 LJ [id number]) PT-Bed Mobility Assessment Rolling Type of Rolling Log Rolling Level of Assist Independent Supine to Sit Supine to Sit Standby Assistance,Bedrails Scooting Scooting to Edge of Bed Standby Assistance PT-Transfer Assessment Sit to and From Stand Sit to and from Stand Standby Assistance,Use of Upper Extremities Equipment Transfer Assistive Device Gait Belt,Front Wheeled Walker Transfers Transfer Destination Chair,Bedside Commode Transfer Technique ambulated forward, turned, sat Transfer Ability Level of Assist Standby Assistance,Use of Upper Extremities Comments Mobility Comments Pt completed bed mobility SBA with minimal use of bedrails. Gait Assessment Gait Gait Assistance Required: Standby Assistance,Contact Guard Assist Distance (Feet) 500 Assistive Devices Assistive Device Gait Belt,Front Wheeled Walker Gait Deviations General Gait Pattern Decreased Stride Length,Flexed Trunk Factors Limiting Gait Function Factors Limiting Gait Function Decreased Activity Tolerance, Decreased Strength,Pain,Poor Balance Comments Gait Comments Pace remains slow but standing more erect when cued. Reported no pain with ambulation. PT-Balance Assessment Sitting Balance and Reactions Static Sitting Balance Ability Good Dynamic Sitting Balance Ability Good Standing Balance and Reactions Static Standing Balance Ability Good Dynamic Standing Balance Ability Good Device Used fWW M5 PT-IP Objective Assessments Start: 06/09/22 15:34 Freq: NEEDED Status: Active Protocol: Document 06/09/22 14:45 DLM (Rec: 06/09/22 16:00 DLM [id number]) Orientation Orientation/Cognition Level of Alertness Alert Orientation Name,Age,Birthday,Month,Date, Year,Day of Week,Place, Situation Language Function Ability No Deficits Noted Safety Awareness Understands Safety Issues Memory Description No Deficits Noted Comments she recalls having hallucinations at home with taking pain medication Gross Range of Motion Upper Extremity ROM Assessment Within Functional Limits Lower Extremity ROM Assessment Within Functional Limits Strength Upper Extremity Strength Assessment Within Functional Limits Lower Extremity Strength Assessment Bilaterally Impaired Comments Strength Comments generalized LE weakness with back and LE pain, able to bear weight on LE's for gait with FWW Coordination Assessment Assessment Coordination Comments moving slowly in general Sensation Assessment Sensation Gross Sensation WNL Comments Sensation Comments hx restless legs Muscle Tone Muscle Tone WNL Yes M6 PT-IP Treatment Start: 06/09/22 15:34 Freq: NEEDED Status: Active Protocol: Document 06/10/22 11:43 SUMANTH (Rec: 06/10/22 11:53 LJ [id number]) Physical Therapy Treatment Education Education Provided Precautions,Safety Other Treatments Other Treatment Performed Her Spouse is present this visit and participates in therapy. He is prepared to help her at home. M7 PT-IP Assessment and Plan Start: 06/09/22 15:34 Freq: NEEDED Status: Active Protocol: Document 06/10/22 11:43 SUMANTH (Rec: 06/10/22 11:53 LJ [id number]) PT Summary Assessment and Plan Potential Rehabilitation Potential Good Status of Condition at Evaluation Evolving Summary Impairments Pain,ROM,Strength,Balance, Coordination,Bed Mobility, Transfers,Gait,Activity Tolerance Assessment Summary Pt is doing well with pain management. She was able to get herself out of bed and ambulated in the hallway to nearly the end of the hallway and back to room w/o LOB or increase in pain. She is doing well from a PT standpoint. Awaiting medical discharge to go home today or tomorrow. is very attentive and capable of assisting her. Goals Bed Mobility Goal Independent Transfer Goal Independent,Front Wheeled Walker Gait Goal Independent,Front Wheel Walker Gait Distance 100 feet Days to Meet Goals 3 Frequency of Treatment Frequency Of Treatment Once a Day Treatment Plan Physical Therapy Treatment Plan Bed Mobility Training,Transfer Training,Gait Training, Therapeutic Exercise,Post Op Education,Discharge Planning, Neuromuscular Re-ed Other Recommendations and Next Treatment continue post-op education for Focus L3-5 TLIF on 06/04/22 Precautions Lumbar Precautions Log Roll,No Twisting,Limit Bending,Lifting Restriction of 10 lbs,Gait Belt above Incisional Area Other Precautions low H&H, sensativity to pain medications Recommendations To Nursing Amount of Assist Needed 1 Person Assist Discharge Recommendations PT Discharge Recommendations Home with Assistance,Home Health Other Discharge Recommendations pt feels home health services would help at discharge spouse prepared to assist her Transportation Needs at Discharge Private Vehicle
[2022-06-10] MEDS: INSULIN LISPRO 100 UNIT/ML 3ML VIAL SUBCUT (13:05)
--- NOTE | 2022-06-10 14:28 | OT.IPNOTE ---
Attempted to work with pt x2 and pt not up to showering and wanting to go home and shower. Able to to finalize OT needs with her on 1st attempt, he was able to get a BSC for her and took off the topper of the bed to increase her ease to get into and out of the bed. Pt looking to go home today is blood numbers are stabilized. NO charge.
[2022-06-10 14:51] LABS: Add Manual Diff / Slide Review NO; Basophils Absolute Auto 0 /uL (0-100); Basophils Percent Auto 0.5 % (0-2); Eosinophils Absolute Auto 300 /uL (0-450); Eosinophils Percent Auto 6.2 % (2-4); Hematocrit 24.9 % (36-46); Hemoglobin 8.5 g/dL (12.0-16.0); Lymphocytes Absolute Auto 1000 /uL (1100-4500); Mean Corpuscular Hemoglobin 30.1 PG (26-34); Mean Corpuscular Volume 88.5 fL (80-100); Monocytes Absolute Auto 500 /uL (0-900); Neutrophils Absolute Auto 2900 /uL (1500-7000); Neutrophils Percent Auto 62.3 % (50-75); Platelet Count 208 X10^3/uL (150-400); Red Blood Cell Count 2.81 X10^6/uL (4.0-5.2); Red Cell Distribution Width 13.5 % (11.6-14.8); White Blood Cell Count 4.6 X10^3/uL (4.5-11.0)
[2022-06-10] MEDS: FERROUS SULFATE 325 MG TABLET PO (16:42)
--- NOTE | 2022-06-10 16:46 | PM.PN.1 ---
Subjective Subjective Date Patient Seen: 06/10/22 Time Patient Seen: 12:50 Interval history: Patient is complaining of [id number] low back pain. She has been able to urinate and has passed several bowel movements. She overall she is feeling well and would like to be discharged home. She underwent an L3-4, L4-[address] Villalpando on 06/04/2022. She was readmitted to the ER for difficulty with bowel and bladder. Exam Vital Signs (past 8 hours): - 06/10/22 09:00 06/10/22 11:00 06/10/22 11:56 Temperature 98.6 F 97.5 F L Pulse Rate 61 61 98 H Respiratory Rate 18 16 Blood Pressure 120/49 L 121/49 L 125/50 L Pulse Oximetry 98 Oxygen Delivery Method Oxygen Flow Rate 06/10/22 15:40 06/10/22 09:00 06/10/22 13:00 Temperature 97.9 F Pulse Rate 64 Respiratory Rate 16 Blood Pressure 110/44 L Pulse Oximetry 98 98 98 Oxygen Delivery Method Room Air Room Air Oxygen Flow Rate 0 Oxygen Delivery Method Room Air Oxygen Flow Rate 0 Narrative Exam Narrative: Pleasant but pale 71-year-old female, resting comfortably in bed, no acute distress. Dressings are clean, dry, intact. No surrounding erythema or induration. Bilateral lower extremity: Motor functions are grossly intact, sensation is grossly intact to light touch, calves are soft and nontender palpation. Objective Labs Result Diagrams: 06/10/22 14:45 06/10/22 04:52 Labs: Laboratory Results - last 24 hr 06/10/22 06/10/22 06/10/22 04:52 04:52 04:52 WBC 4.1 L RBC 2.21 L Hgb 6.7 L* Hct 19.7 L* MCV 89.0 MCH 30.2 MCHC 33.9 RDW 13.3 Plt Count 196 Neut % (Auto) 53.2 Lymph % (Auto) 26.4 [place] % (Auto) 12.5 Eos % (Auto) 7.3 H Baso % (Auto) 0.6 Neut # (Auto) 2200 Lymph # (Auto) 1100 [place] # (Auto) 500 Eos # (Auto) 300 Baso # (Auto) 0 Sodium 135 L Potassium 4.7 Chloride 105 Carbon Dioxide 25 BUN 11 Creatinine 0.99 Estimated GFR > 60 BUN/Creatinine Ratio 11.1 Glucose 111 H Calcium 8.0 L Magnesium 1.8 Total Bilirubin 0.6 AST 32 ALT 29 Alkaline Phosphatase 72 Total Protein 5.1 L Albumin 2.5 L Globulin 2.6 Albumin/Globulin Ratio 1.0 Blood Type Antibody Screen Crossmatch 06/10/22 06/10/22 06:15 14:45 WBC 4.6 RBC 2.81 L Hgb 8.5 L Hct 24.9 L MCV 88.5 MCH 30.1 MCHC 34.0 RDW 13.5 Plt Count 208 Neut % (Auto) 62.3 Lymph % (Auto) 21.[address] [place] % (Auto) 10.0 Eos % (Auto) 6.2 H Baso % (Auto) 0.5 Neut # (Auto) 2900 Lymph # (Auto) [address] [place] # (Auto) 500 Eos # (Auto) 300 Baso # (Auto) 0 Sodium Potassium Chloride Carbon Dioxide BUN Creatinine Estimated GFR BUN/Creatinine Ratio Glucose Calcium Magnesium Total Bilirubin AST ALT Alkaline Phosphatase Total Protein Albumin Globulin Albumin/Globulin Ratio Blood Type O Positive Antibody Screen Negative Crossmatch See Detail [facility] Medical History Afib Anesthesia complication Anxiety Asthma Chronic episodic atrial fibrillation Easy bruisability Gait instability GERD (gastroesophageal reflux disease) Heart murmur History of left heart catheterization (12/13/19) HLD (hyperlipidemia) Hypothyroidism Lumbar stenosis Palpitations Pre-diabetes Skin cancer Spondylolisthesis at L3-L4 level Surgical History H/O spinal fusion History of hysterectomy Hx of appendectomy Hx of bilateral cataract extraction (2020) Hx of cholecystectomy Hx of tubal ligation Family History Father Congestive heart failure Mother COPD (chronic obstructive pulmonary disease) Social History household members: spouse Smoking Status: Never smoker alcohol intake: never Assessment & Plan Assessment & Plan narrative: (1) S/P lumbar fusion: Continue PT/OT during stay.? Likely home with spouse once medically stable.? Urinary retention, constipation, confusion, and nausea felt to be d/t oxycodone; pt should receive hydrocodone for pain control on discharge. (2) Acute hyponatremia: Appears to be resolving. (3) Anemia:?Status:?Acute on chronic Patient received 1 unit of PRBCs today, hemoglobin increased from 6.7-8.5. She is currently asymptomatic. Hospitalist service following and will transfuse PRN. (4) Acute urinary retention: Appears to have resolved. Time Spent With Patient Critical Care time: I spent a total of [] minutes of critical care time on this patient's care today; this time is exclusive of procedural time.
--- NOTE | 2022-06-10 16:59 | PM.DS.1 ---
History of Present Illness History of Present Illness Date Patient Seen: 06/10/22 Time Patient Seen: 16:30 Chief complaint: Leg Pain Narrative: Patient feeling better and ready to be discharged home. Pain is adequately controlled on the lower dose of medications of narcotic. Patient is having bowel movements and urination. Able to ambulate. Tolerating diet. The patient is a 68-year-old female with PMH of HTN, AFIB (AC w/ Xarelto), HLD,? hypothyroidism, RLS, asthma, Gaurang's w/ prior esophageal stricture (w/ recent EGD and colonoscopy), obesity, recent lumbar spinal fusion surgery with Dr. Goss who presents with confusion, weakness, and difficulty voiding. She was feeling well at discharge from the hospital on 06/05. She reports she took two 10 mg oxycodone tablets after arriving home for pain and she developed confusion and severe nausea. Since then she has not had a bowel movement and has had difficulty with ambulation, severe leg and back pain, and difficulty with urinating. She took a single tab the following day with similar side effects to the first dose. She reports nausea and dry heaves, but no emesis. She has had a few things to eat but has not tolerated much since leaving the hospital. She has not noticed any bleeding. Her noticed difficulty with speech and difficulty with ambulation, but no focal weakness, numbness, or facial droop. She received 4 doses of pain medications (10 mg oxycodone) after surgery prior to discharge in review of her course. She denies recent fever, chills, cough, dysuria or urinary frequency. She has had no numbness, tingling, facial droop. In the emergency room, she was hypertensive but the remainder of her vital signs were unremarkable.? She underwent extensive spinal imaging evaluation, and exam.? According to the ER provider her rectal tone was normal and she had minimal stool in her vault, but guaiac was negative.? Her imaging (lumbar CT) revealed typical postoperative findings but no evidence of cauda equina or spinal pathologies. There is some constipation noted of visible parts of her colon on my review of the imaging. Laboratory evaluation revealed a mild hyponatremia with sodium of 126, mild anemia with a hemoglobin of 7.8 initially which declined to 7.0 on repeat.? On the day of discharge her hemoglobin was 8.7.? Urinalysis was not indicative of infection. She was admitted for further management to the hospitalist service. Discharge Providers Provider Date of admission: 06/08/22 12:52 Discharge Date: 06/10/22 Primary care physician: Khoi Dyer DO Consults: 06/09/22 10:15 Consult to Physical Therapy Evaluate & Treat Comment: assess and treat to ready for discharge soon Physician Instructions: Evaluate and Treat 06/09/22 10:33 Consult to Occupational Therapy Evaluate & Treat Comment: Physician Instructions: Evaluate and treat Consult to Physical Therapy Evaluate & Treat Comment: Physician Instructions: Evaluate and Treat 06/09/22 15:03 Consult to Home Health Routine Comment: Reason For Exam: Home Health RN, P.T, O.T. Discharge provider: Lorena Deras MD Summary Hospital Course Discharge Diagnosis: Hyponatremia, urinary retention, and anemia requiring transfusion and constipation. Hospital Course: See narrative above chief complaint. Normal saline with correction of her sodium to 135. It was adequately controlled on the lower dose of narcotics using hydrocodone 5 mg/acetaminophen tablets. Regular bowel routine was established to with the patient was having peg 17 g p.o. daily and sennosides at night. Patient required initially lactulose and an enema. During the hospital stay the patient's hemoglobin dropped and she was giving 1 unit of packed red blood cell transfusion. She reports that she has had problems in the past as a teenager with anemia. On discharge patient will be initiated on ferrous gluconate b.i.d. due to the fact that the patient gets constipated easily, it is very important that with being on the iron supplement that she continues to regularly use the PEG 17 g daily and this sennosides at night. Discharge in a stable condition. Status at Discharge Cognitive/behavioral status at discharge: at baseline, oriented Functional status at discharge: independent ambulation Overall status at discharge: patient is progressing back to baseline Time Spent with Patient Time spent: Greater than 30 minutes Exam Vital Signs (past 8 hours): - 06/10/22 09:00 06/10/22 11:00 06/10/22 11:56 Temperature 98.6 F 97.5 F L Pulse Rate 61 61 98 H Respiratory Rate 18 16 Blood Pressure 120/49 L 121/49 L 125/50 L Pulse Oximetry 98 Oxygen Delivery Method Oxygen Flow Rate 06/10/22 15:40 06/10/22 09:00 06/10/22 13:00 Temperature 97.9 F Pulse Rate 64 Respiratory Rate 16 Blood Pressure 110/44 L Pulse Oximetry 98 98 98 Oxygen Delivery Method Room Air Room Air Oxygen Flow Rate 0 Oxygen Delivery Method Room Air Oxygen Flow Rate 0 Narrative Exam Narrative: Alert oriented to time place and person. HEENT:? Pupils equal reactive to light.? Extraocular movements normal.? Head is normocephalic.? Trachea is midline.? No palpable neck nodes. Cardiovascular:? Heart sounds S1 and S2 with no extra sounds or murmur.? Peripheral pulses equal bilaterally.? Pedal edema nonexistent. Respiratory:? Adequate air entry throughout the lung proctor.? No wheezes or crackles. Gastrointestinal:? Abdomen is soft.? Nontender.? Bowel sounds present. Skin:? No lesions or rashes. Musculoskeletal:? Able to move all extremities volitionally.? Has back pain with pain controlled adequately. Neuro:? Normal sensation of all extremities.? Alert and oriented. Psych:? Normal mood and affect. Objective Labs Result Diagrams: 06/10/22 14:45 06/10/22 04:52 Labs: Laboratory Results - last 24 hr 06/10/22 06/10/22 06/10/22 04:52 04:52 04:52 WBC 4.1 L RBC 2.21 L Hgb 6.7 L* Hct 19.7 L* MCV 89.0 MCH 30.2 MCHC 33.9 RDW 13.3 Plt Count 196 Neut % (Auto) 53.2 Lymph % (Auto) 26.4 [place] % (Auto) 12.5 Eos % (Auto) 7.3 H Baso % (Auto) 0.6 Neut # (Auto) 2200 Lymph # (Auto) 1100 [place] # (Auto) 500 Eos # (Auto) 300 Baso # (Auto) 0 Sodium 135 L Potassium 4.7 Chloride 105 Carbon Dioxide 25 BUN 11 Creatinine 0.99 Estimated GFR > 60 BUN/Creatinine Ratio 11.1 Glucose 111 H Calcium 8.0 L Magnesium 1.8 Total Bilirubin 0.6 AST 32 ALT 29 Alkaline Phosphatase 72 Total Protein 5.1 L Albumin 2.5 L Globulin 2.6 Albumin/Globulin Ratio 1.0 Blood Type Antibody Screen Crossmatch 06/10/22 06/10/22 06:15 14:45 WBC 4.6 RBC 2.81 L Hgb 8.5 L Hct 24.9 L MCV 88.5 MCH 30.1 MCHC 34.0 RDW 13.5 Plt Count 208 Neut % (Auto) 62.3 Lymph % (Auto) 21.0 L [place] % (Auto) 10.0 Eos % (Auto) 6.2 H Baso % (Auto) 0.5 Neut # (Auto) 2900 Lymph # (Auto) 1000 L [place] # (Auto) 500 Eos # (Auto) 300 Baso # (Auto) 0 Sodium Potassium Chloride Carbon Dioxide BUN Creatinine Estimated GFR BUN/Creatinine Ratio Glucose Calcium Magnesium Total Bilirubin AST ALT Alkaline Phosphatase Total Protein Albumin Globulin Albumin/Globulin Ratio Blood Type O Positive Antibody Screen Negative Crossmatch See Detail REPLACED BY [facility] Medical History Afib Anesthesia complication Anxiety Asthma Chronic episodic atrial fibrillation Easy bruisability Gait instability GERD (gastroesophageal reflux disease) Heart murmur History of left heart catheterization (12/13/19) HLD (hyperlipidemia) Hypothyroidism Lumbar stenosis Palpitations Pre-diabetes Skin cancer Spondylolisthesis at L3-L4 level Surgical History H/O spinal fusion History of hysterectomy Hx of appendectomy Hx of bilateral cataract extraction (2020) Hx of cholecystectomy Hx of tubal ligation Family History Father Congestive heart failure Mother COPD (chronic obstructive pulmonary disease) Social History household members: spouse Smoking Status: Never smoker alcohol intake: never Discharge Assessment & Plan Assessment and Plan Assessment: Ready for discharge. Plan of Treatment: Patient obtain prescriptions and continue with regular bowel routine as prescribed. Continue with iron replacement as prescribed. Follow-up with family physician and Dr. Goss surgeon as per his schedule. Discharge Plan Discharge Plan Patient Disposition: Home Discharge orders & Medications Prescriptions: New polyethylene glycol 3350 17 gram Powder In Packet 17 gm PO DAILY Qty: 30 0RF sennosides [senna] 8.6 mg Tablet 17.2 mg PO BEDTIME 30 Days Qty: 60 0RF hydrocodone-acetaminophen 5-325 mg tablet 1 tab PO Q4-6H PRN (Reason: pain) Qty: 30 0RF ferrous gluconate 324 mg (37.5 mg iron) tablet 324 mg PO BID Qty: 60 0RF Colace Clear 50 mg capsule 50 mg PO BID Qty: 60 0RF hydrocodone-acetaminophen 5-325 mg tablet 1 tab PO Q4-6H PRN (Reason: pain) Qty: 5 0RF Continued acetaminophen 325 mg Tablet 650 mg PO Q6HR PRN (Reason: Pain, Mild (1-3)) Qty: 60 0RF metformin 500 mg Tablet 500 mg PO BID Qty: 60 0RF carvedilol 12.5 mg tablet 12.5 mg PO BID Qty: 60 0RF trazodone 50 mg tablet 50 mg PO BEDTIME Qty: 30 0RF Label Comments: TAKE 1 TABLET BY MOUTH ONCE DAILY AT BEDTIME prochlorperazine maleate 10 mg Tablet 1 tab PO TID PRN (Reason: Nausea) Qty: 90 0RF spironolactone 25 mg tablet 25 mg PO DAILY Qty: 30 0RF pantoprazole 40 mg Tablet,Delayed Release (Dr/Ec) 40 mg PO DAILY Qty: 30 0RF lisinopril 5 mg tablet 5 mg PO BEDTIME Qty: 30 0RF Label Comments: TAKE 1 TABLET BY MOUTH NIGHTLY gabapentin 100 mg capsule 300 mg PO BEDTIME Qty: 30 0RF albuterol sulfate 90 mcg/actuation HFA aerosol inhaler 2 inh INHALATION Q4HR PRN (Reason: Shortness Of Breath) Qty: 1 0RF Label Comments: INHALE 2 PUFFS BY MOUTH EVERY 4 HOURS NEEDED ropinirole 4 mg tablet 4 mg PO BEDTIME Qty: 30 0RF rosuvastatin 40 mg tablet 40 mg PO BEDTIME Qty: 30 0RF duloxetine 20 mg Capsule,Delayed Release(Dr/Ec) 60 mg PO DAILY Qty: 30 0RF levothyroxine 50 mcg Capsule 50 mcg PO DAILY Qty: 30 0RF Xarelto 20 mg tablet 20 mg PO DAILY Qty: 30 0RF Label Comments: TAKE 1 TABLET BY MOUTH ONCE DAILY Qvar RediHaler 80 mcg/actuation HFA aerosol breath activated 2 inh INHALATION BID Qty: 1 0RF Discontinued oxycodone 5 mg Tablet 10 mg PO Q3HR PRN (Reason: Pain, Severe (7-10)) Qty: 60 0RF Follow up/Referrals: Khoi Dyer DO [Primary Care Provider] - Luisana Goss MD [Physician] - As previously scheduled (Follow up with Price Smith PA-C, on 06/19/2022 @ 2:20 pm at [facility] in [place].) Diet/Activity/Treatments Diet: Diet as Tolerated Other treatments: Dressing/Wound care: -Keep dressing in place until postoperative follow-up office visit. -Okay to shower. Keep wound out of direct water stream. Can use PressNSeal plastic wrap to protect from shower stream. No soaking or submerging until all the scabs fall off (approximately 6 weeks). -Please call the office if dressing becomes wet, soiled, or saturated. Activities: -Limit bending, lifting, twisting x6 weeks. No deep bending (more than 90 degrees) or twisting at the waist. No lifting > 20 pounds. -Walk frequently. -Weight-bearing as tolerated. Use front wheeled walker, and progress to cane when safe. -Continue with home exercises as directed by your physical therapist. -Ice your incision as needed for pain/inflammation/swelling. Protect your skin with a folded pillowcase. -Incentive Spirometer (breathing device from hospital): 5-10xs every hour while awake for the first 1-2 weeks. Follow-up: -Follow-up with your surgeon or PA in the office in 10-14 days after surgery. -Follow-up with your surgeon 6 weeks postoperatively. Call the office if you have chest pain, shortness of breath, significant swelling that will not resolve with elevating, fever over 101?, significantly worsening pain, or are concerned you might need to go to the Emergency Room. [facility]: [phone] Skin/Wound/Dressing Care Report to your healthcare provider any signs of infection, such as:: chills, fever, night sweats, unusual drainage and unusual redness Visit Report/Discharge Packet Instructions: DI for Prescription Opioid Use Discharge Data Primary Care Provider: Khoi Dyer
--- NOTE | 2022-06-10 17:42 | PC.NURSE ---
Pt A&Ox3. She reports pain well controlled with hydrocodone with pain 3/10 to back. She is administered 1 unit of blood this a.m. Held a.m. carvedilol due to low DBP of 49. She denies dizziness, n/v, SOB, CP, palpitations or distress. Blood product is tolerated well without reaction. She is up to the bathroom with SBA and cleared by physical therapy this afternoon as well as by ortho team for discharge home. Hospitalist ordered repeat blood count showing much improvement and upon evaluation of patient clears her for discharge home this evening. She and her verbalize understanding of her discharge instructions, medications, site care, s/sx of complications, activity as well as follow up recommendations. She is escorted via w/chair at approximately 1715 to [facility] with her for medication pick pack worker and discharge home this evening with all of her belongings.
== END 2022-06-10 17:15 | disposition home health service (06) | DRG 641 ==
LOC: ED 11:51 → AC 06-09 08:58
PROVIDERS: Family Medicine Addiction Medicine; Neuromusculoskeletal Medicine, Sports Medicine; Admitting Provider Internal Medicine; Emergency Provider Emergency Medicine; PCP Family Medicine; Referring Provider Emergency Medicine; Visit Provider Internal Medicine
DX: E87.1 Hypo-osmolality and hyponatremia (principal); I48.20 Chronic atrial fibrillation, unspecified; D64.9 Anemia, unspecified; R33.9 Retention of urine, unspecified; K59.00 Constipation, unspecified; I10 Essential (primary) hypertension; E78.5 Hyperlipidemia, unspecified; E03.9 Hypothyroidism, unspecified; E11.9 Type 2 diabetes mellitus without complications; K21.9 Gastro-esophageal reflux disease without esophagitis; J45.909 Unspecified asthma, uncomplicated; Z20.822 Contact with and (suspected) exposure to COVID-19; Z79.01 Long term (current) use of anticoagulants; Z98.1 Arthrodesis status; Z79.84 Long term (current) use of oral hypoglycemic drugs
CPT/HCPCS: 36415; 36430; 51798; 72131; 80048; 80053; 81001; 82570; 82962; 83735; 84300; 84484; 85014; 85018; 85025; 86850; 86900; 86901; 87635; 96374; 96376; 97116; 97162; 97165; 97530; 99284; C9803; P9016; A9270; J1170; J1815

== ENCOUNTER 2022-09-10 22:31 | Emergency (ER) | payer OTHER, MEDICARE, SELFPAY ==
[2022-06-08 16:06] VITALS: BMI 29.6
[2022-09-10 22:36] VITALS: BP 106/53; PULSE 66; RESP 20; TEMP 36.5; O2SAT 99; BMI 28.1
--- NOTE | 2022-09-10 22:44 | DI.RAD.S_ITS ---
PROCEDURE: XR CHEST 2V INDICATIONS: cough, SOB TECHNIQUE: 2 views of the chest were acquired. COMPARISON: [facility], CR, XR CHEST 2V, 01/24/2020, 15:46. FINDINGS: Surgical changes and devices: None. Lungs and pleura: There is hyperinflation of the lungs with flattening of the hemidiaphragms compatible with COPD. No acute consolidation. No pleural effusions or pneumothorax. Mediastinum: Mediastinal contours are normal. Heart size is normal. Bones and chest wall: No suspicious bony abnormalities. Soft tissues appear unremarkable. IMPRESSION: 1. No evidence of pneumonia. 2. Findings compatible with COPD redemonstrated. Dictated by: Emiliano Roque M.D. on 09/11/2022 at 0:20 Approved by: Emiliano Roque M.D. on 09/11/2022 at 0:21
--- NOTE | 2022-09-10 22:47 | ED_ITS ---
HPI - Seizure General Chief Complaint: Shortness of Breath/Dyspnea Stated Complaint: COUGH/CHEST PAIN Time Seen by Provider: 09/10/22 22:39 Source: patient and family Mode of arrival: Ambulatory History of Present Illness HPI Narrative: 71-year-old female nonsmoker with history of asthma presents with a chief complaint of a few days of dry hacking cough and shortness of breath. She denies any fever or chills. She has had some runny nose and sneezing but denies any sore throat. She states that deep breath makes her feel more inclined to cough. She does have inhalers and a spacer at home. She denies any chest pain. She is had no nausea, vomiting or diarrhea. She denies recent travel, injury or history of known cancer Related Data Previous Rx's Medication Instructions Recorded acetaminophen 325 mg tablet 650 mg PO Q6HR PRN Pain, Mild 06/05/22 (1-3) #60 tabs albuterol sulfate 90 mcg/actuation 2 inh inhalation Q4HR PRN 06/10/22 aerosol inhaler Shortness Of Breath #1 g beclomethasone dipropionate 80 2 inh inhalation BID #1 g 06/10/22 mcg/actuation HFA breath activated aerosol (Qvar RediHaler) carvedilol 12.5 mg tablet 12.5 mg PO BID #60 tabs 06/10/22 docusate sodium 50 mg capsule 50 mg PO BID #60 caps 06/10/22 (Colace Clear) duloxetine 20 mg capsule,delayed 60 mg PO DAILY #30 caps 06/10/22 release ferrous gluconate 324 mg (37.5 mg 324 mg PO BID #60 tabs 06/10/22 iron) tablet gabapentin 100 mg capsule 300 mg PO BEDTIME #30 caps 06/10/22 hydrocodone 5 mg-acetaminophen 325 1 tab PO Q4-6H PRN pain #30 tabs 06/10/22 mg tablet hydrocodone 5 mg-acetaminophen 325 1 tab PO Q4-6H PRN pain #5 tabs 06/10/22 mg tablet levothyroxine 50 mcg capsule 50 mcg PO DAILY #30 caps 06/10/22 lisinopril 5 mg tablet 5 mg PO BEDTIME #30 tabs 06/10/22 metformin 500 mg tablet 500 mg PO BID #60 tabs 06/10/22 pantoprazole 40 mg tablet,delayed 40 mg PO DAILY #30 tabs 06/10/22 release polyethylene glycol 3350 17 gram 17 gm PO DAILY #30 ea 06/10/22 oral powder packet prochlorperazine maleate 10 mg 1 tab PO TID PRN Nausea #90 tabs 06/10/22 tablet rivaroxaban 20 mg tablet (Xarelto) 20 mg PO DAILY #30 tabs 06/10/22 ropinirole 4 mg tablet 4 mg PO BEDTIME #30 tabs 06/10/22 rosuvastatin 40 mg tablet 40 mg PO BEDTIME #30 tabs 06/10/22 spironolactone 25 mg tablet 25 mg PO DAILY #30 tabs 06/10/22 trazodone 50 mg tablet 50 mg PO BEDTIME #30 tabs 06/10/22 benzonatate 200 mg capsule 200 mg PO BID PRN cough #20 caps 09/11/22 prednisone 10 mg tablet See Rx Instructions .Route 09/11/22 .COMPLEX #30 tabs Allergies Allergy/AdvReac Type Severity Reaction Status Date / Time Iodine and Iodide Containing Allergy Severe pass out Verified 06/04/22 07:57 Produc [IODINE AND IODIDE CONTAINING PRODUC] amlodipine Allergy Intermediate Swelling Verified 06/04/22 07:57 of Lip/Tongue/Throat codeine [CODEINE] Allergy Intermediate HIVES, Verified 06/04/22 07:57 NAUSEA nitrofurantoin Allergy Mild Rash Verified 06/04/22 07:57 [NITROFURANTOIN] oxycodone AdvReac Hallucinati Verified 06/08/22 18:32 ng Review of Systems Review of Systems Narrative: GENERAL: See HPI HEENT: Denies sinus pain, ear pain, sore throat, difficulty swallowing, dizziness. RESPIRATORY: See HPI CARDIOVASCULAR: Denies chest pain, palpitations, orthopnea, edema, GASTROINTESTINAL: Denies nausea, vomiting, abdominal pain, diarrhea, constipation, melena. : Denies dysuria, frequency, incontinence, hematuria, urinary retention. MUSCULOSKELETAL: denies weakness, joint pain, or bony pain SKIN: Denies rash, skin lesions, or other NEUROLOGIC: Denies weakness, headache, numbness, change in speech, confusion, seizures, incoordination. PSYCHIATRIC: No concerning psychosocial issues. 12 point review of systems is negative except for those stated above Patient History Medical History Afib Anesthesia complication Anxiety Asthma Chronic episodic atrial fibrillation Easy bruisability Gait instability GERD (gastroesophageal reflux disease) Heart murmur History of left heart catheterization (12/13/19) HLD (hyperlipidemia) Hypothyroidism Lumbar stenosis Palpitations Pre-diabetes Skin cancer Spondylolisthesis at L3-L4 level Surgical History H/O spinal fusion History of hysterectomy Hx of appendectomy Hx of bilateral cataract extraction (2020) Hx of cholecystectomy Hx of tubal ligation Family History Father Congestive heart failure Mother COPD (chronic obstructive pulmonary disease) Social History household members: spouse Smoking Status: Never smoker alcohol intake: never Smoking Status: Never smoker alcohol intake frequency: 0-2 drinks per day Substance Use Type: does not use Exam Narrative Exam Narrative: GENERAL: [71] year old patient appears stated age. Well-developed patient, in mild distress. HEAD: Atraumatic. Normocephalic. EYES: Pupils equal round and reactive. Extraocular motions intact. No scleral icterus. No injection or drainage. ENT: Nose without bleeding, purulent drainage. Throat without erythema, tonsi llar hypertrophy or exudate. Airway patent. NECK: Trachea midline. Non tender CARDIOVASCULAR: Regular rate and rhythm without murmurs, gallops, or rubs. RESPIRATORY: Deep breath illicits cough, expiratory wheeze throughout, no significant work of breathing, no hypoxemia or tachypnea GASTROINTESTINAL: Abdomen soft, non-tender, nondistended. EXTREMITIES: No edema or joint tenderness. BACK: Nontender without deformity or crepitance. No flank tenderness. NEURO: AOx3. SKIN: No rash or erythema of visible areas Initial Vital Signs Initial Vital Signs: Vital Signs Temperature 97.7 F 09/10/22 22:36 Pulse Rate 66 09/10/22 22:36 Respiratory Rate 20 09/10/22 22:36 Blood Pressure 106/53 L 09/10/22 22:36 Pulse Oximetry 99 09/10/22 22:36 Oxygen Delivery Method 09/10/22 22:36 Course Orders Ordered: ED Orders 09/10/22 22:41 Covid-19 + FLU A/B + RSV - PCR Stat 09/10/22 22:43 EKG-12 Lead Stat Measure peak expiratory flow ONCE RT Consult Eval and Treat NOW 09/10/22 22:44 Chest [XR chest 2V] Stat 09/10/22 22:52 Complete Blood Count AUTO DIFF Stat Comprehensive Metabolic Panel Stat Lactate (Lactic Acid) Stat NT-proBNP (BNP-Adult 18+) Stat Prothrombin Time INR Stat Troponin I Stat Discontinued Medications Albuterol/Ipratropium (Albuterol/Ipratropium 3 Ml Ampul) 3 ml INH NOW ONE Stop: 09/11/22 00:12 Last Admin: 09/11/22 00:24 Dose: 3 ml Documented By: PENG Prednisone (Prednisone 20 Mg Tablet) 40 mg PO NOW ONE Stop: 09/11/22 00:12 Last Admin: 09/11/22 00:17 Dose: 40 mg Documented By: ZUNILDA Reevaluation(s) Reevaluation #1: Patient improved after medications listed above Vital Signs Vital signs: Vital Signs - 8 hr 09/10/22 22:36 09/11/22 00:20 Temperature 97.7 F Pulse Rate 66 66 Respiratory Rate 20 16 Blood Pressure 106/53 L 139/85 Pulse Oximetry 99 96 Oxygen Delivery Method Room Air Room Air MDM - Seizure Lab Data Result diagrams: 09/10/22 22:52 09/10/22 22:52 Labs: Lab Results 09/10/22 09/10/22 09/10/22 Range/Units 22:41 22:52 22:52 WBC 7.0 (4.5-11.0) X10^3/uL RBC 3.43 L (4.0-5.2) X10^6/uL Hgb 9.7 L (12.0-16.0) g/dL Hct 29.0 L (36-46) % MCV 84.6 (80-100) fL MCH 28.4 (26-34) PG MCHC 33.6 (30-36) % RDW 15.5 H (11.6-14.8) % Plt Count 213 (150-400) X10^3/uL Neut % (Auto) 71.0 (50-75) % Lymph % (Auto) 13.2 L (25-40) % Morrow % (Auto) 10.2 (3-14) % Eos % (Auto) 5.2 H (2-4) % Baso % (Auto) 0.4 (0-2) % Neut # (Auto) 5000 (0419-9064) /uL Lymph # (Auto) 900 L (8052-5020) /uL Morrow # (Auto) 700 (0-900) /uL Eos # (Auto) 400 (0-450) /uL Baso # (Auto) 0 (0-100) /uL PT 21.8 H (10.1-12.7) SECONDS INR 1.9 H (0.9-1.3) Sodium (137-145) mmol/L Potassium (3.4-5.1) mmol/L Chloride (98-107) mmol/L Carbon Dioxide (22-32) mmol/L BUN (7-17) mg/dL Creatinine (0.52-1.04) mg/dL Estimated GFR (>60) mL/min BUN/Creatinine Ratio (6-22) Glucose (80-110) mg/dL Lactate (0.7-2.1) mmol/L Calcium (8.4-10.2) mg/dL Total Bilirubin (0.2-1.3) mg/dL AST (14-36) IU/L ALT (<35) IU/L Alkaline Phosphatase (38-126) U/L Troponin I (0.01-0.034) ng/mL NT-Pro-B Natriuret Pep (<125) pg/mL Total Protein (6.3-8.2) g/dL Albumin (3.5-5.0) g/dL Globulin (1.7-4.1) g/dL Albumin/Globulin Ratio (1.0-2.8) SARS-CoV-2 (PCR) Negative (Negative) Influenza A (RT-PCR) Flu a negative (NEGATIVE) Influenza B (RT-PCR) Flu b negative (NEGATIVE) RSV (PCR) Positive A (Negative) 09/10/22 09/10/22 Range/Units 22:52 22:52 WBC (4.5-11.0) X10^3/uL RBC (4.0-5.2) X10^6/uL Hgb (12.0-16.0) g/dL Hct (36-46) % MCV (80-100) fL MCH (26-34) PG MCHC (30-36) % RDW (11.6-14.8) % Plt Count (150-400) X10^3/uL Neut % (Auto) (50-75) % Lymph % (Auto) (25-40) % Morrow % (Auto) (3-14) % Eos % (Auto) (2-4) % Baso % (Auto) (0-2) % Neut # (Auto) (5893-4368) /uL Lymph # (Auto) (9308-6394) /uL Morrow # (Auto) (0-900) /uL Eos # (Auto) (0-450) /uL Baso # (Auto) (0-100) /uL PT (10.1-12.7) SECONDS INR (0.9-1.3) Sodium 133 L (137-145) mmol/L Potassium 4.4 (3.4-5.1) mmol/L Chloride 100 (98-107) mmol/L Carbon Dioxide 21 L (22-32) mmol/L BUN 20 H (7-17) mg/dL Creatinine 1.70 H (0.52-1.04) mg/dL Estimated GFR 32 L (>60) mL/min BUN/Creatinine Ratio 11.8 (6-22) Glucose 119 H (80-110) mg/dL Lactate 1.0 (0.7-2.1) mmol/L Calcium 8.6 (8.4-10.2) mg/dL Total Bilirubin 0.5 (0.2-1.3) mg/dL AST 27 (14-36) IU/L ALT 30 (<35) IU/L Alkaline Phosphatase 97 (38-126) U/L Troponin I 0.015 (0.01-0.034) ng/mL NT-Pro-B Natriuret Pep 244 H (<125) pg/mL Total Protein 7.0 (6.3-8.2) g/dL Albumin 3.8 (3.5-5.0) g/dL Globulin 3.2 (1.7-4.1) g/dL Albumin/Globulin Ratio 1.2 (1.0-2.8) SARS-CoV-2 (PCR) (Negative) Influenza A (RT-PCR) (NEGATIVE) Influenza B (RT-PCR) (NEGATIVE) RSV (PCR) (Negative) Imaging Data Chest x-ray: Radiologist's Impression: [address] [address] XRay Report Signed Patient: Glenys Gottlieb MR#: [id number] : 1950 Acct:[id number] Age/Sex: 71 / F Date of Service: 09/10/22 Loc: ED Accession Number: [id number] ?? Procedure: XR chest 2V Ordering Provider: Carl López D.O. PROCEDURE:? XR CHEST 2V ? INDICATIONS:? cough, SOB ? TECHNIQUE:? 2 views of the chest were acquired.? ? COMPARISON:? [facility], CR, XR CHEST 2V, 01/24/2020, 15:46. ? FINDINGS:? ? Surgical changes and devices:? None.? ? Lungs and pleura:? There is hyperinflation of the lungs with flattening of the hemidiaphragms compatible with COPD.? No acute consolidation.? No pleural effusions or pneumothorax.? ? Mediastinum:? Mediastinal contours are normal.? Heart size is normal.? ? Bones and chest wall:? No suspicious bony abnormalities.? Soft tissues appear unremarkable.? ? IMPRESSION:? ? 1. No evidence of pneumonia. ? 2. Findings compatible with COPD redemonstrated. ? ? Dictated by: Emiliano Roque M.D. on 09/11/2022 at 0:20 ? ? Approved by: Emiliano Roque M.D. on 09/11/2022 at 0:21 ? Discharge Plan Departure Patient Disposition: Home Clinical Impression: Respiratory syncytial virus (RSV), Asthma exacerbation Instructions: DI for Respiratory Syncytial Virus -- Adults Activity Restrictions/Additional Instructions: *You have been diagnosed with [RSV and asthma exacerbation] *What to do: *Please continue to take your regular medications as directed. [ ] New medication prescriptions sent to your pharmacy: [ ] [x ] New medication written as a paper prescription [ ] No new medications given *Please follow up with your primary care provider in 2-3 days, call for an appointment. Let them know you were seen in the Emergency Department and that we ask that you be seen in follow up. We will electronically transmit a record of today's note if your PCP is in our system *Return to Emergency Department if you should have any new, worsening or concerning symptoms, such as [fever greater than 101 F, shaking chills, worsening pain, persistent vomiting or other bothersome symptoms] Prescriptions: New prednisone 10 mg tablet See Rx Instructions .ROUTE .COMPLEX Qty: 30 0RF Rx Instructions: Day 1,2,3: 40mg PO Daily Day 4,5,6: 30mg PO Daily Day 7,8,9: 20mg PO Daily Day 10,11,12: 10mg PO Daily #30 benzonatate 200 mg capsule 200 mg PO BID PRN (Reason: cough) Qty: 20 0RF No Action acetaminophen 325 mg Tablet 650 mg PO Q6HR PRN (Reason: Pain, Mild (1-3)) Qty: 60 0RF polyethylene glycol 3350 17 gram Powder In Packet 17 gm PO DAILY Qty: 30 0RF metformin 500 mg Tablet 500 mg PO BID Qty: 60 0RF carvedilol 12.5 mg tablet 12.5 mg PO BID Qty: 60 0RF trazodone 50 mg tablet 50 mg PO BEDTIME Qty: 30 0RF Label Comments: TAKE 1 TABLET BY MOUTH ONCE DAILY AT BEDTIME prochlorperazine maleate 10 mg Tablet 1 tab PO TID PRN (Reason: Nausea) Qty: 90 0RF spironolactone 25 mg tablet 25 mg PO DAILY Qty: 30 0RF pantoprazole 40 mg Tablet,Delayed Release (Dr/Ec) 40 mg PO DAILY Qty: 30 0RF lisinopril 5 mg tablet 5 mg PO BEDTIME Qty: 30 0RF Label Comments: TAKE 1 TABLET BY MOUTH NIGHTLY gabapentin 100 mg capsule 300 mg PO BEDTIME Qty: 30 0RF albuterol sulfate 90 mcg/actuation HFA aerosol inhaler 2 inh INHALATION Q4HR PRN (Reason: Shortness Of Breath) Qty: 1 0RF Label Comments: INHALE 2 PUFFS BY MOUTH EVERY 4 HOURS NEEDED ropinirole 4 mg tablet 4 mg PO BEDTIME Qty: 30 0RF rosuvastatin 40 mg tablet 40 mg PO BEDTIME Qty: 30 0RF duloxetine 20 mg Capsule,Delayed Release(Dr/Ec) 60 mg PO DAILY Qty: 30 0RF levothyroxine 50 mcg Capsule 50 mcg PO DAILY Qty: 30 0RF Xarelto 20 mg tablet 20 mg PO DAILY Qty: 30 0RF Label Comments: TAKE 1 TABLET BY MOUTH ONCE DAILY Qvar RediHaler 80 mcg/actuation HFA aerosol breath activated 2 inh INHALATION BID Qty: 1 0RF hydrocodone-acetaminophen 5-325 mg tablet 1 tab PO Q4-6H PRN (Reason: pain) Qty: 30 0RF ferrous gluconate 324 mg (37.5 mg iron) tablet 324 mg PO BID Qty: 60 0RF Colace Clear 50 mg capsule 50 mg PO BID Qty: 60 0RF hydrocodone-acetaminophen 5-325 mg tablet 1 tab PO Q4-6H PRN (Reason: pain) Qty: 5 0RF Referrals: Khoi Dyer DO [Primary Care Provider] -
[2022-09-10 23:14] LABS: INR 1.9 (0.9-1.3); Prothrombin Time 21.8 SECONDS (10.1-12.7)
[2022-09-10 23:19] LABS: Add Manual Diff / Slide Review NO; Basophils Absolute Auto 0 /uL (0-100); Basophils Percent Auto 0.4 % (0-2); Eosinophils Absolute Auto 400 /uL (0-450); Eosinophils Percent Auto 5.2 % (2-4); Hemoglobin 9.7 g/dL (12.0-16.0); Lymphocytes Absolute Auto 900 /uL (1100-4500); Lymphocytes Percent Auto 13.2 % (25-40); Mean Corpuscular HGB Conc 33.6 % (30-36); Mean Corpuscular Hemoglobin 28.4 PG (26-34); Mean Corpuscular Volume 84.6 fL (80-100); Monocytes Absolute Auto 700 /uL (0-900); Monocytes Percent Auto 10.2 % (3-14); Neutrophils Absolute Auto 5000 /uL (1500-7000); Platelet Count 213 X10^3/uL (150-400); Red Blood Cell Count 3.43 X10^6/uL (4.0-5.2); Red Cell Distribution Width 15.5 % (11.6-14.8)
[2022-09-10 23:33] LABS: Alanine Aminotransferase 30 IU/L (<35); Albumin 3.8 g/dL (3.5-5.0); Albumin Globulin Ratio 1.2 (1.0-2.8); Alkaline Phosphatase 97 U/L (38-126); Aspartate Aminotransferase 27 IU/L (14-36); BUN Creatinine Ratio 11.8 (6-22); Bilirubin Total 0.5 mg/dL (0.2-1.3); Blood Urea Nitrogen 20 mg/dL (7-17); Calcium 8.6 mg/dL (8.4-10.2); Carbon Dioxide 21 mmol/L (22-32); Chloride 100 mmol/L (98-107); Estimated Glomerular Filt Rate 32 mL/min (>60); Globulin 3.2 g/dL (1.7-4.1); Glucose 119 mg/dL (80-110); HEMOLYSIS < 15 (0-50); Potassium 4.4 mmol/L (3.4-5.1); Sodium 133 mmol/L (137-145)
[2022-09-10 23:38] LABS: Influenza A - CEPHEID Flu A NEGATIVE (NEGATIVE); Influenza B - CEPHEID Flu B NEGATIVE (NEGATIVE); Respiratory Syncytial Virus POSITIVE (Negative)
[2022-09-10 23:44] LABS: COVID-19 CEPHEID 4-PLEX PCR Negative (Negative)
[2022-09-10 23:44] LABS: NT-proBNP (BNP-Adult 18+) 244 pg/mL (<125); Troponin I 0.015 ng/mL (0.01-0.034)
[2022-09-11] MEDS: predniSONE 20 MG TABLET 40 MG PO (00:17)
[2022-09-11 00:20] VITALS: BP 139/85; PULSE 66; RESP 16; O2SAT 96
[2022-09-11] MEDS: ALBUTEROL/IPRATROPIUM 3 ML AMPUL INH (00:24)
[2022-09-11 01:10] VITALS: BP 142/79; PULSE 89; RESP 16; O2SAT 98
== END 2022-09-11 01:11 | disposition home or self-care (01) ==
PROVIDERS: Emergency Provider Emergency Medicine; PCP Family Medicine
DX: J45.901 Unspecified asthma with (acute) exacerbation (principal); B97.4 Respiratory syncytial virus as the cause of diseases classified elsewhere; Z20.822 Contact with and (suspected) exposure to COVID-19
CPT/HCPCS: 0241U; 36415; 71046; 80053; 83605; 83880; 84484; 85025; 85610; 94640; 99284

== ENCOUNTER 2022-09-17 08:17 | Emergency (ER) | payer OTHER, SELFPAY ==
[2022-06-08 16:06] VITALS: BMI 29.6
[2022-09-17] VITALS (9 sets, daily range): BP systolic 128–185; BP diastolic 61–104; PULSE 69–87; RESP 20; TEMP 37.1; O2SAT 94–99; BMI 28.3
--- NOTE | 2022-09-17 08:38 | ED.GENADULT ---
HPI - General Adult General Chief complaint: Upper Respiratory Symptoms Stated complaint: has RSV getting worse Time Seen by Provider: 09/17/22 08:33 Source: patient Mode of arrival: Ambulatory History of Present Illness HPI narrative: 71-year-old female. History of asthma. Is currently on steroid taper by her primary doctor. Approximately one-week could go was diagnosed with RSV. Is still having a persistent cough and problems breathing. Medications are not helping. No fevers. Related Data Previous Rx's Medication Instructions Recorded acetaminophen 325 mg tablet 650 mg PO Q6HR PRN Pain, Mild 06/05/22 (1-3) #60 tabs albuterol sulfate 90 mcg/actuation 2 inh inhalation Q4HR PRN 06/10/22 aerosol inhaler Shortness Of Breath #1 g beclomethasone dipropionate 80 2 inh inhalation BID #1 g 06/10/22 mcg/actuation HFA breath activated aerosol (Qvar RediHaler) carvedilol 12.5 mg tablet 12.5 mg PO BID #60 tabs 06/10/22 docusate sodium 50 mg capsule 50 mg PO BID #60 caps 06/10/22 (Colace Clear) duloxetine 20 mg capsule,delayed 60 mg PO DAILY #30 caps 06/10/22 release ferrous gluconate 324 mg (37.5 mg 324 mg PO BID #60 tabs 06/10/22 iron) tablet gabapentin 100 mg capsule 300 mg PO BEDTIME #30 caps 06/10/22 hydrocodone 5 mg-acetaminophen 325 1 tab PO Q4-6H PRN pain #30 tabs 06/10/22 mg tablet hydrocodone 5 mg-acetaminophen 325 1 tab PO Q4-6H PRN pain #5 tabs 06/10/22 mg tablet levothyroxine 50 mcg capsule 50 mcg PO DAILY #30 caps 06/10/22 lisinopril 5 mg tablet 5 mg PO BEDTIME #30 tabs 06/10/22 metformin 500 mg tablet 500 mg PO BID #60 tabs 06/10/22 pantoprazole 40 mg tablet,delayed 40 mg PO DAILY #30 tabs 06/10/22 release polyethylene glycol 3350 17 gram 17 gm PO DAILY #30 ea 06/10/22 oral powder packet prochlorperazine maleate 10 mg 1 tab PO TID PRN Nausea #90 tabs 06/10/22 tablet rivaroxaban 20 mg tablet (Xarelto) 20 mg PO DAILY #30 tabs 06/10/22 ropinirole 4 mg tablet 4 mg PO BEDTIME #30 tabs 06/10/22 rosuvastatin 40 mg tablet 40 mg PO BEDTIME #30 tabs 06/10/22 spironolactone 25 mg tablet 25 mg PO DAILY #30 tabs 06/10/22 trazodone 50 mg tablet 50 mg PO BEDTIME #30 tabs 06/10/22 benzonatate 200 mg capsule 200 mg PO BID PRN cough #20 caps 09/11/22 prednisone 10 mg tablet See Rx Instructions .Route 09/11/22 .COMPLEX #30 tabs albuterol sulfate 2.5 mg/3 mL 2.5 mg (3 mL) inhalation Q4-6H PRN 09/17/22 (0.083 %) solution for nebulization shortness of breath or wheezing #75 mL codeine 10 mg-guaifenesin 100 mg/5 5 ml PO Q4-6H PRN cough #120 mL 09/17/22 mL oral liquid (Guaifenesin AC) prednisone 10 mg tablet 10 mg PO DAILY #20 tabs 09/17/22 Allergies Allergy/AdvReac Type Severity Reaction Status Date / Time Iodine and Iodide Containing Allergy Severe pass out Verified 06/04/22 07:57 Produc [IODINE AND IODIDE CONTAINING PRODUC] amlodipine Allergy Intermediate Swelling Verified 06/04/22 07:57 of Lip/Tongue/Throat codeine [CODEINE] Allergy Intermediate HIVES, Verified 06/04/22 07:57 NAUSEA nitrofurantoin Allergy Mild Rash Verified 06/04/22 07:57 [NITROFURANTOIN] oxycodone AdvReac Hallucinati Verified 06/08/22 18:32 ng Review of Systems Constitutional Constitutional: Reports system reviewed and no additional complaints, except as documented Cardiovascular Cardiovascular: Reports system reviewed and no additional complaints, except as documented Respiratory Respiratory: Reports system reviewed and no additional complaints, except as documented Gastrointestinal Gastrointestinal: Reports system reviewed and no additional complaints, except as documented Integumentary/Breasts Skin/Breast: Reports system reviewed and no additional complaints, except as documented Patient History Medical History Afib Anesthesia complication Anxiety Asthma Chronic episodic atrial fibrillation Easy bruisability Gait instability GERD (gastroesophageal reflux disease) Heart murmur History of left heart catheterization (12/13/19) HLD (hyperlipidemia) Hypothyroidism Lumbar stenosis Palpitations Pre-diabetes Skin cancer Spondylolisthesis at L3-L4 level Surgical History H/O spinal fusion History of hysterectomy Hx of appendectomy Hx of bilateral cataract extraction (2020) Hx of cholecystectomy Hx of tubal ligation Family History Father Congestive heart failure Mother COPD (chronic obstructive pulmonary disease) Social History household members: spouse Smoking Status: Never smoker alcohol intake: never Smoking Status: Never smoker alcohol intake frequency: 0-2 drinks per day Substance Use Type: does not use Exam Initial Vital Signs Initial Vital Signs: Vital Signs Pulse Rate 79 09/17/22 08:24 Pulse Oximetry 94 09/17/22 08:24 Const General: cooperative, comfortable and No ill appearing HENMT Head: normal to inspection and normocephalic Resp Effort & Inspection: labored, no respiratory distress and tachypneic Auscultation: wheezes Cardio Rate: regular rate Rhythm: regular rhythm Skin General: no rashes or lesions noted Neuro General: patient alert, patient awake and moves all extremities Extrem General: normal to inspection and capillary refill normal Course Orders Ordered: Discontinued Medications Albuterol (Albuterol 2.5 Mg/3 Ml Neb (Adult)) 2.5 mg INH NOW ONE Stop: 09/17/22 09:12 Last Admin: 09/17/22 09:25 Dose: 2.5 mg Documented By: DIAMOND Albuterol/Ipratropium (Albuterol/Ipratropium 3 Ml Ampul) 3 ml INH NOW ONE Stop: 09/17/22 08:39 Last Admin: 09/17/22 08:48 Dose: 3 ml Documented By: KAREN Vital Signs Vital signs: Vital Signs - 8 hr 09/17/22 08:25 09/17/22 08:24 09/17/22 08:25 Temperature 98.8 F Pulse Rate 87 79 Respiratory Rate 20 Blood Pressure 150/70 H 150/70 H Pulse Oximetry 96 94 Oxygen Delivery Method Room Air 09/17/22 08:25 09/17/22 08:30 09/17/22 08:31 Temperature Pulse Rate 79 82 Respiratory Rate Blood Pressure 185/91 H Pulse Oximetry 96 95 Oxygen Delivery Method 09/17/22 08:31 09/17/22 09:00 09/17/22 09:01 Temperature Pulse Rate 79 72 72 Respiratory Rate Blood Pressure Pulse Oximetry 95 96 95 Oxygen Delivery Method 09/17/22 09:01 Temperature Pulse Rate Respiratory Rate Blood Pressure 128/61 Pulse Oximetry Oxygen Delivery Method Medical Decision Making MDM Narrative Medical decision making narrative: Patient is known to be RSV positive. Has diffuse wheezing initially. This improved after the nebulizer treatments. Her coughing improved as well. Will hold on any radiologic studies for now as her symptoms are most likely asthma/RSV related. She is currently on steroids and we will extend this. Will also give her prescription for albuterol for a nebulizer. No indication for antibiotics. She was given return precautions. She expressed understanding and agreement. She states she does have an allergy to codeine but is requesting Robitussin with codeine. She takes Benadryl prior to this and can tolerate the medication without issues. Discharge Plan Departure Patient Disposition: Home Clinical Impression: Asthma exacerbation, RSV (respiratory syncytial virus infection) Instructions: Asthma -- Adult Activity Restrictions/Additional Instructions: [facility] [place] per your request. Increase the prednisone to 20 mg a day as directed. You can take Tylenol/ibuprofen for any fevers or body aches. I do recommend that you follow-up with your primary doctor. Return to the emergency department for any new or worsening symptoms. Prescriptions: New albuterol sulfate 2.5 mg /3 mL (0.083 %) solution for nebulization 2.5 mg inhalation Q4-6H PRN (Reason: shortness of breath or wheezing) Qty: 75 0RF codeine-guaifenesin [Guaifenesin AC] 10-100 mg/5 mL liquid 5 ml PO Q4-6H PRN (Reason: cough) Qty: 120 0RF prednisone 10 mg tablet 10 mg PO DAILY Qty: 20 0RF Rx Instructions: 2T PO QD for 5 days then 1T PO QD for 5 days then 1/2T PO QD for 5 days No Action prednisone 10 mg tablet See Rx Instructions .ROUTE .COMPLEX Qty: 30 0RF Rx Instructions: Day 1,2,3: 40mg PO Daily Day 4,5,6: 30mg PO Daily Day 7,8,9: 20mg PO Daily Day 10,11,12: 10mg PO Daily #30 benzonatate 200 mg capsule 200 mg PO BID PRN (Reason: cough) Qty: 20 0RF acetaminophen 325 mg Tablet 650 mg PO Q6HR PRN (Reason: Pain, Mild (1-3)) Qty: 60 0RF polyethylene glycol 3350 17 gram Powder In Packet 17 gm PO DAILY Qty: 30 0RF metformin 500 mg Tablet 500 mg PO BID Qty: 60 0RF carvedilol 12.5 mg tablet 12.5 mg PO BID Qty: 60 0RF trazodone 50 mg tablet 50 mg PO BEDTIME Qty: 30 0RF Label Comments: TAKE 1 TABLET BY MOUTH ONCE DAILY AT BEDTIME prochlorperazine maleate 10 mg Tablet 1 tab PO TID PRN (Reason: Nausea) Qty: 90 0RF spironolactone 25 mg tablet 25 mg PO DAILY Qty: 30 0RF pantoprazole 40 mg Tablet,Delayed Release (Dr/Ec) 40 mg PO DAILY Qty: 30 0RF lisinopril 5 mg tablet 5 mg PO BEDTIME Qty: 30 0RF Label Comments: TAKE 1 TABLET BY MOUTH NIGHTLY gabapentin 100 mg capsule 300 mg PO BEDTIME Qty: 30 0RF albuterol sulfate 90 mcg/actuation HFA aerosol inhaler 2 inh INHALATION Q4HR PRN (Reason: Shortness Of Breath) Qty: 1 0RF Label Comments: INHALE 2 PUFFS BY MOUTH EVERY 4 HOURS NEEDED ropinirole 4 mg tablet 4 mg PO BEDTIME Qty: 30 0RF rosuvastatin 40 mg tablet 40 mg PO BEDTIME Qty: 30 0RF duloxetine 20 mg Capsule,Delayed Release(Dr/Ec) 60 mg PO DAILY Qty: 30 0RF levothyroxine 50 mcg Capsule 50 mcg PO DAILY Qty: 30 0RF Xarelto 20 mg tablet 20 mg PO DAILY Qty: 30 0RF Label Comments: TAKE 1 TABLET BY MOUTH ONCE DAILY Qvar RediHaler 80 mcg/actuation HFA aerosol breath activated 2 inh INHALATION BID Qty: 1 0RF hydrocodone-acetaminophen 5-325 mg tablet 1 tab PO Q4-6H PRN (Reason: pain) Qty: 30 0RF ferrous gluconate 324 mg (37.5 mg iron) tablet 324 mg PO BID Qty: 60 0RF Colace Clear 50 mg capsule 50 mg PO BID Qty: 60 0RF hydrocodone-acetaminophen 5-325 mg tablet 1 tab PO Q4-6H PRN (Reason: pain) Qty: 5 0RF Referrals: Khoi Dyer DO [Primary Care Provider] -
[2022-09-17] MEDS: ALBUTEROL/IPRATROPIUM 3 ML AMPUL INH (08:48)
[2022-09-17] MEDS: ALBUTEROL 2.5 MG/3 ML NEB (ADULT) INH (09:25)
--- NOTE | 2022-09-17 09:49 | RT ---
pt [place]ia calvin tx well, no distress noted and pt on room air. Pt instructed use of MDI Chamber
== END 2022-09-17 10:02 | disposition home or self-care (01) ==
PROVIDERS: Emergency Provider Emergency Medicine; PCP Family Medicine
DX: J45.901 Unspecified asthma with (acute) exacerbation (principal); B97.4 Respiratory syncytial virus as the cause of diseases classified elsewhere; Z20.822 Contact with and (suspected) exposure to COVID-19
CPT/HCPCS: 94640; 99283; J7613

== ENCOUNTER 2022-09-29 20:35 | Emergency (ER) | payer OTHER, SELFPAY ==
[2022-06-08 16:06] VITALS: BMI 29.6
[2022-09-29 20:57] VITALS: BP 114/56; PULSE 67; RESP 18; TEMP 36.2; O2SAT 96; BMI 28.1
--- NOTE | 2022-09-30 01:53 | PC.NURSE ---
to room from triage via w/c
--- NOTE | 2022-09-30 02:51 | DI.RAD.S_ITS ---
PROCEDURE: XR LUMBAR SPINE 2-3V INDICATIONS: Left-sided back pain TECHNIQUE: 3 views of the lumbar spine were acquired. COMPARISON: [facility], CR, XR LUMBAR SPINE 2-3V, 06/04/2022, 12:34. FINDINGS: Bones: 5 [id number] vertebrae are present. Expected appearance of fusion hardware. Posterior lateral alfredo and pedicle screws bridging L3, L4, and L5. No evidence of hardware failure or loosening. Disc fusion material L3-L4 and L4-L5, appropriate in appearance. There is normal bony alignment. No vertebral body compression fractures. No suspicious bony lesions. Soft tissues: Overlying bowel gas pattern is normal. No suspicious soft tissue calcifications. IMPRESSION: Expected appearance post lumbar fusion. No evidence acute bony abnormality. Dictated by: Roosevelt Collier M.D. on 09/30/2022 at 8:23 Approved by: Roosevelt Collier M.D. on 09/30/2022 at 8:24
--- NOTE | 2022-09-30 02:52 | ED.BACK ---
HPI - Back Pain/Injury General Chief Complaint: Back Pain/Injury Stated Complaint: lower lt hip pain going down leg Time Seen by Provider: 09/30/22 02:28 Source: patient History of Present Illness HPI Narrative: Patient here with . Complains of left back pain radiating to left mid medial thigh. Patient is status post L4-L5 fusion 4 months ago. Patient seen here for surgery with Dr. Villalpando. Patient states the surgery fixed her bilateral sciatica. Patient states this pain started 2 mornings ago, she states she moved a small box and sat it down her lap. 3 hours later the pain started. She did not think she twisted her back that hard when she moved the box. No bowel or bladder incontinence or retention. No saddle paresthesia. No numbness or tingling to the feet. Increased pain with movement. Prefers to lay on her right side. Shoe and sock removed for exam. Related Data Previous Rx's Medication Instructions Recorded acetaminophen 325 mg tablet 650 mg PO Q6HR PRN Pain, Mild 06/05/22 (1-3) #60 tabs albuterol sulfate 90 mcg/actuation 2 inh inhalation Q4HR PRN 06/10/22 aerosol inhaler Shortness Of Breath #1 g beclomethasone dipropionate 80 2 inh inhalation BID #1 g 06/10/22 mcg/actuation HFA breath activated aerosol (Qvar RediHaler) carvedilol 12.5 mg tablet 12.5 mg PO BID #60 tabs 06/10/22 docusate sodium 50 mg capsule 50 mg PO BID #60 caps 06/10/22 (Colace Clear) duloxetine 20 mg capsule,delayed 60 mg PO DAILY #30 caps 06/10/22 release ferrous gluconate 324 mg (37.5 mg 324 mg PO BID #60 tabs 06/10/22 iron) tablet gabapentin 100 mg capsule 300 mg PO BEDTIME #30 caps 06/10/22 hydrocodone 5 mg-acetaminophen 325 1 tab PO Q4-6H PRN pain #30 tabs 06/10/22 mg tablet hydrocodone 5 mg-acetaminophen 325 1 tab PO Q4-6H PRN pain #5 tabs 06/10/22 mg tablet levothyroxine 50 mcg capsule 50 mcg PO DAILY #30 caps 06/10/22 lisinopril 5 mg tablet 5 mg PO BEDTIME #30 tabs 06/10/22 metformin 500 mg tablet 500 mg PO BID #60 tabs 06/10/22 pantoprazole 40 mg tablet,delayed 40 mg PO DAILY #30 tabs 06/10/22 release polyethylene glycol 3350 17 gram 17 gm PO DAILY #30 ea 06/10/22 oral powder packet prochlorperazine maleate 10 mg 1 tab PO TID PRN Nausea #90 tabs 06/10/22 tablet rivaroxaban 20 mg tablet (Xarelto) 20 mg PO DAILY #30 tabs 06/10/22 ropinirole 4 mg tablet 4 mg PO BEDTIME #30 tabs 06/10/22 rosuvastatin 40 mg tablet 40 mg PO BEDTIME #30 tabs 06/10/22 spironolactone 25 mg tablet 25 mg PO DAILY #30 tabs 06/10/22 trazodone 50 mg tablet 50 mg PO BEDTIME #30 tabs 06/10/22 benzonatate 200 mg capsule 200 mg PO BID PRN cough #20 caps 09/11/22 prednisone 10 mg tablet See Rx Instructions .Route 09/11/22 .COMPLEX #30 tabs albuterol sulfate 2.5 mg/3 mL 2.5 mg (3 mL) inhalation Q4-6H PRN 09/17/22 (0.083 %) solution for nebulization shortness of breath or wheezing #75 mL codeine 10 mg-guaifenesin 100 mg/5 5 ml PO Q4-6H PRN cough #120 mL 09/17/22 mL oral liquid (Guaifenesin AC) prednisone 10 mg tablet 10 mg PO DAILY #20 tabs 09/17/22 hydrocodone 5 mg-acetaminophen 325 1 tab PO Q6H PRN pain #16 tabs 09/30/22 mg tablet Allergies Allergy/AdvReac Type Severity Reaction Status Date / Time Iodine and Iodide Containing Allergy Severe pass out Verified 06/04/22 07:57 Produc [IODINE AND IODIDE CONTAINING PRODUC] amlodipine Allergy Intermediate Swelling Verified 06/04/22 07:57 of Lip/Tongue/Throat codeine [CODEINE] Allergy Intermediate HIVES, Verified 06/04/22 07:57 NAUSEA nitrofurantoin Allergy Mild Rash Verified 06/04/22 07:57 [NITROFURANTOIN] oxycodone AdvReac Hallucinati Verified 06/08/22 18:32 ng Review of Systems Review of Systems Narrative: GENERAL: negative chills, fatigue, malaise, fever, sweats. HEENT: negative sinus pain, ear pain, sore throat RESPIRATORY: negative dyspnea, cough CARDIOVASCULAR: negative chest pain, palpitations GASTROINTESTINAL: negative nausea, vomiting, abdominal pain : negative dysuria, frequency, hematuria MUSCULOSKELETAL: Positive back, muscle or bony pain SKIN: negative rash, skin lesions NEUROLOGIC: negative weakness, numbness ROS Unobtainable: All systems reviewed & are unremarkable except as noted in HPI and below Patient History Medical History Afib Anesthesia complication Anxiety Asthma Chronic episodic atrial fibrillation Easy bruisability Gait instability GERD (gastroesophageal reflux disease) Heart murmur History of left heart catheterization (12/13/19) HLD (hyperlipidemia) Hypothyroidism Lumbar stenosis Palpitations Pre-diabetes Skin cancer Spondylolisthesis at L3-L4 level Surgical History H/O spinal fusion History of hysterectomy Hx of appendectomy Hx of bilateral cataract extraction (2020) Hx of cholecystectomy Hx of tubal ligation Family History Father Congestive heart failure Mother COPD (chronic obstructive pulmonary disease) Social History household members: spouse Smoking Status: Never smoker alcohol intake: never Smoking Status: Never smoker alcohol intake frequency: 0-2 drinks per day Substance Use Type: does not use Exam Narrative Exam Narrative: GENERAL: in no distress, not toxic not dyspneic, patient in supine position in bed. HEAD: Normocephalic. EYES: Pupils equal round No scleral icterus. EXTREMITIES: No gross deformities. BACK: Mild left lower paralumbar muscle tenderness at L3-L4 area. Patient able to extend bilateral legs fully. Patient in supine position. Strong left pedal pulse with brisk cap refills foot is warm soft and pink with light touch intact to foot and toes. Strong bilateral ankle flexion-extension. Patient able to been her left knee and elevate her left leg but has pain at 30?. NEURO: AOx4. SKIN: Warm and dry PSYCH: Not anxious, is cooperative Initial Vital Signs Initial Vital Signs: Vital Signs Temperature 97.1 F L 09/29/22 20:57 Pulse Rate 67 09/29/22 20:57 Respiratory Rate 18 09/29/22 20:57 Blood Pressure 114/56 L 09/29/22 20:57 Pulse Oximetry 96 09/29/22 20:57 Oxygen Delivery Method 09/29/22 20:57 Course Course Course Narrative: No new issues during course of stay Orders Ordered: ED Orders 09/30/22 02:51 XR lumbar spine 2-3V Stat Discontinued Medications Hydrocodone Bitart/Acetaminophen (Hydrocodone/Acet 5/325 Tablet) 1 tab PO NOW ONE Stop: 09/30/22 04:52 Hydromorphone HCl (Hydromorphone 1 Mg Inj) 1 mg IM NOW ONE Stop: 09/30/22 02:51 Last Admin: 09/30/22 04:02 Dose: 1 mg Documented By: ELIU Reevaluation(s) Reevaluation #1: Reviewed x-ray results with patient and . They do agree for discharge home and follow up with Dr. Villalpando, ortho spine surgeon. Neurologic intact at this time. Return precautions reviewed with patient. Pain is much better. Able to lay supine. Time: 05:15 Vital Signs Vital signs: Vital Signs - 8 hr 09/29/22 20:57 Temperature 97.1 F L Pulse Rate 67 Respiratory Rate 18 Blood Pressure 114/56 L Pulse Oximetry 96 Oxygen Delivery Method Room Air MDM - Back Pain/Injury Differential Diagnosis Differential diagnosis: Likely lumbar radiculopathy, sciatica and strain of lumbar region Imaging Data X-ray lumbar spine: Radiologist's Impression: Read by overnight Radiology, real Radiology. Postsurgical findings of a lumbar fusion between L3 and L5. Grade 1 retrolisthesis of L4 on L5. Multilevel spondylitic changes of the lumbar spine. MDM Narrative Medical decision making narrative: Appropriate for discharge home exam and imaging studies are reassuring. No neuro deficits. No numbness tingling weakness or saddle paresthesia or bowel or bladder incontinence or retention. Patient likely strained her lower back with moving a box this past weekend. Patient does have neurosurgery/ortho spine to follow up with. is driving. Return precautions reviewed with patient and . They desire discharge home Discharge Plan Departure Patient Disposition: Home Clinical Impression: Strain of lumbar region, Sciatica Instructions: DI for Sciatica, DI for Back Strain or Sprain Activity Restrictions/Additional Instructions: Call your ortho spine provider office in the morning for office re-evaluation within no week. Return if worse if any questions or concerns. No driving operating machinery tonight or when taking prescribed pain medication. Return if worse if any questions concerns or any numbness tingling to the feet or groin or any loss of control of bowel or bladder. Prescriptions: New hydrocodone-acetaminophen 5-325 mg tablet 1 tab PO Q6H PRN (Reason: pain) Qty: 16 0RF No Action prednisone 10 mg tablet See Rx Instructions .ROUTE .COMPLEX Qty: 30 0RF Rx Instructions: Day 1,2,3: 40mg PO Daily Day 4,5,6: 30mg PO Daily Day 7,8,9: 20mg PO Daily Day 10,11,12: 10mg PO Daily #30 benzonatate 200 mg capsule 200 mg PO BID PRN (Reason: cough) Qty: 20 0RF albuterol sulfate 2.5 mg /3 mL (0.083 %) solution for nebulization 2.5 mg inhalation Q4-6H PRN (Reason: shortness of breath or wheezing) Qty: 75 0RF codeine-guaifenesin [Guaifenesin AC] 10-100 mg/5 mL liquid 5 ml PO Q4-6H PRN (Reason: cough) Qty: 120 0RF prednisone 10 mg tablet 10 mg PO DAILY Qty: 20 0RF Rx Instructions: 2T PO QD for 5 days then 1T PO QD for 5 days then 1/2T PO QD for 5 days acetaminophen 325 mg Tablet 650 mg PO Q6HR PRN (Reason: Pain, Mild (1-3)) Qty: 60 0RF polyethylene glycol 3350 17 gram Powder In Packet 17 gm PO DAILY Qty: 30 0RF metformin 500 mg Tablet 500 mg PO BID Qty: 60 0RF carvedilol 12.5 mg tablet 12.5 mg PO BID Qty: 60 0RF trazodone 50 mg tablet 50 mg PO BEDTIME Qty: 30 0RF Label Comments: TAKE 1 TABLET BY MOUTH ONCE DAILY AT BEDTIME prochlorperazine maleate 10 mg Tablet 1 tab PO TID PRN (Reason: Nausea) Qty: 90 0RF spironolactone 25 mg tablet 25 mg PO DAILY Qty: 30 0RF pantoprazole 40 mg Tablet,Delayed Release (Dr/Ec) 40 mg PO DAILY Qty: 30 0RF lisinopril 5 mg tablet 5 mg PO BEDTIME Qty: 30 0RF Label Comments: TAKE 1 TABLET BY MOUTH NIGHTLY gabapentin 100 mg capsule 300 mg PO BEDTIME Qty: 30 0RF albuterol sulfate 90 mcg/actuation HFA aerosol inhaler 2 inh INHALATION Q4HR PRN (Reason: Shortness Of Breath) Qty: 1 0RF Label Comments: INHALE 2 PUFFS BY MOUTH EVERY 4 HOURS NEEDED ropinirole 4 mg tablet 4 mg PO BEDTIME Qty: 30 0RF rosuvastatin 40 mg tablet 40 mg PO BEDTIME Qty: 30 0RF duloxetine 20 mg Capsule,Delayed Release(Dr/Ec) 60 mg PO DAILY Qty: 30 0RF levothyroxine 50 mcg Capsule 50 mcg PO DAILY Qty: 30 0RF Xarelto 20 mg tablet 20 mg PO DAILY Qty: 30 0RF Label Comments: TAKE 1 TABLET BY MOUTH ONCE DAILY Qvar RediHaler 80 mcg/actuation HFA aerosol breath activated 2 inh INHALATION BID Qty: 1 0RF hydrocodone-acetaminophen 5-325 mg tablet 1 tab PO Q4-6H PRN (Reason: pain) Qty: 30 0RF ferrous gluconate 324 mg (37.5 mg iron) tablet 324 mg PO BID Qty: 60 0RF Colace Clear 50 mg capsule 50 mg PO BID Qty: 60 0RF hydrocodone-acetaminophen 5-325 mg tablet 1 tab PO Q4-6H PRN (Reason: pain) Qty: 5 0RF Referrals: Khoi Dyer DO [Primary Care Provider] - Luisana Goss MD [Physician] -
--- NOTE | 2022-09-30 03:45 | PC.NURSE ---
MD at bedside - family present
--- NOTE | 2022-09-30 04:00 | PC.NURSE ---
At bedside to give IM meds - tolerated well - family at bedside
[2022-09-30] MEDS: HYDROMORPHONE 1 MG INJ IM (04:02)
[2022-09-30 05:00] VITALS: BP 131/58; PULSE 56; RESP 16; O2SAT 96
--- NOTE | 2022-09-30 05:00 | PC.NURSE ---
Pt states that she is feeling flushed from the medication - VSS - reassured - no airway concerns noted - speaking in full clear sentences
== END 2022-09-30 05:30 | disposition home or self-care (01) ==
PROVIDERS: Emergency Provider Emergency Medicine; PCP Family Medicine
DX: S39.012A Strain of muscle, fascia and tendon of lower back, initial encounter (principal); M54.42 Lumbago with sciatica, left side; Z79.899 Other long term (current) drug therapy
CPT/HCPCS: 72100; 96372; 99283; J1170

== ENCOUNTER → 2022-11-04 14:04 | Outpatient (CLI) | payer OTHER, SELFPAY ==
[2022-06-08 16:06] VITALS: BMI 29.6
--- NOTE | 2022-11-04 14:09 | DI.CT.S_ITS ---
PROCEDURE: CT LUMBAR SPINE WO CON INDICATIONS: INCREASING BACK PAIN S/P LUMBAR FUSION TECHNIQUE: Noncontrast 3 mm thick sections acquired from the T12 level to the sacrum. Sagittal and coronal reformats were constructed. For radiation dose reduction, the following was used: automated exposure control. COMPARISON: [facility], CT, CT LUMBAR SPINE WO CON, 06/08/2022, 8:48. FINDINGS: Image quality: Excellent. Bones: Expected appearance of bilateral posterior lateral alfredo and pedicle screw fixation of L3 through L5 and interbody spacer material. No evidence of hardware failure or loosening. There is interval development of a mild superior endplate compression of L2, which is likely subacute. There is approximately 5 mm of posterior bony retropulsion resulting in perhaps mild canal stenosis. No suspicious lytic or blastic bony lesions. No pars defects. T12-L1: No canal stenosis or foraminal stenosis. L1-L2: Superior bony retropulsion of L2 results in mild canal stenosis. No foraminal stenosis. L2-L3: No canal stenosis or foraminal stenosis. L3-L4: No canal stenosis or foraminal stenosis. L4-L5: No canal stenosis or foraminal stenosis. L5-S1: No canal stenosis or foraminal stenosis. Soft tissues: No retroperitoneal masses or hematomas. Visualized aorta is normal in caliber. IMPRESSION: 1. Expected appearance of lumbar fusion surgical hardware. 2. Subacute superior endplate compression fracture of L2 with bony retropulsion resulting in mild canal stenosis. Dictated by: Roosevelt Collier M.D. on 11/04/2022 at 16:42 Approved by: Roosevelt Collier M.D. on 11/04/2022 at 16:47
== END ==
PROVIDERS: PCP Family Medicine; Referring Provider Physician Assistant; Visit Provider Physician Assistant
DX: M48.061 Spinal stenosis, lumbar region without neurogenic claudication (principal); M48.56XA Collapsed vertebra, not elsewhere classified, lumbar region, initial encounter for fracture; M54.50 Low back pain, unspecified; Z98.1 Arthrodesis status
CPT/HCPCS: 72131

== ENCOUNTER 2023-04-03 21:25 | Emergency (ER) | payer OTHER, SELFPAY ==
[2022-06-08 16:06] VITALS: BMI 29.6
[2023-04-03 21:28] VITALS: BP 164/73; PULSE 66; RESP 16; TEMP 36.6; O2SAT 96; BMI 27.4
--- NOTE | 2023-04-03 22:38 | ED_ITS ---
HPI - Psych General Chief Complaint: Psychiatric Symptoms Stated Complaint: Can't sleep Time Seen by Provider: 04/03/23 21:57 Source: patient and family Mode of arrival: Wheelchair History of Present Illness HPI Narrative: 72-year-old female nonsmoker with history of asthma presents with her in the chief complaint of difficulty sleeping for the last 21 hours. She denies any suicidal or homicidal ideation. She denies any change in her prescription medications. She denies any use of cough or cold medicines with stimulants or any change in caffeine and alcohol intake. She denies any specific dietary change but did make some [place] like bread yesterday that had a large amount of chocolate which she consumed. She denies runny nose or sore throat. She has no chest pain or shortness of breath. She denies nausea, vomiting or diarrhea. She is not taken any ikho-jfm-zsgdrrg remedies such as melatonin, Benadryl, doxylamine or other. Related Data Previous Rx's Medication Instructions Recorded acetaminophen 325 mg tablet 650 mg PO Q6HR PRN Pain, Mild 06/05/22 (1-3) #60 tabs albuterol sulfate 90 mcg/actuation 2 inh inhalation Q4HR PRN 06/10/22 aerosol inhaler Shortness Of Breath #1 g beclomethasone dipropionate 80 2 inh inhalation BID #1 g 06/10/22 mcg/actuation HFA breath activated aerosol (Qvar RediHaler) carvedilol 12.5 mg tablet 12.5 mg PO BID #60 tabs 06/10/22 docusate sodium 50 mg capsule 50 mg PO BID #60 caps 06/10/22 (Colace Clear) duloxetine 20 mg capsule,delayed 60 mg PO DAILY #30 caps 06/10/22 release ferrous gluconate 324 mg (37.5 mg 324 mg PO BID #60 tabs 06/10/22 iron) tablet gabapentin 100 mg capsule 300 mg PO BEDTIME #30 caps 06/10/22 hydrocodone 5 mg-acetaminophen 325 1 tab PO Q4-6H PRN pain #30 tabs 06/10/22 mg tablet hydrocodone 5 mg-acetaminophen 325 1 tab PO Q4-6H PRN pain #5 tabs 06/10/22 mg tablet levothyroxine 50 mcg capsule 50 mcg PO DAILY #30 caps 06/10/22 lisinopril 5 mg tablet 5 mg PO BEDTIME #30 tabs 06/10/22 metformin 500 mg tablet 500 mg PO BID #60 tabs 06/10/22 pantoprazole 40 mg tablet,delayed 40 mg PO DAILY #30 tabs 06/10/22 release polyethylene glycol 3350 17 gram 17 gm PO DAILY #30 ea 06/10/22 oral powder packet prochlorperazine maleate 10 mg 1 tab PO TID PRN Nausea #90 tabs 06/10/22 tablet rivaroxaban 20 mg tablet (Xarelto) 20 mg PO DAILY #30 tabs 06/10/22 ropinirole 4 mg tablet 4 mg PO BEDTIME #30 tabs 06/10/22 rosuvastatin 40 mg tablet 40 mg PO BEDTIME #30 tabs 06/10/22 spironolactone 25 mg tablet 25 mg PO DAILY #30 tabs 06/10/22 trazodone 50 mg tablet 50 mg PO BEDTIME #30 tabs 06/10/22 benzonatate 200 mg capsule 200 mg PO BID PRN cough #20 caps 09/11/22 prednisone 10 mg tablet See Rx Instructions .Route 09/11/22 .COMPLEX #30 tabs albuterol sulfate 2.5 mg/3 mL 2.5 mg (3 mL) inhalation Q4-6H PRN 09/17/22 (0.083 %) solution for nebulization shortness of breath or wheezing #75 mL codeine 10 mg-guaifenesin 100 mg/5 5 ml PO Q4-6H PRN cough #120 mL 09/17/22 mL oral liquid (Guaifenesin AC) prednisone 10 mg tablet 10 mg PO DAILY #20 tabs 09/17/22 hydrocodone 5 mg-acetaminophen 325 1 tab PO Q6H PRN pain #16 tabs 09/30/22 mg tablet Allergies Allergy/AdvReac Type Severity Reaction Status Date / Time Iodine and Iodide Containing Allergy Severe pass out Verified 04/03/23 21:33 Produc [IODINE AND IODIDE CONTAINING PRODUC] amlodipine Allergy Intermediate Swelling Verified 04/03/23 21:33 of Lip/Tongue/Throat codeine [CODEINE] Allergy Intermediate HIVES, Verified 04/03/23 21:33 NAUSEA nitrofurantoin Allergy Mild Rash Verified 04/03/23 21:33 [NITROFURANTOIN] oxycodone AdvReac Hallucinati Verified 04/03/23 21:33 ng Review of Systems Review of Systems Narrative: GENERAL: Denies chills, fatigue, malaise, fever, sweats. HEENT: Denies sinus pain, ear pain, sore throat, difficulty swallowing, dizziness. RESPIRATORY: Denies dyspnea, cough, wheezing, hemoptysis, sputum. CARDIOVASCULAR: Denies chest pain, palpitations, orthopnea, edema, GASTROINTESTINAL: Denies nausea, vomiting, abdominal pain, diarrhea, constipation, melena. : Denies dysuria, frequency, incontinence, hematuria, urinary retention. MUSCULOSKELETAL: denies weakness, joint pain, or bony pain SKIN: Denies rash, skin lesions, or other NEUROLOGIC: Denies weakness, headache, numbness, change in speech, confusion, seizures, incoordination. PSYCHIATRIC: No concerning psychosocial issues. 12 point review of systems is negative except for those stated above Patient History Medical History Afib Anesthesia complication Anxiety Asthma Chronic episodic atrial fibrillation Easy bruisability Gait instability GERD (gastroesophageal reflux disease) Heart murmur History of left heart catheterization (12/13/19) HLD (hyperlipidemia) Hypothyroidism Lumbar stenosis Palpitations Pre-diabetes Skin cancer Spondylolisthesis at L3-L4 level Surgical History H/O spinal fusion History of hysterectomy Hx of appendectomy Hx of bilateral cataract extraction (2020) Hx of cholecystectomy Hx of tubal ligation Family History Father Congestive heart failure Mother COPD (chronic obstructive pulmonary disease) Social History household members: spouse Smoking Status: Never smoker alcohol intake: never Smoking Status: Never smoker alcohol intake frequency: 0-2 drinks per day Substance Use Type: does not use Exam Narrative Exam Narrative: GEN: AOx3 and in mild distress EYES: Pupils are equal, round, and reactive to light and accommodation. Extraoccular muscles are intact bilaterally. There is no subconjunctival hemorrhage or exudate. CHEST: Lungs are clear to auscultation bilaterally and free of wheezes, rales, or rhonchi. Heart rate is regular rhythm, there are no murmurs, clicks, rubs, or gallops. There is no chest wall tenderness. ABD: Abdomen is soft and nontender. There is no guarding or rebound. Bowel sounds are normal in all 4 quadrants. There is no mass or organomegaly. EXT: Full painless ROM of all extremities with no loss of sensation or strength. SKIN: Warm, pink, and dry. No erythema or rash Initial Vital Signs Initial Vital Signs: Vital Signs Temperature 97.9 F 04/03/23 21:28 Pulse Rate 66 04/03/23 21:28 Respiratory Rate 16 04/03/23 21:28 Blood Pressure 164/73 H 04/03/23 21:28 Pulse Oximetry 96 04/03/23 21:28 Oxygen Delivery Method Room Air 04/03/23 21:28 Course Vital Signs Vital signs: Vital Signs - 8 hr 04/03/23 21:28 Temperature 97.9 F Pulse Rate 66 Respiratory Rate 16 Blood Pressure 164/73 H Pulse Oximetry 96 Oxygen Delivery Method Room Air MDM - Psych MDM Narrative Medical decision making narrative: [72] year old patient presents with reported insomnia Multiple etiologies for patient's symptoms considered including, but not limited to: [Dietary change, medication change, stressors versus other] Prior Charts reviewed in our EMR Primary Historian: patient Patient has reassuring history and physical exam. We had extensive discussion at the bedside between myself, patient and her . We discussed that labs or imaging are unlikely to provide much insight. We discussed various zdmw-xyl-zcjgjwe options including melatonin, diphenhydramine, doxylamine. We discussed the role of meditation, controlled breathing and other non medicinal options. I encouraged her to employed 1 or 2 of these options while maintaining the current medication regimen she is on and following up with her primary care provider. Findings and discharge diagnosis discussed with patient/family followed by verbalization of understanding Return precautions discussed with patient/family whom verbalize understanding of diagnosis and plan Discharge Plan Departure Patient Disposition: Home Clinical Impression: Insomnia Instructions: DI for Insomnia, Mindful Meditation May Reduce Symptoms and Complications of Insomnia Activity Restrictions/Additional Instructions: *You have been diagnosed with [sleep difficulties. As we discussed your history and physical exam are reassuring and there are plenty of mimb-bsy-ypddvjw options available.] *What to do: * please consider taking Benadryl 25-50 mg tonight. Please continue to take your regular medications as directed. [ *Please follow up with your primary care provider in 2-3 days, call for an appointment. Let them know you were seen in the Emergency Department and that we ask that you be seen in follow up. We will electronically transmit a record of today's note if your PCP is in our system *If you do not have a primary care provider please contact the [facility] Resource line at [phone]. They will ask some questions about your medical history and help get you set up with a doctor in the community. *Return to Emergency Department if you should have any new, worsening or concerning symptoms, such as [fever greater than 101 F, shaking chills, worse verito pain, persistent vomiting or other bothersome symptoms] Prescriptions: No Action prednisone 10 mg tablet See Rx Instructions .ROUTE .COMPLEX Qty: 30 0RF Rx Instructions: Day 1,2,3: 40mg PO Daily Day 4,5,6: 30mg PO Daily Day 7,8,9: 20mg PO Daily Day 10,11,12: 10mg PO Daily #30 benzonatate 200 mg capsule 200 mg PO BID PRN (Reason: cough) Qty: 20 0RF albuterol sulfate 2.5 mg /3 mL (0.083 %) solution for nebulization 2.5 mg inhalation Q4-6H PRN (Reason: shortness of breath or wheezing) Qty: 75 0RF codeine-guaifenesin [Guaifenesin AC] 10-100 mg/5 mL liquid 5 ml PO Q4-6H PRN (Reason: cough) Qty: 120 0RF prednisone 10 mg tablet 10 mg PO DAILY Qty: 20 0RF Rx Instructions: 2T PO QD for 5 days then 1T PO QD for 5 days then 1/2T PO QD for 5 days hydrocodone-acetaminophen 5-325 mg tablet 1 tab PO Q6H PRN (Reason: pain) Qty: 16 0RF acetaminophen 325 mg Tablet 650 mg PO Q6HR PRN (Reason: Pain, Mild (1-3)) Qty: 60 0RF polyethylene glycol 3350 17 gram Powder In Packet 17 gm PO DAILY Qty: 30 0RF metformin 500 mg Tablet 500 mg PO BID Qty: 60 0RF carvedilol 12.5 mg tablet 12.5 mg PO BID Qty: 60 0RF trazodone 50 mg tablet 50 mg PO BEDTIME Qty: 30 0RF Patient Comments: TAKE 1 TABLET BY MOUTH ONCE DAILY AT BEDTIME prochlorperazine maleate 10 mg Tablet 1 tab PO TID PRN (Reason: Nausea) Qty: 90 0RF spironolactone 25 mg tablet 25 mg PO DAILY Qty: 30 0RF pantoprazole 40 mg Tablet,Delayed Release (Dr/Ec) 40 mg PO DAILY Qty: 30 0RF lisinopril 5 mg tablet 5 mg PO BEDTIME Qty: 30 0RF Patient Comments: TAKE 1 TABLET BY MOUTH NIGHTLY gabapentin 100 mg capsule 300 mg PO BEDTIME Qty: 30 0RF albuterol sulfate 90 mcg/actuation HFA aerosol inhaler 2 inh INHALATION Q4HR PRN (Reason: Shortness Of Breath) Qty: 1 0RF Patient Comments: INHALE 2 PUFFS BY MOUTH EVERY 4 HOURS NEEDED ropinirole 4 mg tablet 4 mg PO BEDTIME Qty: 30 0RF rosuvastatin 40 mg tablet 40 mg PO BEDTIME Qty: 30 0RF duloxetine 20 mg Capsule,Delayed Release(Dr/Ec) 60 mg PO DAILY Qty: 30 0RF levothyroxine 50 mcg Capsule 50 mcg PO DAILY Qty: 30 0RF Xarelto 20 mg tablet 20 mg PO DAILY Qty: 30 0RF Patient Comments: TAKE 1 TABLET BY MOUTH ONCE DAILY Qvar RediHaler 80 mcg/actuation HFA aerosol breath activated 2 inh INHALATION BID Qty: 1 0RF hydrocodone-acetaminophen 5-325 mg tablet 1 tab PO Q4-6H PRN (Reason: pain) Qty: 30 0RF ferrous gluconate 324 mg (37.5 mg iron) tablet 324 mg PO BID Qty: 60 0RF Colace Clear 50 mg capsule 50 mg PO BID Qty: 60 0RF hydrocodone-acetaminophen 5-325 mg tablet 1 tab PO Q4-6H PRN (Reason: pain) Qty: 5 0RF Referrals: Khoi Dyer DO [Primary Care Provider] - Stand Alone Forms: Patient Portal/API
== END 2023-04-03 23:07 | disposition home or self-care (01) ==
PROVIDERS: Emergency Provider Emergency Medicine; PCP Family Medicine
DX: G47.00 Insomnia, unspecified (principal); Z79.899 Other long term (current) drug therapy
CPT/HCPCS: 99281; 99283

== ENCOUNTER 2023-05-10 23:27 | Emergency (ER) | payer OTHER, SELFPAY ==
[2022-06-08 16:06] VITALS: BMI 29.6
[2023-05-10 23:38] VITALS: BP 138/78; PULSE 66; RESP 26; TEMP 36.7; O2SAT 95; BMI 27.4
--- NOTE | 2023-05-10 23:38 | DI.RAD.S_ITS ---
PROCEDURE: XR CHEST 1V INDICATIONS: Shortness of breath TECHNIQUE: One view of the chest was acquired. COMPARISON: [facility], CR, XR CHEST 2V, 09/10/2022, 22:47. FINDINGS: Surgical changes and devices: None. Lungs and pleura: Lungs are clear. No pleural effusions or pneumothorax. Mediastinum: Mediastinal contours appear normal. Heart size is normal. Bones and chest wall: No suspicious bony lesions. Overlying soft tissues appear unremarkable. IMPRESSION: 1. No acute cardiopulmonary disease. Dictated by: Emiliano Roque M.D. on 05/11/2023 at 0:23 Approved by: Emiliano Roque M.D. on 05/11/2023 at 0:23
[2023-05-10 23:45] LABS: Add Manual Diff / Slide Review NO; Basophils Absolute Auto 0 /uL (0-100); Basophils Percent Auto 0.6 % (0-2); Eosinophils Absolute Auto 700 /uL (0-450); Eosinophils Percent Auto 8.8 % (2-4); Hemoglobin 9.1 g/dL (12.0-16.0); Lymphocytes Absolute Auto 1000 /uL (1100-4500); Lymphocytes Percent Auto 12.4 % (25-40); Mean Corpuscular HGB Conc 33.8 % (30-36); Mean Corpuscular Hemoglobin 29.9 PG (26-34); Mean Corpuscular Volume 88.6 fL (80-100); Monocytes Absolute Auto 500 /uL (0-900); Monocytes Percent Auto 5.7 % (3-14); Neutrophils Absolute Auto 6000 /uL (1500-7000); Neutrophils Percent Auto 72.5 % (50-75); Platelet Count 175 X10^3/uL (150-400); Red Blood Cell Count 3.05 X10^6/uL (4.0-5.2); Red Cell Distribution Width 15.9 % (11.6-14.8); White Blood Cell Count 8.3 X10^3/uL (4.5-11.0)
[2023-05-10] MEDS: ALBUTEROL/IPRATROPIUM 3 ML AMPUL INH (23:50)
[2023-05-10 23:52] VITALS: PULSE 63; RESP 23; O2SAT 99
[2023-05-10 23:53] VITALS: BP 131/83; PULSE 64; RESP 25; O2SAT 98
[2023-05-10 23:56] LABS: Lactate (Lactic Acid) 0.8 mmol/L (0.7-2.1)
[2023-05-11] VITALS (22 sets, daily range): BP systolic 110–149; BP diastolic 52–76; PULSE 60–73; RESP 19–32; O2SAT 93–100
--- NOTE | 2023-05-11 00:13 | PC.NURSE ---
Addendum entered by Lashonda Galvez R.N. 05/11/23 00:28: Husbands also reports given Narcan to patient tonight at 2300 when patient was unresponsive and lethargic. Provider made aware. Original Note: reports fell earlier this evening while trying to get into bed. Pt denies hitting head. Pt is on thinners. Pt also reports some right sided chest pain earlier today which has now resolved. Provider made aware.
[2023-05-11 00:16] LABS: INR 2.5 (0.9-1.3); Prothrombin Time 28.5 SECONDS (10.1-12.7)
--- NOTE | 2023-05-11 00:20 | DI.CT.S_ITS ---
PROCEDURE: CT CERVICAL SPINE WO CON INDICATIONS: trauma TECHNIQUE: Noncontrast 3 mm thick sections acquired from the skull base to the T4 level. Sagittal and coronal reformats were then constructed. For radiation dose reduction, the following was used: automated exposure control, adjustment of mA and/or kV according to patient size. COMPARISON: [facility], CT, CT HEAD/BRAIN WO CON, 05/11/2023, 0:44. FINDINGS: Image quality: Excellent. Bones: No fractures or dislocations. Lymv-fe-zkvtuzro degenerative disc and facet disease. Visualized superior ribs are intact. Soft tissues: Prevertebral soft tissues are normal in thickness. No paravertebral hematomas. No apical pneumothoraces. IMPRESSION: No acute cervical spine injuries. No significant discrepancy with the overnight cashier radiology preliminary report. Dictated by: Elaine De Souza M.D. on 05/11/2023 at 8:00 Approved by: Elaine De Souza M.D. on 05/11/2023 at 8:02
--- NOTE | 2023-05-11 00:20 | DI.CT.S_ITS ---
PROCEDURE: CT HEAD/BRAIN WO CON INDICATIONS: altered, trauma, thinners TECHNIQUE: Noncontrast 4.5 mm thick angled axial sections acquired from the foramen magnum to the vertex, with coronal and sagittal reformats. For radiation dose reduction, the following was used: automated exposure control, adjustment of mA and/or kV according to patient size. COMPARISON: [facility], CT, HEAD WITHOUT CONTRAST, 07/20/2017, 19:11. FINDINGS: Image quality: Excellent. CSF spaces: Basal cisterns are patent. No extra-axial fluid collections. The ventricles are symmetric in size and shape. Brain: No intracranial bleeds or masses. There is cerebral volume loss for age, with resultant ventricular and sulcal prominence. There are periventricular and deep white matter chronic small vessel ischemic changes. There is intracranial internal carotid artery atherosclerosis. Skull and face: Calvarium and visualized facial bones appear intact, without suspicious lesions. Sinuses: Visualized sinuses and mastoids are clear. IMPRESSION: 1. No acute intracranial abnormalities. 2. Cerebral volume loss and chronic microvascular ischemic changes. No significant discrepancy with the warehouse supervisor 3rd shift radiology preliminary report. Dictated by: Elaine De Souza M.D. on 05/11/2023 at 7:56 Approved by: Elaine De Souza M.D. on 05/11/2023 at 7:56
--- NOTE | 2023-05-11 00:20 | DI.CT.S_ITS ---
PROCEDURE: CT CHEST ABD PEL W CON INDICATIONS: trauma, altered TECHNIQUE: After the administration of oral and intravenous contrast, axial sections acquired from the supraclavicular neck to the pubic symphysis. Coronal and sagittal reformats were performed. For radiation dose reduction, the following was used: automated exposure control, adjustment of mA and/or kV according to patient size. COMPARISON: [facility], CT, CT CHEST WO CON, 09/08/2018, 9:04. [facility], CT, CT CHEST WO CON, 01/21/2019, 10:14. [facility], CT, CT ANGIO CHEST ABDOMEN PELVIS, 09/24/2019, 19:10. FINDINGS: Image quality: Excellent. CHEST: Lower Neck: No enlarged lymph nodes. Thyroid: Within normal limits. Axillae: No enlarged lymph nodes. Chest Wall: Unremarkable. Lungs and Airways: No pulmonary infiltrate consolidation. Small nodules are present. Reference nodules are listed in the following: Nodule 1: 2 mm; right upper lobe; series 5, image 106. Nodule 2: 2 mm; right upper lobe; series 5, image 130. Nodule 3: 1 mm; right upper lobe; series 5, image 133. Nodule 4: 2 mm, right lower lobe; series 5, image 132. Nodule 5: 4 mm; right middle lobe; series 5, image 164. The 4 mm right middle lobe nodule was present since 09/08/2018 and consistent with a benign nodule. Other nodules are indeterminate. There is a calcified granuloma in the right lower lobe. Right middle scar atelectasis. Pleura: No pneumothorax or pleural effusions. Heart: Heart size is normal. No pericardial effusion. Mild coronary artery calcification. Thoracic Vessels: The aorta and pulmonary arteries demonstrate normal size. Mediastinum and Olga: No enlarged lymph nodes. Esophagus: No wall thickening. No hiatal hernia. ABDOMEN: Liver: Unremarkable. Gallbladder: Surgically absent. Biliary ducts: Unremarkable. Pancreas: Unremarkable. Spleen: Unremarkable. Adrenal Glands: Unremarkable. Kidneys and Ureters: There is a 3.9 x 3.0 cm simple appearing cyst in the inferior pole of the right kidney. A 0.7 cm indeterminate hypodensity in the right kidney is also likely a cyst. No renal stone or hydronephrosis. Stomach and Bowel: Stomach, small bowel loops, and colon are unremarkable. Colonic diverticulosis. No acute diverticulitis. Peritoneum: No abnormal intraperitoneal fluid. No free air. Ventral Wall: No hernia. Abdominal Nodes: No retroperitoneal or mesenteric adenopathy by size criteria. Vessels: Aorta and inferior vena cava are normal in size. PELVIS: Pelvic Organs: Unremarkable. Bladder: Unremarkable. Pelvic Nodes: No enlarged lymph nodes. Miscellaneous: No inguinal hernias are seen. Bones: Mild compression fracture of L2. Degenerative and postsurgical changes in lumbar spine IMPRESSION: 1. Mild compression fracture of L2 of uncertain chronicity. 2. No traumatic visceral injuries in thorax, abdomen or pelvis. 3. Multiple lung nodules are present. Please see enclosed follow-up recommendation. 4. Diverticulosis without diverticulitis. 5. A simple appearing renal cyst in the inferior pole of the right kidney. A 0.7 cm indeterminate hypodense nodule nodule in mid right kidney is also likely a cyst. No significant discrepancy with the hotel assistant general manager radiology preliminary report. Fleischner Society criteria for SOLID lung nodule followup. Nodule size (mm)Low-risk patientHigh-risk patient?4No follow-up neededFollow-up at 12 mo; if no change, no further follow-up>[id number]-jp CT at 12 mo; if no change, no further follow-up needed.Initial follow-up CT at 6-12 mo, then 18-24 mo if no change. >6-8Initial follow-up CT at 6-12 mo, then 18-24 mo if no change. Initial follow-up CT at 3-6 mo, then 9-12 mo and 24 mo if no change. >8Follow-up CT at 3, 9, 24 mo. Or PET and/or biopsy.Same as for low-risk pts. Dictated by: Elaine De Souza M.D. on 05/11/2023 at 8:02 Approved by: Elaine De Souza M.D. on 05/11/2023 at 8:20
--- NOTE | 2023-05-11 00:23 | ED_ITS ---
HPI - General Adult <Carl López DO - Last Filed: 05/12/23 05:11> General Chief complaint: Shortness of Breath/Dyspnea Stated complaint: Lethargic Time Seen by Provider: 05/10/23 23:35 Source: patient and EMS Mode of arrival: EMS History of Present Illness HPI narrative: 72-year-old female nonsmoker with history of asthma, atrial fib on Xarelto presents by EMS for evaluation of generalized weakness and altered mental status with increased shortness of breath and wheezing. She does have a known history of asthma as stated. She is alert to person and place but not date. She reportedly was diagnosed with a urinary tract infection and is unaware she might have been given antibiotics. She does take pain medications and her states he gave her some Narcan because she was acting confused. She had just been started on oral morphine a few days ago. states she was sitting at the side of the bed and while he was out of the room she slid off the bed onto the floor, but he doesn't think she hit her head. Related Data Previous Rx's Medication Instructions Recorded acetaminophen 325 mg tablet 650 mg PO Q6HR PRN Pain, Mild 06/05/22 (1-3) #60 tabs albuterol sulfate 90 mcg/actuation 2 inh inhalation Q4HR PRN 06/10/22 aerosol inhaler Shortness Of Breath #1 g beclomethasone dipropionate 80 2 inh inhalation BID #1 g 06/10/22 mcg/actuation HFA breath activated aerosol (Qvar RediHaler) carvedilol 12.5 mg tablet 12.5 mg PO BID #60 tabs 06/10/22 docusate sodium 50 mg capsule 50 mg PO BID #60 caps 06/10/22 (Colace Clear) duloxetine 20 mg capsule,delayed 60 mg PO DAILY #30 caps 06/10/22 release ferrous gluconate 324 mg (37.5 mg 324 mg PO BID #60 tabs 06/10/22 iron) tablet gabapentin 100 mg capsule 300 mg PO BEDTIME #30 caps 06/10/22 hydrocodone 5 mg-acetaminophen 325 1 tab PO Q4-6H PRN pain #30 tabs 06/10/22 mg tablet hydrocodone 5 mg-acetaminophen 325 1 tab PO Q4-6H PRN pain #5 tabs 06/10/22 mg tablet levothyroxine 50 mcg capsule 50 mcg PO DAILY #30 caps 06/10/22 lisinopril 5 mg tablet 5 mg PO BEDTIME #30 tabs 06/10/22 metformin 500 mg tablet 500 mg PO BID #60 tabs 06/10/22 pantoprazole 40 mg tablet,delayed 40 mg PO DAILY #30 tabs 06/10/22 release polyethylene glycol 3350 17 gram 17 gm PO DAILY #30 ea 06/10/22 oral powder packet prochlorperazine maleate 10 mg 1 tab PO TID PRN Nausea #90 tabs 06/10/22 tablet rivaroxaban 20 mg tablet (Xarelto) 20 mg PO DAILY #30 tabs 06/10/22 ropinirole 4 mg tablet 4 mg PO BEDTIME #30 tabs 06/10/22 rosuvastatin 40 mg tablet 40 mg PO BEDTIME #30 tabs 06/10/22 spironolactone 25 mg tablet 25 mg PO DAILY #30 tabs 06/10/22 trazodone 50 mg tablet 50 mg PO BEDTIME #30 tabs 06/10/22 benzonatate 200 mg capsule 200 mg PO BID PRN cough #20 caps 09/11/22 prednisone 10 mg tablet See Rx Instructions .Route 09/11/22 .COMPLEX #30 tabs albuterol sulfate 2.5 mg/3 mL 2.5 mg (3 mL) inhalation Q4-6H PRN 09/17/22 (0.083 %) solution for nebulization shortness of breath or wheezing #75 mL codeine 10 mg-guaifenesin 100 mg/5 5 ml PO Q4-6H PRN cough #120 mL 09/17/22 mL oral liquid (Guaifenesin AC) prednisone 10 mg tablet 10 mg PO DAILY #20 tabs 09/17/22 hydrocodone 5 mg-acetaminophen 325 1 tab PO Q6H PRN pain #16 tabs 09/30/22 mg tablet Allergies Allergy/AdvReac Type Severity Reaction Status Date / Time Iodine and Iodide Containing Allergy Severe pass out Verified 04/03/23 21:33 Produc [IODINE AND IODIDE CONTAINING PRODUC] amlodipine Allergy Intermediate Swelling Verified 04/03/23 21:33 of Lip/Tongue/Throat codeine [CODEINE] Allergy Intermediate HIVES, Verified 04/03/23 21:33 NAUSEA nitrofurantoin Allergy Mild Rash Verified 04/03/23 21:33 [NITROFURANTOIN] oxycodone AdvReac Hallucinati Verified 04/03/23 21:33 ng Patient History <Carl López DO - Last Filed: 05/12/23 05:11> Medical History Afib Anesthesia complication Anxiety Asthma Chronic episodic atrial fibrillation Easy bruisability Gait instability GERD (gastroesophageal reflux disease) Heart murmur History of left heart catheterization (12/13/19) HLD (hyperlipidemia) Hypothyroidism Lumbar stenosis Palpitations Pre-diabetes Skin cancer Spondylolisthesis at L3-L4 level Surgical History H/O spinal fusion History of hysterectomy Hx of appendectomy Hx of bilateral cataract extraction (2020) Hx of cholecystectomy Hx of tubal ligation Family History Father Congestive heart failure Mother COPD (chronic obstructive pulmonary disease) Social History household members: spouse Smoking Status: Never smoker alcohol intake: never Smoking Status: Never smoker alcohol intake frequency: 0-2 drinks per day Substance Use Type: does not use Exam <Carl López DO - Last Filed: 05/12/23 05:11> Narrative Exam Narrative: GENERAL: [72] year old patient appears stated age. Well-developed patient, in mild distress. GCS 14 (confused) HEAD: Atraumatic. Normocephalic. EYES: Pupils equal round and reactive. Extraocular motions intact. No scleral icterus. No injection or drainage. ENT: Nose without bleeding, purulent drainage. Throat without erythema, tonsillar hypertrophy or exudate. Airway patent. NECK: Trachea midline. Non tender CARDIOVASCULAR: Regular rate and rhythm without murmurs, gallops, or rubs. RESPIRATORY: Clear to auscultation. Breath sounds equal bilaterally. No wheezes, rales, or rhonchi. GASTROINTESTINAL: Abdomen soft, non-tender, nondistended. EXTREMITIES: No edema or joint tenderness. BACK: Nontender without deformity or crepitance. No flank tenderness. NEURO: AOx2, does not know time SKIN: No rash or erythema of visible areas Initial Vital Signs Initial Vital Signs: Vital Signs Temperature 98.1 F 07/23/23 23:38 Pulse Rate 66 05/10/23 23:38 Respiratory Rate 26 H 05/10/23 23:38 Blood Pressure 138/78 05/10/23 23:38 Pulse Oximetry 95 05/10/23 23:38 Oxygen Delivery Method Room Air 05/10/23 23:38 <Chiara Ramirez DO - Last Filed: 05/11/23 15:44> Initial Vital Signs Initial Vital Signs: Vital Signs Temperature 98.1 F 05/10/23 23:38 Pulse Rate 66 05/10/23 23:38 Respiratory Rate 26 H 05/10/23 23:38 Blood Pressure 138/78 05/10/23 23:38 Pulse Oximetry 95 05/10/23 23:38 Oxygen Delivery Method Room Air 05/10/23 23:38 Course <Carl López DO - Last Filed: 05/12/23 05:11> Orders Ordered: Discontinued Medications Albuterol (Albuterol 2.5 Mg/3 Ml Neb (Adult)) 20 mg INH NOW ONE Stop: 05/11/23 01:06 Last Admin: 05/11/23 02:19 Dose: 20 mg Documented By: EMIL Albuterol/Ipratropium (Albuterol/Ipratropium 3 Ml Ampul) 3 ml INH NOW ONE Stop: 05/10/23 23:39 Last Admin: 05/10/23 23:50 Dose: 3 ml Documented By: EMIL Dexamethasone (Dexamethasone 10 Mg/Ml Vial) 10 mg IV NOW ONE Stop: 05/11/23 00:21 Last Admin: 05/11/23 00:40 Dose: 10 mg Documented By: ELIU Diphenhydramine HCl (Diphenhydramine 50 Mg/Ml Vial) 25 mg IV NOW ONE Stop: 05/11/23 00:21 Last Admin: 05/11/23 00:39 Dose: 25 mg Documented By: ELIU Famotidine (Famotidine 20 Mg/2 Ml Vial) 20 mg IV NOW NARESH Last Admin: 05/11/23 00:39 Dose: 20 mg Documented By: ELIU Furosemide (Furosemide 40 Mg/4 Ml Vial) 40 mg IV NOW ONE Stop: 05/11/23 01:06 Last Admin: 05/11/23 02:08 Dose: 40 mg Documented By: MIRTHA Sodium Chloride (Normal Saline 0.9%) 1,000 mls @ 1,000 mls/hr IV BOLUS ONE Stop: 05/11/23 02:04 Last Infusion: 05/11/23 02:39 Dose: 0 mls/hr Documented By: Admin: 05/11/23 01:20 Dose: 1,000 mls/hr Documented By: ELIU Dextrose (D10w) 250 mls @ 999 mls/hr IV PRN PRN PRN Reason: Hypoglycemia Last Infusion: 05/11/23 02:35 Dose: 0 mls/hr Documented By: Admin: 05/11/23 02:08 Dose: 999 mls/hr Documented By: MIRTHA Sodium Chloride (Normal Saline 0.9%) 1,000 mls @ 1,000 mls/hr IV BOLUS ONE Stop: 05/11/23 05:26 Last Infusion: 05/11/23 06:05 Dose: 0 mls/hr Documented By: Admin: 05/11/23 04:39 Dose: 1,000 mls/hr Documented By: MIRTHA Insulin Human Regular (Insulin Regular 100 Unit/Ml 3 Ml Vial) 5 unit IV NOW ONE Stop: 05/11/23 01:06 Last Admin: 05/11/23 02:08 Dose: 5 unit Documented By: MIRTHA Co-signed By: Vital Signs Vital signs: Vital Signs - 8 hr 05/10/23 23:38 05/11/23 00:29 05/10/23 23:52 Temperature 98.1 F Pulse Rate 66 63 Respiratory Rate 26 H 23 Blood Pressure 138/78 Pulse Oximetry 95 99 Oxygen Delivery Method Room Air Room Air 05/10/23 23:53 05/10/23 23:53 05/11/23 00:00 Temperature Pulse Rate 64 64 Respiratory Rate 25 H 29 H Blood Pressure 131/83 Pulse Oximetry 98 98 Oxygen Delivery Method 05/11/23 00:01 05/11/23 00:01 05/11/23 00:03 Temperature Pulse Rate 64 Respiratory Rate 32 H Blood Pressure 133/76 129/69 Pulse Oximetry 98 Oxygen Delivery Method 05/11/23 00:30 05/11/23 00:49 05/11/23 00:49 Temperature Pulse Rate 62 62 Respiratory Rate 28 H 20 Blood Pressure 130/59 L Pulse Oximetry 94 96 Oxygen Delivery Method Room Air 05/11/23 01:00 05/11/23 01:00 05/11/23 01:30 Temperature Pulse Rate 63 60 Respiratory Rate 21 28 H Blood Pressure 120/70 Pulse Oximetry 94 97 Oxygen Delivery Method 05/11/23 01:39 05/11/23 01:39 05/11/23 02:02 Temperature Pulse Rate 61 67 Respiratory Rate 25 H Blood Pressure 127/62 Pulse Oximetry 96 95 Oxygen Delivery Method Room Air 05/11/23 02:17 05/11/23 02:17 05/11/23 02:30 Temperature Pulse Rate 69 Respiratory Rate 26 H Blood Pressure 121/56 L 120/56 L Pulse Oximetry 95 Oxygen Delivery Method Room Air 05/11/23 02:30 05/11/23 03:00 05/11/23 03:00 Temperature Pulse Rate 67 64 Respiratory Rate 26 H 22 Blood Pressure 116/56 L Pulse Oximetry 100 100 Oxygen Delivery Method Room Air 05/11/23 03:30 05/11/23 03:37 05/11/23 03:37 Temperature Pulse Rate 61 68 Respiratory Rate 25 H 19 Blood Pressure 149/63 H Pulse Oximetry 100 Oxygen Delivery Method 05/11/23 04:00 05/11/23 04:30 Temperature Pulse Rate 63 65 Respiratory Rate 30 H 23 Blood Pressure 124/60 Pulse Oximetry 100 100 Oxygen Delivery Method <Chiara Ramirez, - Last Filed: 05/11/23 15:44> Orders Ordered: Discontinued Medications Albuterol (Albuterol 2.5 Mg/3 Ml Neb (Adult)) 20 mg INH NOW ONE Stop: 05/11/23 01:06 Last Admin: 05/11/23 02:19 Dose: 20 mg Documented By: EMIL Albuterol/Ipratropium (Albuterol/Ipratropium 3 Ml Ampul) 3 ml INH NOW ONE Stop: 05/10/23 23:39 Last Admin: 05/10/23 23:50 Dose: 3 ml Documented By: EMIL Dexamethasone (Dexamethasone 10 Mg/Ml Vial) 10 mg IV NOW ONE Stop: 05/11/23 00:21 Last Admin: 05/11/23 00:40 Dose: 10 mg Documented By: ELIU Diphenhydramine HCl (Diphenhydramine 50 Mg/Ml Vial) 25 mg IV NOW ONE Stop: 05/11/23 00:21 Last Admin: 05/11/23 00:39 Dose: 25 mg Documented By: ELIU Famotidine (Famotidine 20 Mg/2 Ml Vial) 20 mg IV NOW NARESH Last Admin: 05/11/23 00:39 Dose: 20 mg Documented By: ELIU Furosemide (Furosemide 40 Mg/4 Ml Vial) 40 mg IV NOW ONE Stop: 05/11/23 01:06 Last Admin: 05/11/23 02:08 Dose: 40 mg Documented By: MIRTHA Sodium Chloride (Normal Saline 0.9%) 1,000 mls @ 1,000 mls/hr IV BOLUS ONE Stop: 05/11/23 02:04 Last Infusion: 05/11/23 02:39 Dose: 0 mls/hr Documented By: Admin: 05/11/23 01:20 Dose: 1,000 mls/hr Documented By: ELIU Dextrose (D10w) 250 mls @ 999 mls/hr IV PRN PRN PRN Reason: Hypoglycemia Last Infusion: 05/11/23 02:35 Dose: 0 mls/hr Documented By: Admin: 05/11/23 02:08 Dose: 999 mls/hr Documented By: MIRTHA Sodium Chloride (Normal Saline 0.9%) 1,000 mls @ 1,000 mls/hr IV BOLUS ONE Stop: 05/11/23 05:26 Last Infusion: 05/11/23 06:05 Dose: 0 mls/hr Documented By: Admin: 05/11/23 04:39 Dose: 1,000 mls/hr Documented By: MIRTHA Insulin Human Regular (Insulin Regular 100 Unit/Ml 3 Ml Vial) 5 unit IV NOW ONE Stop: 05/11/23 01:06 Last Admin: 05/11/23 02:08 Dose: 5 unit Documented By: MIRTHA Co-signed By: Vital Signs Vital signs: Vital Signs - 8 hr 05/10/23 23:38 05/11/23 00:29 05/10/23 23:52 Temperature 98.1 F Pulse Rate 66 63 Respiratory Rate 26 H 23 Blood Pressure 138/78 Pulse Oximetry 95 99 Oxygen Delivery Method Room Air Room Air 05/10/23 23:53 05/10/23 23:53 05/11/23 00:00 Temperature Pulse Rate 64 64 Respiratory Rate 25 H 29 H Blood Pressure 131/83 Pulse Oximetry 98 98 Oxygen Delivery Method 05/11/23 00:01 05/11/23 00:01 05/11/23 00:03 Temperature Pulse Rate 64 Respiratory Rate 32 H Blood Pressure 133/76 129/69 Pulse Oximetry 98 Oxygen Delivery Method 05/11/23 00:30 05/11/23 00:49 05/11/23 00:49 Temperature Pulse Rate 62 62 Respiratory Rate 28 H 20 Blood Pressure 130/59 L Pulse Oximetry 94 96 Oxygen Delivery Method Room Air 05/11/23 01:00 05/11/23 01:00 05/11/23 01:30 Temperature Pulse Rate 63 60 Respiratory Rate 21 28 H Blood Pressure 120/70 Pulse Oximetry 94 97 Oxygen Delivery Method 05/11/23 01:39 05/11/23 01:39 05/11/23 02:02 Temperature Pulse Rate 61 67 Respiratory Rate 25 H Blood Pressure 127/62 Pulse Oximetry 96 95 Oxygen Delivery Method Room Air 05/11/23 02:17 05/11/23 02:17 05/11/23 02:30 Temperature Pulse Rate 69 Respiratory Rate 26 H Blood Pressure 121/56 L 120/56 L Pulse Oximetry 95 Oxygen Delivery Method Room Air 05/11/23 02:30 05/11/23 03:00 05/11/23 03:00 Temperature Pulse Rate 67 64 Respiratory Rate 26 H 22 Blood Pressure 116/56 L Pulse Oximetry 100 100 Oxygen Delivery Method Room Air 05/11/23 03:30 05/11/23 03:37 05/11/23 03:37 Temperature Pulse Rate 61 68 Respiratory Rate 25 H 19 Blood Pressure 149/63 H Pulse Oximetry 100 Oxygen Delivery Method 05/11/23 04:00 05/11/23 04:30 Temperature Pulse Rate 63 65 Respiratory Rate 30 H 23 Blood Pressure 124/60 Pulse Oximetry 100 100 Oxygen Delivery Method Medical Decision Making <Carl López, DO - Last Filed: 05/12/23 05:11> Lab Data 05/10/23 23:35 05/11/23 06:40 Labs: Lab Results 05/10/23 05/10/23 05/10/23 Range/Units 23:35 23:35 23:59 WBC 8.3 (4.5-11.0) X10^3/uL RBC 3.05 L (4.0-5.2) X10^6/uL Hgb 9.1 L (12.0-16.0) g/dL Hct 27.0 L (36-46) % MCV 88.6 (80-100) fL MCH 29.9 (26-34) PG MCHC 33.8 (30-36) % RDW 15.9 H (11.6-14.8) % Plt Count 175 (150-400) X10^3/uL Neut % (Auto) 72.5 (50-75) % Lymph % (Auto) 12.4 L (25-40) % [place] % (Auto) 5.7 (3-14) % Eos % (Auto) 8.8 H (2-4) % Baso % (Auto) 0.6 (0-2) % Neut # (Auto) 6000 (1215-4624) /uL Lymph # (Auto) 1000 L (0806-4799) /uL [place] # (Auto) 500 (0-900) /uL Eos # (Auto) 700 H (0-450) /uL Baso # (Auto) 0 (0-100) /uL PT 28.5 H (10.1-12.7) SECONDS INR 2.5 H (0.9-1.3) Sodium (137-145) mmol/L Potassium (3.4-5.1) mmol/L Chloride (98-107) mmol/L Carbon Dioxide (22-32) mmol/L BUN (7-17) mg/dL Creatinine (0.52-1.04) mg/dL Estimated GFR (>60) mL/min BUN/Creatinine Ratio (6-22) Glucose (80-110) mg/dL Lactate 0.8 (0.7-2.1) mmol/L Calcium (8.4-10.2) mg/dL Total Bilirubin (0.2-1.3) mg/dL AST (14-36) IU/L ALT (<35) IU/L Alkaline Phosphatase (38-126) U/L Troponin I (0.01-0.034) ng/mL NT-Pro-B Natriuret Pep (<125) pg/mL Total Protein (6.3-8.2) g/dL Albumin (3.5-5.0) g/dL Globulin (1.7-4.1) g/dL Albumin/Globulin Ratio (1.0-2.8) 05/11/23 05/11/23 05/11/23 Range/Units 00:40 03:50 06:40 WBC (4.5-11.0) X10^3/uL RBC (4.0-5.2) X10^6/uL Hgb (12.0-16.0) g/dL Hct (36-46) % MCV (80-100) fL MCH (26-34) PG MCHC (30-36) % RDW (11.6-14.8) % Plt Count (150-400) X10^3/uL Neut % (Auto) (50-75) % Lymph % (Auto) (25-40) % [place] % (Auto) (3-14) % Eos % (Auto) (2-4) % Baso % (Auto) (0-2) % Neut # (Auto) (3607-3869) /uL Lymph # (Auto) (0975-9570) /uL [place] # (Auto) (0-900) /uL Eos # (Auto) (0-450) /uL Baso # (Auto) (0-100) /uL PT (10.1-12.7) SECONDS INR (0.9-1.3) Sodium 124 L 127 L 128 L (137-145) mmol/L Potassium 6.3 H* 5.1 D 5.4 H (3.4-5.1) mmol/L Chloride 94 L 96 L 98 (98-107) mmol/L Carbon Dioxide 25 24 21 L (22-32) mmol/L BUN 36 H 33 H 31 H (7-17) mg/dL Creatinine 1.76 H 1.62 H 1.60 H (0.52-1.04) mg/dL Estimated GFR 31 L 34 L 34 L (>60) mL/min BUN/Creatinine Ratio 20.5 20.4 19.4 (6-22) Glucose 116 H 94 142 H (80-110) mg/dL Lactate (0.7-2.1) mmol/L Calcium 8.5 8.2 L 8.2 L (8.4-10.2) mg/dL Total Bilirubin 0.4 (0.2-1.3) mg/dL AST 130 H (14-36) IU/L ALT 143 H (<35) IU/L Alkaline Phosphatase 131 H (38-126) U/L Troponin I < 0.012 (0.01-0.034) ng/mL NT-Pro-B Natriuret Pep 263 H (<125) pg/mL Total Protein 7.1 (6.3-8.2) g/dL Albumin 3.8 (3.5-5.0) g/dL Globulin 3.3 (1.7-4.1) g/dL Albumin/Globulin Ratio 1.2 (1.0-2.8) Point of Care Testing Glucose POC 95 Urine Dip Bedside Urine Glucose Negative Bedside Urine Bilirubin - Negative Bedside Urine Ketone - Negative Urine Specific [place] 1.01 Bedside Urine Occult Blood - Negative Bedside Urine pH 5.5 Bedside Urine Protein - Negative Bedside Urine Urobilinogen - Negative Bedside Urine Nitrite - Negative Bedside Urine Leukocytes - Negative Esterase Point of care testing: Point of Care Testing Glucose POC 95 Urine Dip Bedside Urine Glucose Negative Bedside Urine Bilirubin - Negative Bedside Urine Ketone - Negative Urine Specific [place] 1.01 Bedside Urine Occult Blood - Negative Bedside Urine pH 5.5 Bedside Urine Protein - Negative Bedside Urine Urobilinogen - Negative Bedside Urine Nitrite - Negative Bedside Urine Leukocytes - Negative Esterase Imaging Data CT scan - head: Radiologist's Impression: No acute intracranial abnormality CT scan - chest: Radiologist's Impression: No acute intrathoracic abnormality. Mild compression fracture of L2 of inde terminate age CT - cervical spine: Radiologist's Impression: No acute bony abnormality MDM Narrative Medical decision making narrative: 72-year-old female presents due to altered mental status. Per report from her alteration started when she began taking oral morphine. The patient mentions that she had been diagnosed with a urinary tract infection by her primary care provider, however disputes this. She did have a low energy, low risk fall with reassuring imaging including head and C-spine as well as chest, abdomen and pelvis imaging without significant findings. Her urine shows no sign of infection. She has no focal findings, no fever, no neck pain. Her sodium is 124 and historically runs in the 130s. Initial potassium is 6.3, no EKG changes. She does have dry mucous membranes and creatinine is up from her baseline 0.9-1.76. Patient's encephalopathic picture likely a combination of medication, hyponatremia, and she will require hospitalization for ongoing evaluation and stabilization of this conditions. <Chiara Ramirez, - Last Filed: 05/11/23 15:44> Lab Data Labs: Lab Results 05/10/23 05/10/23 05/10/23 Range/Units 23:35 23:35 23:59 WBC 8.3 (4.5-11.0) X10^3/uL RBC 3.05 L (4.0-5.2) X10^6/uL Hgb 9.1 L (12.0-16.0) g/dL Hct 27.0 L (36-46) % MCV 88.6 (80-100) fL MCH 29.9 (26-34) PG MCHC 33.8 (30-36) % RDW 15.9 H (11.6-14.8) % Plt Count 175 (150-400) X10^3/uL Neut % (Auto) 72.5 (50-75) % Lymph % (Auto) 12.4 L (25-40) % [place] % (Auto) 5.7 (3-14) % Eos % (Auto) 8.8 H (2-4) % Baso % (Auto) 0.6 (0-2) % Neut # (Auto) 6000 (9338-9011) /uL Lymph # (Auto) 1000 L (9131-6614) /uL [place] # (Auto) 500 (0-900) /uL Eos # (Auto) 700 H (0-450) /uL Baso # (Auto) 0 (0-100) /uL PT 28.5 H (10.1-12.7) SECONDS INR 2.5 H (0.9-1.3) Sodium (137-145) mmol/L Potassium (3.4-5.1) mmol/L Chloride (98-107) mmol/L Carbon Dioxide (22-32) mmol/L BUN (7-17) mg/dL Creatinine (0.52-1.04) mg/dL Estimated GFR (>60) mL/min BUN/Creatinine Ratio (6-22) Glucose (80-110) mg/dL Lactate 0.8 (0.7-2.1) mmol/L Calcium (8.4-10.2) mg/dL Total Bilirubin (0.2-1.3) mg/dL AST (14-36) IU/L ALT (<35) IU/L Alkaline Phosphatase (38-126) U/L Troponin I (0.01-0.034) ng/mL NT-Pro-B Natriuret Pep (<125) pg/mL Total Protein (6.3-8.2) g/dL Albumin (3.5-5.0) g/dL Globulin (1.7-4.1) g/dL Albumin/Globulin Ratio (1.0-2.8) 05/11/23 05/11/23 05/11/23 Range/Units 00:40 03:50 06:40 WBC (4.5-11.0) X10^3/uL RBC (4.0-5.2) X10^6/uL Hgb (12.0-16.0) g/dL Hct (36-46) % MCV (80-100) fL MCH (26-34) PG MCHC (30-36) % RDW (11.6-14.8) % Plt Count (150-400) X10^3/uL Neut % (Auto) (50-75) % Lymph % (Auto) (25-40) % [place] % (Auto) (3-14) % Eos % (Auto) (2-4) % Baso % (Auto) (0-2) % Neut # (Auto) (3662-6918) /uL Lymph # (Auto) (1504-6585) /uL [place] # (Auto) (0-900) /uL Eos # (Auto) (0-450) /uL Baso # (Auto) (0-100) /uL PT (10.1-12.7) SECONDS INR (0.9-1.3) Sodium 124 L 127 L 128 L (137-145) mmol/L Potassium 6.3 H* 5.1 D 5.4 H (3.4-5.1) mmol/L Chloride 94 L 96 L 98 (98-107) mmol/L Carbon Dioxide 25 24 21 L (22-32) mmol/L BUN 36 H 33 H 31 H (7-17) mg/dL Creatinine 1.76 H 1.62 H 1.60 H (0.52-1.04) mg/dL Estimated GFR 31 L 34 L 34 L (>60) mL/min BUN/Creatinine Ratio 20.5 20.4 19.4 (6-22) Glucose 116 H 94 142 H (80-110) mg/dL Lactate (0.7-2.1) mmol/L Calcium 8.5 8.2 L 8.2 L (8.4-10.2) mg/dL Total Bilirubin 0.4 (0.2-1.3) mg/dL AST 130 H (14-36) IU/L ALT 143 H (<35) IU/L Alkaline Phosphatase 131 H (38-126) U/L Troponin I < 0.012 (0.01-0.034) ng/mL NT-Pro-B Natriuret Pep 263 H (<125) pg/mL Total Protein 7.1 (6.3-8.2) g/dL Albumin 3.8 (3.5-5.0) g/dL Globulin 3.3 (1.7-4.1) g/dL Albumin/Globulin Ratio 1.2 (1.0-2.8) Point of Care Testing Glucose POC 95 Urine Dip Bedside Urine Glucose Negative Bedside Urine Bilirubin - Negative Bedside Urine Ketone - Negative Urine Specific [place] 1.01 Bedside Urine Occult Blood - Negative Bedside Urine pH 5.5 Bedside Urine Protein - Negative Bedside Urine Urobilinogen - Negative Bedside Urine Nitrite - Negative Bedside Urine Leukocytes - Negative Esterase Point of care testing: Point of Care Testing Glucose POC 95 Urine Dip Bedside Urine Glucose Negative Bedside Urine Bilirubin - Negative Bedside Urine Ketone - Negative Urine Specific [place] 1.01 Bedside Urine Occult Blood - Negative Bedside Urine pH 5.5 Bedside Urine Protein - Negative Bedside Urine Urobilinogen - Negative Bedside Urine Nitrite - Negative Bedside Urine Leukocytes - Negative Esterase MDM Narrative Medical decision making narrative: 72-year-old female presents due to altered mental status. Per report from her alteration started when she began taking oral morphine. The patient mentions that she had been diagnosed with a urinary tract infection by her primary care provider, however disputes this. She did have a low energy, low risk fall with reassuring imaging including head and C-spine as well as chest, abdomen and pelvis imaging without significant findings. Her urine shows no sign of infection. She has no focal findings, no fever, no neck pain. Her sodium is 124 and historically runs in the 130s. Initial potassium is 6.3, no EKG changes. She does have dry mucous membranes and creatinine is up from her baseline 0.9-1.76. Patient's encephalopathic picture likely a combination of medication, hyponatremia, and she will require hospitalization for ongoing evaluation and stabilization of this conditions. Dr. Ramirez: Patient signed out to me by Dr. López I have seen evaluated patient myself. Awake alert oriented feeling much better. She reports that she just started morphine it asleep. I suspect that she passed out from morphine she was not eating or drinking. Labs are much improved from yesterday potassium is improved sodiums improved creatinine is improved. She is up and ambulating at baseline. at bedside says that she is back to her baseline mental status. Both agree that she is able to go home. Discharge Plan Departure Patient Disposition: Home Clinical Impression: Acute metabolic encephalopathy, Acute hyponatremia, Acute kidney injury, Acute hyperkalemia Instructions: DI for Dehydration -- Adult Activity Restrictions/Additional Instructions: *You have been diagnosed with dehydration *What to do: Had this time he might need a cut back on your morphine see her not sleeping as much. Please stay hydrated with water and Gatorade. Be sure that you are eating and drinking. I also strongly recommend that you have repeat BNP for kidney function and electrolytes rechecked this week with your primary care provider. Call today. *Continue to take medications as directed *Follow up with your primary care provider in 2-3 days or call [phone] *Return to ER if you should have increasing confusion weakness falls or any new, worsening or concerning symptoms Prescriptions: No Action prednisone 10 mg tablet See Rx Instructions .ROUTE .COMPLEX Qty: 30 0RF Rx Instructions: Day 1,2,3: 40mg PO Daily Day 4,5,6: 30mg PO Daily Day 7,8,9: 20mg PO Daily Day 10,11,12: 10mg PO Daily #30 benzonatate 200 mg capsule 200 mg PO BID PRN (Reason: cough) Qty: 20 0RF albuterol sulfate 2.5 mg /3 mL (0.083 %) solution for nebulization 2.5 mg inhalation Q4-6H PRN (Reason: shortness of breath or wheezing) Qty: 75 0RF codeine-guaifenesin [Guaifenesin AC] 10-100 mg/5 mL liquid 5 ml PO Q4-6H PRN (Reason: cough) Qty: 120 0RF prednisone 10 mg tablet 10 mg PO DAILY Qty: 20 0RF Rx Instructions: 2T PO QD for 5 days then 1T PO QD for 5 days then 1/2T PO QD for 5 days hydrocodone-acetaminophen 5-325 mg tablet 1 tab PO Q6H PRN (Reason: pain) Qty: 16 0RF acetaminophen 325 mg Tablet 650 mg PO Q6HR PRN (Reason: Pain, Mild (1-3)) Qty: 60 0RF polyethylene glycol 3350 17 gram Powder In Packet 17 gm PO DAILY Qty: 30 0RF metformin 500 mg Tablet 500 mg PO BID Qty: 60 0RF carvedilol 12.5 mg tablet 12.5 mg PO BID Qty: 60 0RF trazodone 50 mg tablet 50 mg PO BEDTIME Qty: 30 0RF Patient Comments: TAKE 1 TABLET BY MOUTH ONCE DAILY AT BEDTIME prochlorperazine maleate 10 mg Tablet 1 tab PO TID PRN (Reason: Nausea) Qty: 90 0RF spironolactone 25 mg tablet 25 mg PO DAILY Qty: 30 0RF pantoprazole 40 mg Tablet,Delayed Release (Dr/Ec) 40 mg PO DAILY Qty: 30 0RF lisinopril 5 mg tablet 5 mg PO BEDTIME Qty: 30 0RF Patient Comments: TAKE 1 TABLET BY MOUTH NIGHTLY gabapentin 100 mg capsule 300 mg PO BEDTIME Qty: 30 0RF albuterol sulfate 90 mcg/actuation HFA aerosol inhaler 2 inh INHALATION Q4HR PRN (Reason: Shortness Of Breath) Qty: 1 0RF Patient Comments: INHALE 2 PUFFS BY MOUTH EVERY 4 HOURS NEEDED ropinirole 4 mg tablet 4 mg PO BEDTIME Qty: 30 0RF rosuvastatin 40 mg tablet 40 mg PO BEDTIME Qty: 30 0RF duloxetine 20 mg Capsule,Delayed Release(Dr/Ec) 60 mg PO DAILY Qty: 30 0RF levothyroxine 50 mcg Capsule 50 mcg PO DAILY Qty: 30 0RF Xarelto 20 mg tablet 20 mg PO DAILY Qty: 30 0RF Patient Comments: TAKE 1 TABLET BY MOUTH ONCE DAILY Qvar RediHaler 80 mcg/actuation HFA aerosol breath activated 2 inh INHALATION BID Qty: 1 0RF hydrocodone-acetaminophen 5-325 mg tablet 1 tab PO Q4-6H PRN (Reason: pain) Qty: 30 0RF ferrous gluconate 324 mg (37.5 mg iron) tablet 324 mg PO BID Qty: 60 0RF Colace Clear 50 mg capsule 50 mg PO BID Qty: 60 0RF hydrocodone-acetaminophen 5-325 mg tablet 1 tab PO Q4-6H PRN (Reason: pain) Qty: 5 0RF Referrals: Khoi Dyer DO [Primary Care Provider] - Stand Alone Forms: Patient Portal/API
[2023-05-11] MEDS: diphenhydrAMINE 50 MG/ML VIAL 25 MG IV (00:39)
[2023-05-11] MEDS: FAMOTIDINE 20 MG/2 ML VIAL IV (00:39)
[2023-05-11] MEDS: DEXAMETHASONE 10 MG/ML VIAL IV (00:40)
[2023-05-11 00:57] LABS: Alanine Aminotransferase 143 IU/L (<35); Albumin 3.8 g/dL (3.5-5.0); Albumin Globulin Ratio 1.2 (1.0-2.8); Alkaline Phosphatase 131 U/L (38-126); Aspartate Aminotransferase 130 IU/L (14-36); BUN Creatinine Ratio 20.5 (6-22); Bilirubin Total 0.4 mg/dL (0.2-1.3); Blood Urea Nitrogen 36 mg/dL (7-17); Calcium 8.5 mg/dL (8.4-10.2); Carbon Dioxide 25 mmol/L (22-32); Chloride 94 mmol/L (98-107); Estimated Glomerular Filt Rate 31 mL/min (>60); Globulin 3.3 g/dL (1.7-4.1); Glucose 116 mg/dL (80-110); HEMOLYSIS < 15 (0-50); Sodium 124 mmol/L (137-145); Total Protein 7.1 g/dL (6.3-8.2)
[2023-05-11 01:04] LABS: Potassium 6.3 mmol/L (3.4-5.1)
[2023-05-11 01:09] LABS: NT-proBNP (BNP-Adult 18+) 263 pg/mL (<125); Troponin I < 0.012 ng/mL (0.01-0.034)
[2023-05-11] MEDS: SODIUM CHLORIDE 0.9% 1,000 ML 1000 ML IV ×2 (01:20→04:39)
--- NOTE | 2023-05-11 01:21 | PC.NURSE ---
Pt having hallucinations. States she sees bowlers. Pt states she was seeing roses earlier when there was none.
[2023-05-11] MEDS: DEXTROSE 10 % IN WATER 250 ML 999 ML IV (02:08)
[2023-05-11] MEDS: FUROSEMIDE 40 MG/4 ML VIAL IV (02:08)
[2023-05-11] MEDS: INSULIN REGULAR 100 UNIT/ML 3 ML VIAL IV (02:08)
[2023-05-11] MEDS: ALBUTEROL 2.5 MG/3 ML NEB (ADULT) 20 MG INH (02:19)
[2023-05-11 04:08] LABS: BUN Creatinine Ratio 20.4 (6-22); Blood Urea Nitrogen 33 mg/dL (7-17); Calcium 8.2 mg/dL (8.4-10.2); Carbon Dioxide 24 mmol/L (22-32); Chloride 96 mmol/L (98-107); Estimated Glomerular Filt Rate 34 mL/min (>60); Glucose 94 mg/dL (80-110); HEMOLYSIS < 15 (0-50); Potassium 5.1 mmol/L (3.4-5.1); Sodium 127 mmol/L (137-145)
[2023-05-11 06:56] LABS: BUN Creatinine Ratio 19.4 (6-22); Blood Urea Nitrogen 31 mg/dL (7-17); Calcium 8.2 mg/dL (8.4-10.2); Carbon Dioxide 21 mmol/L (22-32); Chloride 98 mmol/L (98-107); Estimated Glomerular Filt Rate 34 mL/min (>60); Glucose 142 mg/dL (80-110); HEMOLYSIS < 15 (0-50); Sodium 128 mmol/L (137-145)
[2023-05-11 06:57] LABS: Potassium 5.4 mmol/L (3.4-5.1)
--- NOTE | 2023-05-11 07:51 | PC.NURSE ---
0762 Pt ambulated with steady gait with a one arm assist from RN which is pt's baseline at home. Pt denies dizziness and reports feeling well enough to go home.
== END 2023-05-11 07:45 | disposition home or self-care (01) ==
PROVIDERS: Emergency Medicine; Emergency Provider Emergency Medicine; PCP Family Medicine
DX: G93.41 Metabolic encephalopathy (principal); E87.1 Hypo-osmolality and hyponatremia; E87.5 Hyperkalemia; N17.9 Acute kidney failure, unspecified; R41.82 Altered mental status, unspecified
CPT/HCPCS: 36415; 51701; 70450; 71045; 71260; 72125; 74177; 80048; 80053; 81003; 82962; 83605; 83880; 84484; 85025; 85610; 93005; 94640; 96361; 96374; 96375; 99284; J1100; J1200; J1940; J7613; Q9967

== ENCOUNTER 2023-05-12 11:17 | Inpatient (IN) | payer OTHER, MEDICARE, SELFPAY ==
[2022-06-08 16:06] VITALS: BMI 29.6
[2023-05-12 11:20] VITALS: BP 162/70; PULSE 70; RESP 18; TEMP 36.9; O2SAT 97; BMI 28.3
--- NOTE | 2023-05-12 11:25 | DI.RAD.S_ITS ---
PROCEDURE: XR CHEST 1V INDICATIONS: Shortness of breath TECHNIQUE: One view of the chest was acquired. COMPARISON: [facility], CR, XR CHEST 1V, 05/10/2023, 23:38. [facility], CR, XR CHEST 2V, 09/10/2022, 22:47. FINDINGS: Surgical changes and devices: None. Lungs and pleura: Possible trace right infrahilar opacity. No pleural effusion. Mediastinum: Normal heart size. Bones and chest wall: No suspicious bony lesions. Overlying soft tissues appear unremarkable. IMPRESSION: Possible mild right infrahilar opacity, representing atelectasis or early airspace disease. Consider future imaging surveillance to assess for resolution. Dictated by: Roman Soriano M.D. on 05/12/2023 at 13:17 Approved by: Roman Soriano M.D. on 05/12/2023 at 13:18
[2023-05-12 11:54] LABS: INR 1.5 (0.9-1.3); Prothrombin Time 16.9 SECONDS (10.1-12.7)
[2023-05-12 11:56] LABS: Add Manual Diff / Slide Review NO; Basophils Absolute Auto 0 /uL (0-100); Basophils Percent Auto 0.2 % (0-2); Eosinophils Absolute Auto 100 /uL (0-450); Eosinophils Percent Auto 0.7 % (2-4); Hematocrit 26.5 % (36-46); Lymphocytes Absolute Auto 1000 /uL (1100-4500); Lymphocytes Percent Auto 10.5 % (25-40); Mean Corpuscular HGB Conc 34.2 % (30-36); Mean Corpuscular Volume 87.9 fL (80-100); Monocytes Absolute Auto 600 /uL (0-900); Monocytes Percent Auto 6.7 % (3-14); Neutrophils Absolute Auto 7400 /uL (1500-7000); Neutrophils Percent Auto 81.9 % (50-75); Platelet Count 184 X10^3/uL (150-400); Red Blood Cell Count 3.01 X10^6/uL (4.0-5.2); Red Cell Distribution Width 15.4 % (11.6-14.8); White Blood Cell Count 9.1 X10^3/uL (4.5-11.0)
[2023-05-12 11:59] LABS: Lactate (Lactic Acid) 1.1 mmol/L (0.7-2.1)
[2023-05-12 12:00] LABS: Alanine Aminotransferase 81 IU/L (<35); Albumin 4.1 g/dL (3.5-5.0); Albumin Globulin Ratio 1.4 (1.0-2.8); Alkaline Phosphatase 128 U/L (38-126); Aspartate Aminotransferase 68 IU/L (14-36); BUN Creatinine Ratio 16.3 (6-22); Bilirubin Total 0.3 mg/dL (0.2-1.3); Blood Urea Nitrogen 29 mg/dL (7-17); Calcium 8.1 mg/dL (8.4-10.2); Carbon Dioxide 22 mmol/L (22-32); Chloride 91 mmol/L (98-107); Estimated Glomerular Filt Rate 30 mL/min (>60); Glucose 131 mg/dL (80-110); HEMOLYSIS < 15 (0-50); Potassium 5.3 mmol/L (3.4-5.1); Sodium 121 mmol/L (137-145); Total Protein 7.1 g/dL (6.3-8.2)
[2023-05-12 12:05] LABS: Strep Grp A by PCR Rapid Negative (Negative)
[2023-05-12 12:12] LABS: NT-proBNP (BNP-Adult 18+) 1090 pg/mL (<125); Troponin I < 0.012 ng/mL (0.01-0.034)
[2023-05-12 12:38] LABS: Adenovirus Not Detected (Not Detect); B. parapertussis Not Detected (Not Detecte); Bordetella pertussis Not Detected (Not Detecte); Chlamydophila pneumoniae Not Detected (Not Detect); Coronavirus 229E Not Detected (Not Detect); Coronavirus HKU1 Not Detected (Not Detect); Coronavirus NL 63 Not Detected (Not Detect); Coronavirus OC43 Not Detected (Not Detect); Human Metapneumovirus Not Detected (Not Detect); Human Rhinovirus/Enterovirus Not Detected (Not Detect); Influenza A Not Detected (Not Detect); Influenza B Not Detected (Not Detect); Mycoplasma pneumoniae Not Detected (Not Detect); Parainfluenza Virus 1 Not Detected (Not Detect); Parainfluenza Virus 2 Not Detected (Not Detect); Parainfluenza Virus 3 Not Detected (Not Detect); Parainfluenza Virus 4 Not Detected (Not Detect); Respiratory Syncytial Virus Not Detected (Not Detect); SARS- CoV-2 Not Detected (Not Detecte)
--- NOTE | 2023-05-12 13:11 | DI.RAD.S_ITS ---
PROCEDURE: XR SOFT TISSUE NECK INDICATIONS: Throat pain TECHNIQUE: 2 views of the neck were acquired. COMPARISON: None. FINDINGS: Airway: The airway appears patent. Soft tissues: Prevertebral soft tissues are normal in thickness. The epiglottis and aryepiglottic folds appear normal. No soft tissue gas. No radiodense foreign body. Bones: No suspicious bony lesions. Visualized cervical spine is normally aligned. IMPRESSION: No acute disease process. Dictated by: Stefanie Ambrocio MD, PhD on 05/12/2023 at 14:29 Approved by: Stefanie Ambrocio MD, PhD on 05/12/2023 at 14:30
--- NOTE | 2023-05-12 13:12 | ED_ITS ---
HPI - Neck Pain/Injury General Chief Complaint: Shortness of Breath/Dyspnea Stated Complaint: hard time breathing/shaking/headache Time Seen by Provider: 05/12/23 12:49 Mode of arrival: Wheelchair History of Present Illness HPI Narrative: Patient here for throat pain and trouble/difficulty swallowing/breathing. Ongoing for 2 days. Patient here last night for same complaint. Patient found to have hypokalemia which was corrected. Patient denies any chest pain. Has had some coughing. Patient in no distress at this time. Protecting airway. Not drooling. at bedside. Patient still has her tonsils. Related Data Home Medications Medication Instructions Recorded Confirmed fluticasone propionate 110 2 puff inhalation BID 05/12/23 05/12/23 mcg/actuation HFA aerosol inhaler (Flovent HFA) morphine 15 mg immediate release 7.5 - 15 mg PO Q4H PRN low back 05/12/23 tablet pain nitroglycerin 0.4 mg sublingual 0.4 mg sublingual PRN PRN Chest 05/12/2304/19 tablet Pain Previous Rx's Medication Instructions Recorded acetaminophen 325 mg tablet 650 mg PO Q6HR PRN Pain, Mild 06/05/22 (1-3) #60 tabs beclomethasone dipropionate 80 2 inh inhalation BID #1 g 06/10/22 mcg/actuation HFA breath activated aerosol (Qvar RediHaler) gabapentin 100 mg capsule 300 mg PO BEDTIME #30 caps 06/10/22 levothyroxine 50 mcg capsule 50 mcg PO DAILY #30 caps 06/10/22 pantoprazole 40 mg tablet,delayed 40 mg PO DAILY #30 tabs 06/10/22 release polyethylene glycol 3350 17 gram 17 gm PO DAILY #30 ea 06/10/22 oral powder packet prochlorperazine maleate 10 mg 1 tab PO TID PRN Nausea #90 tabs 06/10/22 tablet rivaroxaban 20 mg tablet (Xarelto) 20 mg PO DAILY #30 tabs 06/10/22 ropinirole 4 mg tablet 4 mg PO BEDTIME #30 tabs 06/10/22 rosuvastatin 40 mg tablet 40 mg PO BEDTIME #30 tabs 06/10/22 trazodone 50 mg tablet 50 mg PO BEDTIME #30 tabs 06/10/22 albuterol sulfate 2.5 mg/3 mL 2.5 mg (3 mL) inhalation Q4-6H PRN 09/17/22 (0.083 %) solution for nebulization shortness of breath or wheezing #75 mL prednisone 10 mg tablet 10 mg PO DAILY #20 tabs 09/17/22 carvedilol 25 mg tablet 25 mg PO BID #60 tabs 05/15/23 duloxetine 20 mg capsule,delayed 60 mg PO DAILY #30 caps 05/15/23 release (Cymbalta) lisinopril 2.5 mg tablet 2.5 mg PO DAILY #30 tabs 05/15/23 Allergies Allergy/AdvReac Type Severity Reaction Status Date / Time Iodine and Iodide Containing Allergy Severe pass out Verified 05/12/23 11:19 Produc [IODINE AND IODIDE CONTAINING PRODUC] amlodipine Allergy Intermediate Swelling Verified 05/12/23 11:19 of Lip/Tongue/Throat codeine [CODEINE] Allergy Intermediate HIVES, Verified 05/12/23 11:19 NAUSEA nitrofurantoin Allergy Mild Rash Verified 05/12/23 11:19 [NITROFURANTOIN] oxycodone AdvReac Hallucinati Verified 05/12/23 11:19 ng Review of Systems Review of Systems Narrative: GENERAL: negative chills, fatigue, malaise, fever, sweats. HEENT: negative sinus pain, ear pain, positive sore throat RESPIRATORY: Positive dyspnea, cough CARDIOVASCULAR: negative chest pain, palpitations GASTROINTESTINAL: negative nausea, vomiting, abdominal pain : negative dysuria, frequency, hematuria MUSCULOSKELETAL: negative muscle or bony pain SKIN: negative rash, skin lesions NEUROLOGIC: negative weakness, numbness ROS Unobtainable: All systems reviewed & are unremarkable except as noted in HPI and below Patient History Medical History (Updated 05/13/23 @ 04:49 by Elmer Lott MD) Afib Anesthesia complication Anxiety Asthma Chronic episodic atrial fibrillation Easy bruisability Gait instability GERD (gastroesophageal reflux disease) Heart murmur History of left heart catheterization (12/13/19) HLD (hyperlipidemia) Hypothyroidism Lumbar stenosis Palpitations Pre-diabetes Skin cancer Spondylolisthesis at L3-L4 level Surgical History H/O spinal fusion History of hysterectomy Hx of appendectomy Hx of bilateral cataract extraction (2020) Hx of cholecystectomy Hx of tubal ligation Family History Father Congestive heart failure Mother COPD (chronic obstructive pulmonary disease) Social History household members: spouse Smoking Status: Never smoker alcohol intake: never Smoking Status: Never smoker alcohol intake frequency: 0-2 drinks per day Substance Use Type: does not use Exam Narrative Exam Narrative: GENERAL: in no distress, not toxic not dyspneic HEAD: Normocephalic. EYES: Pupils equal round ENT: Mucous membranes moist. There is symmetric bilateral pharyngeal edema without erythema or exudates. The uvula is edematous. No midline shift. No tongue elevation no drooling. Patient maintaining airway. No submandibular tenderness. NECK: Trachea midline. CARDIOVASCULAR: Regular rate and rhythm without murmurs RESPIRATORY: Clear to auscultation. Breath sounds equal bilaterally. No wheezes, rales, or rhonchi. GASTROINTESTINAL: Abdomen soft, non-tender EXTREMITIES: No gross deformities. BACK: No flank tenderness. NEURO: AOx4. SKIN: Warm and dry PSYCH: Not anxious, is cooperative Initial Vital Signs Initial Vital Signs: Vital Signs Temperature 98.4 F 05/12/23 11:20 Pulse Rate 70 05/12/23 11:20 Respiratory Rate 18 05/12/23 11:20 Blood Pressure 162/70 H 05/12/23 11:20 Pulse Oximetry 97 05/12/23 11:20 Oxygen Delivery Method Room Air 05/12/23 11:20 Course Orders Ordered: Discontinued Medications Acetaminophen (Acetaminophen 325 Mg Tablet) 650 mg PO Q6H PRN PRN Reason: Fever/Mild Pain (1-3) Last Admin: 05/14/23 21:38 Dose: 650 mg Documented By: SR Hydrocodone Bitart/Acetaminophen (Hydrocodone/Acet 5/325 Tablet) 1 tab PO Q6H PRN PRN Reason: pain Last Admin: 05/14/23 11:42 Dose: 1 tab Documented By: Admin: 05/13/23 13:44 Dose: 1 tab Documented By: CEW Albuterol (Albuterol 2.5 Mg/3 Ml Neb (Adult)) 2.5 mg INH [id number] PRN PRN Reason: Wheezing Last Admin: 05/14/23 07:12 Dose: 2.5 mg Documented By: Admin: 05/13/23 19:58 Dose: 2.5 mg Documented By: LISETTE Benzocaine (Benzocaine/Menthol 1 Lorenzo Pkt) 1 each PO Q1HR PRN PRN Reason: Sore Throat Last Admin: 05/14/23 02:00 Dose: 1 each Documented By: Admin: 05/13/23 05:37 Dose: 1 each Documented By: Admin: 05/13/23 04:18 Dose: 1 each Documented By: Admin: 05/13/23 00:57 Dose: 1 each Documented By: KRISTA Benzonatate (Benzonatate 100 Mg Capsule) 200 mg PO BID PRN PRN Reason: cough Last Admin: 05/14/23 02:00 Dose: 200 mg Documented By: Admin: 05/13/23 07:54 Dose: 200 mg Documented By: LAURY Budesonide (Budesonide 0.5 Mg/2 Ml Neb) 0.5 mg INH RTBID [facility] Last Admin: 05/15/23 09:32 Dose: 0.5 mg Documented By: Admin: 05/14/23 20:07 Dose: 0.5 mg Documented By: Admin: 05/14/23 07:12 Dose: 0.5 mg Documented By: Admin: 05/13/23 19:58 Dose: 0.5 mg Documented By: Admin: 05/13/23 07:38 Dose: 0.5 mg Documented By: TAIWO Dexamethasone (Dexamethasone 10 Mg/Ml Vial) 10 mg IV DAILY [facility] Dexamethasone (Dexamethasone 10 Mg/Ml Vial) 10 mg IV DAILY [facility] Last Admin: 05/15/23 08:14 Dose: 10 mg Documented By: MARY GRACE Admin: 05/14/23 09:13 Dose: 10 mg Documented By: MARY GRACE Admin: 05/13/23 13:44 Dose: 10 mg Documented By: LAURY Dextrose (Dextrose 50 % In Water 25 Gm/50 Ml Syringe) 25 gm IV NOW ONE Stop: 05/12/23 19:08 Last Admin: 05/12/23 21:12 Dose: 25 gm Documented By: VALERIO Duloxetine HCl (Duloxetine 20 Mg Capsule) 60 mg PO DAILY [facility] Last Admin: 05/15/23 08:14 Dose: 60 mg Documented By: MARY GRACE Admin: 05/14/23 09:13 Dose: 60 mg Documented By: MAYR GRACE Admin: 05/13/23 08:22 Dose: 60 mg Documented By: LAURY Gabapentin (Gabapentin 100 Mg Capsule) 300 mg PO BEDTIME NARESH Last Admin: 05/12/23 21:12 Dose: 300 mg Documented By: VALERIO Gabapentin (Gabapentin 600 Mg Tablet) 600 mg PO BEDTIME NARESH Last Admin: 05/14/23 21:05 Dose: Not Given Documented By: Admin: 05/13/23 20:36 Dose: 600 mg Documented By: KRISTYN Dexamethasone 20 mg/ Sodium (Chloride) 52 mls @ 208 mls/hr IV NOW ONE Stop: 05/12/23 13:12 Last Infusion: 05/12/23 14:20 Dose: 0 mls/hr Documented By: Admin: 05/12/23 13:38 Dose: 208 mls/hr Documented By: SEAN Lactated Ringer's (Lactated Ringers) 500 mls @ 1,000 mls/hr IV BOLUS ONE Stop: 05/12/23 13:40 Last Infusion: 05/12/23 15:34 Dose: 1,000 mls/hr Documented By: Admin: 05/12/23 13:34 Dose: 1,000 mls/hr Documented By: SEAN Ceftriaxone Sodium 2,000 mg/ (Sodium Chloride) 100 mls @ 200 mls/hr IV NOW ONE Stop: 05/12/23 13:16 Last Infusion: 05/12/23 14:58 Dose: 0 mls/hr Documented By: Admin: 05/12/23 14:20 Dose: 200 mls/hr Documented By: SEAN Ampicillin Sodium/Sulbactam (Sodium 3 gm/ Sodium Chloride) 100 mls @ 200 mls/hr IV Q6H NARESH Stop: 05/15/23 18:29 Last Admin: 05/15/23 12:36 Dose: 200 mls/hr Documented By: MARY GRACE Infusion: 05/15/23 07:00 Dose: 0 mls/hr Documented By: MARY GRACE Admin: 05/15/23 06:25 Dose: 200 mls/hr Documented By: Infusion: 05/15/23 01:07 Dose: 200 mls/hr Documented By: Admin: 05/15/23 00:37 Dose: 200 mls/hr Documented By: Infusion: 05/14/23 18:26 Dose: 200 mls/hr Documented By: Admin: 05/14/23 17:14 Dose: 200 mls/hr Documented By: Infusion: 05/14/23 12:35 Dose: 0 mls/hr Documented By: Admin: 05/14/23 11:50 Dose: 200 mls/hr Documented By: Infusion: 05/14/23 09:13 Dose: 0 mls/hr Documented By: Admin: 05/14/23 05:50 Dose: 200 mls/hr Documented By: Infusion: 05/14/23 02:26 Dose: 200 mls/hr Documented By: Admin: 05/14/23 01:56 Dose: 200 mls/hr Documented By: Infusion: 05/13/23 20:25 Dose: 200 mls/hr Documented By: Admin: 05/13/23 19:55 Dose: 200 mls/hr Documented By: Infusion: 05/13/23 11:47 Dose: 200 mls/hr Documented By: Admin: 05/13/23 11:17 Dose: 200 mls/hr Documented By: Infusion: 05/13/23 06:07 Dose: 200 mls/hr Documented By: Admin: 05/13/23 05:37 Dose: 200 mls/hr Documented By: Infusion: 05/13/23 01:26 Dose: 200 mls/hr Documented By: Admin: 05/13/23 00:56 Dose: 200 mls/hr Documented By: Infusion: 05/12/23 20:34 Dose: 200 mls/hr Documented By: Admin: 05/12/23 20:04 Dose: 200 mls/hr Documented By: AKP Sodium Chloride (Normal Saline 0.9%) 1,000 mls @ 100 mls/hr IV CONT NARESH Stop: 05/13/23 05:59 Last Admin: 05/13/23 22:20 Dose: 100 mls/hr Documented By: Infusion: 05/13/23 06:14 Dose: 100 mls/hr Documented By: Admin: 05/12/23 20:14 Dose: 100 mls/hr Documented By: AKP Calcium Gluconate 9.3 meq/ (Sodium Chloride) 70 mls @ 140 mls/hr IV NOW ONE Stop: 05/12/23 19:36 Last Admin: 05/12/23 20:51 Dose: 140 mls/hr Documented By: VALERIO Sodium Chloride (Normal Saline 0.9%) 1,000 mls @ 100 mls/hr IV CONT NARESH Stop: 05/13/23 19:59 Last Admin: 05/13/23 11:17 Dose: 100 mls/hr Documented By: LAURY Sodium Chloride (Normal Saline 0.9%) 1,000 mls @ 100 mls/hr IV CONT NARESH Last Admin: 05/15/23 04:06 Dose: 100 mls/hr Documented By: Infusion: 05/15/23 03:15 Dose: 100 mls/hr Documented By: Admin: 05/14/23 17:15 Dose: 100 mls/hr Documented By: MARZENA Sodium Chloride (Normal Saline 0.9%) 1,000 mls @ 150 mls/hr IV CONT NARESH Last Admin: 05/15/23 09:37 Dose: 150 mls/hr Documented By: MARY GRACE Insulin Human Regular (Insulin Regular 100 Unit/Ml 3 Ml Vial) 10 unit IV NOW ONE Stop: 05/12/23 19:08 Last Admin: 05/12/23 21:14 Dose: 10 unit Documented By: VALERIO Co-signed By: Levothyroxine Sodium (Levothyroxine 50 Mcg Tablet) 50 mcg PO 0600 [facility] Last Admin: 05/15/23 06:25 Dose: 50 mcg Documented By: Admin: 05/14/23 06:01 Dose: 50 mcg Documented By: Admin: 05/13/23 05:37 Dose: 50 mcg Documented By: KRISTA Melatonin (Melatonin 3 Mg Tablet) 6 mg PO BEDTIME PRN PRN Reason: Insomnia Naloxone HCl (Naloxone 0.4 Mg/Ml Vial) 0.2 mg IV Q2MIN PRN PRN Reason: Opiate Reversal Ondansetron HCl (Ondansetron 4 Mg/2 Ml Inj) 4 mg IV Q8HR PRN PRN Reason: Nausea And Vomiting Last Admin: 05/14/23 22:59 Dose: 4 mg Documented By: SR Pantoprazole Sodium (Pantoprazole Dr 20 Mg Tablet) 40 mg PO 0600 [facility] Last Admin: 05/15/23 06:25 Dose: 40 mg Documented By: Admin: 05/14/23 06:01 Dose: 40 mg Documented By: Admin: 05/13/23 05:37 Dose: 40 mg Documented By: MW Polyethylene Glycol (Polyethylene Glycol 3350 17 Gm Powd.Pack) 17 gm PO DAILY PRN PRN Reason: Constipation Rivaroxaban (Rivaroxaban 10 Mg Tablet) 20 mg PO QPM [facility] Last Admin: 05/14/23 16:05 Dose: 20 mg Documented By: Admin: 05/13/23 19:55 Dose: 20 mg Documented By: NOEW Ropinirole HCl (Ropinirole 4 Mg Tablet) 4 mg PO BEDTIME NARESH Ropinirole HCl (Ropinirole 1 Mg Tablet) 4 mg PO BEDTIME [facility] Last Admin: 05/14/23 21:03 Dose: 4 mg Documented By: SR Sennosides (Sennosides 8.6 Mg Tablet) 8.6 mg PO BID PRN PRN Reason: Constipation Temazepam (Temazepam 15 Mg Capsule) 15 mg PO BEDTIME PRN PRN Reason: Sleep Last Admin: 05/14/23 23:31 Dose: 15 mg Documented By: SR Triamterene/Hydrochlorothiazide (Triamterene/Hctz 37.5/25 Capsule) 1 cap PO DAILY [facility] Last Admin: 05/15/23 11:33 Dose: 1 cap Documented By: MM Vital Signs Vital signs: Vital Signs - 8 hr 05/12/23 11:20 Temperature 98.4 F Pulse Rate 70 Respiratory Rate 18 Blood Pressure 162/70 H Pulse Oximetry 97 Oxygen Delivery Method Room Air MDM - Neck Pain/Injury Lab Data 05/15/23 04:47 05/15/23 11:35 Labs: Lab Results 05/12/23 05/12/23 05/12/23 Range/Units 10:30 11:30 11:30 WBC 9.1 (4.5-11.0) X10^3/uL RBC 3.01 L (4.0-5.2) X10^6/uL Hgb 9.0 L (12.0-16.0) g/dL Hct 26.5 L (36-46) % MCV 87.9 (80-100) fL MCH 30.0 (26-34) PG MCHC 34.2 (30-36) % RDW 15.4 H (11.6-14.8) % Plt Count 184 (150-400) X10^3/uL Neut % (Auto) 81.9 H (50-75) % Lymph % (Auto) 10.5 L (25-40) % [place] % (Auto) 6.7 (3-14) % Eos % (Auto) 0.7 L (2-4) % Baso % (Auto) 0.2 (0-2) % Neut # (Auto) 7400 H (4387-2373) /uL Lymph # (Auto) 1000 L (0646-7309) /uL [place] # (Auto) 600 (0-900) /uL Eos # (Auto) 100 (0-450) /uL Baso # (Auto) 0 (0-100) /uL PT (10.1-12.7) SECONDS INR (0.9-1.3) Sodium (137-145) mmol/L Potassium (3.4-5.1) mmol/L Chloride (98-107) mmol/L Carbon Dioxide (22-32) mmol/L BUN (7-17) mg/dL Creatinine (0.52-1.04) mg/dL Estimated GFR (>60) mL/min BUN/Creatinine Ratio (6-22) Glucose (80-110) mg/dL Lactate (0.7-2.1) mmol/L Calcium (8.4-10.2) mg/dL Total Bilirubin (0.2-1.3) mg/dL AST (14-36) IU/L ALT (<35) IU/L Alkaline Phosphatase (38-126) U/L Troponin I (0.01-0.034) ng/mL NT-Pro-B Natriuret Pep (<125) pg/mL Total Protein (6.3-8.2) g/dL Albumin (3.5-5.0) g/dL Globulin (1.7-4.1) g/dL Albumin/Globulin Ratio (1.0-2.8) Ur Random Sodium 45 (30-90) mmol/L Chlamy pneumoniae PCR Not detected (Not Detect) Adenovirus (PCR) Not detected (Not Detect) B. pertussis DNA (PCR) Not detected (Not Detecte) B.parapertussis DNA PCR Not detected (Not Detecte) Coronavirus OC43 (PCR) Not detected (Not Detect) Coronavirus HKU1 (PCR) Not detected (Not Detect) Coronavirus 229E (PCR) Not detected (Not Detect) SARS-CoV-2 (PCR) Not detected (Not Detecte) Coronavirus NL63 (PCR) Not detected (Not Detect) Human Metapneumovir PCR Not detected (Not Detect) Influenza Type A (PCR) Not detected (Not Detect) Influenza Type B (PCR) Not detected (Not Detect) M. pneumoniae (PCR) Not detected (Not Detect) Parainfluenza 1 (PCR) Not detected (Not Detect) Parainfluenza 2 (PCR) Not detected (Not Detect) Parainfluenza 3 (PCR) Not detected (Not Detect) Parainfluenza 4 (PCR) Not detected (Not Detect) RSV (PCR) Not detected (Not Detect) Entero/Rhino (PCR) Not detected (Not Detect) Group A Strep (PCR) (Negative) 05/12/23 05/12/23 05/12/23 Range/Units 11:30 11:30 11:30 WBC (4.5-11.0) X10^3/uL RBC (4.0-5.2) X10^6/uL Hgb (12.0-16.0) g/dL Hct (36-46) % MCV (80-100) fL MCH (26-34) PG MCHC (30-36) % RDW (11.6-14.8) % Plt Count (150-400) X10^3/uL Neut % (Auto) (50-75) % Lymph % (Auto) (25-40) % [place] % (Auto) (3-14) % Eos % (Auto) (2-4) % Baso % (Auto) (0-2) % Neut # (Auto) (8192-1326) /uL Lymph # (Auto) (1757-3798) /uL [place] # (Auto) (0-900) /uL Eos # (Auto) (0-450) /uL Baso # (Auto) (0-100) /uL PT 16.9 H D (10.1-12.7) SECONDS INR 1.5 H (0.9-1.3) Sodium 121 L (137-145) mmol/L Potassium 5.3 H (3.4-5.1) mmol/L Chloride 91 L (98-107) mmol/L Carbon Dioxide 22 (22-32) mmol/L BUN 29 H (7-17) mg/dL Creatinine 1.78 H (0.52-1.04) mg/dL Estimated GFR 30 L (>60) mL/min BUN/Creatinine Ratio 16.3 (6-22) Glucose 131 H (80-110) mg/dL Lactate 1.1 (0.7-2.1) mmol/L Calcium 8.1 L (8.4-10.2) mg/dL Total Bilirubin 0.3 (0.2-1.3) mg/dL AST 68 H (14-36) IU/L ALT 81 H (<35) IU/L Alkaline Phosphatase 128 H (38-126) U/L Troponin I < 0.012 (0.01-0.034) ng/mL NT-Pro-B Natriuret Pep 1090 H (<125) pg/mL Total Protein 7.1 (6.3-8.2) g/dL Albumin 4.1 (3.5-5.0) g/dL Globulin 3.0 (1.7-4.1) g/dL Albumin/Globulin Ratio 1.4 (1.0-2.8) Ur Random Sodium (30-90) mmol/L Chlamy pneumoniae PCR (Not Detect) Adenovirus (PCR) (Not Detect) B. pertussis DNA (PCR) (Not Detecte) B.parapertussis DNA PCR (Not Detecte) Coronavirus OC43 (PCR) (Not Detect) Coronavirus HKU1 (PCR) (Not Detect) Coronavirus 229E (PCR) (Not Detect) SARS-CoV-2 (PCR) (Not Detecte) Coronavirus NL63 (PCR) (Not Detect) Human Metapneumovir PCR (Not Detect) Influenza Type A (PCR) (Not Detect) Influenza Type B (PCR) (Not Detect) M. pneumoniae (PCR) (Not Detect) Parainfluenza 1 (PCR) (Not Detect) Parainfluenza 2 (PCR) (Not Detect) Parainfluenza 3 (PCR) (Not Detect) Parainfluenza 4 (PCR) (Not Detect) RSV (PCR) (Not Detect) Entero/Rhino (PCR) (Not Detect) Group A Strep (PCR) (Negative) 05/12/23 Range/Units 11:30 WBC (4.5-11.0) X10^3/uL RBC (4.0-5.2) X10^6/uL Hgb (12.0-16.0) g/dL Hct (36-46) % MCV (80-100) fL MCH (26-34) PG MCHC (30-36) % RDW (11.6-14.8) % Plt Count (150-400) X10^3/uL Neut % (Auto) (50-75) % Lymph % (Auto) (25-40) % [place] % (Auto) (3-14) % Eos % (Auto) (2-4) % Baso % (Auto) (0-2) % Neut # (Auto) (4550-4254) /uL Lymph # (Auto) (5701-6812) /uL [place] # (Auto) (0-900) /uL Eos # (Auto) (0-450) /uL Baso # (Auto) (0-100) /uL PT (10.1-12.7) SECONDS INR (0.9-1.3) Sodium (137-145) mmol/L Potassium (3.4-5.1) mmol/L Chloride (98-107) mmol/L Carbon Dioxide (22-32) mmol/L BUN (7-17) mg/dL Creatinine (0.52-1.04) mg/dL Estimated GFR (>60) mL/min BUN/Creatinine Ratio (6-22) Glucose (80-110) mg/dL Lactate (0.7-2.1) mmol/L Calcium (8.4-10.2) mg/dL Total Bilirubin (0.2-1.3) mg/dL AST (14-36) IU/L ALT (<35) IU/L Alkaline Phosphatase (38-126) U/L Troponin I (0.01-0.034) ng/mL NT-Pro-B Natriuret Pep (<125) pg/mL Total Protein (6.3-8.2) g/dL Albumin (3.5-5.0) g/dL Globulin (1.7-4.1) g/dL Albumin/Globulin Ratio (1.0-2.8) Ur Random Sodium (30-90) mmol/L Chlamy pneumoniae PCR (Not Detect) Adenovirus (PCR) (Not Detect) B. pertussis DNA (PCR) (Not Detecte) B.parapertussis DNA PCR (Not Detecte) Coronavirus OC43 (PCR) (Not Detect) Coronavirus HKU1 (PCR) (Not Detect) Coronavirus 229E (PCR) (Not Detect) SARS-CoV-2 (PCR) (Not Detecte) Coronavirus NL63 (PCR) (Not Detect) Human Metapneumovir PCR (Not Detect) Influenza Type A (PCR) (Not Detect) Influenza Type B (PCR) (Not Detect) M. pneumoniae (PCR) (Not Detect) Parainfluenza 1 (PCR) (Not Detect) Parainfluenza 2 (PCR) (Not Detect) Parainfluenza 3 (PCR) (Not Detect) Parainfluenza 4 (PCR) (Not Detect) RSV (PCR) (Not Detect) Entero/Rhino (PCR) (Not Detect) Group A Strep (PCR) Negative (Negative) Imaging Data CT soft tissue neck without contrast: Radiologist's Impression: [place] [address] CT Scan Report Signed Patient: Glenys Gottlieb MR#: [id number] : 1950 Acct:[id number] Age/Sex: 72 / F Date of Service: 05/12/23 Loc: Accession Number: [id number] ?? Procedure: CT soft tissue neck wo con Ordering Provider: Khoi Truong MD PROCEDURE:? CT SOFT TISSUE NECK WO CON ? INDICATIONS:? Throat swelling ? TECHNIQUE:? Non-contrast 3.0 mm axial sections acquired from the sella to the aortic arch.? Additional oblique axial 3.0 mm sections acquired through the pharynx.? 3 mm thick coronal and sagittal reformats were generated.? For radiation dose reduction, the following was used:? automated exposure control.? ? COMPARISON:? [facility], CT, CT CERVICAL SPINE WO CON, 05/11/2023, 0:44. ? FINDINGS:? Image quality:? Excellent.? ? Lymph nodes:? No enlarged lymph nodes seen throughout the neck.? ? Vessels:? Non-opacified vessels appear normal in caliber.? ? Neck spaces:? The oropharynx, nasopharynx, and pharynx demonstrate no mucosal lesions.? The vocal cords, false vocal cords, pyriform sinuses, epiglottis, vallecula, and tongue base all appear normal.? Extramucosal spaces appear unremarkable.? ? Glands:? The parotid and submandibular glands appear normal, without stones.? Thyroid gland is unremarkable .? ? Miscellaneous:? Visualized brain and orbits appear normal.? Lung apices appear clear.? Superficial soft tissues appear normal.? ? IMPRESSION:? No visualized cause of throat swelling.? No change compared to prior exam. ? ? Dictated by: Lilly Fofana M.D. on 05/12/2023 at 16:23 ? ? Approved by: Lilly Fofana M.D. on 05/12/2023 at 16:26 ? X-ray soft tissue neck: Radiologist's Impression: [place] [address] XRay Report Signed Patient: Glenys Gottlieb MR#: [id number] : 1950 Acct:[id number] Age/Sex: 72 / F Date of Service: 05/12/23 Loc: ED Accession Number: [id number] ?? Procedure: XR soft tissue neck Ordering Provider: Khoi Truong MD PROCEDURE:? XR SOFT TISSUE NECK ? INDICATIONS:? Throat pain ? TECHNIQUE:? 2 views of the neck were acquired.? ? COMPARISON:? None. ? FINDINGS:? ? Airway:? The airway appears patent.? ? Soft tissues:? Prevertebral soft tissues are normal in thickness.? The epiglottis and aryepiglottic folds appear normal.? No soft tissue gas.? No radiodense foreign body.? ? Bones:? No suspicious bony lesions.? Visualized cervical spine is normally aligned.? ? IMPRESSION:? No acute disease process. ? ? Dictated by: Stefanie Ambrocio MD, PhD on 05/12/2023 at 14:29 ? ? Approved by: Stefanie Ambrocio MD, PhD on 05/12/2023 at 14:30 ? Chest x-ray: Radiologist's Impression: [address] [address] XRay Report Signed Patient: Glenys Gottlieb MR#: [id number] : 1950 Acct:[id number] Age/Sex: 72 / F Date of Service: 05/12/23 Loc: ED Accession Number: [id number] ?? Procedure: XR chest 1V Ordering Provider: Khoi Truong MD PROCEDURE:? XR CHEST 1V ? INDICATIONS:? Shortness of breath ? TECHNIQUE:? One view of the chest was acquired.? ? COMPARISON:? [facility], CR, XR CHEST 1V, 05/10/2023, 23:38.? [facility], CR, XR CHEST 2V, 09/10/2022, 22:47. ? FINDINGS:? ? Surgical changes and devices:? None.? ? Lungs and pleura:? Possible trace right infrahilar opacity.? No pleural effusion. ? Mediastinum:? Normal heart size. ? Bones and chest wall:? No suspicious bony lesions.? Overlying soft tissues appear unremarkable.? ? IMPRESSION:? Possible mild right infrahilar opacity, representing atelectasis or early airspace disease.? Consider future imaging surveillance to assess for resolution. ? ? ? Dictated by: Roman Soriano M.D. on 05/12/2023 at 13:17 ? ? Approved by: Roman Soriano M.D. on 05/12/2023 at 13:18 ? MDM Narrative Medical decision making narrative: Patient here for throat pain and trouble/difficulty swallowing/breathing. Ongoing for 2 days. Patient here last night for same complaint. Patient found to have hypokalemia which was corrected. Patient denies any chest pain. Has had some coughing. Patient in no distress at this time. Protecting airway. Not drooling. at bedside. Patient still has her tonsils. After history and exam x-ray chest x-ray soft tissue neck CBC CMP viral swab strep screen Decadron normal saline MDM CC: Throat pain Complicating co-morbidities: Atrial fibrillation Data collected from: Patient and spouse Medical records reviewed: ER notes here from yesterday Differential considered: Includes but not limited to strep throat peritonsillar abscess retropharyngeal abscess Exam documented above, pertinent findings include: Pharyngeal erythema edema Lab Test results independently reviewed as above. Pertinent findings: Negative viral swab negative strep screen, INR 1.5 sodium 121 potassium 5.3 WBC 9.1 Independently reviewed EKG normal sinus rhythm rate [address] elevation or depression Imaging studies independently reviewed: Chest x-ray possible mild right infrahilar opacity X-ray soft tissue neck no acute process CT soft tissues neck without contrast no acute findings Consultations: 3:[address] Weathers, hospitalist, agrees to admit but would like CT soft tissue neck and ENT to review results 3:[address] Mickey Haley, ENT, he will reviewed CT of soft tissue neck once completed. Agrees with treatment plan with Decadron and Rocephin. Treatments: Decadron Rocephin normal saline Re-evaluations: 2:49 p.m.. Updated patient and family results and they do agree for admission. Airway intact. No drooling. No respiratory distress. Discussion: Appropriate for admission for hyponatremia hyperkalemia and pharyngitis, airways intact but will need close observation. Steroids have been started. Antibiotics have been started. Fluids provided for hypokalemia and hyponatremia Diagnosis: Pharyngitis hyponatremia hyperkalemia Discharge Plan Departure Patient Disposition: Admitted as Observation Clinical Impression: Pharyngitis, Acute hyponatremia, Acute hyperkalemia Admit Date/Time: 05/12/23 17:02 Admit Provider: Delon Weathers
[2023-05-12] MEDS: LACTATED RINGERS 500 ML 1000 ML IV (13:34)
[2023-05-12] MEDS: dexAMETHasone 20 MG in SODIUM CHLORIDE 0.9% 50 ML 208 MG IV (13:38)
[2023-05-12] MEDS: cefTRIAXone 2,000 MG in SODIUM CHLORIDE 0.9% 100 ML 200 MG IV (14:20)
--- NOTE | 2023-05-12 15:37 | DI.CT.S_ITS ---
PROCEDURE: CT SOFT TISSUE NECK WO CON INDICATIONS: Throat swelling TECHNIQUE: Non-contrast 3.0 mm axial sections acquired from the sella to the aortic arch. Additional oblique axial 3.0 mm sections acquired through the pharynx. 3 mm thick coronal and sagittal reformats were generated. For radiation dose reduction, the following was used: automated exposure control. COMPARISON: [facility], CT, CT CERVICAL SPINE WO CON, 05/11/2023, 0:44. FINDINGS: Image quality: Excellent. Lymph nodes: No enlarged lymph nodes seen throughout the neck. Vessels: Non-opacified vessels appear normal in caliber. Neck spaces: The oropharynx, nasopharynx, and pharynx demonstrate no mucosal lesions. The vocal cords, false vocal cords, pyriform sinuses, epiglottis, vallecula, and tongue base all appear normal. Extramucosal spaces appear unremarkable. Glands: The parotid and submandibular glands appear normal, without stones. Thyroid gland is unremarkable . Miscellaneous: Visualized brain and orbits appear normal. Lung apices appear clear. Superficial soft tissues appear normal. IMPRESSION: No visualized cause of throat swelling. No change compared to prior exam. Dictated by: Lilly Fofana M.D. on 05/12/2023 at 16:23 Approved by: Lilly Fofana M.D. on 05/12/2023 at 16:26
--- NOTE | 2023-05-12 17:42 | PC.NURSE ---
BOXING TRAINER NOTE: rolanda placed pt education given
[2023-05-12 18:00] VITALS: BP 183/79; PULSE 72; RESP 20; TEMP 35.9; O2SAT 98
[2023-05-12 18:40] LABS: Add Manual Diff / Slide Review NO; Basophils Absolute Auto 0 /uL (0-100); Basophils Percent Auto 0.1 % (0-2); Eosinophils Absolute Auto 0 /uL (0-450); Eosinophils Percent Auto 0.2 % (2-4); Hematocrit 27.9 % (36-46); Hemoglobin 9.5 g/dL (12.0-16.0); Lymphocytes Absolute Auto 500 /uL (1100-4500); Lymphocytes Percent Auto 6.2 % (25-40); Mean Corpuscular HGB Conc 34.2 % (30-36); Mean Corpuscular Volume 87.9 fL (80-100); Monocytes Absolute Auto 100 /uL (0-900); Monocytes Percent Auto 0.9 % (3-14); Neutrophils Absolute Auto 8000 /uL (1500-7000); Neutrophils Percent Auto 92.6 % (50-75); Platelet Count 188 X10^3/uL (150-400); Red Blood Cell Count 3.18 X10^6/uL (4.0-5.2); Red Cell Distribution Width 15.6 % (11.6-14.8); White Blood Cell Count 8.7 X10^3/uL (4.5-11.0)
[2023-05-12 18:53] VITALS: BMI 28.3
[2023-05-12 18:54] LABS: Alanine Aminotransferase 77 IU/L (<35); Albumin 4.2 g/dL (3.5-5.0); Albumin Globulin Ratio 1.3 (1.0-2.8); Alkaline Phosphatase 125 U/L (38-126); Aspartate Aminotransferase 64 IU/L (14-36); BUN Creatinine Ratio 17.2 (6-22); Bilirubin Total 0.3 mg/dL (0.2-1.3); Blood Urea Nitrogen 28 mg/dL (7-17); Calcium 8.4 mg/dL (8.4-10.2); Carbon Dioxide 21 mmol/L (22-32); Chloride 93 mmol/L (98-107); Estimated Glomerular Filt Rate 34 mL/min (>60); Globulin 3.3 g/dL (1.7-4.1); Glucose 158 mg/dL (80-110); HEMOLYSIS < 15 (0-50); Sodium 124 mmol/L (137-145); Total Protein 7.5 g/dL (6.3-8.2)
[2023-05-12 18:55] LABS: Potassium 5.5 mmol/L (3.4-5.1)
[2023-05-12] MEDS: SODIUM ZIRCONIUM CYCLOSILICATE 10 GM POWD.PACK PO (19:04)
[2023-05-12 19:24] LABS: TSH w/ Reflex to FT4 0.68 uIU/mL (0.47-4.68)
[2023-05-12 19:55] VITALS: BP 127/67; PULSE 69; RESP 18; TEMP 35.9; O2SAT 95
[2023-05-12] MEDS: AMPICILLIN/SULBACTAM 3 GM 3 GM in SODIUM CHLORIDE 0.9% 100 ML IV (20:04)
[2023-05-12] MEDS: SODIUM CHLORIDE 0.9% 1,000 ML 100 ML IV (20:14)
[2023-05-12 20:22] LABS: Sodium Urine Random 45 mmol/L (30-90)
[2023-05-12] MEDS: CALCIUM GLUCONATE 9.3 MEQ in SODIUM CHLORIDE 0.9% 50 ML 140 MEQ IV (20:51)
[2023-05-12] MEDS: GABAPENTIN 100 MG CAPSULE 300 MG PO (21:12)
[2023-05-12] MEDS: DEXTROSE 50 % IN WATER 25 GM/50 ML SYRINGE IV (21:12)
[2023-05-12] MEDS: INSULIN REGULAR 100 UNIT/ML 3 ML VIAL 10 UNIT IV (21:14)
[2023-05-13] VITALS (8 sets, daily range): BP systolic 132–176; BP diastolic 54–74; PULSE 57–77; RESP 16–20; TEMP 35.8–37.2; O2SAT 95–98
--- NOTE | 2023-05-13 00:24 | P.HP_ITS ---
History of Present Illness History of Present Illness Chief complaint: hard time breathing/shaking/headache Narrative: 72 y/o presents to ED with complaints on 2 days of sore throat, dysphagia, shortness of breath, cough. Diagnosed with pharyngitis, treated with steroid and abx. Workup additionally revealed hyperkalemia and hyponatremia. [facility] Medical History (Updated 05/13/23 @ 04:49 by Elmer Lott MD) Afib Anesthesia complication Anxiety Asthma Chronic episodic atrial fibrillation Easy bruisability Gait instability GERD (gastroesophageal reflux disease) Heart murmur History of left heart catheterization (12/13/19) HLD (hyperlipidemia) Hypothyroidism Lumbar stenosis Palpitations Pre-diabetes Skin cancer Spondylolisthesis at L3-L4 level Surgical History H/O spinal fusion History of hysterectomy Hx of appendectomy Hx of bilateral cataract extraction (2020) Hx of cholecystectomy Hx of tubal ligation Family History Father Congestive heart failure Mother COPD (chronic obstructive pulmonary disease) Social History household members: spouse Smoking Status: Never smoker alcohol intake: never Meds Home Medications and Allergies Home Medications Medication Instructions Recorded Confirmed Type acetaminophen 325 mg tablet 650 mg PO Q6HR PRN Pain, Mild 06/05/22 05/12/23 Rx (1-3) #60 tabs beclomethasone dipropionate 80 2 inh inhalation BID #1 g 06/10/22 05/12/23 Rx mcg/actuation HFA breath activated aerosol (Qvar RediHaler) carvedilol 12.5 mg tablet 12.5 mg PO BID #60 tabs 06/10/22 05/12/23 Rx gabapentin 100 mg capsule 300 mg PO BEDTIME #30 caps 06/10/22 05/12/23 Rx levothyroxine 50 mcg capsule 50 mcg PO DAILY #30 caps 06/10/22 05/12/23 Rx lisinopril 5 mg tablet 5 mg PO BEDTIME #30 tabs 06/10/22 05/12/23 Rx pantoprazole 40 mg tablet,delayed 40 mg PO DAILY #30 tabs 06/10/22 05/12/23 Rx release polyethylene glycol 3350 17 gram 17 gm PO DAILY #30 ea 06/10/22 05/12/23 Rx oral powder packet prochlorperazine maleate 10 mg 1 tab PO TID PRN Nausea #90 tabs 06/10/22 05/12/23 Rx tablet rivaroxaban 20 mg tablet (Xarelto) 20 mg PO DAILY #30 tabs 06/10/22 05/12/23 Rx ropinirole 4 mg tablet 4 mg PO BEDTIME #30 tabs 06/10/22 05/12/23 Rx rosuvastatin 40 mg tablet 40 mg PO BEDTIME #30 tabs 06/10/22 05/12/23 Rx spironolactone 25 mg tablet 25 mg PO DAILY #30 tabs 06/10/22 05/12/23 Rx trazodone 50 mg tablet 50 mg PO BEDTIME #30 tabs 06/10/22 05/12/23 Rx albuterol sulfate 2.5 mg/3 mL 2.5 mg (3 mL) inhalation Q4-6H PRN 09/17/22 Rx (0.083 %) solution for nebulization shortness of breath or wheezing #75 mL prednisone 10 mg tablet 10 mg PO DAILY #20 tabs 09/17/22 05/12/23 Rx fluticasone propionate 110 2 puff inhalation BID 05/12/23 05/12/23 History mcg/actuation HFA aerosol inhaler (Flovent HFA) morphine 15 mg immediate release 7.5 - 15 mg PO Q4H PRN low back 05/12/23 05/12/23 History tablet pain nitroglycerin 0.4 mg sublingual 0.4 mg sublingual PRN PRN Chest 05/12/23 05/12/23 History tablet Pain Allergies Allergy/AdvReac Type Severity Reaction Status Date / Time Iodine and Iodide Containing Allergy Severe pass out Verified 05/12/23 11:19 Produc [IODINE AND IODIDE CONTAINING PRODUC] amlodipine Allergy Intermediate Swelling Verified 05/12/23 11:19 of Lip/Tongue/Throat codeine [CODEINE] Allergy Intermediate HIVES, Verified 05/12/23 11:19 NAUSEA nitrofurantoin Allergy Mild Rash Verified 05/12/23 11:19 [NITROFURANTOIN] oxycodone AdvReac Hallucinati Verified 05/12/23 11:19 ng Review of Systems ENT Ears, Nose, Mouth, and Throat: Yes dysphagia, Yes mouth lesions, Yes odynophagia, Yes sore throat and Yes throat swelling Cardiovascular Cardiovascular: Reports dyspnea Respiratory Respiratory: Reports cough and Reports dyspnea Gastrointestinal Gastrointestinal: Reports dysphagia and Reports odynophagia Allergic/Immunologic Allergic/Immunologic: Reports throat swelling Exam Vital Signs (past 8 hours): - 05/12/23 18:00 05/12/23 20:57 05/12/23 19:55 Temperature 96.7 F L 96.6 F L Pulse Rate 72 69 Respiratory Rate 20 18 Blood Pressure 183/79 H 127/67 Pulse Oximetry 98 95 Oxygen Delivery Method Room Air Oxygen Flow Rate 0 0 Oxygen Delivery Method Room Air Oxygen Flow Rate 0 HENMT Head: normocephalic Other: pharyngeal erythema Neck Neck: normal visual inspection Resp Auscultation: clear to auscultation bilaterally Cardio Rate: regular rate Rhythm: regular rhythm GI Inspection: normal to inspection Skin General: no rashes or lesions noted Neuro General: patient oriented x3 Psych Appearance: grossly normal Objective Labs 05/12/23 18:14 05/13/23 00:50 Labs: Laboratory Results - last 24 hr 05/12/23 05/12/23 05/12/23 10:30 11:30 11:30 WBC 9.1 RBC 3.01 L Hgb 9.0 L Hct 26.5 L MCV 87.9 MCH 30.0 MCHC 34.2 RDW 15.4 H Plt Count 184 Neut % (Auto) 81.9 H Lymph % (Auto) 10.5 L [place] % (Auto) 6.7 Eos % (Auto) 0.7 L Baso % (Auto) 0.2 Neut # (Auto) 7400 H Lymph # (Auto) 1000 L [place] # (Auto) 600 Eos # (Auto) 100 Baso # (Auto) 0 PT INR Sodium Potassium Chloride Carbon Dioxide BUN Creatinine Estimated GFR BUN/Creatinine Ratio Glucose Lactate Calcium Total Bilirubin AST ALT Alkaline Phosphatase Troponin I NT-Pro-B Natriuret Pep Total Protein Albumin Globulin Albumin/Globulin Ratio TSH Ur Random Sodium 45 Chlamy pneumoniae PCR Not detected Adenovirus (PCR) Not detected B. pertussis DNA (PCR) Not detected B.parapertussis DNA PCR Not detected Coronavirus OC43 (PCR) Not detected Coronavirus HKU1 (PCR) Not detected Coronavirus 229E (PCR) Not detected SARS-CoV-2 (PCR) Not detected Coronavirus NL63 (PCR) Not detected Human Metapneumovir PCR Not detected Influenza Type A (PCR) Not detected Influenza Type B (PCR) Not detected M. pneumoniae (PCR) Not detected Parainfluenza 1 (PCR) Not detected Parainfluenza 2 (PCR) Not detected Parainfluenza 3 (PCR) Not detected Parainfluenza 4 (PCR) Not detected RSV (PCR) Not detected Entero/Rhino (PCR) Not detected Group A Strep (PCR) 05/12/23 05/12/23 05/12/23 11:30 11:30 11:30 WBC RBC Hgb Hct MCV MCH MCHC RDW Plt Count Neut % (Auto) Lymph % (Auto) [place] % (Auto) Eos % (Auto) Baso % (Auto) Neut # (Auto) Lymph # (Auto) [place] # (Auto) Eos # (Auto) Baso # (Auto) PT 16.9 H D INR 1.5 H Sodium 121 L Potassium 5.3 H Chloride 91 L Carbon Dioxide 22 BUN 29 H Creatinine 1.78 H Estimated GFR 30 L BUN/Creatinine Ratio 16.3 Glucose 131 H Lactate 1.1 Calcium 8.1 L Total Bilirubin 0.3 AST 68 H ALT 81 H Alkaline Phosphatase 128 H Troponin I < 0.012 NT-Pro-B Natriuret Pep 1090 H Total Protein 7.1 Albumin 4.1 Globulin 3.0 Albumin/Globulin Ratio 1.4 TSH Ur Random Sodium Chlamy pneumoniae PCR Adenovirus (PCR) B. pertussis DNA (PCR) B.parapertussis DNA PCR Coronavirus OC43 (PCR) Coronavirus HKU1 (PCR) Coronavirus 229E (PCR) SARS-CoV-2 (PCR) Coronavirus NL63 (PCR) Human Metapneumovir PCR Influenza Type A (PCR) Influenza Type B (PCR) M. pneumoniae (PCR) Parainfluenza 1 (PCR) Parainfluenza 2 (PCR) Parainfluenza 3 (PCR) Parainfluenza 4 (PCR) RSV (PCR) Entero/Rhino (PCR) Group A Strep (PCR) 05/12/23 05/12/23 05/12/23 11:30 18:14 18:14 WBC 8.7 RBC 3.18 L Hgb 9.5 L Hct 27.9 L MCV 87.9 MCH 30.0 MCHC 34.2 RDW 15.6 H Plt Count 188 Neut % (Auto) 92.6 H Lymph % (Auto) 6.2 L [place] % (Auto) 0.9 L Eos % (Auto) 0.2 L Baso % (Auto) 0.1 Neut # (Auto) 8000 H Lymph # (Auto) 500 L [place] # (Auto) 100 Eos # (Auto) 0 Baso # (Auto) 0 PT INR Sodium Potassium Chloride Carbon Dioxide BUN Creatinine Estimated GFR BUN/Creatinine Ratio Glucose Lactate Calcium Total Bilirubin AST ALT Alkaline Phosphatase Troponin I NT-Pro-B Natriuret Pep Total Protein Albumin Globulin Albumin/Globulin Ratio TSH 0.68 Ur Random Sodium Chlamy pneumoniae PCR Adenovirus (PCR) B. pertussis DNA (PCR) B.parapertussis DNA PCR Coronavirus OC43 (PCR) Coronavirus HKU1 (PCR) Coronavirus 229E (PCR) SARS-CoV-2 (PCR) Coronavirus NL63 (PCR) Human Metapneumovir PCR Influenza Type A (PCR) Influenza Type B (PCR) M. pneumoniae (PCR) Parainfluenza 1 (PCR) Parainfluenza 2 (PCR) Parainfluenza 3 (PCR) Parainfluenza 4 (PCR) RSV (PCR) Entero/Rhino (PCR) Group A Strep (PCR) Negative 05/12/23 18:14 WBC RBC Hgb Hct MCV MCH MCHC RDW Plt Count Neut % (Auto) Lymph % (Auto) [place] % (Auto) Eos % (Auto) Baso % (Auto) Neut # (Auto) Lymph # (Auto) [place] # (Auto) Eos # (Auto) Baso # (Auto) PT INR Sodium 124 L Potassium 5.5 H Chloride 93 L Carbon Dioxide 21 L BUN 28 H Creatinine 1.63 H Estimated GFR 34 L BUN/Creatinine Ratio 17.2 Glucose 158 H Lactate Calcium 8.4 Total Bilirubin 0.3 AST 64 H ALT 77 H Alkaline Phosphatase 125 Troponin I NT-Pro-B Natriuret Pep Total Protein 7.5 Albumin 4.2 Globulin 3.3 Albumin/Globulin Ratio 1.3 TSH Ur Random Sodium Chlamy pneumoniae PCR Adenovirus (PCR) B. pertussis DNA (PCR) B.parapertussis DNA PCR Coronavirus OC43 (PCR) Coronavirus HKU1 (PCR) Coronavirus 229E (PCR) SARS-CoV-2 (PCR) Coronavirus NL63 (PCR) Human Metapneumovir PCR Influenza Type A (PCR) Influenza Type B (PCR) M. pneumoniae (PCR) Parainfluenza 1 (PCR) Parainfluenza 2 (PCR) Parainfluenza 3 (PCR) Parainfluenza 4 (PCR) RSV (PCR) Entero/Rhino (PCR) Group A Strep (PCR) Assessment & Plan Assessment and plan (1) Pharyngitis: Status: Acute (2) Acute kidney injury: Status: Acute (3) Acute hyponatremia: Status: Acute (4) Acute hyperkalemia: Status: Acute (5) Acute metabolic encephalopathy: Status: Acute (6) Afib: Status: Acute (7) GERD (gastroesophageal reflux disease): Status: Acute (8) Hypothyroidism: Status: Acute Assessment & Plan narrative: 1. Pharyngitis - Unasyn - w/o stridor - no need for additional steroid 2. HANNY - IVFs 3. A-fib - Xarelto 4. GERD - PPI 5. Hypothyroidism - levothyroxine 6. LBP - Cymbalta, gabapentin
[2023-05-13] MEDS: AMPICILLIN/SULBACTAM 3 GM 3 GM in SODIUM CHLORIDE 0.9% 100 ML IV ×4 (00:56→19:55)
[2023-05-13] MEDS: BENZOCAINE/MENTHOL 1 LOZ PKT 1 EACH PO ×3 (00:57→05:37)
[2023-05-13 01:08] LABS: BUN Creatinine Ratio 15.5 (6-22); Blood Urea Nitrogen 29 mg/dL (7-17); Calcium 8.7 mg/dL (8.4-10.2); Carbon Dioxide 22 mmol/L (22-32); Chloride 95 mmol/L (98-107); Estimated Glomerular Filt Rate 28 mL/min (>60); Glucose 118 mg/dL (80-110); HEMOLYSIS < 15 (0-50); Sodium 124 mmol/L (137-145)
[2023-05-13 01:14] LABS: Potassium 5.8 mmol/L (3.4-5.1)
[2023-05-13] MEDS: LEVOTHYROXINE 50 MCG TABLET PO (05:37)
[2023-05-13] MEDS: PANTOPRAZOLE DR 20 MG TABLET 40 MG PO (05:37)
[2023-05-13 06:36] LABS: Add Manual Diff / Slide Review NO; Basophils Absolute Auto 0 /uL (0-100); Basophils Percent Auto 0.1 % (0-2); Eosinophils Absolute Auto 0 /uL (0-450); Hematocrit 26.2 % (36-46); Hemoglobin 8.9 g/dL (12.0-16.0); Lymphocytes Absolute Auto 500 /uL (1100-4500); Lymphocytes Percent Auto 8.3 % (25-40); Mean Corpuscular HGB Conc 34.1 % (30-36); Mean Corpuscular Volume 88.2 fL (80-100); Monocytes Absolute Auto 100 /uL (0-900); Monocytes Percent Auto 1.2 % (3-14); Neutrophils Absolute Auto 5500 /uL (1500-7000); Neutrophils Percent Auto 90.4 % (50-75); Platelet Count 165 X10^3/uL (150-400); Red Blood Cell Count 2.97 X10^6/uL (4.0-5.2); Red Cell Distribution Width 16.1 % (11.6-14.8)
[2023-05-13 06:58] LABS: BUN Creatinine Ratio 17.6 (6-22); Blood Urea Nitrogen 28 mg/dL (7-17); Calcium 8.4 mg/dL (8.4-10.2); Carbon Dioxide 20 mmol/L (22-32); Chloride 95 mmol/L (98-107); Estimated Glomerular Filt Rate 35 mL/min (>60); Glucose 152 mg/dL (80-110); HEMOLYSIS < 15 (0-50); Potassium 5.3 mmol/L (3.4-5.1); Sodium 124 mmol/L (137-145)
--- NOTE | 2023-05-13 07:00 | PM.HP.1 ---
History of Present Illness History of Present Illness Date Patient Seen: 05/13/23 Chief complaint: hard time breathing/shaking/headache Narrative: 72 y/o presents to ED with complaints on 2 days of sore throat, dysphagia, shortness of breath, cough. Diagnosed with pharyngitis, treated with steroid and abx. Workup additionally revealed hyperkalemia and hyponatremia. [facility] Medical History (Updated 05/13/23 @ 04:49 by Elmer Lott MD) Afib Anesthesia complication Anxiety Asthma Chronic episodic atrial fibrillation Easy bruisability Gait instability GERD (gastroesophageal reflux disease) Heart murmur History of left heart catheterization (12/13/19) HLD (hyperlipidemia) Hypothyroidism Lumbar stenosis Palpitations Pre-diabetes Skin cancer Spondylolisthesis at L3-L4 level Surgical History H/O spinal fusion History of hysterectomy Hx of appendectomy Hx of bilateral cataract extraction (2020) Hx of cholecystectomy Hx of tubal ligation Family History Father Congestive heart failure Mother COPD (chronic obstructive pulmonary disease) Social History household members: spouse Smoking Status: Never smoker alcohol intake: never Meds Home Medications and Allergies Home Medications Medication Instructions Recorded Confirmed Type acetaminophen 325 mg tablet 650 mg PO Q6HR PRN Pain, Mild 06/05/22 05/12/23 Rx (1-3) #60 tabs beclomethasone dipropionate 80 2 inh inhalation BID #1 g 06/10/22 05/12/23 Rx mcg/actuation HFA breath activated aerosol (Qvar RediHaler) carvedilol 12.5 mg tablet 12.5 mg PO BID #60 tabs 06/10/22 05/12/23 Rx gabapentin 100 mg capsule 300 mg PO BEDTIME #30 caps 06/10/22 05/12/23 Rx levothyroxine 50 mcg capsule 50 mcg PO DAILY #30 caps 06/10/22 05/12/23 Rx lisinopril 5 mg tablet 5 mg PO BEDTIME #30 tabs 06/10/22 05/12/23 Rx pantoprazole 40 mg tablet,delayed 40 mg PO DAILY #30 tabs 06/10/22 05/12/23 Rx release polyethylene glycol 3350 17 gram 17 gm PO DAILY #30 ea 06/10/22 05/12/23 Rx oral powder packet prochlorperazine maleate 10 mg 1 tab PO TID PRN Nausea #90 tabs 06/10/22 05/12/23 Rx tablet rivaroxaban 20 mg tablet (Xarelto) 20 mg PO DAILY #30 tabs 06/10/22 05/12/23 Rx ropinirole 4 mg tablet 4 mg PO BEDTIME #30 tabs 06/10/22 05/12/23 Rx rosuvastatin 40 mg tablet 40 mg PO BEDTIME #30 tabs 06/10/22 05/12/23 Rx spironolactone 25 mg tablet 25 mg PO DAILY #30 tabs 06/10/22 05/12/23 Rx trazodone 50 mg tablet 50 mg PO BEDTIME #30 tabs 06/10/22 05/12/23 Rx albuterol sulfate 2.5 mg/3 mL 2.5 mg (3 mL) inhalation Q4-6H PRN 09/17/22 05/12/23 Rx (0.083 %) solution for nebulization shortness of breath or wheezing #75 mL prednisone 10 mg tablet 10 mg PO DAILY #20 tabs 09/17/22 05/12/23 Rx fluticasone propionate 110 2 puff inhalation BID 05/12/23 05/12/23 History mcg/actuation HFA aerosol inhaler (Flovent HFA) morphine 15 mg immediate release 7.5 - 15 mg PO Q4H PRN low back 05/12/23 05/12/23 History tablet pain nitroglycerin 0.4 mg sublingual 0.4 mg sublingual PRN PRN Chest 05/12/23 05/12/23 History tablet Pain Allergies Allergy/AdvReac Type Severity Reaction Status Date / Time Iodine and Iodide Containing Allergy Severe pass out Verified 05/12/23 11:19 Produc [IODINE AND IODIDE CONTAINING PRODUC] amlodipine Allergy Intermediate Swelling Verified 05/12/23 11:19 of Lip/Tongue/Throat codeine [CODEINE] Allergy Intermediate HIVES, Verified 05/12/23 11:19 NAUSEA nitrofurantoin Allergy Mild Rash Verified 05/12/23 11:19 [NITROFURANTOIN] oxycodone AdvReac Hallucinati Verified 05/12/23 11:19 ng Review of Systems Review of Systems Narrative: All other systems reviewed with the patient and are negative unless otherwise stated. Exam Vital Signs (past 8 hours): - 05/13/23 11:00 05/13/23 15:00 Temperature 97.2 F L Pulse Rate 68 66 Respiratory Rate 16 16 Blood Pressure 147/70 H 176/74 H Pulse Oximetry 96 98 Oxygen Flow Rate 0 0 Fraction of Inspired Oxygen 21 SaO2/FiO2 Ratio 461 Oxygen Delivery Method Room Air Oxygen Flow Rate 0 Narrative Exam Narrative: GEN: no acute distress HEENT: moist mucous membranes, PERRL, expiratory stridor present only when breathing out through mouth, pharyngeal edema present NECK: trachea midline, no JVD CV: regular rate and rhythm, no murmurs PULM: clear bilaterally ABD: soft, nontender, nondistended, no organomegaly EXT: warm and well perfused with no edema NEURO: awake, alert, oriented, no focal deficits Objective Labs 05/13/23 06:20 05/13/23 18:05 Labs: Laboratory Results - last 24 hr 05/12/23 05/12/23 05/13/23 10:30 18:14 00:50 WBC RBC Hgb Hct MCV MCH MCHC RDW Plt Count Neut % (Auto) Lymph % (Auto) [place] % (Auto) Eos % (Auto) Baso % (Auto) Neut # (Auto) Lymph # (Auto) [place] # (Auto) Eos # (Auto) Baso # (Auto) Sodium 124 L Potassium 5.8 H Chloride 95 L Carbon Dioxide 22 BUN 29 H Creatinine 1.87 H Estimated GFR 28 L BUN/Creatinine Ratio 15.5 Glucose 118 H Calcium 8.7 TSH 0.68 Cortisol AM Sample Ur Random Sodium 45 05/13/23 05/13/23 05/13/23 06:20 06:20 06:20 WBC 6.0 RBC 2.97 L Hgb 8.9 L Hct 26.2 L MCV 88.2 MCH 30.0 MCHC 34.1 RDW 16.1 H Plt Count 165 Neut % (Auto) 90.4 H Lymph % (Auto) 8.3 L [place] % (Auto) 1.2 L Eos % (Auto) 0.0 L Baso % (Auto) 0.1 Neut # (Auto) 5500 Lymph # (Auto) 500 L [place] # (Auto) 100 Eos # (Auto) 0 Baso # (Auto) 0 Sodium 124 L Potassium 5.3 H Chloride 95 L Carbon Dioxide 20 L BUN 28 H Creatinine 1.59 H Estimated GFR 35 L BUN/Creatinine Ratio 17.6 Glucose 152 H Calcium 8.4 TSH Cortisol AM Sample 1.69 L Ur Random Sodium 05/13/23 05/13/23 12:11 18:05 WBC RBC Hgb Hct MCV MCH MCHC RDW Plt Count Neut % (Auto) Lymph % (Auto) [place] % (Auto) Eos % (Auto) Baso % (Auto) Neut # (Auto) Lymph # (Auto) [place] # (Auto) Eos # (Auto) Baso # (Auto) Sodium 124 L 124 L Potassium 4.8 4.6 Chloride 94 L 95 L Carbon Dioxide 20 L 19 L BUN 29 H 30 H Creatinine 1.57 H 1.47 H Estimated GFR 35 L 38 L BUN/Creatinine Ratio 18.5 20.4 Glucose 155 H 171 H Calcium 8.0 L 7.8 L TSH Cortisol AM Sample Ur Random Sodium Assessment & Plan Assessment and plan (1) Pharyngitis: Status: Acute (2) Acute kidney injury: Status: Acute (3) Acute hyponatremia: Status: Acute (4) Acute hyperkalemia: Status: Acute (5) Acute metabolic encephalopathy: Status: Acute (6) Afib: Status: Acute (7) GERD (gastroesophageal reflux disease): Status: Acute (8) Hypothyroidism: Status: Acute Assessment & Plan narrative: # acute hyponatremia - initially 121, likely hypovolemic as improving with IVF - Na now at 124 - continue IVF, if drops she will need fluids restriction and salt tabs for SIADH - q6h BMPs # Pharyngitis, likely viral - Unasyn plus decadron rec per ENT - has expiratory stridor but only with mouth breathin, none with nose breathing - continue decadron 10mg IV daily # HANNY and hyperkalemia - improving with IVFs and lokelma - K now normal - holding home spironolactone, coreg and lisinopril, may need to stop at least aldactone on discharge # A-fib - continue home Xarelto # GERD - PPI # Hypothyroidism - levothyroxine - TSH normal # LBP - Cymbalta, gabapentin Dispo: Home in 2 days pending PT eval and improvement in sodium.
[2023-05-13 07:13] LABS: Cortisol AM (Before 10AM) 1.69 ug/dL (4.46-22.7)
[2023-05-13] MEDS: BUDESONIDE 0.5 MG/2 ML NEB INH ×2 (07:38→19:58)
[2023-05-13] MEDS: BENZONATATE 100 MG CAPSULE 200 MG PO (07:54)
[2023-05-13] MEDS: SODIUM ZIRCONIUM CYCLOSILICATE 10 GM POWD.PACK PO ×3 (07:55→20:36)
[2023-05-13] MEDS: DULOXETINE 20 MG CAPSULE 60 MG PO (08:22)
--- NOTE | 2023-05-13 09:14 | CM.DANOTE ---
DCP: Case received, EMR reviewed and met with patient. Introduced self and role. Was able to obtain information regarding patient's baseline activity level at home prior to admission. DCP assessment completed with information currently available. Patient is a 72 year old female who admitted yesterday evening to the care of the hospitalist team. PCP: Dr. Dyer. Payer: confirmed: [facility]. Patient came to the hospital via private vehicle secondary to having throat pain, difficulty swallowing and breathing. Notes indicate that this had been occurring for the last 2 days. Patient was noted to have hypokalemia, which had been corrected. Patient was diagnosed with pharyngitis, and hyperkalemia, and hyponatremia. Met with patient in her room, in bed. Confirmed that she resides with spouse, Jorden. She uses a cane for mobility. Indicated that she had back surgery here last year, was doing great, but lately, having increased pain, she has an appointment with Dr. Goss in June. P: DCP to continue to follow for any needs. Ginna Kim RN/Mixer Attendant Discharge Planning/Care Management CM Discharge Assessment Start: 05/13/23 09:11 Freq: Status: Active Protocol: Document 05/13/23 09:13 (Rec: 05/13/23 09:14 [id number]) Discharge Planning Assessment Assigned Announcer Ginna Kim RN/Mixer Attendant Advance Directives? No History Provided By Patient,Medical Record Prior Living Arrangements Apartment/Condo Household Members spouse Type of transporation used prior to Relies on Others admit Independent with ADL's Yes Is patient alert and oriented? Yes Needs Assistance With Home Chores / Shopping DME Already Rented / Owned Cane Barriers to Discharge No Discharge Plan Home Transportation Arrangement Spouse Referrals Initiated None needed Additional Comment At this time Whiteboard Updated in Patient Room with Yes name and ext. # of Announcer Review Status In Process Next Review Type Continued Stay Review
[2023-05-13] MEDS: SODIUM CHLORIDE 0.9% 1,000 ML 100 ML IV ×2 (11:17→22:20)
[2023-05-13 12:32] LABS: BUN Creatinine Ratio 18.5 (6-22); Blood Urea Nitrogen 29 mg/dL (7-17); Carbon Dioxide 20 mmol/L (22-32); Chloride 94 mmol/L (98-107); Estimated Glomerular Filt Rate 35 mL/min (>60); Glucose 155 mg/dL (80-110); HEMOLYSIS < 15 (0-50); Potassium 4.8 mmol/L (3.4-5.1); Sodium 124 mmol/L (137-145)
[2023-05-13] MEDS: DEXAMETHASONE 10 MG/ML VIAL IV (13:44)
[2023-05-13] MEDS: HYDROCODONE/ACET 5/325 TABLET 1 TAB PO (13:44)
--- NOTE | 2023-05-13 14:25 | ST.IPIE ---
Visit Care Team Role Provider Type Khoi Dyer DO Primary Care Provider Non-Staff Specialty: Family Practice Address: [address] [place], [address] Email: Khoi Truong MD Emergency Provider Physician Referring Provider Specialty: Emergency Medicine Address: [address] [place] [address], [id number] Email: [email or web address] Physician Attending Provider Specialty: Internal Medicine Address: [address] [place] [address], [id number] Email: [email or web address] Diagnoses Hypothyroidism, unspecified (05/12/23) Hypo-osmolality and hyponatremia (05/12/23) Hyperkalemia (05/12/23) Metabolic encephalopathy (05/12/23) Unspecified atrial fibrillation (05/12/23) Acute pharyngitis, unspecified (05/12/23) Gastro-esophageal reflux disease without esophagitis (05/12/23) Acute kidney failure, unspecified (05/12/23) Past Medical History (Last Updated 05/13/23 @ 04:49 by Elmer Lott MD) Afib (Medical) Anesthesia complication (Medical) PONV Anxiety (Medical) Asthma (Medical) Chronic episodic atrial fibrillation (Medical) Easy bruisability (Medical) Gait instability (Medical) GERD (gastroesophageal reflux disease) (Medical) Heart murmur (Medical) History of left heart catheterization (Medical 12/13/19) HLD (hyperlipidemia) (Medical) Hypothyroidism (Medical) Lumbar stenosis (Medical) Palpitations (Medical) Pre-diabetes (Medical) Skin cancer (Medical) BCC removed from left baptism, ear, followed by plastic surgery Spondylolisthesis at L3-L4 level (Medical) ST IP 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 Start: 05/13/23 13:45 Freq: Status: Active Protocol: Document 05/13/23 13:45 CG (Rec: 05/13/23 14:25 CG [id number]) Clinical Swallow Evaluation Session Time Visit Start Time 09:20 Visit Stop Time 09:51 Total Visit Minutes 31 Visit Information Visit Number 1 Referral Referring Provider Sarahy Reason for Referral pain with swallowing Setting Assessment Location Acute Care Visit Type Note Type Initial evaluation Next Note Type Next Note Type Treatment Note Patient Information Identification Type Name History Per ED report: Patient here for throat pain and trouble/ difficulty swallowing/ breathing. Ongoing for 2 days . Patient here last night for same complaint. Patient found to have hypokalemia which was corrected. Patient denies any chest pain. Has had some coughing. Patient in no distress at this time. Protecting airway. Not drooling. at bedside. Patient still has her tonsils. Her workup also showed hyperkalemia and hyponatremia and she was admitted to the hospital. Based on head and neck imaging , there is no obvious reason for pain on swallowing. Pt was diagnosed with acute pharyngitis. Subjective Observations Pt was seated partially upright in bed with breakfast tray in front of her upon ST entry to the room. She was alert, oriented, and cooperative. Reported by Patient/Caregiver Pain/Discomfort Yes Location Neck Other Symptoms Difficulty swallowing solids, Pain on swallowing Comment Pt reports that she has pain when swallowing. She denies that foods feel stuck, but just that they feel painful. Denies coughing/choking during eating/drinking. States that liquids are typically easier, and harder foods are more painful. Current Diet Regular (IDDSI 7) Baseline Feeding Method Independent in self-feeding The IDDSI Framework Protocol: IDDSI.1 Objective Assessment Mental Status Alert,Responsive,Cooperative Oral Integrity WFL Dentition Within normal limits Lip Function Within normal limits Observation of Lips at Rest Symmetrical Pucker Within normal limits Lip Retraction Within normal limits Observations of Tongue at Rest Within normal limits Tongue Protrusion Within normal limits Tongue Lateralization Within normal limits Jaw Function Within normal limits Jaw Opening Within normal limits Hard/Soft Palate Function Within normal limits Nasality Within normal limits Respiratory Sufficiency Mild impairment Comment Pt presents with mild inhalatory/exhalatory stridor. She states she worked with respiratory therapy earlier this morning. Food and Liquid Trials Position During Assessment Slightly reclined,In bed Liquids Trialed Thin (IDDSI 0) Solid Trials Regular (IDDSI 7) Administration Type Cup consecutive sips,Self- feeding Oral Impairment Within normal limits Pharyngeal Impairment Within functional limits Pharyngeal Phase Comments Pt does not present with any overt s/sx aspiration/ penetration across trials of solids and liquids. She does report pain on swallowing, but this does not appear to impact safety or efficiency of the swallow. The IDDSI Framework Protocol: IDDSI.1 Findings Swallowing Function Within functional limits Swallowing Function Comments Pt presents with pain on swallowing secondary to pharyngitis. Severity of Swallow Impairment Within functional limits Prognosis Good Comment Pt does not present with oropharyngeal dysphagia at this time, although silent aspiration cannot be ruled out without an instrumental assessment. She will benefit from a modified diet ( mechanical soft solids/minced and moist solids) due to odynophagia. 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 Impact on Safety and Functioning No limitations Recommendations Instrumental Assessment No Swallowing Treatment No Recommended Solids Minced & Moist (IDDSI 5) Recommended Liquids Thin (IDDSI 0) Medication Recommendations As Tolerated Discharge Recommendations Home Education Patient/Caregiver Education Described results of evaluation,Patient expressed understanding of evaluation, Patient expressed understanding of feeding recommendations
--- NOTE | 2023-05-13 16:50 | PM.PN.1 ---
Subjective Subjective Interval history: Patient's swallow is improved today. She feels better overall. Sodium is at 124 and K now normal at 4.8. Exam Vital Signs (past 8 hours): - 05/13/23 11:00 05/13/23 15:00 Temperature 97.2 F L Pulse Rate 68 66 Respiratory Rate 16 16 Blood Pressure 147/70 H 176/74 H Pulse Oximetry 96 98 Oxygen Flow Rate 0 0 Fraction of Inspired Oxygen 21 SaO2/FiO2 Ratio 461 Oxygen Delivery Method Room Air Oxygen Flow Rate 0 Narrative Exam Narrative: GEN: no acute distress HEENT: moist mucous membranes, PERRL, expiratory stridor present only when breathing out through mouth, pharyngeal edema present NECK: trachea midline, no JVD CV: regular rate and rhythm, no murmurs PULM: clear bilaterally ABD: soft, nontender, nondistended, no organomegaly EXT: warm and well perfused with no edema NEURO: awake, alert, oriented, no focal deficits Objective Labs 05/13/23 06:20 05/13/23 12:11 Labs: Laboratory Results - last 24 hr 05/12/23 05/12/23 05/12/23 10:30 18:14 18:14 WBC 8.7 RBC 3.18 L Hgb 9.5 L Hct 27.9 L MCV 87.9 MCH 30.0 MCHC 34.2 RDW 15.6 H Plt Count 188 Neut % (Auto) 92.6 H Lymph % (Auto) 6.2 L [place] % (Auto) 0.9 L Eos % (Auto) 0.2 L Baso % (Auto) 0.1 Neut # (Auto) 8000 H Lymph # (Auto) 500 L [place] # (Auto) 100 Eos # (Auto) 0 Baso # (Auto) 0 Sodium Potassium Chloride Carbon Dioxide BUN Creatinine Estimated GFR BUN/Creatinine Ratio Glucose Calcium Total Bilirubin AST ALT Alkaline Phosphatase Total Protein Albumin Globulin Albumin/Globulin Ratio TSH 0.68 Cortisol AM Sample Ur Random Sodium 45 05/12/23 05/13/23 05/13/23 18:14 00:50 06:20 WBC 6.0 RBC 2.97 L Hgb 8.9 L Hct 26.2 L MCV 88.2 MCH 30.0 MCHC 34.1 RDW 16.1 H Plt Count 165 Neut % (Auto) 90.4 H Lymph % (Auto) 8.3 L [place] % (Auto) 1.2 L Eos % (Auto) 0.0 L Baso % (Auto) 0.1 Neut # (Auto) 5500 Lymph # (Auto) 500 L [place] # (Auto) 100 Eos # (Auto) 0 Baso # (Auto) 0 Sodium 124 L 124 L Potassium 5.5 H 5.8 H Chloride 93 L 95 L Carbon Dioxide 21 L 22 BUN 28 H 29 H Creatinine 1.63 H 1.87 H Estimated GFR 34 L 28 L BUN/Creatinine Ratio 17.2 15.5 Glucose 158 H 118 H Calcium 8.4 8.7 Total Bilirubin 0.3 AST 64 H ALT 77 H Alkaline Phosphatase 125 Total Protein 7.5 Albumin 4.2 Globulin 3.3 Albumin/Globulin Ratio 1.3 TSH Cortisol AM Sample Ur Random Sodium 05/13/23 05/13/23 05/13/23 06:20 06:20 12:11 WBC RBC Hgb Hct MCV MCH MCHC RDW Plt Count Neut % (Auto) Lymph % (Auto) [place] % (Auto) Eos % (Auto) Baso % (Auto) Neut # (Auto) Lymph # (Auto) [place] # (Auto) Eos # (Auto) Baso # (Auto) Sodium 124 L 124 L Potassium 5.3 H 4.8 Chloride 95 L 94 L Carbon Dioxide 20 L 20 L BUN 28 H 29 H Creatinine 1.59 H 1.57 H Estimated GFR 35 L 35 L BUN/Creatinine Ratio 17.6 18.5 Glucose 152 H 155 H Calcium 8.4 8.0 L Total Bilirubin AST ALT Alkaline Phosphatase Total Protein Albumin Globulin Albumin/Globulin Ratio TSH Cortisol AM Sample 1.69 L Ur Random Sodium PFSH Medical History (Updated 05/13/23 @ 04:49 by Elmer Lott MD) Afib Anesthesia complication Anxiety Asthma Chronic episodic atrial fibrillation Easy bruisability Gait instability GERD (gastroesophageal reflux disease) Heart murmur History of left heart catheterization (12/13/19) HLD (hyperlipidemia) Hypothyroidism Lumbar stenosis Palpitations Pre-diabetes Skin cancer Spondylolisthesis at L3-L4 level Surgical History H/O spinal fusion History of hysterectomy Hx of appendectomy Hx of bilateral cataract extraction (2020) Hx of cholecystectomy Hx of tubal ligation Family History Father Congestive heart failure Mother COPD (chronic obstructive pulmonary disease) Social History household members: spouse Smoking Status: Never smoker alcohol intake: never Assessment & Plan Assessment and plan (1) Pharyngitis: Status: Acute (2) Acute kidney injury: Status: Acute (3) Acute hyponatremia: Status: Acute (4) Acute hyperkalemia: Status: Acute (5) Acute metabolic encephalopathy: Status: Acute (6) Afib: Status: Acute (7) GERD (gastroesophageal reflux disease): Status: Acute (8) Hypothyroidism: Status: Acute Assessment & Plan narrative: # acute hyponatremia - initially 121, likely hypovolemic as improving with IVF - Na now at 124 - continue IVF, if drops she will need fluids restriction and salt tabs for SIADH - q6h BMPs # Pharyngitis, likely viral - Unasyn plus decadron rec per ENT - has expiratory stridor but only with mouth breathin, none with nose breathing - continue decadron 10mg IV daily # HANNY and hyperkalemia - improving with IVFs and lokelma - K now normal - holding home spironolactone, coreg and lisinopril, may need to stop at least aldactone on discharge # A-fib - continue home Xarelto # GERD - PPI # Hypothyroidism - levothyroxine - TSH normal # LBP - Cymbalta, gabapentin Dispo: Home in 2 days pending PT eval and improvement in sodium.
[2023-05-13 18:32] LABS: BUN Creatinine Ratio 20.4 (6-22); Blood Urea Nitrogen 30 mg/dL (7-17); Calcium 7.8 mg/dL (8.4-10.2); Carbon Dioxide 19 mmol/L (22-32); Chloride 95 mmol/L (98-107); Estimated Glomerular Filt Rate 38 mL/min (>60); Glucose 171 mg/dL (80-110); HEMOLYSIS 16 (0-50); Potassium 4.6 mmol/L (3.4-5.1); Sodium 124 mmol/L (137-145)
[2023-05-13] MEDS: RIVAROXABAN 10 MG TABLET 20 MG PO (19:55)
[2023-05-13] MEDS: ALBUTEROL 2.5 MG/3 ML NEB (ADULT) INH (19:58)
--- NOTE | 2023-05-13 20:12 | PC.NURSE ---
GI: Pt is having more pain in the abd today than yesterday. FT still leaks a large amount of fluid which is clear and brown, dressing was changed 4 times this shift. Pt is having a hard time tolerating the flush after her meds, she reports it feels painful in the abd even though the flush was given very slowly and stopped part of the way through. Dr. Weathers was made aware of pt increased pain in her abd and having difficulty tolerating flushes. She will also be starting a tube feeding tonight. The patient still wants to try the TF to see if she can tolerate them. Order modified per Dr. Washington approval. Pt knows the TF will start tonight.
[2023-05-13] MEDS: GABAPENTIN 600 MG TABLET PO (20:36)
[2023-05-14] MEDS: AMPICILLIN/SULBACTAM 3 GM 3 GM in SODIUM CHLORIDE 0.9% 100 ML IV ×4 (01:56→17:14)
[2023-05-14] MEDS: BENZONATATE 100 MG CAPSULE 200 MG PO (02:00)
[2023-05-14] MEDS: BENZOCAINE/MENTHOL 1 LOZ PKT 1 EACH PO (02:00)
[2023-05-14 04:42] VITALS: BP 157/71; PULSE 54; RESP 18; TEMP 36.1; O2SAT 96
[2023-05-14] MEDS: LEVOTHYROXINE 50 MCG TABLET PO (06:01)
[2023-05-14] MEDS: PANTOPRAZOLE DR 20 MG TABLET 40 MG PO (06:01)
[2023-05-14 06:06] LABS: Add Manual Diff / Slide Review NO; Basophils Absolute Auto 0 /uL (0-100); Eosinophils Absolute Auto 0 /uL (0-450); Hematocrit 24.8 % (36-46); Hemoglobin 8.5 g/dL (12.0-16.0); Lymphocytes Absolute Auto 500 /uL (1100-4500); Lymphocytes Percent Auto 7.1 % (25-40); Mean Corpuscular HGB Conc 34.2 % (30-36); Mean Corpuscular Hemoglobin 29.8 PG (26-34); Mean Corpuscular Volume 87.3 fL (80-100); Monocytes Absolute Auto 400 /uL (0-900); Monocytes Percent Auto 5.3 % (3-14); Neutrophils Absolute Auto 5900 /uL (1500-7000); Neutrophils Percent Auto 87.6 % (50-75); Platelet Count 164 X10^3/uL (150-400); Red Blood Cell Count 2.84 X10^6/uL (4.0-5.2); White Blood Cell Count 6.7 X10^3/uL (4.5-11.0)
[2023-05-14 06:13] LABS: BUN Creatinine Ratio 20.8 (6-22); Blood Urea Nitrogen 27 mg/dL (7-17); Calcium 7.7 mg/dL (8.4-10.2); Carbon Dioxide 22 mmol/L (22-32); Chloride 96 mmol/L (98-107); Estimated Glomerular Filt Rate 44 mL/min (>60); Glucose 144 mg/dL (80-110); HEMOLYSIS < 15 (0-50); Potassium 4.3 mmol/L (3.4-5.1); Sodium 125 mmol/L (137-145)
[2023-05-14] MEDS: BUDESONIDE 0.5 MG/2 ML NEB INH ×2 (07:12→20:07)
[2023-05-14] MEDS: ALBUTEROL 2.5 MG/3 ML NEB (ADULT) INH (07:12)
[2023-05-14 07:13] VITALS: PULSE 58; RESP 16; O2SAT 96
[2023-05-14 08:00] VITALS: BP 135/69; PULSE 64; RESP 16; TEMP 36.3; O2SAT 93
[2023-05-14] MEDS: SODIUM ZIRCONIUM CYCLOSILICATE 10 GM POWD.PACK PO (09:13)
[2023-05-14] MEDS: DEXAMETHASONE 10 MG/ML VIAL IV (09:13)
[2023-05-14] MEDS: DULOXETINE 20 MG CAPSULE 60 MG PO (09:13)
--- NOTE | 2023-05-14 09:17 | P.PN_ITS ---
Subjective Subjective Interval history: Throat feels better. No pain or dyspnea. Slept last night. Usually drinks a lot of fluids. Exam Vital Signs (past 8 hours): - 05/14/23 04:42 05/14/23 07:13 05/14/23 08:00 Temperature 97 F L 97.4 F L Pulse Rate 54 L 58 L 64 Respiratory Rate 18 16 16 Blood Pressure 157/71 H 135/69 Pulse Oximetry 96 96 93 Oxygen Delivery Method Room Air Oxygen Flow Rate 0 0 Fraction of Inspired Oxygen 21 SaO2/FiO2 Ratio 461 Oxygen Delivery Method Room Air Oxygen Flow Rate 0 Narrative Exam Narrative: NAD Normal speech Lungs clear Heart regular Abdomen soft No leg edema Objective Labs 05/14/23 05:25 05/14/23 05:25 Labs: Laboratory Results - last 24 hr 05/13/23 05/13/23 05/14/23 12:11 18:05 05:25 WBC 6.7 RBC 2.84 L Hgb 8.5 L Hct 24.8 L MCV 87.3 MCH 29.8 MCHC 34.2 RDW 16.0 H Plt Count 164 Neut % (Auto) 87.6 H Lymph % (Auto) 7.1 L [place] % (Auto) 5.3 Eos % (Auto) 0.0 L Baso % (Auto) 0.0 Neut # (Auto) 5900 Lymph # (Auto) 500 L [place] # (Auto) 400 Eos # (Auto) 0 Baso # (Auto) 0 Sodium 124 L 124 L Potassium 4.8 4.6 Chloride 94 L 95 L Carbon Dioxide 20 L 19 L BUN 29 H 30 H Creatinine 1.57 H 1.47 H Estimated GFR 35 L 38 L BUN/Creatinine Ratio 18.5 20.4 Glucose 155 H 171 H Calcium 8.0 L 7.8 L 05/14/23 05:25 WBC RBC Hgb Hct MCV MCH MCHC RDW Plt Count Neut % (Auto) Lymph % (Auto) [place] % (Auto) Eos % (Auto) Baso % (Auto) Neut # (Auto) Lymph # (Auto) [place] # (Auto) Eos # (Auto) Baso # (Auto) Sodium 125 L Potassium 4.3 Chloride 96 L Carbon Dioxide 22 BUN 27 H Creatinine 1.30 H Estimated GFR 44 L BUN/Creatinine Ratio 20.8 Glucose 144 H Calcium 7.7 L [facility] Medical History (Updated 05/13/23 @ 04:49 by Elmer Lott MD) Afib Anesthesia complication Anxiety Asthma Chronic episodic atrial fibrillation Easy bruisability Gait instability GERD (gastroesophageal reflux disease) Heart murmur History of left heart catheterization (12/13/19) HLD (hyperlipidemia) Hypothyroidism Lumbar stenosis Palpitations Pre-diabetes Skin cancer Spondylolisthesis at L3-L4 level Surgical History H/O spinal fusion History of hysterectomy Hx of appendectomy Hx of bilateral cataract extraction (2020) Hx of cholecystectomy Hx of tubal ligation Family History Father Congestive heart failure Mother COPD (chronic obstructive pulmonary disease) Social History household members: spouse Smoking Status: Never smoker alcohol intake: never Assessment & Plan Assessment & Plan narrative: 1. Hyponatremia, POAI. Continue saline and fluid restrict. 2. Pharyngitis, POAI. Cont Abx (Unasyn) and steroids. 1 more day. 3. HANNY, POAI. Continue IVF and follow. 4. Hyperkalemia, POAI. Follow and hold JERRICA and Spirinolactone. 5. AF, POAS. Continue DOAC. Discpo: home in 1 day if NA better, Time Spent With Patient Time with patient: less than 30 minutes
[2023-05-14] MEDS: HYDROCODONE/ACET 5/325 TABLET 1 TAB PO (11:42)
[2023-05-14 11:48] LABS: Osmolality Urine 188 mOsmol/kg (.)
--- NOTE | 2023-05-14 11:58 | PT.IIE ---
Current Diagnoses Hypothyroidism, unspecified (05/12/23) Hypo-osmolality and hyponatremia (05/12/23) Hyperkalemia (05/12/23) Metabolic encephalopathy (05/12/23) Unspecified atrial fibrillation (05/12/23) Acute pharyngitis, unspecified (05/12/23) Gastro-esophageal reflux disease without esophagitis (05/12/23) Acute kidney failure, unspecified (05/12/23) Surgical History (Last Reviewed 05/13/23 @ 04:43 by Elmer Lott MD) H/O spinal fusion History of hysterectomy Hx of appendectomy Hx of bilateral cataract extraction (2020) Hx of cholecystectomy Hx of tubal ligation Medical History (Last Updated 05/13/23 @ 04:49 by Elmer Lott MD) Afib Anesthesia complication Anxiety Asthma Chronic episodic atrial fibrillation Easy bruisability Gait instability GERD (gastroesophageal reflux disease) Heart murmur History of left heart catheterization (12/13/19) HLD (hyperlipidemia) Hypothyroidism Lumbar stenosis Palpitations Pre-diabetes Skin cancer Spondylolisthesis at L3-L4 level Physical Therapy Inpatient Evaluation/Re-Eval M1 PT/OT-IP Prior Functional Status Start: 05/14/23 14:21 Freq: NEEDED Status: Active Protocol: Document 05/14/23 11:58 AB (Rec: 05/14/23 14:33 AB [id number]) Medical Review Prior Functional Status Medical History Reviewed Yes Communication able to make needs known Mobility and Gait pt stated that she is modified independent with all mobilities and ambulation without AD but occasionally uses a 4WW and spouse also 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 1 step to enter Home Environment Standard Height Toilet,Tub/ Shower Home Equipment Front Wheel Walker,Four Wheel Walker,Quad Cane,Shower Seat with Backrest,Hand Held Shower ,Grab Bars Near Toilet,Grab Bars In Shower M2 PT-IP Current Condition Start: 05/14/23 14:21 Freq: NEEDED Status: Active Protocol: Document 05/14/23 11:58 AB (Rec: 05/14/23 14:33 AB [id number]) Physical Therapy Current Condition Current Condition Evaluation Date 05/14/23 Treatment Diagnosis pharyngitis; HANNY; difficulty in walking Onset Date M3 PT-IP Subjective Start: 05/14/23 14:21 Freq: NEEDED Status: Active Protocol: Document 05/14/23 11:58 AB (Rec: 05/14/23 14:33 AB [id number]) Subjective Physical Therapy Visit Type Type Initial Evaluation Visit Start Time 11:58 Visit Stop Time 12:21 Total Visit Minutes 23 Number of DIRECTOR OF EMPLOYER SERVICES Visits 0 Physical Therapy Visit Comments Patient Comments agreeable to do PT Therapy Pain Assessment Pain When Pain Assessed At Rest Location back and legs Scale Used pain scale not stated Description Chronic M4 PT-IP Mobility and Gait Start: 05/14/23 14:21 Freq: NEEDED Status: Active Protocol: Document 05/14/23 11:58 AB (Rec: 05/14/23 14:33 AB [id number]) PT-Bed Mobility Assessment Supine to Sit Supine to Sit Standby Assistance,Bedrails PT-Transfer Assessment Sit to and From Stand Sit to and from Stand Contact Guard Assistance,1 Person Assistance,Use of Upper Extremities Equipment Transfer Assistive Device Gait Belt,Front Wheeled Walker Orthotic/Prosthetic Devices or Brace: No Transfers Transfer Destination Chair Transfer Technique ambulated Transfer Ability Level of Assist Minimal Assistance,1 Person Assistance,Use of Upper Extremities Comments Mobility Comments pt completed bed mobility supine to sit SBA with use of bed rail to assist. able to sit on EOB SBA. pt has overall body tremors and stated that this is chronic. completed sit to stand CGA and ambulated in room using FWW min A ~ 30 ft. presents with increase forward trunk flexion with unsteady gait. pt agreed to stay up on the chair . positioned on the chair. call light and table placed within reach. Gait Assessment Gait Gait Assistance Required: Minimum Assistance Distance (Feet) 30 Able to Maintain Weight Bearing Status Yes During Gait Assistive Devices Assistive Device Gait Belt,Front Wheeled Walker Orthotic/Prosthetic Devices or Brace: No Gait Deviations General Gait Pattern Antalgic,Ataxic,Decreased Stride Length,Decreased Feet Clearance,Flexed Trunk Factors Limiting Gait Function Factors Limiting Gait Function Decreased Activity Tolerance, Decreased Strength,Limited Range of Motion,Pain,Poor Balance,Poor Safety Awareness, Respiratory Distress PT-Balance Assessment Sitting Balance and Reactions Static Sitting Balance Ability Good Dynamic Sitting Balance Ability Good Standing Balance and Reactions Static Standing Balance Ability Fair Dynamic Standing Balance Ability Fair Device Used FWW M5 PT-IP Objective Assessments Start: 05/14/23 14:21 Freq: NEEDED Status: Active Protocol: Document 05/14/23 11:58 AB (Rec: 05/14/23 14:33 AB [id number]) Orientation Orientation/Cognition Level of Alertness Alert Orientation Name,Place,Situation Safety Awareness Decreased Safety Awareness Memory Description No Deficits Noted Gross Range of Motion Lower Extremity ROM Assessment Within Functional Limits Strength Lower Extremity Strength Assessment Bilaterally Impaired Comments Strength Comments LLE: 3+/5 RLE: 4-/5 Muscle Tone Muscle Tone WNL Yes M6 PT-IP Treatment Start: 05/14/23 14:21 Freq: NEEDED Status: Active Protocol: Document 05/14/23 11:58 AB (Rec: 05/14/23 14:33 AB [email or web address]) Physical Therapy Treatment Education Education Provided Safety M7 PT-IP Assessment and Plan Start: 05/14/23 14:21 Freq: NEEDED Status: Active Protocol: Document 05/14/23 11:58 AB (Rec: 05/14/23 14:33 AB [email or web address]) PT Summary Assessment and Plan Potential Rehabilitation Potential Fair Status of Condition at Evaluation Evolving Summary Impairments Pain,ROM,Strength,Balance, Coordination,Sensation,Tone, Cognition,Bed Mobility, Transfers,Gait,Activity Tolerance Assessment Summary pt presented to the ED for SOB , dyphagia and sore throat. pt admitted for pharyngitis and acute kidney injury. pt requiring min A with ambulation using FWW and has decrease activity tolerance affecting mobility. pt also stated that she has chronic back pain with increasing difficulty to move. pt lives with her spouse and spouse will be able to assist. will continue to assess progress and will conduct caregiver training when appropriate. Goals Bed Mobility Goal Independent Transfer Goal Independent,Front Wheeled Walker,Four Wheeled Walker Gait Goal Independent,Front Wheel Walker ,Four Wheel Walker Gait Distance 150 Other Goals up/down 1 step using FWW/4WW SBA Days to Meet Goals 10 Frequency of Treatment Frequency Of Treatment Once a Day Treatment Plan Physical Therapy Treatment Plan Bed Mobility Training,Transfer Training,Gait Training, Therapeutic Exercise,Balance Retraining,Discharge Planning, Hot or Cold Pack,Neuromuscular Re-ed,Coordination Retraining Precautions Other Precautions falls Recommendations To Nursing Amount of Assist Needed 1 Person Assist Discharge Recommendations PT Discharge Recommendations Home with 11/05 Assist Available,Home Health Transportation Needs at Discharge Private Vehicle
[2023-05-14 12:00] VITALS: BP 126/72; PULSE 59; RESP 16; TEMP 36.4; O2SAT 97
--- NOTE | 2023-05-14 14:08 | CM.DPC ---
DCP Cont: Per MD, pt not yet medically stable to discharge yet today due to sodium levels but possible discharge tomorrow if stable. Per ST, recommending mechanical soft/minced and moist diet at this time and outpt f/u. PT ordered and pending to confirm safe d/c to home plan. Plan: SW to follow for possible discharge home with spouse tomorrow if medically stable and PT eval to r/o any further discharge planning needs. DAMION Zarate
[2023-05-14 16:00] VITALS: BP 182/74; PULSE 61; RESP 16; TEMP 36.4; O2SAT 95
[2023-05-14] MEDS: RIVAROXABAN 10 MG TABLET 20 MG PO (16:05)
[2023-05-14] MEDS: SODIUM CHLORIDE 0.9% 1,000 ML 100 ML IV (17:15)
[2023-05-14 20:00] VITALS: BP 176/69; PULSE 59; RESP 18; TEMP 35.4; O2SAT 96
[2023-05-14] MEDS: ROPINIROLE 1 MG TABLET 4 MG PO (21:03)
[2023-05-14] MEDS: ACETAMINOPHEN 325 MG TABLET 650 MG PO (21:38)
[2023-05-14] MEDS: ONDANSETRON 4 MG/2 ML INJ IV (22:59)
[2023-05-14] MEDS: TEMAZEPAM 15 MG CAPSULE PO (23:31)
[2023-05-15] VITALS: BP 145/49; PULSE 58; RESP 19; TEMP 35.6; O2SAT 98
[2023-05-15] MEDS: AMPICILLIN/SULBACTAM 3 GM 3 GM in SODIUM CHLORIDE 0.9% 100 ML IV ×3 (00:37→12:36)
[2023-05-15 04:00] VITALS: BP 160/65; PULSE 64; RESP 18; TEMP 36.5; O2SAT 96
[2023-05-15] MEDS: SODIUM CHLORIDE 0.9% 1,000 ML 100 ML IV (04:06)
[2023-05-15 05:11] LABS: BUN Creatinine Ratio 22.3 (6-22); Blood Urea Nitrogen 27 mg/dL (7-17); Calcium 7.5 mg/dL (8.4-10.2); Carbon Dioxide 23 mmol/L (22-32); Chloride 100 mmol/L (98-107); Estimated Glomerular Filt Rate 48 mL/min (>60); Glucose 128 mg/dL (80-110); HEMOLYSIS < 15 (0-50); Potassium 3.9 mmol/L (3.4-5.1); Sodium 128 mmol/L (137-145)
[2023-05-15 05:13] LABS: Add Manual Diff / Slide Review NO; Basophils Absolute Auto 0 /uL (0-100); Eosinophils Absolute Auto 0 /uL (0-450); Hematocrit 23.6 % (36-46); Hemoglobin 8.2 g/dL (12.0-16.0); Lymphocytes Absolute Auto 400 /uL (1100-4500); Lymphocytes Percent Auto 5.2 % (25-40); Mean Corpuscular HGB Conc 34.8 % (30-36); Mean Corpuscular Volume 86.2 fL (80-100); Monocytes Absolute Auto 700 /uL (0-900); Monocytes Percent Auto 7.8 % (3-14); Neutrophils Absolute Auto 7600 /uL (1500-7000); Platelet Count 168 X10^3/uL (150-400); Red Blood Cell Count 2.74 X10^6/uL (4.0-5.2); Red Cell Distribution Width 15.5 % (11.6-14.8); White Blood Cell Count 8.7 X10^3/uL (4.5-11.0)
[2023-05-15] MEDS: LEVOTHYROXINE 50 MCG TABLET PO (06:25)
[2023-05-15] MEDS: PANTOPRAZOLE DR 20 MG TABLET 40 MG PO (06:25)
[2023-05-15 08:00] VITALS: BP 177/78; PULSE 66; RESP 17; TEMP 36.6; O2SAT 96
[2023-05-15] MEDS: DEXAMETHASONE 10 MG/ML VIAL IV (08:14)
[2023-05-15] MEDS: DULOXETINE 20 MG CAPSULE 60 MG PO (08:14)
[2023-05-15 09:32] VITALS: PULSE 57; RESP 16; O2SAT 97
[2023-05-15] MEDS: BUDESONIDE 0.5 MG/2 ML NEB INH (09:32)
[2023-05-15] MEDS: SODIUM CHLORIDE 0.9% 1,000 ML 150 ML IV (09:37)
[2023-05-15] MEDS: TRIAMTERENE/HCTZ 37.5/25 CAPSULE 1 CAP PO (11:33)
[2023-05-15 12:00] VITALS: BP 196/70; PULSE 60; RESP 17; TEMP 36.3; O2SAT 97
[2023-05-15 12:16] LABS: BUN Creatinine Ratio 19.8 (6-22); Blood Urea Nitrogen 26 mg/dL (7-17); Calcium 7.8 mg/dL (8.4-10.2); Carbon Dioxide 23 mmol/L (22-32); Chloride 100 mmol/L (98-107); Estimated Glomerular Filt Rate 44 mL/min (>60); Glucose 162 mg/dL (80-110); HEMOLYSIS < 15 (0-50); Potassium 3.9 mmol/L (3.4-5.1); Sodium 129 mmol/L (137-145)
--- NOTE | 2023-05-15 13:45 | PT.IPTN ---
Current Diagnoses Hypothyroidism, unspecified (05/12/23) Hypo-osmolality and hyponatremia (05/12/23) Hyperkalemia (05/12/23) Metabolic encephalopathy (05/12/23) Unspecified atrial fibrillation (05/12/23) Acute pharyngitis, unspecified (05/12/23) Gastro-esophageal reflux disease without esophagitis (05/12/23) Acute kidney failure, unspecified (05/12/23) Physical Therapy Treatment Note M2 PT-IP Current Condition Start: 05/14/23 14:21 Freq: NEEDED Status: Active Protocol: Document 05/14/23 11:58 AB (Rec: 05/14/23 14:33 AB [id number]) Physical Therapy Current Condition Current Condition Evaluation Date 05/14/23 Treatment Diagnosis pharyngitis; HANNY; difficulty in walking Onset Date M3 PT-IP Subjective Start: 05/14/23 14:21 Freq: NEEDED Status: Active Protocol: Document 05/15/23 14:04 TS (Rec: 05/15/23 14:33 TS [id number]) Subjective Physical Therapy Visit Type Type Treatment Note Visit Start Time 13:45 Visit Stop Time 14:01 Total Visit Minutes 16 Notes Spouse present Number of LINEN KEEPER Visits 1 Physical Therapy Visit Comments Patient Comments Pt found resting in bed, states she is still feeling weak but feels she is improving, agreeable to PT. M4 PT-IP Mobility and Gait Start: 05/14/23 14:21 Freq: NEEDED Status: Active Protocol: Document 05/15/23 14:04 TS (Rec: 05/15/23 14:33 TS [id number]) PT-Bed Mobility Assessment Supine to Sit Supine to Sit Standby Assistance,Bedrails Scooting Scooting to Edge of Bed Moderate Assistance PT-Transfer Assessment Sit to and From Stand Sit to and from Stand Contact Guard Assistance,1 Person Assistance,Use of Upper Extremities Equipment Transfer Assistive Device Gait Belt,Front Wheeled Walker Orthotic/Prosthetic Devices or Brace: No Comments Mobility Comments Supine to sit SBA with HOB elevated 10D, provided cues for pushing through L elbow and coming into sitting position. Pt scooted to EOB ModA with handheld assist and use of bed rail. Sit to stand CGA with FWW, pt required cues for weight forward on toes, pt leans back on heels initially in standing. She ambulated ~150' SBA w/FWW and slow shuffle gait, provided cues for greater likft of feet from floor and heel to toe contact, pt denied any SOB. Pt ambulated back to room, stand to sit into chair SBA with cues for reaching back to arms of chair. Pt was left in chair with spouse in room, call light nearby, nursing notified of pt requesting shower. Gait Assessment Gait Gait Assistance Required: Standby Assistance Distance (Feet) 150 Able to Maintain Weight Bearing Status Yes During Gait Assistive Devices Assistive Device Gait Belt,Front Wheeled Walker Orthotic/Prosthetic Devices or Brace: No Gait Deviations General Gait Pattern Antalgic,Ataxic,Decreased Stride Length,Decreased Feet Clearance,Flexed Trunk Factors Limiting Gait Function Factors Limiting Gait Function Decreased Activity Tolerance, Decreased Strength,Limited Range of Motion,Pain,Poor Balance,Poor Safety Awareness Comments Gait Comments See mobility comments. PT-Balance Assessment Sitting Balance and Reactions Static Sitting Balance Ability Good Dynamic Sitting Balance Ability Good Standing Balance and Reactions Static Standing Balance Ability Fair Dynamic Standing Balance Ability Fair Device Used FWW M5 PT-IP Objective Assessments Start: 05/14/23 14:21 Freq: NEEDED Status: Active Protocol: Document 05/14/23 11:58 AB (Rec: 05/14/23 14:33 AB [id number]) Orientation Orientation/Cognition Level of Alertness Alert Orientation Name,Place,Situation Safety Awareness Decreased Safety Awareness Memory Description No Deficits Noted Gross Range of Motion Lower Extremity ROM Assessment Within Functional Limits Strength Lower Extremity Strength Assessment Bilaterally Impaired Comments Strength Comments LLE: 3+/5 RLE: 4-/5 Muscle Tone Muscle Tone WNL Yes M6 PT-IP Treatment Start: 05/14/23 14:21 Freq: NEEDED Status: Active Protocol: Document 05/15/23 14:04 TS (Rec: 05/15/23 14:33 TS [id number]) Physical Therapy Treatment Education Education Provided Safety M7 PT-IP Assessment and Plan Start: 05/14/23 14:21 Freq: NEEDED Status: Active Protocol: Document 05/15/23 14:04 TS (Rec: 05/15/23 14:33 TS [id number]) PT Summary Assessment and Plan Potential Rehabilitation Potential Fair Summary Impairments Pain,ROM,Strength,Balance, Coordination,Sensation,Tone, Cognition,Bed Mobility, Transfers,Gait,Activity Tolerance Progress Towards Goals Progressing Toward Goals Assessment Summary Pt is progressing well with her mobility this session. She is SBA for supine to sit, requires extra time to upright trunk due to decreased strength. She required ModA with rail and handheld assist for scooting to EOB. She performed sit to stand x1 CGA with FWW, has a slight retrolean required cues for weight forward on toes instead back on heels. She progressed her gait to ~150' SBA with FWW, has a slow shuffle gait but no buckling or LOB. PT continues to recommend home with 24/7 assist and HHPT. Goals Bed Mobility Goal Independent Transfer Goal Independent,Front Wheeled Walker,Four Wheeled Walker Gait Goal Independent,Front Wheel Walker ,Four Wheel Walker Gait Distance 150 Other Goals up/down 1 step using FWW/4WW SBA Days to Meet Goals 10 Frequency of Treatment Frequency Of Treatment Once a Day Treatment Plan Physical Therapy Treatment Plan Bed Mobility Training,Transfer Training,Gait Training, Therapeutic Exercise,Balance Retraining,Discharge Planning, Hot or Cold Pack,Neuromuscular Re-ed,Coordination Retraining Other Recommendations and Next Treatment continue post-op education for Focus L3-5 TLIF on 06/04/22 Precautions Other Precautions falls Recommendations To Nursing Amount of Assist Needed 1 Person Assist Discharge Recommendations PT Discharge Recommendations Home with 24/7 Assist Available,Home Health Transportation Needs at Discharge Private Vehicle
--- NOTE | 2023-05-15 14:27 | P.DS_ITS ---
History of Present Illness History of Present Illness Date Patient Seen: 05/15/23 Time Patient Seen: 14:28 Date of Onset of Symptoms: 05/11/23 Chief complaint: hard time breathing/shaking/headache Narrative: From H&P: 72 y/o presents to ED with complaints on 2 days of sore throat, dysphagia, shortness of breath, cough. Diagnosed with pharyngitis, treated with steroid and abx. Workup additionally revealed hyperkalemia and hyponatremia. Discharge Providers Provider Date of admission: 05/12/23 17:02 Discharge Date: 05/15/23 Primary care physician: Khoi Dyer DO Consults: 05/12/23 18:00 Consult to Speech Therapy Evaluate & Treat Comment: difficulty swallowing Physician Instructions: Evaluate and treat 05/12/23 19:01 Consult to Speech Therapy Evaluate & Treat Comment: Physician Instructions: Evaluate and treat 05/13/23 16:55 Consult to Physical Therapy Evaluate & Treat Comment: Physician Instructions: Evaluate and Treat Discharge provider: Paolo Khalil MD Summary Hospital Course Discharge Diagnosis: 1. Hyponatremia, POAI. Continue saline and fluid restrict. 2. Pharyngitis, POAI. Cont Abx (Unasyn) and steroids. 1 more day. 3. HANNY, POAI. Continue IVF and follow. 4. Hyperkalemia, POAI. Follow and hold JERRICA and Spironolactone. 5. AF, POAS. Continue DOAC. Hospital Course: She was admitted with pharyngitis and negative imaging. Discussed with ENT and she was treated for several days with antibiotics and steroids. Her symptoms improved. She also had HANNY with hyperkalemia and hyponatremia. She is on lisinopril and spironolactone for CHF (EF improved from 20 to nearly normal in the past). She sees Dr. Yarbrough of [facility] cardiology. She improved with saline and holing those two medications. She also drinks a lot of fluids and restricted to a degree. Some of her blood pressures were high on the day of discharge. She felt well and was stable for discharge. Status at Discharge Cognitive/behavioral status at discharge: oriented Functional status at discharge: independent ambulation Overall status at discharge: patient is back to baseline Time Spent with Patient Time spent: Greater than 30 minutes Exam Vital Signs (past 8 hours): - 05/15/23 08:00 05/15/23 09:32 05/15/23 12:00 Temperature 97.8 F 97.3 F L Pulse Rate 66 57 L 60 Respiratory Rate 17 16 17 Blood Pressure 177/78 H 196/70 H Pulse Oximetry 96 97 97 Oxygen Delivery Method Room Air Oxygen Flow Rate 0 0 Fraction of Inspired Oxygen 21 SaO2/FiO2 Ratio 461 Oxygen Delivery Method Room Air Oxygen Flow Rate 0 Narrative Exam Narrative: NAD Lungs clear Heart regular Abdomen soft No leg edema Objective ECG Impression: NSR Imaging Neck CT: Radiologist's impression: IMPRESSION:? No visualized cause of throat swelling.? No change compared to prior exam. Chest x-ray: Radiologist's impression: IMPRESSION:? Possible mild right infrahilar opacity, representing atelectasis or early airspace disease.? Consider future imaging surveillance to assess for resolution. CT scan - head: Radiologist's impression: IMPRESSION:? ? 1. No acute intracranial abnormalities. ? 2. Cerebral volume loss and chronic microvascular ischemic changes. CT scan - abdomen: Radiologist's impression: 1.? Mild compression fracture of L2 of uncertain chronicity. ? 2.? No traumatic visceral injuries in thorax, abdomen or pelvis. ? 3.? Multiple lung nodules are present.? Please see enclosed follow-up recommendation. ? 4. Diverticulosis without diverticulitis. ? 5.? A simple appearing renal cyst in the inferior pole of the right kidney.? A 0.7 cm indeterminate hypodense nodule nodule in mid right kidney is also likely a cyst. Labs 05/15/23 04:47 05/15/23 11:35 Labs: Laboratory Results - last 24 hr 05/15/23 05/15/23 05/15/23 04:47 04:47 11:35 WBC 8.7 RBC 2.74 L Hgb 8.2 L Hct 23.6 L MCV 86.2 MCH 30.0 MCHC 34.8 RDW 15.5 H Plt Count 168 Neut % (Auto) 87.0 H Lymph % (Auto) 5.2 L [place] % (Auto) 7.8 Eos % (Auto) 0.0 L Baso % (Auto) 0.0 Neut # (Auto) 7600 H Lymph # (Auto) 400 L [place] # (Auto) 700 Eos # (Auto) 0 Baso # (Auto) 0 Sodium 128 L 129 L Potassium 3.9 3.9 Chloride 100 100 Carbon Dioxide 23 23 BUN 27 H 26 H Creatinine 1.21 H 1.31 H Estimated GFR 48 L 44 L BUN/Creatinine Ratio 22.3 H 19.8 Glucose 128 H 162 H Calcium 7.5 L 7.8 L PFSH Medical History (Updated 05/13/23 @ 04:49 by Elmer Lott MD) Afib Anesthesia complication Anxiety Asthma Chronic episodic atrial fibrillation Easy bruisability Gait instability GERD (gastroesophageal reflux disease) Heart murmur History of left heart catheterization (12/13/19) HLD (hyperlipidemia) Hypothyroidism Lumbar stenosis Palpitations Pre-diabetes Skin cancer Spondylolisthesis at L3-L4 level Surgical History H/O spinal fusion History of hysterectomy Hx of appendectomy Hx of bilateral cataract extraction (2020) Hx of cholecystectomy Hx of tubal ligation Family History Father Congestive heart failure Mother COPD (chronic obstructive pulmonary disease) Social History household members: spouse Smoking Status: Never smoker alcohol intake: never Discharge Assessment & Plan Assessment and Plan Assessment: 1. Hyponatremia, POAI. 2. Pharyngitis, POAI. Stop Abx (Unasyn) and steroids at discharge. 3. HANNY, POAI. Improved with IVF. 4. Hyperkalemia, POAI. Hold JERRICA and Spirinolactone. 5. AF, POAS. Continue DOAC. Plan of Treatment: Discharge home BP twice a day and log Repeat BMP next midweek (Dr Sotomayor) Stop spironolactone Reduce lisinopril 5 to 2.5 Increase carvedilol 12.5 to 25 BID Discharge Plan Discharge Plan Patient Disposition: Home Provider Discharge Comment: Stable for discharge Discharge orders & Medications Prescriptions: New duloxetine [Cymbalta] 20 mg Capsule,Delayed Release(/Ec) 60 mg PO DAILY Qty: 30 3RF carvedilol 25 mg tablet 25 mg PO BID Qty: 60 3RF Rx Instructions: must administer with a meal/food lisinopril 2.5 mg tablet 2.5 mg PO DAILY Qty: 30 3RF Continued albuterol sulfate 2.5 mg /3 mL (0.083 %) solution for nebulization 2.5 mg inhalation Q4-6H PRN (Reason: shortness of breath or wheezing) Qty: 75 0RF prednisone 10 mg tablet 10 mg PO DAILY Qty: 20 0RF Rx Instructions: 2T PO QD for 5 days then 1T PO QD for 5 days then 1/2T PO QD for 5 days acetaminophen 325 mg Tablet 650 mg PO Q6HR PRN (Reason: Pain, Mild (1-3)) Qty: 60 0RF polyethylene glycol 3350 17 gram Powder In Packet 17 gm PO DAILY Qty: 30 0RF trazodone 50 mg tablet 50 mg PO BEDTIME Qty: 30 0RF Patient Comments: TAKE 1 TABLET BY MOUTH ONCE DAILY AT BEDTIME prochlorperazine maleate 10 mg Tablet 1 tab PO TID PRN (Reason: Nausea) Qty: 90 0RF pantoprazole 40 mg Tablet,Delayed Release (Dr/Ec) 40 mg PO DAILY Qty: 30 0RF gabapentin 100 mg capsule 300 mg PO BEDTIME Qty: 30 0RF ropinirole 4 mg tablet 4 mg PO BEDTIME Qty: 30 0RF rosuvastatin 40 mg tablet 40 mg PO BEDTIME Qty: 30 0RF levothyroxine 50 mcg Capsule 50 mcg PO DAILY Qty: 30 0RF Xarelto 20 mg tablet 20 mg PO DAILY Qty: 30 0RF Patient Comments: TAKE 1 TABLET BY MOUTH ONCE DAILY Qvar RediHaler 80 mcg/actuation HFA aerosol breath activated 2 inh INHALATION BID Qty: 1 0RF nitroglycerin 0.4 mg tablet, sublingual 0.4 mg sublingual PRN PRN (Reason: Chest Pain) morphine 15 mg tablet 7.5 - 15 mg PO Q4H PRN (Reason: low back pain) fluticasone propionate [Flovent HFA] 110 mcg/actuation HFA aerosol inhaler 2 puff INHALATION BID Discontinued carvedilol 12.5 mg tablet 12.5 mg PO BID Qty: 60 0RF spironolactone 25 mg tablet 25 mg PO DAILY Qty: 30 0RF lisinopril 5 mg tablet 5 mg PO BEDTIME Qty: 30 0RF Patient Comments: TAKE 1 TABLET BY MOUTH NIGHTLY Medication counseling provided by Pharmacist: No Follow up/Referrals: Khoi Dyer DO [Primary Care Provider] - Discharge Health Status Multidrug resistant organism: No MDRO Diet/Activity/Treatments Diet: Diet as Tolerated Other treatments: reduce fluid intake by 30% and check BP twice a day. Labs with Dr Dyer next week ([facility]) Visit Report/Discharge Packet Stand Alone Forms: Patient Portal/API Discharge Data Primary Care Provider: Khoi Dyer MIPS - DC The patient has a history of heart transplant or Left Ventricular Assist Device (LVAD). If yes, STOP here.: No The patient has current or prior documentation of left ventricular ejection fraction (LVEF) less than or equal to 40%, or moderate or severely depressed left ventricular systolic function.: Yes A. The patient was prescribed or already taking an Angiotensin-Converting Enzyme (JERRICA) Inhibitor, or Angiotensin Receptor Edna (ARB).: Yes B. The patient was prescribed or already taking a beta-edna. [If Yes to Both A & B, STOP here]: Yes
== END 2023-05-15 15:00 | disposition home or self-care (01) | DRG 640 ==
LOC: ED 14:49 → AC 05-13 06:54
PROVIDERS: Hospitalist; Admitting Provider Student in an Organized Health Care Education/Training Program; Emergency Provider Emergency Medicine; PCP Family Medicine; Referring Provider Emergency Medicine; Visit Provider Student in an Organized Health Care Education/Training Program
DX: E87.1 Hypo-osmolality and hyponatremia (principal); G93.41 Metabolic encephalopathy; N17.9 Acute kidney failure, unspecified; J02.9 Acute pharyngitis, unspecified; E87.5 Hyperkalemia; I48.91 Unspecified atrial fibrillation; K21.9 Gastro-esophageal reflux disease without esophagitis; E03.9 Hypothyroidism, unspecified; M54.50 Low back pain, unspecified; J45.909 Unspecified asthma, uncomplicated; E78.5 Hyperlipidemia, unspecified; Z79.01 Long term (current) use of anticoagulants; Z79.52 Long term (current) use of systemic steroids; R41.82 Altered mental status, unspecified
CPT/HCPCS: 36415; 51701; 70360; 70450; 70490; 71045; 71260; 72125; 74177; 80048; 80053; 81003; 82533; 82962; 83605; 83880; 83935; 84300; 84443; 84484; 85025; 85610; 87633; 87651; 92610; 93005; 94640; 96361; 96365; 96367; 96374; 96375; 97162; 97530; 99284; 99285; J0295; J0612; J0696; J1100; J1200; J1940; J2405; J7613; Q9967

== ENCOUNTER 2023-05-27 05:07 | Inpatient (IN) | payer OTHER, MEDICARE, SELFPAY ==
[2023-05-27] VITALS (39 sets, daily range): BP systolic 78–148; BP diastolic 43–65; PULSE 56–70; RESP 13–38; TEMP 36.5–37.1; O2SAT 43–100; BMI 31.2
--- NOTE | 2023-05-27 05:04 | DI.CT.S_ITS ---
PROCEDURE: CT STROKE INDICATIONS: unresponsive TECHNIQUE: Noncontrast 4.5 mm thick angled axial sections acquired from the foramen magnum to the vertex, with coronal reformats. For radiation dose reduction, the following was used: automated exposure control, adjustment of mA and/or kV according to patient size. COMPARISON: [facility], CT, CT HEAD/BRAIN WO CON, 05/11/2023, 0:44. FINDINGS: Image quality: Excellent. CSF spaces: Basal cisterns are patent. No extra-axial fluid collections. The ventricles are symmetric in size and shape. Brain: No intracranial bleeds or masses. There is cerebral volume loss for age, with resultant ventricular and sulcal prominence. There are periventricular and deep white matter chronic small vessel ischemic changes. There is intracranial internal carotid artery atherosclerosis. Skull and face: Calvarium and visualized facial bones appear intact, without suspicious lesions. Sinuses: Visualized sinuses and mastoids are clear. IMPRESSION: 1. No CT evidence of acute intracranial abnormalities. Findings were reported to ER nursing staff by the preliminary reading radiologist at 5:40 a.m. On 05/27/2023 This study fulfills neurological imaging criteria for inclusion or exclusion of acute stroke therapies based on available published neurological guidelines. Dictated by: Supa Villalpando M.D. on 05/27/2023 at 9:07 Approved by: Supa Villalpando M.D. on 05/27/2023 at 9:09
--- NOTE | 2023-05-27 05:04 | DI.CT.S_ITS ---
PROCEDURE: CT ANGIO HEAD AND NECK INDICATIONS: unresponsive TECHNIQUE: After the administration of intravenous contrast, 1 mm thick sections acquired from the aortic arch through the [place] [employer] [place]. 3-dimensional aaqbkdj-vdlhcxkuo-lyhnlhsjgt (MIP) and/or volume rendering reformats were acquired of the central intracranial vasculature and neck separately. For radiation dose reduction, the following was used: automated exposure control, adjustment of mA and/or kV according to patient size. COMPARISON: None. FINDINGS: Image quality: Diagnostic. HEAD CT ANGIOGRAPHY: Anterior circulation: Intracranial internal carotid arteries are normal in size and flow. The flow within the paired anterior cerebral arteries is normal and symmetric. The flow within the middle cerebral arteries is normal and symmetric. The anterior communicating artery is seen. No aneurysms are seen. There is a dilated vessel seen in right frontal region series 5, image [id number]. Posterior circulation: Visualized portions of the vertebral arteries demonstrate normal caliber, and join to form a normal appearing basilar artery. Flow within the posterior cerebral arteries is normal and symmetric. No aneurysms are seen. NECK CT ANGIOGRAPHY: Carotid system: The great vessels demonstrate a conventional anatomy as they arise from the aortic arch. The origins of the common carotid arteries appear patent. The common carotid arteries demonstrate normal caliber and courses. The bifurcation regions are both widely patent. The internal carotid arteries demonstrate normal calibers and courses. Posterior circulation: The origins of the vertebral arteries both appear widely patent. The more superior extracranial portions of both vertebral arteries also demonstrate normal courses and calibers. They join to form a normal appearing basilar artery. Soft tissues: Visualized neck soft tissues demonstrate no suspicious abnormalities. Bones: No suspicious bony lesions. Visualized cervical spine appears normally aligned. IMPRESSION: 1. No hemodynamically significant stenosis or aneurysm is seen in intracranial circulation. 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 Follow-up CT aor MRA of head can be done in 6 months for evaluation of stability. 2. No hemodynamically significant stenosis is seen in bilateral neck arteries. No discrepancies from preliminary reading. Any quantitative measurements of stenosis were performed using NASCET criteria. Dictated by: Supa Villalpando M.D. on 05/27/2023 at 9:09 Approved by: Supa Villalpando M.D. on 05/27/2023 at 9:12
--- NOTE | 2023-05-27 05:09 | ED_ITS ---
HPI - Neuro Symptoms/Deficit General Chief Complaint: Neuro Symptoms/Deficit Stated Complaint: unresponsive Time Seen by Provider: 05/27/23 05:08 History of Present Illness HPI Narrative: Patient is a 72-year-old female history of atrial fibrillation on Xarelto, anxiety, coronary artery disease presents today with altered mental status. reports that she was discharged from the hospital on May 15 after standing 2 days with electrolyte abnormalities. Last night and yesterday she was at her baseline and normal he found her with decreased responsiveness and altered mental status on the floor. She was having some sonorous respirations initial GCS12 with EMS was well she does respond to pain. But does not answer questions history is from EMS and . Related Data Home Medications Medication Instructions Recorded Confirmed fluticasone propionate 110 2 puff inhalation BID 05/12/23 05/27/23 mcg/actuation HFA aerosol inhaler (Flovent HFA) morphine 15 mg immediate release 7.5 - 15 mg PO Q4H PRN low back 05/12/23 05/27/23 tablet pain nitroglycerin 0.4 mg sublingual 0.4 mg sublingual PRN PRN Chest 05/12/23 05/27/23 tablet Pain Previous Rx's Medication Instructions Recorded acetaminophen 325 mg tablet 650 mg PO Q6HR PRN Pain, Mild 06/05/22 (1-3) #60 tabs beclomethasone dipropionate 80 2 inh inhalation BID #1 g 06/10/22 mcg/actuation HFA breath activated aerosol (Qvar RediHaler) gabapentin 100 mg capsule 300 mg PO BEDTIME #30 caps 06/10/22 levothyroxine 50 mcg capsule 50 mcg PO DAILY #30 caps 06/10/22 pantoprazole 40 mg tablet,delayed 40 mg PO DAILY #30 tabs 06/10/22 release polyethylene glycol 3350 17 gram 17 gm PO DAILY #30 ea 06/10/22 oral powder packet prochlorperazine maleate 10 mg 1 tab PO TID PRN Nausea #90 tabs 06/10/22 tablet rivaroxaban 20 mg tablet (Xarelto) 20 mg PO DAILY #30 tabs 06/10/22 ropinirole 4 mg tablet 4 mg PO BEDTIME #30 tabs 06/10/22 rosuvastatin 40 mg tablet 40 mg PO BEDTIME #30 tabs 06/10/22 trazodone 50 mg tablet 50 mg PO BEDTIME #30 tabs 06/10/22 albuterol sulfate 2.5 mg/3 mL 2.5 mg (3 mL) inhalation Q4-6H PRN 09/17/22 (0.083 %) solution for nebulization shortness of breath or wheezing #75 mL prednisone 10 mg tablet 10 mg PO DAILY #20 tabs 09/17/22 carvedilol 25 mg tablet 25 mg PO BID #60 tabs 05/15/23 duloxetine 20 mg capsule,delayed 60 mg PO DAILY #30 caps 05/15/23 release (Cymbalta) lisinopril 2.5 mg tablet 2.5 mg PO DAILY #30 tabs 05/15/23 Allergies Allergy/AdvReac Type Severity Reaction Status Date / Time Iodine and Iodide Containing Allergy Severe pass out Verified 05/12/23 11:19 Produc [IODINE AND IODIDE CONTAINING PRODUC] amlodipine Allergy Intermediate Swelling Verified 05/12/23 11:19 of Lip/Tongue/Throat codeine [CODEINE] Allergy Intermediate HIVES, Verified 05/12/23 11:19 NAUSEA nitrofurantoin Allergy Mild Rash Verified 05/12/23 11:19 [NITROFURANTOIN] oxycodone AdvReac Hallucinati Verified 05/12/23 11:19 ng Review of Systems Review of Systems ROS Unobtainable: All systems reviewed & are unremarkable except as noted in HPI and below Patient History Medical History Afib Anesthesia complication Anxiety Asthma Chronic episodic atrial fibrillation Easy bruisability Gait instability GERD (gastroesophageal reflux disease) Heart murmur History of left heart catheterization (12/13/19) HLD (hyperlipidemia) Hypothyroidism Lumbar stenosis Palpitations Pre-diabetes Skin cancer Spondylolisthesis at L3-L4 level Surgical History H/O spinal fusion History of hysterectomy Hx of appendectomy Hx of bilateral cataract extraction (2020) Hx of cholecystectomy Hx of tubal ligation Family History Father Congestive heart failure Mother COPD (chronic obstructive pulmonary disease) Social History household members: spouse Smoking Status: Never smoker alcohol intake: never Smoking Status: Never smoker alcohol intake frequency: 0-2 drinks per day Substance Use Type: does not use Exam Initial Vital Signs Initial Vital Signs: Vital Signs Temperature 98.2 F 05/27/23 05:05 Pulse Rate 67 05/27/23 05:05 Respiratory Rate 32 H 05/27/23 05:05 Blood Pressure 148/65 H 05/27/23 05:05 Pulse Oximetry 82 L 05/27/23 05:05 Oxygen Delivery Method Room Air 05/27/23 05:05 GENERAL: Alert 72-year-old responsive to pain HEENT: Head atraumatic,EOMI, pupils reactive, no facial droop, moist mucous membranes CARDIOVASCULAR: Regular rate and rhythm without murmurs, rubs or gallops. RESPIRATORY: Breath sounds equal bilaterally, no wheezes rales or rhonchi. ABDOMEN: Soft, nontender. Normoactive bowel sounds all 4 quadrants. No guarding or rebound. EXTREMITIES: Normal range of motion, no clubbing or edema. Neurovascularly intact NEUROLOGICAL: Responsive to pain does say some words SKIN: Possible contusion under Scores GCS Lynda coma scale eye opening: To pressure Lynda coma scale verbal response: Words [place] coma scale motor response: Localising [place] coma scale total score: 10 Course Orders Ordered: Acetaminophen (Acetaminophen 325 Mg Tablet) 975 mg PO Q8H [facility] Last Admin: 05/28/23 01:42 Dose: Not Given Documented By: Admin: 05/27/23 16:43 Dose: 975 mg Documented By: Admin: 05/27/23 10:59 Dose: 975 mg Documented By: Albuterol (Albuterol 2.5 Mg/3 Ml Neb (Adult)) 2.5 mg INH Q4H PRN PRN Reason: shortness of breath or wheezing Atorvastatin Calcium (Atorvastatin 20 Mg Tablet) 80 mg PO BEDTIME [facility] Last Admin: 05/27/23 20:57 Dose: 80 mg Documented By: PHYLLIS Budesonide (Budesonide 0.5 Mg/2 Ml Neb) 0.5 mg INH RTBID [facility] Last Admin: 05/27/23 20:10 Dose: 0.5 mg Documented By: Carvedilol (Carvedilol 12.5 Mg Tablet) 25 mg PO BID [facility] Last Admin: 05/27/23 20:55 Dose: 25 mg Documented By: PHYLLIS Duloxetine HCl (Duloxetine 20 Mg Capsule) 60 mg PO DAILY [facility] Gabapentin (Gabapentin 100 Mg Capsule) 300 mg PO BEDTIME NARESH Last Admin: 05/27/23 20:53 Dose: 300 mg Documented By: PHYLLIS Levothyroxine Sodium (Levothyroxine 50 Mcg Tablet) 50 mcg PO 0600 [facility] Lidocaine (Lidocaine Patch 1 Each Adh..Patch) 1 each TOP DAILY [facility] Last Admin: 05/27/23 11:00 Dose: 1 each Documented By: Lidocaine (Remove Lidocaine Patch) 1 each TOP BEDTIME NARESH Last Admin: 05/27/23 20:57 Dose: 1 each Documented By: PHYLLIS Lisinopril (Lisinopril 5 Mg Tablet) 2.5 mg PO DAILY [facility] Naloxone HCl (Naloxone 0.4 Mg/Ml Vial) 0.2 mg IV Q2MIN PRN PRN Reason: Opiate Reversal Nitroglycerin (Nitroglycerin 0.4 Mg Sl Tab) 0.4 mg SL PRN PRN PRN Reason: Chest Pain Olanzapine (Olanzapine Odt 10 Mg Tab) 5 mg PO Q6H PRN PRN Reason: Agitation Oxycodone HCl (Oxycodone Ir 5 Mg Tablet) 5 mg PO Q6H PRN PRN Reason: Pain, Moderate (4-6) Pantoprazole Sodium (Pantoprazole Dr 40 Mg Tablet) 40 mg PO DAILY [facility] Polyethylene Glycol (Polyethylene Glycol 3350 17 Gm Powd.Pack) 17 gm PO DAILY [facility] Prednisone (Prednisone 5 Mg Tablet) 10 mg PO DAILY [facility] Rivaroxaban (Rivaroxaban 10 Mg Tablet) 20 mg PO DAILY [facility] Trazodone HCl (Trazodone 50 Mg Tablet) 50 mg PO BEDTIME [facility] Last Admin: 05/27/23 20:57 Dose: 50 mg Documented By: PHYLLIS Discontinued Medications Sodium Chloride (Normal Saline 0.9%) 250 mls @ 1,000 mls/hr IV BOLUS ONE Stop: 05/27/23 08:48 Last Admin: 05/27/23 11:15 Dose: 1,000 mls/hr Documented By: Sodium Chloride (Normal Saline 0.9%) 1,000 mls @ 1,000 mls/hr IV BOLUS ONE Stop: 05/27/23 09:57 Last Admin: 05/27/23 09:10 Dose: 1,000 mls/hr Documented By: Non-Formulary Medication (Beclomethasone Dipropionate [Qvar Redihaler]) 2 inhalation INHALATION BID NARESH Olanzapine (Olanzapine Odt 10 Mg Tab) 5 mg PO NOW ONE Stop: 05/27/23 13:53 Last Admin: 05/27/23 14:01 Dose: 5 mg Documented By: Ropinirole HCl (Ropinirole 4 Mg Tablet) 4 mg PO BEDTIME NARESH Ropinirole HCl (Ropinirole 1 Mg Tablet) 4 mg PO BEDTIME NARESH Vital Signs Vital signs: Vital Signs - 8 hr 05/27/23 05:05 05/27/23 05:29 05/27/23 05:30 Temperature 98.2 F Pulse Rate 67 69 68 Respiratory Rate 32 H 13 18 Blood Pressure 148/65 H Pulse Oximetry 82 L Oxygen Delivery Method Room Air 05/27/23 06:00 05/27/23 06:30 05/27/23 07:00 Temperature Pulse Rate 67 62 63 Respiratory Rate 24 23 26 H Blood Pressure Pulse Oximetry 95 96 95 Oxygen Delivery Method 05/27/23 07:20 05/27/23 07:20 05/27/23 07:22 Temperature Pulse Rate 61 Respiratory Rate 24 Blood Pressure 105/44 L 106/53 L Pulse Oximetry Oxygen Delivery Method 05/27/23 07:22 Temperature Pulse Rate 61 Respiratory Rate 30 H Blood Pressure Pulse Oximetry Oxygen Delivery Method MDM - Neuro Symptoms/Deficit Lab Data 05/27/23 05:15 05/27/23 05:15 Labs: Lab Results 05/27/23 05/27/23 05/27/23 Range/Units 05:15 05:15 05:15 WBC 8.5 (4.5-11.0) X10^3/uL RBC 2.64 L (4.0-5.2) X10^6/uL Hgb 7.7 L (12.0-16.0) g/dL Hct 23.4 L (36-46) % MCV 88.4 (80-100) fL MCH 29.2 (26-34) PG MCHC 33.0 (30-36) % RDW 15.3 H (11.6-14.8) % Plt Count 188 (150-400) X10^3/uL Neut % (Auto) 80.8 H (50-75) % Lymph % (Auto) 10.8 L (25-40) % Andrews % (Auto) 5.9 (3-14) % Eos % (Auto) 1.9 L (2-4) % Baso % (Auto) 0.6 (0-2) % Neut # (Auto) 6900 (4073-1548) /uL Lymph # (Auto) 900 L (4116-7082) /uL Andrews # (Auto) 500 (0-900) /uL Eos # (Auto) 200 (0-450) /uL Baso # (Auto) 0 (0-100) /uL ABG pH (7.35-7.45) ABG pCO2 (35-45) mmHg ABG pO2 (80-100) mmHg ABG HCO3 (23-27) mmol/L ABG Total CO2 (23-27) mmol/L ABG O2 Saturation (95-100) % ABG Base Excess (-2-3) mmol/L FiO2 Sodium 137 (137-145) mmol/L Potassium 4.7 (3.4-5.1) mmol/L Chloride 101 (98-107) mmol/L Carbon Dioxide 30 (22-32) mmol/L BUN 20 H (7-17) mg/dL Creatinine 1.99 H (0.52-1.04) mg/dL Estimated GFR 26 L (>60) mL/min BUN/Creatinine Ratio 10.1 (6-22) Glucose 107 (80-110) mg/dL Lactate 0.8 (0.7-2.1) mmol/L Calcium 8.4 (8.4-10.2) mg/dL Total Bilirubin 0.6 (0.2-1.3) mg/dL AST 38 H (14-36) IU/L ALT 33 (<35) IU/L Alkaline Phosphatase 70 (38-126) U/L Total Creatine Kinase 799 H (30-135) U/L Troponin I 0.030 (0.01-0.034) ng/mL NT-Pro-B Natriuret Pep (<125) pg/mL Total Protein 6.6 (6.3-8.2) g/dL Albumin 3.6 (3.5-5.0) g/dL Globulin 3.0 (1.7-4.1) g/dL Albumin/Globulin Ratio 1.2 (1.0-2.8) Procalcitonin (<0.5) ng/mL Urine Color Urine Appearance Urine pH (4.5-8.0) Ur Specific [place] (1.000-1.035) Urine Protein (Negative) Urine Glucose (UA) (Negative) g/dL Urine Ketones (NEGATIVE) Urine Occult Blood (Negative) Urine Nitrate (Negative) Urine Bilirubin (NEGATIVE) Urine Urobilinogen (0.2) E.U./dL Ur Leukocyte Esterase (NEGATIVE) Urine RBC (0-5/HPF) Urine WBC (0-5/HPF) Ur Squamous Epith Cells (0-5/HPF) Urine Bacteria (None) Ur Culture Indicated? U Opiates 300ng/mL cut (Negative) Ur Oxycodone Screen (Negative) Urine Methadone Screen (Negative) Ur Barbiturates Screen (Negative) U Tricyclic Antidepress (Negative) Ur Phencyclidine Scrn (Negative) Ur Amphetamines Screen (Negative) U Methamphetamines Scrn (Negative) Ur MDMA Scrn (Ecstasy) (Negative) U Benzodiazepines Scrn (Negative) Urine Cocaine Screen (Negative) U Marijuana (THC) Screen (Negative) Ethyl Alcohol < 10 ( - 10) mg/dL 05/27/23 05/27/23 05/27/23 Range/Units 05:15 06:53 06:53 WBC (4.5-11.0) X10^3/uL RBC (4.0-5.2) X10^6/uL Hgb (12.0-16.0) g/dL Hct (36-46) % MCV (80-100) fL MCH (26-34) PG MCHC (30-36) % RDW (11.6-14.8) % Plt Count (150-400) X10^3/uL Neut % (Auto) (50-75) % Lymph % (Auto) (25-40) % Andrews % (Auto) (3-14) % Eos % (Auto) (2-4) % Baso % (Auto) (0-2) % Neut # (Auto) (1704-5815) /uL Lymph # (Auto) (9443-5464) /uL Andrews # (Auto) (0-900) /uL Eos # (Auto) (0-450) /uL Baso # (Auto) (0-100) /uL ABG pH (7.35-7.45) ABG pCO2 (35-45) mmHg ABG pO2 (80-100) mmHg ABG HCO3 (23-27) mmol/L ABG Total CO2 (23-27) mmol/L ABG O2 Saturation (95-100) % ABG Base Excess (-2-3) mmol/L FiO2 Sodium (137-145) mmol/L Potassium (3.4-5.1) mmol/L Chloride (98-107) mmol/L Carbon Dioxide (22-32) mmol/L BUN (7-17) mg/dL Creatinine (0.52-1.04) mg/dL Estimated GFR (>60) mL/min BUN/Creatinine Ratio (6-22) Glucose (80-110) mg/dL Lactate (0.7-2.1) mmol/L Calcium (8.4-10.2) mg/dL Total Bilirubin (0.2-1.3) mg/dL AST (14-36) IU/L ALT (<35) IU/L Alkaline Phosphatase (38-126) U/L Total Creatine Kinase (30-135) U/L Troponin I (0.01-0.034) ng/mL NT-Pro-B Natriuret Pep (<125) pg/mL Total Protein (6.3-8.2) g/dL Albumin (3.5-5.0) g/dL Globulin (1.7-4.1) g/dL Albumin/Globulin Ratio (1.0-2.8) Procalcitonin 0.05 (<0.5) ng/mL Urine Color Yellow Urine Appearance Clear Urine pH 6.0 (4.5-8.0) Ur Specific [place] <=1.005 (1.000-1.035) Urine Protein Negative (Negative) Urine Glucose (UA) Negative (Negative) g/dL Urine Ketones Negative (NEGATIVE) Urine Occult Blood 2+ H (Negative) Urine Nitrate Negative (Negative) Urine Bilirubin Negative (NEGATIVE) Urine Urobilinogen 0.2 (0.2) E.U./dL Ur Leukocyte Esterase Negative (NEGATIVE) Urine RBC None seen (0-5/HPF) Urine WBC 0-1/hpf (0-5/HPF) Ur Squamous Epith Cells None seen (0-5/HPF) Urine Bacteria None seen (None) Ur Culture Indicated? Cult not indicated U Opiates 300ng/mL cut Positive H (Negative) Ur Oxycodone Screen Negative (Negative) Urine Methadone Screen Negative (Negative) Ur Barbiturates Screen Negative (Negative) U Tricyclic Antidepress Negative (Negative) Ur Phencyclidine Scrn Negative (Negative) Ur Amphetamines Screen Negative (Negative) U Methamphetamines Scrn Negative (Negative) Ur MDMA Scrn (Ecstasy) Negative (Negative) U Benzodiazepines Scrn Negative (Negative) Urine Cocaine Screen Negative (Negative) U Marijuana (THC) Screen Negative (Negative) Ethyl Alcohol ( - 10) mg/dL 05/27/23 05/27/23 Range/Units 07:15 07:38 WBC (4.5-11.0) X10^3/uL RBC (4.0-5.2) X10^6/uL Hgb (12.0-16.0) g/dL Hct (36-46) % MCV (80-100) fL MCH (26-34) PG MCHC (30-36) % RDW (11.6-14.8) % Plt Count (150-400) X10^3/uL Neut % (Auto) (50-75) % Lymph % (Auto) (25-40) % Andrews % (Auto) (3-14) % Eos % (Auto) (2-4) % Baso % (Auto) (0-2) % Neut # (Auto) (9733-0640) /uL Lymph # (Auto) (6034-9799) /uL Andrews # (Auto) (0-900) /uL Eos # (Auto) (0-450) /uL Baso # (Auto) (0-100) /uL ABG pH 7.33 L (7.35-7.45) ABG pCO2 51.2 H (35-45) mmHg ABG pO2 75 L (80-100) mmHg ABG HCO3 27 (23-27) mmol/L ABG Total CO2 29 H (23-27) mmol/L ABG O2 Saturation 94 L (95-100) % ABG Base Excess 1.0 (-2-3) mmol/L FiO2 32 Sodium (137-145) mmol/L Potassium (3.4-5.1) mmol/L Chloride (98-107) mmol/L Carbon Dioxide (22-32) mmol/L BUN (7-17) mg/dL Creatinine (0.52-1.04) mg/dL Estimated GFR (>60) mL/min BUN/Creatinine Ratio (6-22) Glucose (80-110) mg/dL Lactate (0.7-2.1) mmol/L Calcium (8.4-10.2) mg/dL Total Bilirubin (0.2-1.3) mg/dL AST (14-36) IU/L ALT (<35) IU/L Alkaline Phosphatase (38-126) U/L Total Creatine Kinase (30-135) U/L Troponin I (0.01-0.034) ng/mL NT-Pro-B Natriuret Pep 2020 H (<125) pg/mL Total Protein (6.3-8.2) g/dL Albumin (3.5-5.0) g/dL Globulin (1.7-4.1) g/dL Albumin/Globulin Ratio (1.0-2.8) Procalcitonin (<0.5) ng/mL Urine Color Urine Appearance Urine pH (4.5-8.0) Ur Specific [place] (1.000-1.035) Urine Protein (Negative) Urine Glucose (UA) (Negative) g/dL Urine Ketones (NEGATIVE) Urine Occult Blood (Negative) Urine Nitrate (Negative) Urine Bilirubin (NEGATIVE) Urine Urobilinogen (0.2) E.U./dL Ur Leukocyte Esterase (NEGATIVE) Urine RBC (0-5/HPF) Urine WBC (0-5/HPF) Ur Squamous Epith Cells (0-5/HPF) Urine Bacteria (None) Ur Culture Indicated? U Opiates 300ng/mL cut (Negative) Ur Oxycodone Screen (Negative) Urine Methadone Screen (Negative) Ur Barbiturates Screen (Negative) U Tricyclic Antidepress (Negative) Ur Phencyclidine Scrn (Negative) Ur Amphetamines Screen (Negative) U Methamphetamines Scrn (Negative) Ur MDMA Scrn (Ecstasy) (Negative) U Benzodiazepines Scrn (Negative) Urine Cocaine Screen (Negative) U Marijuana (THC) Screen (Negative) Ethyl Alcohol ( - 10) mg/dL Imaging Data CT scan - head: Radiologist's Impression: Atherosclerosis of internal carotid artery dilation of vessels within right frontal region presumably to be alivia from anterior cerebral artery and 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 Recommend follow-up CTA no evidence of aneurysm or vascular disease CTA - brain/neck: Radiologist's Impression: Preliminary report minimal atherosclerosis without significant stenosis Chest x-ray: Radiologist's Impression: Mod Elia or pneumonia and right middle lower lung zone findings suggest possible low-grade congestive heart failure. ECG Data Interpretation: Will normal sinus rhythm rate 68 [place] interval 166 QRS [address] changes MDM Narrative Medical decision making narrative: 72-year-old female brought with decreasing mental status on Xarelto initial concern for intracranial hemorrhage. CT noncontrast head was negative CT angio did not show any significant stenosis. Blood work does not show any leukocytosis hemoglobin is slightly low at 7.7 previously 8.2. Electrolytes have improved and are within normal limits creatinine is slightly increased 0.9 previously 1.3. Negative troponin CK minimally elevated at 799. No obvious infection urine is negative. Upon reexamination she is becoming more awake and alert she is diffusely weak. Confused about the year. X-ray does show questionable pneumonia she does not have fever or leukocytosis. It is possible she has a PE however she is on Xarelto, so thought to be unlikely. Toxicology is considered she does take morphine regularly drug screen positive for opiates alcohol is negative Upon further review of the chart patient similar presentation but mental status resolved with time thought to be possibly secondary to morphine. Dr. Willett accepted patient Discharge Plan Departure Patient Disposition: Admitted as Observation Clinical Impression: Acute metabolic encephalopathy, Hypoxia Admit Date/Time: 05/27/23 07:48 Admit Provider: Rama Willett
--- NOTE | 2023-05-27 05:15 | PC.NURSE ---
see triage note for assessment
--- NOTE | 2023-05-27 05:19 | DI.RAD.S_ITS ---
PROCEDURE: XR CHEST 1V INDICATIONS: ams TECHNIQUE: One view of the chest was acquired. COMPARISON: [facility], CR, XR CHEST 1V, 05/12/2023, 11:26. FINDINGS: Surgical changes and devices: None. Lungs and pleura: Mild pulmonary vascular congestion is seen. Small airspace opacity is noted in medial right lower lung zone adjacent to right heart border concerning for middle lobe infiltrate versus atelectasis. No pleural effusions or pneumothorax. Mediastinum: Mediastinal contours appear normal. Heart size is enlarged. Bones and chest wall: No suspicious bony lesions. Overlying soft tissues appear unremarkable. IMPRESSION: Cardiomegaly and congestion, cannot rule out right middle lobe infiltrate versus atelectasis. No discrepancies. Dictated by: Supa Villalpando M.D. on 05/27/2023 at 9:12 Approved by: Supa Villalpando M.D. on 05/27/2023 at 9:13
[2023-05-27 05:29] LABS: Add Manual Diff / Slide Review NO; Basophils Absolute Auto 0 /uL (0-100); Basophils Percent Auto 0.6 % (0-2); Eosinophils Absolute Auto 200 /uL (0-450); Eosinophils Percent Auto 1.9 % (2-4); Hematocrit 23.4 % (36-46); Hemoglobin 7.7 g/dL (12.0-16.0); Lymphocytes Absolute Auto 900 /uL (1100-4500); Lymphocytes Percent Auto 10.8 % (25-40); Mean Corpuscular Hemoglobin 29.2 PG (26-34); Mean Corpuscular Volume 88.4 fL (80-100); Monocytes Absolute Auto 500 /uL (0-900); Monocytes Percent Auto 5.9 % (3-14); Neutrophils Absolute Auto 6900 /uL (1500-7000); Neutrophils Percent Auto 80.8 % (50-75); Platelet Count 188 X10^3/uL (150-400); Red Blood Cell Count 2.64 X10^6/uL (4.0-5.2); Red Cell Distribution Width 15.3 % (11.6-14.8); White Blood Cell Count 8.5 X10^3/uL (4.5-11.0)
[2023-05-27 05:39] LABS: Lactate (Lactic Acid) 0.8 mmol/L (0.7-2.1)
[2023-05-27 05:41] LABS: Alanine Aminotransferase 33 IU/L (<35); Albumin 3.6 g/dL (3.5-5.0); Albumin Globulin Ratio 1.2 (1.0-2.8); Alkaline Phosphatase 70 U/L (38-126); Aspartate Aminotransferase 38 IU/L (14-36); BUN Creatinine Ratio 10.1 (6-22); Bilirubin Total 0.6 mg/dL (0.2-1.3); Blood Urea Nitrogen 20 mg/dL (7-17); Calcium 8.4 mg/dL (8.4-10.2); Carbon Dioxide 30 mmol/L (22-32); Chloride 101 mmol/L (98-107); Creatine Kinase 799 U/L (30-135); Estimated Glomerular Filt Rate 26 mL/min (>60); Ethanol (ETOH) < 10 mg/dL; Glucose 107 mg/dL (80-110); HEMOLYSIS < 15 (0-50); Potassium 4.7 mmol/L (3.4-5.1); Sodium 137 mmol/L (137-145); Total Protein 6.6 g/dL (6.3-8.2)
[2023-05-27 05:57] LABS: Procalcitonin 0.05 ng/mL (<0.5)
--- NOTE | 2023-05-27 07:03 | CM.MNRNOTE ---
cath urine specimen obtained pt tolerated well, and pt cleaned of urine soaked linen
[2023-05-27 07:17] LABS: Appearance Urine UA CLEAR; Bilirubin Urine UA NEGATIVE (NEGATIVE); Color Urine UA YELLOW; Glucose Urine UA NEGATIVE (Negative); Ketones Urine UA NEGATIVE (NEGATIVE); Leukocyte Esterase Urine UA NEGATIVE (NEGATIVE); Nitrite Urine UA NEGATIVE (Negative); Occult Blood Urine UA 2+ (Negative); Protein Urine UA NEGATIVE (Negative); Specific Gravity Urine UA <=1.005 (1.000-1.035); Urobilinogen Urine UA 0.2 E.U./dL (0.2)
[2023-05-27 07:23] LABS: UR Morphine/Opiate cutoff 300 Positive (Negative); Ur Creatinine Normal (Normal); Ur Specific Gravity Normal (Normal); Urine Amphetamines Negative (Negative); Urine Barbiturates Negative (Negative); Urine Benzodiazepines Negative (Negative); Urine Cocaine Negative (Negative); Urine MDMA Negative (Negative); Urine Methadone Negative (Negative); Urine Methamphetamines Negative (Negative); Urine Oxycodone Negative (Negative); Urine Phencyclidine Negative (Negative); Urine Tetrahydrocannabinol Negative (Negative); Urine Tricyclic Antidepressant Negative (Negative); Urine pH Normal (Normal)
[2023-05-27 07:25] LABS: Bacteria Urine None Seen; Culture Indicated Urine Cult Not Indicated; RBC Urine None Seen (0-5/HPF); Squamous Epithelial Cell Urine None Seen (0-5/HPF); WBC Urine 0-1/HPF (0-5/HPF)
--- NOTE | 2023-05-27 07:29 | PC.NURSE ---
Lung sounds diminshed bilaterally in bases. Pt responded to touch and her name.
--- NOTE | 2023-05-27 07:39 | PC.NURSE ---
at bedside said he controls her pain medications and does not think that she may have taken too much. says that pt has not beed the same since she was in the hospital last. pt is waking up and more alert/arousable than previous assessment.
[2023-05-27 08:03] LABS: NT-proBNP (BNP-Adult 18+) 2020 pg/mL (<125)
[2023-05-27 08:11] LABS: HCO3 ABG 27 mmol/L (23-27); PCO2 ABG 51.2 mmHg (35-45); PO2 ABG 75 mmHg (80-100); TCO2 ABG 29 mmol/L (23-27); pH ABG 7.33 (7.35-7.45)
[2023-05-27 08:12] LABS: Fractionated Inspired Oxygen 32; Oxygen Saturation ABG 94 % (95-100)
[2023-05-27] MEDS: NALOXONE 0.4 MG/ML VIAL IV (08:55)
[2023-05-27] MEDS: SODIUM CHLORIDE 0.9% 1,000 ML 1000 ML IV (09:10)
[2023-05-27] MEDS: ACETAMINOPHEN 325 MG TABLET 975 MG PO ×2 (10:59→16:43)
[2023-05-27] MEDS: LIDOCAINE PATCH 1 EACH ADH..PATCH TOP (11:00)
[2023-05-27] MEDS: SODIUM CHLORIDE 0.9% 250 ML 1000 ML IV (11:15)
--- NOTE | 2023-05-27 11:59 | PC.ADMIT ---
Addendum entered by Darling Reed R.N. 05/27/23 18:17: 1750 Pt becoming agitated again with at the bedside, pt removing telemetry, pulse ox, and yelling. This nurse attempted to calm pt down, allowed pt remove items bothering her, updated Provider and got the approval to leave monitoring items off, bed low and locked, call light within reach, will continue to monitor. Addendum entered by Darling Reed R.N. 05/27/23 13:21: Pt has become increasingly combative, delusional, hallucinating, calling out for , hitting and kicking anyone who comes near, Provider and Charge Nurse Ivory informed of pt behavior, no new orders at this time, will continue to monitor Original Note: [email or web address] [facility] [address] Admission Note: The patient,Glenys Gottlieb,72 y/o, was given written information regarding hospital policies, unit procedures and contact persons. Patient's smoking status: Never smoker. Vital Signs - 8 hr 05/27/23 05:05 05/27/23 05:29 05/27/23 05:30 Temperature 98.2 F Pulse Rate 67 69 68 Respiratory Rate 32 H 13 18 Blood Pressure 148/65 H Pulse Oximetry 82 L Oxygen Delivery Method Room Air Oxygen Flow Rate 05/27/23 06:00 05/27/23 06:30 05/27/23 07:00 Temperature Pulse Rate 67 62 63 Respiratory Rate 24 23 26 H Blood Pressure Pulse Oximetry 95 96 95 Oxygen Delivery Method Oxygen Flow Rate 05/27/23 07:20 05/27/23 07:20 05/27/23 07:22 Temperature Pulse Rate 61 Respiratory Rate 24 Blood Pressure 105/44 L 106/53 L Pulse Oximetry Oxygen Delivery Method Oxygen Flow Rate 05/27/23 07:22 05/27/23 07:30 05/27/23 07:31 Temperature Pulse Rate 61 61 61 Respiratory Rate 30 H 21 25 H Blood Pressure Pulse Oximetry 96 97 Oxygen Delivery Method Nasal Cannula Oxygen Flow Rate 2 05/27/23 07:31 05/27/23 07:39 05/27/23 07:39 Temperature Pulse Rate 64 Respiratory Rate 22 Blood Pressure 97/47 L 99/55 L Pulse Oximetry 98 Oxygen Delivery Method Oxygen Flow Rate 05/27/23 08:00 05/27/23 08:01 05/27/23 08:01 Temperature Pulse Rate 60 60 Respiratory Rate 19 28 H Blood Pressure 82/43 L Pulse Oximetry 96 96 Oxygen Delivery Method Oxygen Flow Rate 05/27/23 08:12 05/27/23 08:12 05/27/23 08:16 Temperature Pulse Rate 59 L Respiratory Rate 32 H Blood Pressure 103/47 L 96/55 L Pulse Oximetry 96 Oxygen Delivery Method Oxygen Flow Rate 05/27/23 08:16 05/27/23 08:30 05/27/23 08:30 Temperature Pulse Rate 59 L 59 L Respiratory Rate 24 27 H Blood Pressure 101/50 L Pulse Oximetry 96 97 Oxygen Delivery Method Oxygen Flow Rate 05/27/23 09:20 05/27/23 08:21 Temperature 98.8 F Pulse Rate 68 Respiratory Rate 34 H Blood Pressure 105/55 L Pulse Oximetry 100 Oxygen Delivery Method Room Air Oxygen Flow Rate 1 Pt arrived to room via gurney, slide board used to move pt to bed, NS 1L bolus started and 0.4 mg Narcan administered, pt immediately woke up and became very disoriented and tearful, asking why he brought her to the hospital?. Pt able to give name and but still confused regarding date, place or situation, states pt is back to baseline. Provider at bedside, order for tylenol and lidocaine patch, advised to avoid narcotics if possible. Oriented patient and to room and call light system, bed alarm on, call light within reach, will continue to monitor
--- NOTE | 2023-05-27 12:06 | PT.IIE ---
Surgical History (Last Reviewed 05/27/23 @ 07:28 by Chiara Ramirez DO) H/O spinal fusion History of hysterectomy Hx of appendectomy Hx of bilateral cataract extraction (2020) Hx of cholecystectomy Hx of tubal ligation Medical History (Last Reviewed 05/27/23 @ 07:28 by Chiara Ramirez DO) Afib Anesthesia complication Anxiety Asthma Chronic episodic atrial fibrillation Easy bruisability Gait instability GERD (gastroesophageal reflux disease) Heart murmur History of left heart catheterization (12/13/19) HLD (hyperlipidemia) Hypothyroidism Lumbar stenosis Palpitations Pre-diabetes Skin cancer Spondylolisthesis at L3-L4 level Physical Therapy Inpatient Evaluation/Re-Eval M1 PT/OT-IP Prior Functional Status Start: 05/27/23 11:05 Freq: NEEDED Status: Active Protocol: Document 05/27/23 11:30 MB (Rec: 05/27/23 12:06 [id number]) Medical Review Prior Functional Status Medical History Reviewed Yes Communication Unsure baseline communication. tends to do a lot of the question answering for pt and he does a lot of caretaking. Mobility and Gait states that she would occ use the cane and they talked about her starting to use the walker. She has not had a fall since last adm the end of last months, a couple of weeks ago. Activities of Daily Living and IADL's states that he assists with all ADLs and pt has a fear of falling, per her report Social History Household Members spouse Living Arrangements Apartment/Condo Number of Floors (Floors) One Floor Number of Stairs To Enter/Railing? One small threshold to step up Home Equipment Front Wheel Walker,Straight Cane,Bedside Commode,Shower Seat with Backrest,Grab Bars Near Toilet,Grab Bars In Shower Employment Status Retired M2 PT-IP Current Condition Start: 05/27/23 11:05 Freq: NEEDED Status: Active Protocol: Document 05/27/23 11:30 MB (Rec: 05/27/23 12:06 MB [id number]) Physical Therapy Current Condition Current Condition Evaluation Date 05/27/23 Treatment Diagnosis Found unresponsive Onset Date 05/27/23 M3 PT-IP Subjective Start: 05/27/23 11:05 Freq: NEEDED Status: Active Protocol: Document 05/27/23 11:30 MB (Rec: 05/27/23 12:06 MB [id number]) Subjective Physical Therapy Visit Type Type Initial Evaluation Visit Start Time 11:30 Visit Stop Time 11:45 Total Visit Minutes 15 Number of MEDICAID SPECIALIST Visits 0 Physical Therapy Visit Comments Patient Comments Pt tries to answer questions and does not have spontaneous conversation. tends to answer questions. Patient Goals : to take pt home Therapy Pain Assessment Pain When Pain Assessed At Rest Pain Present Pain Present Denied Pain M4 PT-IP Mobility and Gait Start: 05/27/23 11:05 Freq: NEEDED Status: Active Protocol: Document 05/27/23 11:30 MB (Rec: 05/27/23 12:06 MB [id number]) PT-Bed Mobility Assessment Supine to Sit Supine to Sit Maximum Assistance,1 Person Assistance,Head of Bed Elevated,Bedrails Sit to Supine Sit to Supine Maximum Assistance,1 Person Assistance Scooting Scooting to Edge of Bed Maximum Assistance PT-Transfer Assessment Comments Mobility Comments Pt requires max A for bed mobility and to maintain sitting upright EOB. She cannot progress further with mobility today. Pt is not on O2 when PT arrives and her O2 sats drop to 85% with bed mobility and getting up to EOB . BP also drops to 89/62 and HR is 93 BPM. Nsg steps in and places pt on 1L O2 and sats increase to the 90s. Returned pt to supine. She is able to pull herself up in the bed with use of bed rails, HOB flat, and PT blocking feet when her knees are bent. PT-Balance Assessment Sitting Balance and Reactions Static Sitting Balance Ability Poor Dynamic Sitting Balance Ability Poor Comments Other Balance Tests/Deviations/Treatment Max A to maintain static and : dynamic sitting balance. M5 PT-IP Objective Assessments Start: 05/27/23 11:05 Freq: NEEDED Status: Active Protocol: Document 05/27/23 11:30 MB (Rec: 05/27/23 12:06 MB [id number]) Orientation Orientation/Cognition Level of Alertness Lethargic Orientation Name,Birthday,Place Language Function Ability No Deficits Noted Safety Awareness Decreased Safety Awareness Memory Description Short Term Impaired,Long-Term Impaired Gross Range of Motion Upper Extremity ROM Assessment Within Functional Limits Lower Extremity ROM Assessment Within Functional Limits Strength Upper Extremity Strength Assessment Within Functional Limits Lower Extremity Strength Assessment Within Functional Limits Coordination Assessment Gross Coordination Gross Coordination Impaired Assessment Coordination Comments Pt with poor globalized coordination/movement for bed mobility: poor core use and body use/mechanics. Sensation Assessment Comments Sensation Comments Pt has trouble following sensory commands d/t lethargy M7 PT-IP Assessment and Plan Start: 05/27/23 11:05 Freq: NEEDED Status: Active Protocol: Document 05/27/23 11:30 MB (Rec: 05/27/23 12:06 MB [id number]) PT Summary Assessment and Plan Potential Rehabilitation Potential Fair Status of Condition at Evaluation Evolving Summary Impairments Balance,Coordination,Cognition ,Bed Mobility,Transfers,Gait, Activity Tolerance Progress Towards Goals Slow Progress due to Medical Issues,Slow Progress due to Activity Tolerance Assessment Summary Pt is a 72 y/o female presenting with poor overall health who was found unresponsive by this a .m. PT had expected to hold today given low HGB of 7.7 but ns encourages PT to work with pt and to attempt OOB to chair. Pt with confusion and her O2 sats drop on RA and her BP also drops when PT is in the room. She is max A for bed mobility and has trouble following commands and moving herself. Pt returned to supine . Will complete OOB another day and is currently mechanical lift for OOB. Pt's assists pt at home and is helpful with providing PLOF. Goals Bed Mobility Goal Standby Assistance Transfer Goal Standby Assistance,Front Wheeled Walker Gait Goal Standby Assistance,Front Wheel Walker Gait Distance 75 Other Goals Pt will ascend and descend small step up with RW and no more than CGA to allow safe home entrance over threshold. Days to Meet Goals 10 Frequency of Treatment Frequency Of Treatment Once a Day Treatment Plan Physical Therapy Treatment Plan Bed Mobility Training,Transfer Training,Gait Training, Therapeutic Exercise,Balance Retraining,Discharge Planning, Neuromuscular Re-ed Weight Bearing Status Weight Bearing Status Weight Bear as Tolerated Recommendations To Nursing Amount of Assist Needed Mechanical Lift Discharge Recommendations PT Discharge Recommendations Home vs SNF Transportation Needs at Discharge Wheelchair/Cabulance
[2023-05-27] MEDS: OLANZapine ODT 10 MG TAB 5 MG PO (14:01)
--- NOTE | 2023-05-27 18:03 | PM.HP.1 ---
History of Present Illness History of Present Illness Chief complaint: unresponsive Narrative: 72-year-old female with prediabetes, chronic back pain secondary to lumbar stenosis, hyperlipidemia, hypothyroidism, GERD, atrial fibrillation on Xarelto anticoagulation was recently hospitalized from May 13 through May 15 with pharyngitis, HANNY, hyperkalemia, and acute metabolic encephalopathy. She returned to the emergency department this morning via EMS as her was unable to arouse her. He states he has noticed she is continued to be somewhat fuzzy brain since prior to her 1st hospitalization. He notes that had not significantly cleared after discharge home. However, when she went bed last night she appeared to be consistent with how she had been the prior days. However, he noted this morning he could not arouse her and she was unresponsive. Therefore, he called EMS and she was brought to the emergency department. Initially, she had a GCS of 12. She underwent imaging inclusive of a CT head and CT angio of the head and neck which revealed no acute evidence of stroke. Labs were remarkable for a creatinine of 1.99. Potassium was normal. Lactate was normal. BNP was 2020. Procalcitonin was normal. UA revealed 2+ blood but otherwise negative urine tox screen positive for opiates. She received IV fluids. Chest x-ray did reveal cardiomegaly and congestion, can not rule out right middle lobe infiltrate versus atelectasis. ED physician noted that patient had improvement with her overall level of alertness. However she remained encephalopathic and stated that the year was 1998. Admission was recommended. Shortly before transferring from the emergency department, patient developed some mild hypotension with systolic pressures in the 80s. She received an IV fluid bolus of 250 cc. Blood pressure subsequently improved. Arterial blood gas was done which revealed a mild respiratory acidosis. Decision was made to admit to the ICU due to hypotension. Shortly after arrival to the ICU, she had recurrent hypotension. 1 L of normal saline wide open was ordered. She was also given 0.4 mg of Narcan. Patient subsequently awoke fairly rapidly, blood pressure improved. Patient was alert and interactive, but quite confused. He denied chest pain or shortness a breath but remained a poor historian. [facility] Medical History Afib Anesthesia complication Anxiety Asthma Chronic episodic atrial fibrillation Easy bruisability Gait instability GERD (gastroesophageal reflux disease) Heart murmur History of left heart catheterization (12/13/19) HLD (hyperlipidemia) Hypothyroidism Lumbar stenosis Palpitations Pre-diabetes Skin cancer Spondylolisthesis at L3-L4 level Surgical History H/O spinal fusion History of hysterectomy Hx of appendectomy Hx of bilateral cataract extraction (2020) Hx of cholecystectomy Hx of tubal ligation Family History Father Congestive heart failure Mother COPD (chronic obstructive pulmonary disease) Social History household members: spouse Smoking Status: Never smoker alcohol intake: never Meds Home Medications and Allergies Home Medications Medication Instructions Recorded Confirmed Type acetaminophen 325 mg tablet 650 mg PO Q6HR PRN Pain, Mild 06/05/22 05/27/23 Rx (1-3) #60 tabs beclomethasone dipropionate 80 2 inh inhalation BID #1 g 06/10/22 05/27/23 Rx mcg/actuation HFA breath activated aerosol (Qvar RediHaler) gabapentin 100 mg capsule 300 mg PO BEDTIME #30 caps 06/10/22 05/27/23 Rx levothyroxine 50 mcg capsule 50 mcg PO DAILY #30 caps 06/10/22 05/27/23 Rx pantoprazole 40 mg tablet,delayed 40 mg PO DAILY #30 tabs 06/10/22 05/27/23 Rx release polyethylene glycol 3350 17 gram 17 gm PO DAILY #30 ea 06/10/22 05/27/23 Rx oral powder packet prochlorperazine maleate 10 mg 1 tab PO TID PRN Nausea #90 tabs 06/10/22 05/27/23 Rx tablet rivaroxaban 20 mg tablet (Xarelto) 20 mg PO DAILY #30 tabs 06/10/22 05/27/23 Rx ropinirole 4 mg tablet 4 mg PO BEDTIME #30 tabs 06/10/22 05/27/23 Rx rosuvastatin 40 mg tablet 40 mg PO BEDTIME #30 tabs 06/10/22 05/27/23 Rx trazodone 50 mg tablet 50 mg PO BEDTIME #30 tabs 06/10/22 05/27/23 Rx albuterol sulfate 2.5 mg/3 mL 2.5 mg (3 mL) inhalation Q4-6H PRN 09/17/22 05/27/23 Rx (0.083 %) solution for nebulization shortness of breath or wheezing #75 mL prednisone 10 mg tablet 10 mg PO DAILY #20 tabs 09/17/22 05/27/23 Rx fluticasone propionate 110 2 puff inhalation BID 05/12/23 05/27/23 History mcg/actuation HFA aerosol inhaler (Flovent HFA) morphine 15 mg immediate release 7.5 - 15 mg PO Q4H PRN low back 05/12/23 05/27/23 History tablet pain nitroglycerin 0.4 mg sublingual 0.4 mg sublingual PRN PRN Chest 05/12/23 05/27/23 History tablet Pain carvedilol 25 mg tablet 25 mg PO BID #60 tabs 05/15/23 05/27/23 Rx duloxetine 20 mg capsule,delayed 60 mg PO DAILY #30 caps 05/15/23 05/27/23 Rx release (Cymbalta) lisinopril 2.5 mg tablet 2.5 mg PO DAILY #30 tabs 05/15/23 05/27/23 Rx Allergies Allergy/AdvReac Type Severity Reaction Status Date / Time Iodine and Iodide Containing Allergy Severe pass out Verified 05/12/23 11:19 Produc [IODINE AND IODIDE CONTAINING PRODUC] amlodipine Allergy Intermediate Swelling Verified 05/12/23 11:19 of Lip/Tongue/Throat codeine [CODEINE] Allergy Intermediate HIVES, Verified 05/12/23 11:19 NAUSEA nitrofurantoin Allergy Mild Rash Verified 05/12/23 11:19 [NITROFURANTOIN] oxycodone AdvReac Hallucinati Verified 05/12/23 11:19 ng Review of Systems Review of Systems Narrative: Review of systems was difficult to obtain due to altered mental status Exam Vital Signs (past 8 hours): - 05/27/23 10:15 05/27/23 10:15 05/27/23 10:30 Pulse Rate 66 66 Respiratory Rate 29 H 22 Blood Pressure 126/58 L Pulse Oximetry 96 89 L 05/27/23 11:00 05/27/23 11:00 05/27/23 11:15 Pulse Rate 66 63 Respiratory Rate 20 24 Blood Pressure 111/59 L Pulse Oximetry 94 94 05/27/23 11:15 05/27/23 11:30 05/27/23 11:30 Pulse Rate 63 Respiratory Rate 22 Blood Pressure 120/60 89/62 L Pulse Oximetry 94 05/27/23 12:00 05/27/23 12:30 05/27/23 13:00 Pulse Rate 60 70 62 Respiratory Rate 29 H 25 H 27 H Blood Pressure Pulse Oximetry 93 43 L 05/27/23 13:30 05/27/23 14:00 05/27/23 14:30 Pulse Rate 66 59 L 57 L Respiratory Rate 21 23 20 Blood Pressure Pulse Oximetry 05/27/23 14:35 05/27/23 14:35 05/27/23 14:39 Pulse Rate 58 L Respiratory Rate 23 Blood Pressure 78/52 L 117/56 L Pulse Oximetry 05/27/23 14:39 Pulse Rate 56 L Respiratory Rate 19 Blood Pressure Pulse Oximetry Oxygen Delivery Method Room Air Oxygen Flow Rate 1 Narrative Exam Narrative: GEN: Middle-aged female,Alert and oriented x1, no acute distress HEENT: Normocephalic, face symmetric, pupils equal round reactive to light, extraocular movements intact, sclerae anicteric, conjunctiva clear, nares patent, oropharynx reveals an intact soft and hard palate with moist mucous membranes, dentition is fair NECK: Supple, no lymphadenopathy, thyroid without enlargement or nodularity, carotids no bruits CHEST: Respiratory excursions symmetric, clear to auscultation bilaterally CV: Regular rate and rhythm, no murmurs, rubs, gallops, PMI nondisplaced ABD: Soft, nontender, nondistended, bowel sounds present in all 4 quadrants, no organomegaly or masses appreciated EXTR: Warm, well perfused, no clubbing/cyanosis/edema SKIN: Warm and dry, without rash NEURO: Alert and oriented x1 PSYCH: patient was tearful but cooperative Objective Labs 05/27/23 05:15 05/27/23 05:15 Labs: Laboratory Results - last 24 hr 05/27/23 05/27/23 05/27/23 05:15 05:15 05:15 WBC 8.5 RBC 2.64 L Hgb 7.7 L Hct 23.4 L MCV 88.4 MCH 29.2 MCHC 33.0 RDW 15.3 H Plt Count 188 Neut % (Auto) 80.8 H Lymph % (Auto) 10.8 L [place] % (Auto) 5.9 Eos % (Auto) 1.9 L Baso % (Auto) 0.6 Neut # (Auto) 6900 Lymph # (Auto) 900 L [place] # (Auto) 500 Eos # (Auto) 200 Baso # (Auto) 0 ABG pH ABG pCO2 ABG pO2 ABG HCO3 ABG Total CO2 ABG O2 Saturation ABG Base Excess FiO2 Sodium 137 Potassium 4.7 Chloride 101 Carbon Dioxide 30 BUN 20 H Creatinine 1.99 H Estimated GFR 26 L BUN/Creatinine Ratio 10.1 Glucose 107 Lactate 0.8 Calcium 8.4 Total Bilirubin 0.6 AST 38 H ALT 33 Alkaline Phosphatase 70 Total Creatine Kinase 799 H Troponin I 0.030 NT-Pro-B Natriuret Pep Total Protein 6.6 Albumin 3.6 Globulin 3.0 Albumin/Globulin Ratio 1.2 Procalcitonin Urine Color Urine Appearance Urine pH Ur Specific [place] Urine Protein Urine Glucose (UA) Urine Ketones Urine Occult Blood Urine Nitrate Urine Bilirubin Urine Urobilinogen Ur Leukocyte Esterase Urine RBC Urine WBC Ur Squamous Epith Cells Urine Bacteria Ur Culture Indicated? U Opiates 300ng/mL cut Ur Oxycodone Screen Urine Methadone Screen Ur Barbiturates Screen U Tricyclic Antidepress Ur Phencyclidine Scrn Ur Amphetamines Screen U Methamphetamines Scrn Ur MDMA Scrn (Ecstasy) U Benzodiazepines Scrn Urine Cocaine Screen U Marijuana (THC) Screen Ethyl Alcohol < 10 05/27/23 05/27/23 05/27/23 05:15 06:53 06:53 WBC RBC Hgb Hct MCV MCH MCHC RDW Plt Count Neut % (Auto) Lymph % (Auto) [place] % (Auto) Eos % (Auto) Baso % (Auto) Neut # (Auto) Lymph # (Auto) [place] # (Auto) Eos # (Auto) Baso # (Auto) ABG pH ABG pCO2 ABG pO2 ABG HCO3 ABG Total CO2 ABG O2 Saturation ABG Base Excess FiO2 Sodium Potassium Chloride Carbon Dioxide BUN Creatinine Estimated GFR BUN/Creatinine Ratio Glucose Lactate Calcium Total Bilirubin AST ALT Alkaline Phosphatase Total Creatine Kinase Troponin I NT-Pro-B Natriuret Pep Total Protein Albumin Globulin Albumin/Globulin Ratio Procalcitonin 0.05 Urine Color Yellow Urine Appearance Clear Urine pH 6.0 Ur Specific [place] <=1.005 Urine Protein Negative Urine Glucose (UA) Negative Urine Ketones Negative Urine Occult Blood 2+ H Urine Nitrate Negative Urine Bilirubin Negative Urine Urobilinogen 0.2 Ur Leukocyte Esterase Negative Urine RBC None seen Urine WBC 0-1/hpf Ur Squamous Epith Cells None seen Urine Bacteria None seen Ur Culture Indicated? Cult not indicated U Opiates 300ng/mL cut Positive H Ur Oxycodone Screen Negative Urine Methadone Screen Negative Ur Barbiturates Screen Negative U Tricyclic Antidepress Negative Ur Phencyclidine Scrn Negative Ur Amphetamines Screen Negative U Methamphetamines Scrn Negative Ur MDMA Scrn (Ecstasy) Negative U Benzodiazepines Scrn Negative Urine Cocaine Screen Negative U Marijuana (THC) Screen Negative Ethyl Alcohol 05/27/23 05/27/23 07:15 07:38 WBC RBC Hgb Hct MCV MCH MCHC RDW Plt Count Neut % (Auto) Lymph % (Auto) [place] % (Auto) Eos % (Auto) Baso % (Auto) Neut # (Auto) Lymph # (Auto) [place] # (Auto) Eos # (Auto) Baso # (Auto) ABG pH 7.33 L ABG pCO2 51.2 H ABG pO2 75 L ABG HCO3 27 ABG Total CO2 29 H ABG O2 Saturation 94 L ABG Base Excess 1.0 FiO2 32 Sodium Potassium Chloride Carbon Dioxide BUN Creatinine Estimated GFR BUN/Creatinine Ratio Glucose Lactate Calcium Total Bilirubin AST ALT Alkaline Phosphatase Total Creatine Kinase Troponin I NT-Pro-B Natriuret Pep 2020 H Total Protein Albumin Globulin Albumin/Globulin Ratio Procalcitonin Urine Color Urine Appearance Urine pH Ur Specific [place] Urine Protein Urine Glucose (UA) Urine Ketones Urine Occult Blood Urine Nitrate Urine Bilirubin Urine Urobilinogen Ur Leukocyte Esterase Urine RBC Urine WBC Ur Squamous Epith Cells Urine Bacteria Ur Culture Indicated? U Opiates 300ng/mL cut Ur Oxycodone Screen Urine Methadone Screen Ur Barbiturates Screen U Tricyclic Antidepress Ur Phencyclidine Scrn Ur Amphetamines Screen U Methamphetamines Scrn Ur MDMA Scrn (Ecstasy) U Benzodiazepines Scrn Urine Cocaine Screen U Marijuana (THC) Screen Ethyl Alcohol Assessment & Plan Assessment & Plan narrative: 1. Acute metabolic encephalopathy suspect secondary to ongoing use of morphine in the setting of HANNY. Likely became somewhat neurotoxic. Will hold the morphine and use oxycodone as needed. Although there is a reported history of adverse reaction, inclusive of hallucinating, it is safer to use in the setting of renal insufficiency. She would best be served being off of opiates entirely. Will place a lidocaine patch and place on scheduled Tylenol. Will need close follow-up with her PCP, Dr. Khoi Dyer, [facility]. 2. Acute kidney injury is a bit unclear as to her baseline creatinine. In May of last year her normal creatinine was 0.99. However, in August it was 1.7 and on May 11 it was 1.7. At the time of discharge, it was improved at 1.31. Currently, creatinine is 1.99. Her GFR is estimated to be 26. Her GFR is estimated to be 26. Given her evidence of congestion by chest x-ray and elevated BNP, I will defer further IV fluids for now. She does appear euvolemic presently. Will repeat labs in the am. Would avoid ongoing use of morphine d/t what is at least HANNY if not CKD3. 3. Mild respiratory acidosis Likely secondary to respiratory suppression from morphine. 4. Anemia Normocytic. hgb is 7.7. Her baseline appeasr to be around 9. Will repeat in am. No evidence of bleeding. 5. Chronic back pain She had a mild compression fx L2 of uncertain chronicity noted on CT done 05/10. Lidocaine patch and tylenol ordered. 6. Lung nodules Multiple lung nodules noted on recent CT. Will need f/u per Surjit criteria. 7. Recent pharyngitis Pt reports ongoing sore throat but no significant erythema noted on my exam (limited view of OP d/t pt's confusion). Code status Full Prophy Low mouna score Dispo Admit to ICU initially. She since has improved w/Hypotension and LOC, so will downgrade to acute care. Quality VTE Deep Vein Thrombosis/Pulmonary Embolism Present on Admission: No
[2023-05-27] MEDS: BUDESONIDE 0.5 MG/2 ML NEB INH (20:10)
[2023-05-27] MEDS: GABAPENTIN 100 MG CAPSULE 300 MG PO (20:53)
[2023-05-27] MEDS: carvediloL 12.5 MG TABLET 25 MG PO (20:55)
[2023-05-27] MEDS: ATORVASTATIN 20 MG TABLET 80 MG PO (20:57)
[2023-05-27] MEDS: TRAZODONE 50 MG TABLET PO (20:57)
[2023-05-28 04:00] VITALS: BP 185/81; PULSE 73; RESP 18; TEMP 36.7; O2SAT 90
[2023-05-28 04:31] LABS: Add Manual Diff / Slide Review NO; Basophils Absolute Auto 100 /uL (0-100); Basophils Percent Auto 0.7 % (0-2); Eosinophils Absolute Auto 200 /uL (0-450); Eosinophils Percent Auto 2.4 % (2-4); Hematocrit 26.2 % (36-46); Hemoglobin 8.6 g/dL (12.0-16.0); Lymphocytes Absolute Auto 800 /uL (1100-4500); Lymphocytes Percent Auto 8.3 % (25-40); Mean Corpuscular Hemoglobin 29.1 PG (26-34); Mean Corpuscular Volume 88.3 fL (80-100); Monocytes Absolute Auto 300 /uL (0-900); Monocytes Percent Auto 2.5 % (3-14); Neutrophils Absolute Auto 8700 /uL (1500-7000); Neutrophils Percent Auto 86.1 % (50-75); Platelet Count 199 X10^3/uL (150-400); Red Blood Cell Count 2.97 X10^6/uL (4.0-5.2); Red Cell Distribution Width 15.4 % (11.6-14.8); White Blood Cell Count 10.1 X10^3/uL (4.5-11.0)
[2023-05-28 04:47] LABS: BUN Creatinine Ratio 10.3 (6-22); Blood Urea Nitrogen 17 mg/dL (7-17); Calcium 8.7 mg/dL (8.4-10.2); Carbon Dioxide 26 mmol/L (22-32); Chloride 103 mmol/L (98-107); Estimated Glomerular Filt Rate 33 mL/min (>60); Glucose 91 mg/dL (80-110); HEMOLYSIS < 15 (0-50); Magnesium 1.9 mg/dL (1.6-2.3); Potassium 4.3 mmol/L (3.4-5.1); Sodium 137 mmol/L (137-145)
[2023-05-28] MEDS: LEVOTHYROXINE 50 MCG TABLET PO (06:37)
[2023-05-28 08:11] VITALS: BP 177/76; PULSE 74; RESP 18; TEMP 37.2; O2SAT 90
[2023-05-28] MEDS: ACETAMINOPHEN 325 MG TABLET 975 MG PO (08:16)
[2023-05-28 08:17] VITALS: BP 177/76; PULSE 74
[2023-05-28] MEDS: RIVAROXABAN 10 MG TABLET 20 MG PO (08:17)
[2023-05-28] MEDS: DULOXETINE 20 MG CAPSULE 60 MG PO (08:17)
[2023-05-28] MEDS: lisinopriL 5 MG TABLET 2.5 MG PO (08:17)
[2023-05-28] MEDS: carvediloL 12.5 MG TABLET 25 MG PO (08:17)
[2023-05-28] MEDS: PANTOPRAZOLE DR 40 MG TABLET PO (08:17)
[2023-05-28] MEDS: predniSONE 5 MG TABLET 10 MG PO (08:18)
[2023-05-28] MEDS: LIDOCAINE PATCH 1 EACH ADH..PATCH TOP (08:18)
--- NOTE | 2023-05-28 09:43 | PT.IPTN ---
Current Diagnoses Acute kidney failure, unspecified (05/27/23) Physical Therapy Treatment Note M2 PT-IP Current Condition Start: 05/27/23 11:05 Freq: NEEDED Status: Active Protocol: Document 05/28/23 11:52 SP (Rec: 05/28/23 12:07 SP [id number]) Physical Therapy Current Condition Current Condition Evaluation Date 05/27/23 Treatment Diagnosis Found unresponsive Onset Date 05/27/23 M3 PT-IP Subjective Start: 05/27/23 11:05 Freq: NEEDED Status: Active Protocol: Document 05/28/23 11:52 SP (Rec: 05/28/23 12:07 SP [id number]) Subjective Physical Therapy Visit Type Type Treatment Note Visit Start Time 09:18 Visit Stop Time 09:43 Total Visit Minutes 25 Notes in room when arrived, reports hard time staying awake and answering correctly inquiries, sleepy. Vitals: supine BP RUE automated: 177/76, SaO2 83 % on RA (R 1st MCP), improved with 1L 91-93% with breath cues but challenged understanding. Number of DISTANCE LEARNING COORDINATOR Visits 1 Physical Therapy Visit Comments Patient Comments Pt attempts answer questions but very lethargic, challenged keeping eyes open. Pt agreeable with DISTANCE LEARNING COORDINATOR. Patient Goals : to take pt home M4 PT-IP Mobility and Gait Start: 05/27/23 11:05 Freq: NEEDED Status: Active Protocol: Document 05/28/23 11:52 SP (Rec: 05/28/23 12:07 SP [id number]) PT-Transfer Assessment Comments Mobility Comments Pt Heavy Max A x1 to sup> upright sit modified EOB. Called nursing for 2nd person support due to heavy retro lean, redirect hand on bed self scoot (tends to reach grab on therapist), at times can coordiate but rest retrol lean. Pt reaching for items, Max cuing for opening eyes but only performs brief. Pt unable progress scoot EOB to get feet on floor so assiste back to bed Max A x2 trunk/ BLE support and total A scoot up in bed. Pt had call light and all needs in reach bed alarmed do to safety fall risk , call light in reach. Gait Assessment Comments Gait Comments Unable to progress > heavy almost sit EOB due to retro lean. Stair Climbing Assessment Comments Stair Climbing Comments Pt has 1 small step to navigate to enter home. Unable to come to standing at this time. PT-Balance Assessment Sitting Balance and Reactions Static Sitting Balance Ability Poor Dynamic Sitting Balance Ability Poor Comments Other Balance Tests/Deviations/Treatment Max A x2 to maintain static & : dynamic sitting. M5 PT-IP Objective Assessments Start: 05/27/23 11:05 Freq: NEEDED Status: Active Protocol: Document 05/27/23 11:30 MB (Rec: 05/27/23 12:06 MB [id number]) Orientation Orientation/Cognition Level of Alertness Lethargic Orientation Name,Birthday,Place Language Function Ability No Deficits Noted Safety Awareness Decreased Safety Awareness Memory Description Short Term Impaired,Pullman Conductor Impaired Gross Range of Motion Upper Extremity ROM Assessment Within Functional Limits Lower Extremity ROM Assessment Within Functional Limits Strength Upper Extremity Strength Assessment Within Functional Limits Lower Extremity Strength Assessment Within Functional Limits Coordination Assessment Gross Coordination Gross Coordination Impaired Assessment Coordination Comments Pt with poor globalized coordination/movement for bed mobility: poor core use and body use/mechanics. Sensation Assessment Comments Sensation Comments Pt has trouble following sensory commands d/t lethargy M6 PT-IP Treatment Start: 05/27/23 11:05 Freq: NEEDED Status: Active Protocol: Document 05/28/23 11:52 SP (Rec: 05/28/23 12:07 SP [id number]) Physical Therapy Treatment Other Treatments Other Treatment Performed Pt able complete heel slide to remove pillows under legs. M7 PT-IP Assessment and Plan Start: 05/27/23 11:05 Freq: NEEDED Status: Active Protocol: Document 05/28/23 11:52 SP (Rec: 05/28/23 12:07 SP [id number]) PT Summary Assessment and Plan Potential Rehabilitation Potential Fair Status of Condition at Evaluation Evolving Summary Impairments Balance,Coordination,Cognition ,Bed Mobility,Transfers,Gait, Activity Tolerance Progress Towards Goals Slow Progress due to Medical Issues,Slow Progress due to Activity Tolerance Assessment Summary Pt decrease SaO2 on RA 83% improves 91% on1L, she is lethargic, needs much encouragement for mob/ challenged open eyes but trunk fac with tactile/verbal cues for bed mob she initiates lifting head and shlds, Max A x2 trunk righting to sit almost EOB, unable tolerate long and forceful retro lean ext, assisted back to bed, due to heavy retro lean and tends to reach grab at items but nothing there. Pt dependent reposition scoot up in bed. Pt will require SNF for progressing functional mobility, to much for to manage himself. Will continue to assess progress. Goals Bed Mobility Goal Standby Assistance Transfer Goal Standby Assistance,Front Wheeled Walker Gait Goal Standby Assistance,Front Wheel Walker Gait Distance 75 Other Goals Pt will ascend and descend small step up with RW and no more than CGA to allow safe home entrance over threshold. Days to Meet Goals 10 Frequency of Treatment Frequency Of Treatment Once a Day Treatment Plan Physical Therapy Treatment Plan Bed Mobility Training,Transfer Training,Gait Training, Therapeutic Exercise,Balance Retraining,Discharge Planning, Neuromuscular Re-ed Other Recommendations and Next Treatment Bed mob, standing w/ FWW, Focus transfers. When able gait, 1 step mgt for allowance enter home w/ FWW. Weight Bearing Status Weight Bearing Status Weight Bear as Tolerated Recommendations To Nursing Amount of Assist Needed Mechanical Lift Discharge Recommendations PT Discharge Recommendations SNF Rehab Transportation Needs at Discharge Wheelchair/Cabulance
--- NOTE | 2023-05-28 11:09 | P.DS_ITS ---
History of Present Illness History of Present Illness Date Patient Seen: 05/28/23 Time Patient Seen: 11:10 Chief complaint: unresponsive Narrative: Per admitting provider, 72-year-old female with prediabetes, chronic back pain secondary to lumbar stenosis, hyperlipidemia, hypothyroidism, GERD, atrial fibrillation on Xarelto anticoagulation was recently hospitalized from May 13 through May 15 with pharyngitis, HANNY, hyperkalemia, and acute metabolic encephalopathy. She returned to the emergency department this morning via EMS as her was unable to arouse her. He states he has noticed she is continued to be somewhat fuzzy brain since prior to her 1st hospitalization. He notes that had not significantly cleared after discharge home. However, when she went bed last night she appeared to be consistent with how she had been the prior days. However, he noted this morning he could not arouse her and she was unresponsive. Therefore, he called EMS and she was brought to the emergency department. Initially, she had a GCS of 12. She underwent imaging inclusive of a CT head and CT angio of the head and neck which revealed no acute evidence of stroke. Labs were remarkable for a creatinine of 1.99. Potassium was normal. Lactate was normal. BNP was 2020. Procalcitonin was normal. UA revealed 2+ blood but otherwise negative urine tox screen positive for opiates. She received IV fluids. Chest x-ray did reveal cardiomegaly and congestion, can not rule out right middle lobe infiltrate versus atelectasis. ED physician noted that patient had improvement with her overall level of alertness. However she remained encephalopathic and stated that the year was 1998. Admission was recommended. Shortly before transferring from the emergency department, patient developed some mild hypotension with systolic pressures in the 80s. She received an IV fluid bolus of 250 cc. Blood pressure subsequently improved. Arterial blood gas was done which revealed a mild respiratory acidosis. Decision was made to admit to the ICU due to hypotension. Shortly after arrival to the ICU, she had recurrent hypotension. 1 L of normal saline wide open was ordered. She was also given 0.4 mg of Narcan. Patient subsequently awoke fairly rapidly, blood pressure improved. Patient was alert and interactive, but quite confused. He denied chest pain or shortness a breath but remained a poor historian. Discharge Providers Provider Date of admission: 05/27/23 07:48 Discharge Date: 05/28/23 Primary care physician: Khoi Dyer DO Consults: 05/27/23 09:21 Consult to Physical Therapy Evaluate & Treat Comment: Physician Instructions: Evaluate and Treat Discharge provider: Steven Shultz DO Summary Hospital Course Discharge Diagnosis: ?1. Acute metabolic encephalopathy 2.? ? Acute kidney injury 3.? Mild respiratory acidosis 4.? Anemia, chronic 5. Chronic back pain 6.? Lung nodules 7.? Recent pharyngitis Hospital Course: This is a 72 year old female admitted with acute toxic encephalopathy and HANNY with respiratory acidosis thought to be secondary to accidental morphine overdosing. Her mental status and HANNY improved with time, also indicative of tox ic etiology. She improved much more quickly than expected. HANNY is thought to be due to decreased intake and improved the following morning without any interventions. She was a bit more anemic but repeat was also improved the following morning. Her mental status returned to her baseline the following day, along with her functional status. Her home morphine was recommended to stop, as pain control was adequate with scheduled tylenol and lidocaine patch. She can consider intermittent morphine dosing, but only for severe pain. Narcan was also sent to her pharmacy. Time Spent with Patient Time spent: Greater than 30 minutes Exam Vital Signs (past 8 hours): - 05/28/23 04:00 05/28/23 07:00 05/28/23 08:11 Temperature 98.0 F 99.0 F Pulse Rate 73 74 Respiratory Rate 18 18 Blood Pressure 185/81 H 177/76 H Pulse Oximetry 90 L 90 L Oxygen Delivery Method Room Air Oxygen Flow Rate 0 0 05/28/23 08:17 05/28/23 08:17 Temperature Pulse Rate 74 74 Respiratory Rate Blood Pressure 177/76 H 177/76 H Pulse Oximetry Oxygen Delivery Method Oxygen Flow Rate Oxygen Delivery Method Room Air Oxygen Flow Rate 0 Narrative Exam Narrative: GEN: Middle-aged female,Alert and oriented x3, no acute distress HEENT: Normocephalic, face symmetric, pupils equal round reactive to light, extraocular movements intact, sclerae anicteric, conjunctiva clear, nares patent, oropharynx reveals an intact soft and hard palate with moist mucous membranes, dentition is fair NECK: Supple, no lymphadenopathy, thyroid without enlargement or nodularity, carotids no bruits CHEST: Respiratory excursions symmetric, clear to auscultation bilaterally CV: Regular rate and rhythm, no murmurs, rubs, gallops, PMI nondisplaced ABD: Soft, nontender, nondistended, bowel sounds present in all 4 quadrants, no organomegaly or masses appreciated EXTR: Warm, well perfused, no clubbing/cyanosis/edema SKIN: Warm and dry, without rash NEURO: Alert and oriented x3, no focal deficits PSYCH: calm and cooperative with stable behavior Objective Labs 05/28/23 04:18 05/28/23 04:18 Labs: Laboratory Results - last 24 hr 05/28/23 05/28/23 04:18 04:18 WBC 10.1 RBC 2.97 L Hgb 8.6 L Hct 26.2 L MCV 88.3 MCH 29.1 MCHC 33.0 RDW 15.4 H Plt Count 199 Neut % (Auto) 86.1 H Lymph % (Auto) 8.3 L Henderson % (Auto) 2.5 L Eos % (Auto) 2.4 Baso % (Auto) 0.7 Neut # (Auto) 8700 H Lymph # (Auto) 800 L Henderson # (Auto) 300 Eos # (Auto) 200 Baso # (Auto) 100 Sodium 137 Potassium 4.3 Chloride 103 Carbon Dioxide 26 BUN 17 Creatinine 1.65 H Estimated GFR 33 L BUN/Creatinine Ratio 10.3 Glucose 91 Calcium 8.7 Magnesium 1.9 PFSH Medical History Afib Anesthesia complication Anxiety Asthma Chronic episodic atrial fibrillation Easy bruisability Gait instability GERD (gastroesophageal reflux disease) Heart murmur History of left heart catheterization (12/13/19) HLD (hyperlipidemia) Hypothyroidism Lumbar stenosis Palpitations Pre-diabetes Skin cancer Spondylolisthesis at L3-L4 level Surgical History H/O spinal fusion History of hysterectomy Hx of appendectomy Hx of bilateral cataract extraction (2020) Hx of cholecystectomy Hx of tubal ligation Family History Father Congestive heart failure Mother COPD (chronic obstructive pulmonary disease) Social History household members: spouse Smoking Status: Never smoker alcohol intake: never Discharge Plan Discharge Plan Patient Disposition: Home Provider Discharge Comment: You were admitted to the hospital with confusion, likely due to morphine. Morphine stopped as standing. Continue tylenol and lidoc rohan patches. take morphine only as needed, or discuss further changes with PCP. Discharge orders & Medications Prescriptions: New lidocaine 5 % adhesive patch,medicated 1 patch topical DAILY 30 Days Qty: 30 0RF Rx Instructions: leave on most painful area for up to 12 hrs naloxone 4 mg/actuation spray,non-aerosol 4 mg intranasal Q3M PRN (Reason: opioid overdose) Qty: 2 0RF Rx Instructions: spray 1 dose into ONE nostril; alternate nostrils w each dose until help arrives Continued albuterol sulfate 2.5 mg /3 mL (0.083 %) solution for nebulization 2.5 mg inhalation Q4-6H PRN (Reason: shortness of breath or wheezing) Qty: 75 0RF prednisone 10 mg tablet 10 mg PO DAILY Qty: 20 0RF Rx Instructions: 2T PO QD for 5 days then 1T PO QD for 5 days then 1/2T PO QD for 5 days acetaminophen 325 mg Tablet 650 mg PO Q6HR PRN (Reason: Pain, Mild (1-3)) Qty: 60 0RF polyethylene glycol 3350 17 gram Powder In Packet 17 gm PO DAILY Qty: 30 0RF trazodone 50 mg tablet 50 mg PO BEDTIME Qty: 30 0RF Patient Comments: TAKE 1 TABLET BY MOUTH ONCE DAILY AT BEDTIME prochlorperazine maleate 10 mg Tablet 1 tab PO TID PRN (Reason: Nausea) Qty: 90 0RF pantoprazole 40 mg Tablet,Delayed Release (Dr/Ec) 40 mg PO DAILY Qty: 30 0RF gabapentin 100 mg capsule 300 mg PO BEDTIME Qty: 30 0RF ropinirole 4 mg tablet 4 mg PO BEDTIME Qty: 30 0RF rosuvastatin 40 mg tablet 40 mg PO BEDTIME Qty: 30 0RF levothyroxine 50 mcg Capsule 50 mcg PO DAILY Qty: 30 0RF Xarelto 20 mg tablet 20 mg PO DAILY Qty: 30 0RF Patient Comments: TAKE 1 TABLET BY MOUTH ONCE DAILY Qvar RediHaler 80 mcg/actuation HFA aerosol breath activated 2 inh INHALATION BID Qty: 1 0RF nitroglycerin 0.4 mg tablet, sublingual 0.4 mg sublingual PRN PRN (Reason: Chest Pain) fluticasone propionate [Flovent HFA] 110 mcg/actuation HFA aerosol inhaler 2 puff INHALATION BID duloxetine [Cymbalta] 20 mg Capsule,Delayed Release(Dr/Ec) 60 mg PO DAILY Qty: 30 3RF carvedilol 25 mg tablet 25 mg PO BID Qty: 60 3RF Rx Instructions: must administer with a meal/food lisinopril 2.5 mg tablet 2.5 mg PO DAILY Qty: 30 3RF Discontinued morphine 15 mg tablet 7.5 - 15 mg PO Q4H PRN (Reason: low back pain) Follow up/Referrals: Khoi Dyer DO [Primary Care Provider] - Diet/Activity/Treatments Diet: Diet as Tolerated and Regular Activity: As tolerated no restrictions. Visit Report/Discharge Packet Instructions: DI for Prescription Opioid Use Stand Alone Forms: Patient Portal/API, Stroke Signs & Symptoms Discharge Data Primary Care Provider: Khoi Dyer Discharges patient from system. Discharge Date/Time: 05/28/23 13:45 Quality VTE Deep Vein Thrombosis/Pulmonary Embolism Present on Admission: No
--- NOTE | 2023-05-28 12:56 | CM.DANOTE ---
Addendum entered by DAMION Cunningham 05/28/23 14:13: ADD: Spoke w/RN and Dr Shultz, patient okay to discharge home w/family, patient is the most sleepy in the morning and appeared to be returning to baseline by this afternoon at time of discharge Plan: Discharge home w/spouse and family w/ [facility], waiting on determination from [facility] if patient qualifies for their HACH program, patient would be a good candidate Original Note: Initial DCP Assessment Note Pt is a 72 yo female, resident of [place], presents from home after patient became unresponsive. Patient admitted for medical w/u and management, discharging home today after slow return to functional and cognitive baseline, ongoing use of morphine in the setting of HANNY suspected to explain patient's somnolence PCP: Khoi Dyer Payer: Carlos/LANDY Bernard Only Reviewed chart, met w/patient's spouse this morning to introduce role. Patient sleeping soundly. Spouse provides full and total care when she is like this ie somnolent. Spouse cooks, cleans, does chores, assists with toileting and bathing. Spouse works [employer] sales typically but is on FMLA for 3 months to assist spouse Patient has been able to manage at home alone until recently, was able to use walker and wears depends Patient's brother is on O2 for COPD, patient's sister in law is available to assist w/ADLs as needed Discussed home health services and spouse agreeable to this, has no agency preference Mena, commercial lending assistant now investigating if patient will qualify for [facility] program (HACH) which I think patient would benefit from PT was recommending home w/HH and assist vs SNF, review now says mechanical lift= SNF rehab. Plan: Will plan to review PT recs with Dr Shultz and patient's family DAMION Ramos Discharge Planning/Care Management CM Discharge Assessment Start: 05/28/23 12:00 Freq: Status: Active Protocol: Document 05/28/23 12:00 ALEX (Rec: 05/28/23 12:56 ALEX [id number]) Discharge Planning Assessment Assigned Lacquer Coater DAMION Dixon DPOA/Assigned Designee Name Jorden Gottlieb, spouse Contact Information [phone] Advance Directives? No History Provided By Significant Other,Medical Record Prior Living Arrangements Apartment/Condo Household Members spouse Type of transporation used prior to Relies on Others admit Independent with ADL's No Is patient alert and oriented? No Needs Assistance With Bathing,Grooming,Meal Prep, Toileting,Managing Medications ,Home Chores / Shopping Comment Patient wears depends Caregiver for Another No Patient/Family Preference Home with Home Health Comment See narrative. Home w/spouse and family to assist Discharge Plan Home with Home Health Transportation Arrangement Spouse Referrals Initiated Home Health Additional Comment [facility], HACH (?) Medicare Choice List Provided No SNF/HH Preference [facility], possibly HACH if patient agreeable
== END 2023-05-28 13:45 | disposition home or self-care (01) | DRG 682 ==
LOC: ED 07:44 → AC 07:49 → ICU 08:50
PROVIDERS: Emergency Medicine; Admitting Provider Family Medicine; Emergency Provider Emergency Medicine; PCP Family Medicine; Referring Provider Emergency Medicine; Visit Provider Family Medicine
DX: N17.9 Acute kidney failure, unspecified (principal); G92.8 Other toxic encephalopathy; E87.29 Other acidosis; M48.56XA Collapsed vertebra, not elsewhere classified, lumbar region, initial encounter for fracture; T40.2X5A Adverse effect of other opioids, initial encounter; I48.91 Unspecified atrial fibrillation; J45.909 Unspecified asthma, uncomplicated; K21.9 Gastro-esophageal reflux disease without esophagitis; E78.5 Hyperlipidemia, unspecified; E03.9 Hypothyroidism, unspecified; Z79.01 Long term (current) use of anticoagulants
CPT/HCPCS: 36415; 36600; 70450; 70496; 70498; 71045; 80048; 80053; 80305; 80320; 81001; 82550; 82805; 83605; 83735; 83880; 84145; 84484; 85025; 87040; 93005; 93010; 97161; 97530; 99284; J2310; Q9967

== ENCOUNTER → 2023-07-03 12:29 | Outpatient (CLI) | payer OTHER, SELFPAY ==
[2023-05-27 09:09] VITALS: BMI 31.2
--- NOTE | 2023-07-03 | DI.CT.S_ITS ---
PROCEDURE: CT LUMBAR SPINE WO CON INDICATIONS: Spinal stenosis, lumbar region with neurogenic claudication TECHNIQUE: Noncontrast 3 mm thick sections acquired from the T12 level to the sacrum. Sagittal and coronal reformats were constructed. For radiation dose reduction, the following was used: automated exposure control. COMPARISON: [facility], CT, CT LUMBAR SPINE WO CON, 11/04/2022, 14:12. FINDINGS: Image quality: Excellent. Bones: There is normal bony alignment. No acute vertebral body compression fractures. No suspicious lytic or blastic bony lesions. No pars defects. T12-L1: No significant disc bulge. The foramina and central canal are patent. L1-L2: Degenerative disc disease with intradiscal gas. Compression fracture of L2 with retropulsion of the superior posterior vertebral body measuring 4 mm. The foramina and central canal are patent. L2-L3: Degenerative disc disease are with a diffuse disc bulge. Mild bilateral foraminal stenosis. The central canal is patent. L3-L4: Postoperative changes, the foramina and central canal are patent. L4-L5: Postoperative changes, the foramina and central canal are patent. L5-S1: No significant disc bulge. The foramina and central canal are patent. Soft tissues: No retroperitoneal masses or hematomas. Visualized aorta is normal in caliber. IMPRESSION: 1. Postoperative changes of posterior fusion at L3 through L5. 2. Adjacent degenerative disc disease as detailed above. 3. No significant foraminal or central canal stenosis. 4. No significant interval change compared to 11/04/2022. 5. Dextroscoliosis of the lumbar spine. Dictated by: Eliezer Bergman M.D. on 07/03/2023 at 16:07 Approved by: Eliezer Bergman M.D. on 07/03/2023 at 16:13
== END ==
PROVIDERS: PCP Family Medicine; Referring Provider Orthopaedic Surgery Orthopaedic Surgery of the Spine; Visit Provider Orthopaedic Surgery Orthopaedic Surgery of the Spine
DX: M51.36 Other intervertebral disc degeneration, lumbar region (principal); M48.062 Spinal stenosis, lumbar region with neurogenic claudication; M41.9 Scoliosis, unspecified; Z98.1 Arthrodesis status
CPT/HCPCS: 72131

== ENCOUNTER → 2024-03-03 09:44 | Outpatient (CLI) | payer OTHER, SELFPAY ==
[2023-05-27 09:09] VITALS: BMI 31.2
--- NOTE | 2024-03-03 09:50 | DI.RAD.S_ITS ---
PROCEDURE: XR CHEST 2V INDICATIONS: SOB TECHNIQUE: 2 views of the chest were acquired. COMPARISON: [facility], CR, XR CHEST 1V, 05/27/2023, 5:20. FINDINGS: Surgical changes and devices: None. Lungs and pleura: Lungs are clear. No pleural effusions or pneumothorax. Mediastinum: Mediastinal contours are normal. Heart size is normal. Bones and chest wall: No suspicious bony abnormalities. Soft tissues appear unremarkable. IMPRESSION: No acute cardiopulmonary abnormality is seen. Dictated by: Elaine De Souza M.D. on 03/03/2024 at 11:41 Approved by: Elaine De Souza M.D. on 03/03/2024 at 11:42
[2024-03-03 10:28] LABS: Hemoglobin 9.3 g/dL (12.0-16.0); Mean Corpuscular HGB Conc 33.3 % (30-36); Mean Corpuscular Hemoglobin 27.4 PG (26-34); Mean Corpuscular Volume 82.3 fL (80-100); Platelet Count 234 X10^3/uL (150-400); Red Blood Cell Count 3.41 X10^6/uL (4.0-5.2)
[2024-03-03 20:22] LABS: HEMOLYSIS < 15 (0-50); NT-proBNP (BNP-Adult 18+) 3320 pg/mL (<125)
[2024-03-03 20:33] LABS: BUN Creatinine Ratio 9.9 (6-22); Blood Urea Nitrogen 17 mg/dL (7-17); Calcium 8.8 mg/dL (8.4-10.2); Carbon Dioxide 32 mmol/L (22-32); Chloride 93 mmol/L (98-107); Estimated Glomerular Filt Rate 31 mL/min (>60); Glucose 111 mg/dL (80-110); Potassium 4.3 mmol/L (3.4-5.1); Sodium 131 mmol/L (137-145)
== END ==
PROVIDERS: PCP Family Medicine; Referring Provider Internal Medicine Cardiovascular Disease; Visit Provider Internal Medicine Cardiovascular Disease
DX: R06.02 Shortness of breath (principal)
CPT/HCPCS: 36415; 71046; 80048; 83880; 85027

== ENCOUNTER → 2024-05-02 08:11 | Outpatient (CLI) | payer OTHER, SELFPAY ==
[2023-05-27 09:09] VITALS: BMI 31.2
[2024-05-02 09:47] LABS: BUN Creatinine Ratio 11.8 (6-22); Blood Urea Nitrogen 19 mg/dL (7-17); Calcium 9.3 mg/dL (8.4-10.2); Carbon Dioxide 33 mmol/L (22-32); Chloride 99 mmol/L (98-107); Estimated Glomerular Filt Rate 34 mL/min (>60); Glucose 128 mg/dL (80-110); HEMOLYSIS < 15 (0-50); Potassium 3.5 mmol/L (3.4-5.1); Sodium 137 mmol/L (137-145)
== END ==
PROVIDERS: PCP Family Medicine; Referring Provider Internal Medicine Cardiovascular Disease; Visit Provider Internal Medicine Cardiovascular Disease
DX: I10 Essential (primary) hypertension (principal)
CPT/HCPCS: 36415; 80048

== ENCOUNTER 2025-01-30 04:59 | Emergency (ER) | payer OTHER, SELFPAY ==
[2023-05-27 09:09] VITALS: BMI 31.2
[2025-01-30 05:05] VITALS: BP 140/84; PULSE 84; RESP 20; TEMP 37.1; O2SAT 98; BMI 35.9
--- NOTE | 2025-01-30 05:24 | ED_ITS ---
HPI - Back Pain/Injury General Chief Complaint: Back Pain/Injury Stated Complaint: Severe lower back pain that rotates to front Time Seen by Provider: 01/30/25 05:22 Source: patient History of Present Illness HPI Narrative: 74-year-old woman with a history of hypertension, atrial fibrillation on Xarelto, coronary artery disease, chronic reflux back surgery for lumbar stenosis 2 years ago who comes in for severe lower back pain wrapping around her abdomen getting progressively worse to the point where she is having difficulty standing or moving. She notes that she did fall off the couch approximately 36 hours ago and is wondering if this might be contributing. She has point tenderness along the lower lumbar spine. No fevers, chills, constipation, diarrhea. She does not describe any radicular symptoms down her legs but on physical exam does note significant lower abdominal tenderness more right lower quadrant. She notes she does have stage 3 kidney disease and can not have contrast. In the past has had difficulty with the metabolizing oral narcotics ending up in accidental overdose. Related Data Home Medications Medication Instructions Recorded Confirmed fluticasone propionate 110 2 puff inhalation BID 05/12/23 01/30/25 mcg/actuation HFA aerosol inhaler (Flovent HFA) nitroglycerin 0.4 mg sublingual 0.4 mg sublingual PRN PRN Chest 05/12/23 01/30/25 tablet Pain B Complex-Vitamin B12 See Rx Instructions .Route .COMPLEX 01/30/25 01/30/25 albuterol sulfate 90 mcg/actuation 2 puff inhalation Q4H PRN sob, 01/30/25 01/30/25 aerosol inhaler wheeze, atorvastatin 80 mg tablet 80 mg PO DAILY 01/30/25 01/30/25 buspirone 15 mg tablet 15 mg PO BID 01/30/25 01/30/25 clotrimazole 10 mg annalee See Rx Instructions .Route .COMPLEX 01/30/25 01/30/25 diltiazem HCl 60 mg PO BID 01/30/25 01/30/25 empagliflozin 10 mg tablet 10 mg PO DAILY 01/30/25 01/30/25 (Jardiance) famotidine 40 mg tablet 40 mg PO DAILY 01/30/25 01/30/25 fluticasone 500 mcg-salmeterol 50 1 ea inhalation BID 01/30/25 01/30/25 mcg/dose blistr powdr for inhalation lidocaine 5 % topical patch 3 patch topical 1XD 01/30/25 01/30/25 ondansetron HCl 4 mg tablet 4 mg PO Q8H PRN nausea/vomiting 01/30/25 01/30/25 prednisone 10 mg tablet 20 mg PO DAILY 01/30/25 01/30/25 ropinirole 2 mg tablet 6 mg PO DAILY 01/30/25 01/30/25 spironolactone 25 mg tablet 12.5 mg PO DAILY 01/30/25 01/30/25 tolterodine 1 mg tablet 1 mg PO BID 01/30/25 01/30/25 torsemide 20 mg tablet 10 mg PO DAILY 01/30/25 01/30/25 Previous Rx's Medication Instructions Recorded gabapentin 100 mg capsule 300 mg (3 x 100 mg) PO BEDTIME #30 06/10/22 caps levothyroxine 50 mcg capsule 50 mcg PO DAILY #30 caps 06/10/22 rivaroxaban 20 mg tablet (Xarelto) 20 mg PO DAILY #30 tabs 06/10/22 trazodone 50 mg tablet 50 mg PO BEDTIME #30 tabs 06/10/22 albuterol sulfate 2.5 mg/3 mL 2.5 mg (3 mL) inhalation Q4-6H PRN 09/17/22 (0.083 %) solution for nebulization shortness of breath or wheezing #75 mL duloxetine 20 mg capsule,delayed 60 mg (3 x 20 mg) PO DAILY #30 caps 05/15/23 release (Cymbalta) naloxone 4 mg/actuation nasal spray 4 mg intranasal Q3M PRN opioid 05/28/23 overdose #2 ea Allergies Allergy/AdvReac Type Severity Reaction Status Date / Time Iodine and Iodide Containing Allergy Severe pass out Verified 05/12/23 11:19 Produc [IODINE AND IODIDE CONTAINING PRODUC] amlodipine Allergy Intermediate Swelling Verified 05/12/23 11:19 of Lip/Tongue/Throat codeine [CODEINE] Allergy Intermediate HIVES, Verified 05/12/23 11:19 NAUSEA nitrofurantoin Allergy Mild Rash Verified 05/12/23 11:19 [NITROFURANTOIN] oxycodone AdvReac Hallucinati Verified 05/12/23 11:19 ng Review of Systems Review of Systems Narrative: Pertinent positive and negative findings as per HPI Patient History Medical History History of left heart catheterization (12/13/19) Palpitations Anesthesia complication Anxiety Easy bruisability Skin cancer Hypothyroidism Pre-diabetes GERD (gastroesophageal reflux disease) Heart murmur HLD (hyperlipidemia) Asthma Afib Gait instability Chronic episodic atrial fibrillation Spondylolisthesis at L3-L4 level Lumbar stenosis Surgical History H/O spinal fusion Hx of tubal ligation History of hysterectomy Hx of appendectomy Hx of cholecystectomy Hx of bilateral cataract extraction (2020) Family History Father Congestive heart failure Mother COPD (chronic obstructive pulmonary disease) Social History household members: spouse alcohol intake: never Smoking Status: Never smoker alcohol intake frequency: 0-2 drinks per day Exam Initial Vital Signs Initial Vital Signs: Vital Signs Temperature 98.8 F 01/30/25 05:05 Pulse Rate 84 01/30/25 05:05 Respiratory Rate 20 01/30/25 05:05 Blood Pressure 140/84 01/30/25 05:05 Pulse Oximetry 98 01/30/25 05:05 Oxygen Delivery Method Room Air 01/30/25 05:05 General: Chronically ill-appearing, appears to be in pain but she is able to cooperate fully with the exam and history HEENT: Moist mucous membranes, normal sclera with reactive pupils, Respiratory: Lungs are clear to auscultation, no wheezing no rales no rhonchi. Full and symmetrical air movement Cardiac: Regular rate and rhythm no murmurs no bruits Abdomen: Soft, tenderness in the lower abdomen with almost guarding in the right lower quadrant. Tenderness in the lower lumbar midline without overlying erythema or fluctuance Skin: Quite thin, bruises in various stages of healing secondary to her Xarelto Neurologic: Grossly neurologically intact with no obvious asymmetries or abnormalities Extremities: No trauma to arms and legs Psych: Cooperative, appropriate insight and affect Course Orders Ordered: ED Orders 01/30/25 05:33 CT abdomen pelvis wo con Stat 01/30/25 05:34 Complete Blood Count AUTO DIFF Stat Comprehensive Metabolic Panel Stat Lactate (Lactic Acid) Stat Lipase Stat Urinalysis and Microscopic Stat Hydromorphone HCl (Hydromorphone 0.5 Mg Inj) 0.5 mg IV Q15MIN PRN PRN Reason: Pain, Last Admin: 01/30/25 06:14 Dose: 0.5 mg Sodium Chloride (Normal Saline 0.9%) 1,000 mls @ 1,000 mls/hr IV BOLUS ONE Stop: 01/30/25 06:32 Last Admin: 01/30/25 06:13 Dose: 1,000 mls/hr Vital Signs Vital signs: Vital Signs - 8 hr 01/30/25 05:05 Temperature 98.8 F Pulse Rate 84 Respiratory Rate 20 Blood Pressure 140/84 Pulse Oximetry 98 Oxygen Delivery Method Room Air MDM - Back Pain/Injury Lab Data 01/30/25 05:50 01/30/25 05:50 Labs: Lab Results 01/30/25 Range/Units 05:50 WBC 6.9 (4.5-11.0) X10^3/uL RBC 3.68 L (4.0-5.2) X10^6/uL Hgb 11.4 L (12.0-16.0) g/dL Hct 34.4 L (36-46) % MCV 93.4 (80-100) fL MCH 31.0 (26-34) PG MCHC 33.2 (30-36) % RDW 15.9 H (11.6-14.8) % Plt Count 250 (150-400) X10^3/uL Neut % (Auto) 74.3 (50-75) % Lymph % (Auto) 15.4 L (25-40) % [place] % (Auto) 6.2 (3-14) % Eos % (Auto) 3.8 (2-4) % Baso % (Auto) 0.3 (0-2) % Neut # (Auto) 5100 (2496-1301) /uL Lymph # (Auto) 1100 (4753-2429) /uL [place] # (Auto) 400 (0-900) /uL Eos # (Auto) 300 (0-450) /uL Baso # (Auto) 0 (0-100) /uL Sodium 139 (137-145) mmol/L Potassium 3.9 (3.4-5.1) mmol/L Chloride 100 (98-107) mmol/L Carbon Dioxide 30 (22-32) mmol/L BUN 18 H (7-17) mg/dL Creatinine 1.71 H (0.52-1.04) mg/dL Estimated GFR 31 L (>60) mL/min BUN/Creatinine Ratio 10.5 (6-22) Glucose 126 H (80-110) mg/dL Lactate 1.3 (0.7-2.1) mmol/L Calcium 9.2 (8.4-10.2) mg/dL Total Bilirubin 1.3 (0.2-1.3) mg/dL AST 28 (14-36) IU/L ALT 21 (<35) IU/L Alkaline Phosphatase 101 (38-126) U/L Total Protein 7.3 (6.3-8.2) g/dL Albumin 4.2 (3.5-5.0) g/dL Globulin 3.1 (1.7-4.1) g/dL Albumin/Globulin Ratio 1.4 (1.0-2.8) Lipase 39 (23-300) U/L MDM Narrative Medical decision making narrative: CC: Low back pain wrapping around to lower abdominal pain Complicating co-morbidities: Lumbar surgery 2 years ago hypertension, hyperlipidemia, coronary artery disease, chronic kidney dysfunction Data collected from: patient, Medical records reviewed: Discharge summary from May of 2023 reviewed Differential considered: Lumbar compression fracture, appendicitis, urinary tract infection, retroperitoneal bleeding Exam documented above, pertinent findings include: Appears chronically ill, in moderate amount of pain but quite cooperative. Tender in the lower lumbar area and in the lower pelvis right lower quadrant the worst. Lab Test results independently reviewed as above. Pertinent findings: CBC shows no leukocytosis, improved stable anemia Chemistries notable for chronic kidney disease with creatinine at 1.7 GFR of 31, normal potassium, liver studies are unremarkable Lipase is normal Urine shows no urinary tract infection Imaging studies independently reviewed: CT scan of the pelvis shows no new compression fractures, no diverticulitis, no colitis, appendix is not visualized no other life-threatening abnormalities that might explain her pain Treatments: 1 L of fluid, 0.5 mg of hydromorphone Discussion: 74-year-old woman with multiple medical problems, back surgery 2 years ago that has been doing relatively well. Fell off the couch approximately 36 hours ago was having increased pain was concerned with her initial lower abdominal exam. There was no sign of urinary tract infection, blood work is stable, CT scan does not show new compression fracture, diverticulitis, free air, no suspicion of appendicitis the no evidence for bladder infection. Findings reviewed with the patient. The half a mg of Dilaudid has been helpful and pain control. She has Tylenol available at home for pain control, has been recognized as a slow metabolizer for narcotics so is not interested in any narcotic use at home and avoids nonsteroidals because of her anticoagulation. Patient and her are both satisfied with workup and explanation and feel safe with discharge home. Discharge Plan Departure Patient Disposition: Home Clinical Impression: Back pain Qualifiers: Back pain location: low back pain Chronicity: acute Back pain laterality: m idline Sciatica presence: without sciatica Qualified Code(s): M54.50 - Low back pain, unspecified Fall Qualifiers: Encounter type: initial encounter Qualified Code(s): W19.XXXA - Unspecified fall, initial encounter Instructions: DI for Low Back Pain Activity Restrictions/Additional Instructions: Thank you for coming in today I suspect that you are sore from the fall on Thursday night from the couch. Fortunately I am not seeing any signs of broken bones, no new compression fractures, no obvious disruption to your recent surgical hardware in the lumbar spine, no evidence of bladder infection, diverticulitis, appendicitis or other intra-abdominal findings that would require hospitalization or further workup. Being up and mobile will help the pain improve more quickly. You can use Tylenol as needed. You may find that ice and heat or alternating the 2 are helpful with the back pain. If you find that you are getting worse or develop any new symptoms, please feel free to return to the emergency department for further evaluation. Prescriptions: No Action albuterol sulfate 2.5 mg /3 mL (0.083 %) solution for nebulization 2.5 mg inhalation Q4-6H PRN (Reason: shortness of breath or wheezing) Qty: 75 0RF naloxone 4 mg/actuation spray,non-aerosol 4 mg intranasal Q3M PRN (Reason: opioid overdose) Qty: 2 0RF Rx Instructions: spray 1 dose into ONE nostril; alternate nostrils w each dose until help arrives B Complex-Vitamin B12 See Rx Instructions .ROUTE .COMPLEX Rx Instructions: unknown clotrimazole 10 mg annalee See Rx Instructions .ROUTE .COMPLEX Rx Instructions: take 1 annalee by mouth/dissolve in mouth 5 times daily for 14 days atorvastatin 80 mg tablet 80 mg PO DAILY lidocaine 5 % adhesive patch,medicated 3 patch topical 1XD Rx Instructions: Apply 3 patches to lower back and right arm daily for 12 hours, Remove after 12 hours albuterol sulfate 90 mcg/actuation HFA aerosol inhaler 2 puff INHALATION Q4H PRN (Reason: sob, wheeze, ) buspirone 15 mg tablet 15 mg PO BID torsemide 20 mg tablet 10 mg PO DAILY Rx Instructions: 1/2 tab by mouth 1x day tolterodine 1 mg Tablet 1 mg PO BID ondansetron HCl 4 mg tablet 4 mg PO Q8H PRN (Reason: nausea/vomiting) famotidine 40 mg tablet 40 mg PO DAILY spironolactone 25 mg tablet 12.5 mg PO DAILY Rx Instructions: 1/2 tablet by mouth once daily ropinirole 2 mg tablet 6 mg PO DAILY Rx Instructions: 6MG TOTAL DAILY TAKE 1 TAB (2 MG) BY MOUTH ALONG WITH 4 MG TAB (6MG TOTAL DAILY) 1 TO 3 HOURS BEFORE BEDTIME fluticasone propion-salmeterol 500-50 mcg/dose blister with device 1 ea INHALATION BID Jardiance 10 mg tablet 10 mg PO DAILY diltiazem HCl 60 mg PO BID prednisone 10 mg tablet 20 mg PO DAILY Rx Instructions: 2T PO QD for 5 days then 1T PO QD for 5 days then 1/2T PO QD for 5 days trazodone 50 mg tablet 50 mg PO BEDTIME Qty: 30 0RF Patient Comments: TAKE 1 TABLET BY MOUTH ONCE DAILY AT BEDTIME gabapentin 100 mg capsule 300 mg PO BEDTIME Qty: 30 0RF levothyroxine 50 mcg Capsule 50 mcg PO DAILY Qty: 30 0RF Xarelto 20 mg tablet 20 mg PO DAILY Qty: 30 0RF Patient Comments: TAKE 1 TABLET BY MOUTH ONCE DAILY nitroglycerin 0.4 mg tablet, sublingual 0.4 mg sublingual PRN PRN (Reason: Chest Pain) Rx Instructions: 1 sublingual q 5 mins x 3 doses if no relief call 911 fluticasone propionate [Flovent HFA] 110 mcg/actuation HFA aerosol inhaler 2 puff INHALATION BID duloxetine [Cymbalta] 20 mg Capsule,Delayed Release(Dr/Ec) 60 mg PO DAILY Qty: 30 3RF Referrals: Khoi Dyer DO [Primary Care Provider] - Stand Alone Forms: Patient Portal/API/Survey
--- NOTE | 2025-01-30 05:33 | DI.CT.S_ITS ---
PROCEDURE: CT ABDOMEN PELVIS WO CON INDICATIONS: low abd pain, concern for lower lumbar compression fx too TECHNIQUE: Axial sections were acquired from the lung bases to the pubic symphysis. Coronal and sagittal reformats were performed. For radiation dose reduction, the following was used: automated exposure control, adjustment of mA and/or kV according to patient size. COMPARISON: [facility], CT, ABDOMEN/PELVIS WITHOUT CONTRAS, 09/03/2016, 13:30. FINDINGS: Image quality: Diagnostic. Lower Chest: No significant findings. URINARY: Right Kidney: No stones or hydronephrosis. Right Ureter: No hydroureter. Left Kidney: No stones or hydronephrosis. Left Ureter: No hydroureter. Bladder: Normal wall thickness. No stones. ABDOMEN: Liver: No contour-deforming solid mass. Gallbladder: Gallbladder is surgically absent. Biliary ducts: No biliary dilation. Pancreas: No ductal dilation. Spleen: Size is within normal limits. Adrenal Glands: No adrenal nodules. Stomach and Bowel: There is no bowel obstruction. No abnormal bowel wall thickening or mesenteric fat stranding. Sigmoid diverticulosis without CT evidence of acute diverticulitis. Appendix is not definitively seen. No focal inflammatory changes are noted in right lower quadrant. Peritoneum: No abnormal intraperitoneal fluid. No free air. Ventral Wall: No hernia. Abdominal Nodes: No enlarged retroperitoneal or mesenteric lymph nodes. Vessels: Aorta and inferior vena cava are normal in size. [id number] atherosclerotic calcifications are noted in abdominal aorta and bilateral iliac arteries. PELVIS: Pelvic Organs: Unremarkable. Pelvic Nodes: Unremarkable. Miscellaneous: No inguinal hernias are seen. Bones: No aggressive appearing bony lesions. Postfusion changes are noted in lumbar spine at L3 through L5 levels. Chronic appearing mild superior endplate compression deformity at L2 level is seen. IMPRESSION: 1. No obstructing renal stones or hydronephrosis. Normal appearing urinary bladder. 2. No bowel obstruction or abnormal bowel wall thickening. No mesenteric fat stranding. No free fluid or free air. Sigmoid diverticulosis without CT evidence of acute diverticulitis. No secondary CT signs of acute appendicitis. 3. Other chronic findings as above. No significant discrepancies. Dictated by: Supa Villalpando M.D. on 01/30/2025 at 8:15 Approved by: Supa Villalpando M.D. on 01/30/2025 at 8:42
[2025-01-30 06:07] LABS: Add Manual Diff / Slide Review NO; Basophils Absolute Auto 0 /uL (0-100); Basophils Percent Auto 0.3 % (0-2); Eosinophils Absolute Auto 300 /uL (0-450); Eosinophils Percent Auto 3.8 % (2-4); Hematocrit 34.4 % (36-46); Hemoglobin 11.4 g/dL (12.0-16.0); Lymphocytes Absolute Auto 1100 /uL (1100-4500); Lymphocytes Percent Auto 15.4 % (25-40); Mean Corpuscular HGB Conc 33.2 % (30-36); Mean Corpuscular Volume 93.4 fL (80-100); Monocytes Absolute Auto 400 /uL (0-900); Monocytes Percent Auto 6.2 % (3-14); Neutrophils Absolute Auto 5100 /uL (1500-7000); Neutrophils Percent Auto 74.3 % (50-75); Platelet Count 250 X10^3/uL (150-400); Red Blood Cell Count 3.68 X10^6/uL (4.0-5.2); Red Cell Distribution Width 15.9 % (11.6-14.8); White Blood Cell Count 6.9 X10^3/uL (4.5-11.0)
[2025-01-30] MEDS: SODIUM CHLORIDE 0.9% 1,000 ML 1000 ML IV (06:13)
[2025-01-30] MEDS: HYDROMORPHONE 0.5 MG INJ IV (06:14)
[2025-01-30 06:17] LABS: Alanine Aminotransferase 21 IU/L (<35); Albumin 4.2 g/dL (3.5-5.0); Albumin Globulin Ratio 1.4 (1.0-2.8); Alkaline Phosphatase 101 U/L (38-126); Aspartate Aminotransferase 28 IU/L (14-36); BUN Creatinine Ratio 10.5 (6-22); Bilirubin Total 1.3 mg/dL (0.2-1.3); Blood Urea Nitrogen 18 mg/dL (7-17); Calcium 9.2 mg/dL (8.4-10.2); Carbon Dioxide 30 mmol/L (22-32); Chloride 100 mmol/L (98-107); Estimated Glomerular Filt Rate 31 mL/min (>60); Globulin 3.1 g/dL (1.7-4.1); Glucose 126 mg/dL (80-110); HEMOLYSIS < 15 (0-50); Lactate (Lactic Acid) 1.3 mmol/L (0.7-2.1); Lipase 39 U/L (23-300); Potassium 3.9 mmol/L (3.4-5.1); Sodium 139 mmol/L (137-145); Total Protein 7.3 g/dL (6.3-8.2)
[2025-01-30 06:28] LABS: Appearance Urine UA CLEAR; Bilirubin Urine UA NEGATIVE (NEGATIVE); Color Urine UA YELLOW; Glucose Urine UA 3+ g/dL (Negative); Ketones Urine UA NEGATIVE (NEGATIVE); Leukocyte Esterase Urine UA NEGATIVE (NEGATIVE); Nitrite Urine UA NEGATIVE (Negative); Occult Blood Urine UA NEGATIVE (Negative); Protein Urine UA NEGATIVE (Negative); Urobilinogen Urine UA 0.2 E.U./dL (0.2)
[2025-01-30 06:34] LABS: Bacteria Urine None Seen; RBC Urine None Seen (0-5/HPF); Squamous Epithelial Cell Urine 0-1 /HPF (0-5/HPF); Urine Volume 10mL (spun); WBC Urine None Seen (0-5/HPF)
[2025-01-30 06:35] LABS: Culture Indicated Urine Cult Not Indicated
[2025-01-30 07:00] VITALS: BP 135/61
[2025-01-30 07:01] VITALS: PULSE 76; RESP 20; O2SAT 97
[2025-01-30 07:20] VITALS: RESP 18; O2SAT 97
[2025-01-30 07:35] VITALS: O2SAT 97
== END 2025-01-30 07:36 | disposition home or self-care (01) ==
PROVIDERS: Emergency Provider Emergency Medicine; PCP Family Medicine
DX: M54.50 Low back pain, unspecified (principal); R10.31 Right lower quadrant pain; W08.XXXA Fall from other furniture, initial encounter; Z98.1 Arthrodesis status
CPT/HCPCS: 36415; 74176; 80053; 81001; 83605; 83690; 85025; 96361; 96374; 99284; J1171

== ENCOUNTER 2025-10-06 02:38 | Emergency (ER) | payer OTHER, SELFPAY ==
[2023-05-27 09:09] VITALS: BMI 31.2
[2025-10-06 02:43] VITALS: BP 103/51; PULSE 70; RESP 18; TEMP 36.9; O2SAT 93; BMI 34.7
--- NOTE | 2025-10-06 02:58 | DI.RAD.S_ITS ---
PROCEDURE: XR PELVIS 1-2V INDICATIONS: R hip pain TECHNIQUE: 3 view(s) of the pelvis acquired. COMPARISON: None. FINDINGS: Bones: No fractures or dislocations. Mild bilateral hip joint osteoarthritic changes are seen. No evidence of avascular necrosis of femoral heads. Postsurgical changes are noted in visualized lower lumbar spine. No suspicious bony lesions. Soft tissues: Visualized bowel gas pattern is normal. No suspicious soft tissue calcifications. IMPRESSION: Mild symmetric appearing bilateral hip joint osteoarthritis. No acute pelvic or hip fracture. No evidence of avascular necrosis. No significant discrepancies from preliminary reading. Dictated by: Supa Villalpando M.D. on 10/06/2025 at 8:17 Approved by: Supa Villalpando M.D. on 10/06/2025 at 8:17
[2025-10-06 02:59] VITALS: PULSE 76; O2SAT 93
--- NOTE | 2025-10-06 02:59 | ED.GENADULT ---
HPI - General Adult General Chief complaint: Extremity Problem,Nontraumatic Stated complaint: RT Hip pain, calf pain x1week Time Seen by Provider: 10/06/25 02:43 Source: patient and family Mode of arrival: Wheelchair History of Present Illness HPI narrative: 75y F hx of afib on xarelto, htn, cad, chronic reflux back surgery for lumbar stenosis 2 years ago presents with R hip pain x 1 week. Pt reports worse pain with ambulation but denies any recent falls, heavy lifting, numbness/tingling down the leg or back, abd pain, bowel or bladder incontinence. Other than what is stated 14 pt ROS is negative. Related Data Home Medications ?Medication ?Instructions ?Recorded ?Confirmed fluticasone propionate 110 2 puff inhalation BID 05/12/23 10/06/25 mcg/actuation HFA aerosol inhaler (Flovent HFA) nitroglycerin 0.4 mg sublingual 0.4 mg sublingual PRN PRN Chest 05/12/23 10/06/25 tablet Pain B Complex-Vitamin B12 See Rx Instructions .Route .COMPLEX 01/30/25 10/06/25 albuterol sulfate 90 mcg/actuation 2 puff inhalation Q4H PRN sob, 01/30/25 10/06/25 aerosol inhaler wheeze, atorvastatin 80 mg tablet 80 mg PO DAILY 01/30/25 10/06/25 buspirone 15 mg tablet 15 mg PO BID 01/30/25 10/06/25 clotrimazole 10 mg annalee See Rx Instructions .Route .COMPLEX 01/30/25 10/06/25 diltiazem HCl 60 mg PO BID 01/30/25 10/06/25 empagliflozin 10 mg tablet 10 mg PO DAILY 01/30/25 10/06/25 (Jardiance) famotidine 40 mg tablet 40 mg PO DAILY 01/30/25 10/06/25 fluticasone 500 mcg-salmeterol 50 1 ea inhalation BID 01/30/25 10/06/25 mcg/dose blistr powdr for inhalation lidocaine 5 % topical patch 3 patch topical 1XD 01/30/25 10/06/25 ondansetron HCl 4 mg tablet 4 mg PO Q8H PRN nausea/vomiting 01/30/25 10/06/25 ropinirole 2 mg tablet 6 mg PO DAILY 01/30/25 10/06/25 spironolactone 25 mg tablet 12.5 mg PO DAILY 01/30/25 10/06/25 tolterodine 1 mg tablet 1 mg PO BID 01/30/25 10/06/25 torsemide 20 mg tablet 10 mg PO DAILY 01/30/25 10/06/25 Previous Rx's ?Medication ?Instructions ?Recorded gabapentin 100 mg capsule 300 mg (3 x 100 mg) PO BEDTIME #30 06/10/22 caps levothyroxine 50 mcg capsule 50 mcg PO DAILY #30 caps 06/10/22 rivaroxaban 20 mg tablet (Xarelto) 20 mg PO DAILY #30 tabs 06/10/22 trazodone 50 mg tablet 50 mg PO BEDTIME #30 tabs 06/10/22 albuterol sulfate 2.5 mg/3 mL 2.5 mg (3 mL) inhalation Q4-6H PRN 09/17/22 (0.083 %) solution for nebulization shortness of breath or wheezing #75 mL duloxetine 20 mg capsule,delayed 60 mg (3 x 20 mg) PO DAILY #30 caps 05/15/23 release (Cymbalta) naloxone 4 mg/actuation nasal spray 4 mg intranasal Q3M PRN opioid 05/28/23 overdose #2 ea hydrocodone 5 mg-acetaminophen 325 1 tab PO Q4-6H PRN pain #20 tabs 10/06/25 mg tablet Allergies Allergy/AdvReac Type Severity Reaction Status Date / Time Iodine and Iodide Containing Allergy Severe pass out Verified 10/06/25 02:41 Produc (IODINE AND IODIDE CONTAINING PRODUC) amlodipine Allergy Intermediate Swelling Verified 10/06/25 02:41 of Lip/Tongue/Throat codeine (CODEINE) Allergy Intermediate HIVES, Verified 10/06/25 02:41 NAUSEA nitrofurantoin Allergy Mild Rash Verified 10/06/25 02:41 (NITROFURANTOIN) oxycodone AdvReac Hallucinati Verified 10/06/25 02:41 ng Review of Systems Review of Systems ROS Unobtainable: All systems reviewed & are unremarkable except as noted in HPI and below Patient History Medical History History of left heart catheterization (12/13/19) Palpitations Anesthesia complication Anxiety Easy bruisability Skin cancer Hypothyroidism Pre-diabetes GERD (gastroesophageal reflux disease) Heart murmur HLD (hyperlipidemia) Asthma Afib Gait instability Chronic episodic atrial fibrillation Spondylolisthesis at L3-L4 level Lumbar stenosis Surgical History H/O spinal fusion Hx of tubal ligation History of hysterectomy Hx of appendectomy Hx of cholecystectomy Hx of bilateral cataract extraction (2020) Family History Father Congestive heart failure Mother COPD (chronic obstructive pulmonary disease) Social History household members: spouse Smoking Status: Never smoker alcohol intake: never Smoking Status: Never smoker alcohol intake frequency: 0-2 drinks per day Exam Narrative Exam Narrative: GENERAL: [89] year old patient appears stated age. Well-developed patient, in mild distress. HEAD: Atraumatic. Normocephalic. EYES: Pupils equal round and reactive. Extraocular motions intact. No scleral icterus. No injection or drainage. EXTREMITIES: R hip TTP but no obvious deformity, motor/sensory intact +2 DP +2PT cap refill<2secs BACK: Nontender without deformity or crepitance. No flank tenderness. NEURO: AOx3. SKIN: No rash or erythema of visible areas Initial Vital Signs Initial Vital Signs: Vital Signs Temperature 98.4 F 10/06/25 02:43 Pulse Rate 70 10/06/25 02:43 Respiratory Rate 18 10/06/25 02:43 Blood Pressure 103/51 L 10/06/25 02:43 Pulse Oximetry 93 10/06/25 02:43 Oxygen Delivery Method Room Air 10/06/25 02:43 Course Orders Ordered: ED Orders 10/06/25 02:58 XR pelvis 1-2V Stat Discontinued Medications Hydrocodone Bitart/Acetaminophen (Hydrocodone/Acet 5/325 Tablet) 1 tab PO NOW ONE Stop: 10/06/25 02:59 Last Admin: 10/06/25 03:02 Dose: 1 tab Documented By: KULWINDER Vital Signs Vital signs: Vital Signs - 8 hr 10/06/25 02:43 Temperature 98.4 F Pulse Rate 70 Respiratory Rate 18 Blood Pressure 103/51 L Pulse Oximetry 93 Oxygen Delivery Method Room Air Medical Decision Making MDM Narrative Medical decision making narrative: All lab work vital signs nurse triage note medication list previous ER visits and all imaging studies reviewed. Patient given [place] here. Pelvic x-ray unremarkable pelvis and bilateral hips. Differential diagnosis arthritis fracture dislocation. DC home on [place] rx Discharge Plan Departure Patient Disposition: Home Clinical Impression: Acute hip pain Instructions: DI for Hip Pain Activity Restrictions/Additional Instructions: Return with new or worsening symptoms. Follow up PCP 1-2 weeks for re-evaluation. Take medicine as directed. Prescriptions: New hydrocodone-acetaminophen 5-325 mg tablet 1 tab PO Q4-6H PRN (Reason: pain) Qty: 20 0RF No Action albuterol sulfate 2.5 mg /3 mL (0.083 %) solution for nebulization 2.5 mg inhalation Q4-6H PRN (Reason: shortness of breath or wheezing) Qty: 75 0RF naloxone 4 mg/actuation spray,non-aerosol 4 mg intranasal Q3M PRN (Reason: opioid overdose) Qty: 2 0RF Rx Instructions: spray 1 dose into ONE nostril; alternate nostrils w each dose until help arrives B Complex-Vitamin B12 See Rx Instructions .ROUTE .COMPLEX Rx Instructions: unknown clotrimazole 10 mg annalee See Rx Instructions .ROUTE .COMPLEX Rx Instructions: take 1 annalee by mouth/dissolve in mouth 5 times daily for 14 days atorvastatin 80 mg tablet 80 mg PO DAILY lidocaine 5 % adhesive patch,medicated 3 patch topical 1XD Rx Instructions: Apply 3 patches to lower back and right arm daily for 12 hours, Remove after 12 hours albuterol sulfate 90 mcg/actuation HFA aerosol inhaler 2 puff INHALATION Q4H PRN (Reason: sob, wheeze, ) buspirone 15 mg tablet 15 mg PO BID torsemide 20 mg tablet 10 mg PO DAILY Rx Instructions: 1/2 tab by mouth 1x day tolterodine 1 mg Tablet 1 mg PO BID ondansetron HCl 4 mg tablet 4 mg PO Q8H PRN (Reason: nausea/vomiting) famotidine 40 mg tablet 40 mg PO DAILY spironolactone 25 mg tablet 12.5 mg PO DAILY Rx Instructions: 1/2 tablet by mouth once daily ropinirole 2 mg tablet 6 mg PO DAILY Rx Instructions: 6MG TOTAL DAILY TAKE 1 TAB (2 MG) BY MOUTH ALONG WITH 4 MG TAB (6MG TOTAL DAILY) 1 TO 3 HOURS BEFORE BEDTIME fluticasone propion-salmeterol 500-50 mcg/dose blister with device 1 ea INHALATION BID Jardiance 10 mg tablet 10 mg PO DAILY diltiazem HCl 60 mg PO BID trazodone 50 mg tablet 50 mg PO BEDTIME Qty: 30 0RF Patient Comments: TAKE 1 TABLET BY MOUTH ONCE DAILY AT BEDTIME gabapentin 100 mg capsule 300 mg PO BEDTIME Qty: 30 0RF levothyroxine 50 mcg Capsule 50 mcg PO DAILY Qty: 30 0RF Xarelto 20 mg tablet 20 mg PO DAILY Qty: 30 0RF Patient Comments: TAKE 1 TABLET BY MOUTH ONCE DAILY nitroglycerin 0.4 mg tablet, sublingual 0.4 mg sublingual PRN PRN (Reason: Chest Pain) Rx Instructions: 1 sublingual q 5 mins x 3 doses if no relief call 911 fluticasone propionate [Flovent HFA] 110 mcg/actuation HFA aerosol inhaler 2 puff INHALATION BID duloxetine [Cymbalta] 20 mg Capsule,Delayed Release(Dr/Ec) 60 mg PO DAILY Qty: 30 3RF Referrals: Khoi Dyer DO [Primary Care Provider, Family Practice] Stand Alone Forms: Patient Portal/API
[2025-10-06 03:00] VITALS: BP 130/76; PULSE 72; RESP 22; O2SAT 96
--- NOTE | 2025-10-06 03:05 | PC.NURSE ---
Imaging at bedside
== END 2025-10-06 04:37 | disposition home or self-care (01) ==
PROVIDERS: Emergency Provider Family Medicine; PCP Family Medicine
DX: M25.551 Pain in right hip (principal); M79.661 Pain in right lower leg
CPT/HCPCS: 72170; 99283